=== PATIENT | male | born 1955 | race Caucasian/White ===

== ENCOUNTER 2016-11-16 11:01 | Emergency (ER) | payer OTHER ==
[~2016-11-16] VITALS: Ht 172.7 cm; Wt 114.3 kg
[~2016-11-16 11:01] MED LIST: ACET65TA OR; ALBU17IN2 IN; ALLO300T OR; ALTA10CA OR; ALTA5CAP OR; ASPI81TA3 OR; ATEN50TA2 OR; CARD120T6 OR; COZA100T OR; EPLERENONE PO; Effexor XR OR; FERR325T OR; FOLI1TAB OR; FURO40TA2 OR; GLUC500T3 OR; INDO75CA OR; PLAV75TA2 OR; PRIL20CA OR; PULMICORT INH; TERA2CAP3 OR; TERA5CAP3 OR; VIT D 2000 PO; VITA100T OR; VITA400C OR; VITA500T OR; ZINCLOZ9 PO; [UNRECOGNIZED DRUG - OTHER] TD
[2016-11-16] MEDS ORDERED: REME30TA PO (11:31)
[2016-11-16] MEDS ORDERED: SIRO1TAB3 PO (11:31)
[2016-11-16] MEDS ORDERED: RENV2TAB PO (11:31)
[2016-11-16] MEDS ORDERED: BISO5TAB5 PO (11:31)
[2016-11-16] MEDS ORDERED: JANT5TAB PO (11:31)
[2016-11-16] MEDS ORDERED: FLOM5CAP PO (11:31)
[2016-11-16 13:07] LABS: ADD MORPHOLOGY? YES; BASO % 0.5 % (0.0-1.0); EOS # 0.1 K/mm3 (0.0-0.50); EOS % 1.7 % (0.0-3.0); LARGE UNSTAINED CELL # 0.2 K/mm3 (0.0-0.4); LARGE UNSTAINED CELL % 2.4 % (0.0-4.0); LYMPH # 1.9 K/mm3 (1.5-4.5); LYMPH % 21.3 % (24.0-44.0); MEAN CORPUSCULAR HEMOGLOBIN 22.7 pg (27.0-33.0); MEAN CORPUSCULAR HGB CONC 30.7 g/dl (32.0-36.5); MEAN CORPUSCULAR VOLUME 73.8 fl (80.0-96.0); MONO # 0.6 K/mm3 (0.0-0.8); MONO % 7.4 % (0.0-5.0); NEUTROPHILS # 5.3 K/mm3 (1.8-7.7); NEUTROPHILS % 66.7 % (36.0-66.0); PLATELET COUNT, AUTOMATED 204 k/mm3 (150-450); RED CELL DISTRIBUTION WIDTH 20.1 % (11.5-14.5); WHITE BLOOD COUNT 7.9 K/mm3 (4.0-10.0)
[2016-11-16 13:15] LABS: INR 3.12
[2016-11-16 13:30] LABS: ANISOCYTOSIS 2+; HYPOCHROMASIA 1+; MICROCYTOSIS 2+
[2016-11-16 13:31] LABS: OVALOCYTES 1+
[2016-11-16 13:44] LABS: CALCIUM LEVEL 8.6 MG/DL (8.8-10.2); CREATININE FOR GFR 8.6 MG/DL (0.70-1.30); GLOMERULAR FILTRATION RATE 6.7 (>49)
[2016-11-16 15:17] VITALS: BP 151/82
--- NOTE | 2016-11-16 15:25 | REP ---
RENAL ULTRASOUND: Real-time sonographic evaluation of the kidneys is performed. There is bilateral cortical thinning with atrophy. The right kidney measures 12.1 x 6.2 x 6.4 cm and the left kidney 11.8 x 5.5 x 4.6 cm. Both kidneys are somewhat echogenic suggesting medical renal disease. There is no hydronephrosis. There are multiple bilateral renal cysts. The largest on the right is in the mid aspect 2.6 x 1.8 x 1.6 cm. The largest on the left is in the mid aspect 2.1 x 3.4 x 2.1 cm. Calcified vessels are seen in both kidneys. The urinary bladder is not distended and not evaluated. IMPRESSION: Diffuse cortical atrophy bilaterally with medical renal disease. No hydronephrosis. Multiple bilateral renal cysts. Signed by Yon Morin MD 11/16/2016 05:40 P
== END 2016-11-16 15:43 | disposition home or self-care (01) ==
LOC: M ED 12:31
DX: R31.9 Hematuria, unspecified (principal); E11.9 Type 2 diabetes mellitus without complications; I12.0 Hypertensive chronic kidney disease with stage 5 chronic kidney disease or end stage renal disease; N18.6 End stage renal disease; Z99.2 Dependence on renal dialysis; E78.00 Pure hypercholesterolemia, unspecified; J45.909 Unspecified asthma, uncomplicated; F41.9 Anxiety disorder, unspecified; D56.9 Thalassemia, unspecified; M32.9 Systemic lupus erythematosus, unspecified; Z79.01 Long term (current) use of anticoagulants; Z87.891 Personal history of nicotine dependence; Z79.899 Other long term (current) drug therapy

== ENCOUNTER → 2017-07-09 | Outpatient (CLI) | payer OTHER ==
[~2017-07-09] MED LIST changes: +BISO5TAB5 PO; +FLOM5CAP PO; +ISOVUE-370 76% 100ML VIAL (Q9967) As Ordered ONE; +JANT5TAB PO; +REME30TA PO; +RENV2TAB PO; +SIRO1TAB3 PO
--- NOTE | 2017-07-09 12:07 | REP ---
Clinical: Gross hematuria. End-stage renal disease. Technique: Axial precontrast, conscious enhanced, and delayed images of the abdomen and pelvis using 100 ml Isovue 370 intravenous contrast material with coronal and sagittal re-formations. Comparison: None. Findings: The kidneys are atrophic but demonstrate symmetric parenchymal enhancement. Bilateral renal cysts are identified measuring up to 1.5 cm in the right kidney and 3.5 x 2.0 cm in the left kidney. An 8 mm calcification is identified in the left kidney. There is no evidence for acute perinephric stranding or hydroureteronephrosis. The ureters are unremarkable. The bladder is collapsed. Mild fatty infiltration to the liver is suggested without focal hepatic lesion. Spleen, pancreas, gallbladder, bilateral adrenal glands are normal. The enteric system is without obstruction or acute inflammatory process. Sigmoid diverticula noted without acute diverticulitis. Pelvis demonstrates collapsed bladder and prostate gland measuring 5.3 x 4.7 x 4.0 cm. No pelvic fluid or ascites. No free air. No significant intraperitoneal or retroperitoneal adenopathy. Abdominal aorta without aneurysm. Musculoskeletal structures demonstrate age-related degenerative changes without focal osseous abnormality. Lung bases demonstrate presumed chronic fibro atelectatic changes to the right base along with centrally calcified granuloma in the medial lingula. Impression: 1. Chronic medical renal disease with bilateral cysts and 8 mm nonobstructing left renal calculus. No acute perinephric stranding or hydroureteronephrosis. Bladder is collapsed. 2. Mildly prominent prostate gland. 3. Sigmoid diverticula without acute diverticulitis. 4. Reticulonodular interstitial changes in the deep right lung base likely chronic. However correlation is recommended and complete chest CT may be warranted for further investigation. Signed by Florentino Rubalcava MD 07/09/2017 11:58 A
== END ==
LOC: M RAD 11:17
PROVIDERS: ATTEND Internal Medicine Nephrology
DX: N28.1 Cyst of kidney, acquired (principal); N20.0 Calculus of kidney; K57.30 Diverticulosis of large intestine without perforation or abscess without bleeding; R31.0 Gross hematuria; N18.6 End stage renal disease
CPT/HCPCS: 74178; Q9967

== ENCOUNTER → 2018-01-08 | Outpatient (CLI) | payer MEDICARE | LOC: M RAD 11:55 | DX: R31.9 Hematuria, unspecified (principal); I50.32 Chronic diastolic (congestive) heart failure; N28.1 Cyst of kidney, acquired | CPT/HCPCS: 71046 ==

== ENCOUNTER → 2018-02-03 | Outpatient (CLI) | payer MEDICARE, OTHER | LOC: M SMT 09:50 | DX: Z01.818 Encounter for other preprocedural examination (principal) | CPT/HCPCS: 36415 ==

== ENCOUNTER 2018-03-24 09:46 | Day surgery (SDC) | payer MEDICARE, OTHER ==
[2018-03-24] MEDS: NS 1,000 ML IV (11:02)
[2018-03-24] MEDS ORDERED: PROPOFOL 200 MG/20 ML VIAL As Ordered (12:20)
== END 2018-03-24 13:15 | disposition home or self-care (01) ==
LOC: M OPP 09:46
DX: Z12.11 Encounter for screening for malignant neoplasm of colon (principal); K62.1 Rectal polyp; D12.3 Benign neoplasm of transverse colon; K64.0 First degree hemorrhoids; K57.30 Diverticulosis of large intestine without perforation or abscess without bleeding; I48.91 Unspecified atrial fibrillation; M10.9 Gout, unspecified; K21.9 Gastro-esophageal reflux disease without esophagitis; R12 Heartburn; D64.9 Anemia, unspecified; M19.90 Unspecified osteoarthritis, unspecified site; K59.00 Constipation, unspecified; M32.9 Systemic lupus erythematosus, unspecified; F32.9 Major depressive disorder, single episode, unspecified; F41.9 Anxiety disorder, unspecified; R51 Headache; Z86.73 Personal history of transient ischemic attack (TIA), and cerebral infarction without residual deficits; J45.909 Unspecified asthma, uncomplicated; G47.30 Sleep apnea, unspecified; N18.5 Chronic kidney disease, stage 5; Z99.2 Dependence on renal dialysis; Z86.79 Personal history of other diseases of the circulatory system; Z79.899 Other long term (current) drug therapy; Z80.8 Family history of malignant neoplasm of other organs or systems; Z80.3 Family history of malignant neoplasm of breast
CPT/HCPCS: 45385

== ENCOUNTER → 2018-08-07 | Outpatient (CLI) | payer MEDICARE ==
[~2018-08-07] MED LIST changes: +ARNU1INH IN; +CALC1CAP PO; +FLOM0.4C39 PO; -FLOM5CAP PO; +GLUC1CAP10 PO; +HYDR200T3 PO; -ISOVUE-370 76% 100ML VIAL (Q9967) As Ordered ONE; +POLY33503 PO; +RENATAB5 PO; +VENTAER IN; +VITA500079 PO
[2018-08-07 17:55] LABS: CHOLESTEROL RISK RATIO 3.333 (<5); FREE T4 1.17 NG/DL (0.76-1.46); THYROID STIMULATING HORMONE 0.875 uIU/ML (0.358-3.740)
[2018-08-07 18:05] LABS: HEMOGLOBIN A1c 5.6 %
== END ==
LOC: M SMT 11:40
PROVIDERS: ATTEND Psychiatry & Neurology Neurology
DX: E11.9 Type 2 diabetes mellitus without complications (principal); E07.9 Disorder of thyroid, unspecified; Z86.73 Personal history of transient ischemic attack (TIA), and cerebral infarction without residual deficits

== ENCOUNTER → 2018-08-15 | Outpatient (CLI) | payer OTHER ==
--- NOTE | 2018-08-15 17:41 | REP ---
HISTORY: Renal transplant. COMPARISON: 11/15/2010 which is the only prior. There is no evidence of mediastinal or hilar adenopathy. Calcified carinal lymph nodes are noted, status quo. There are no pleural or pericardial effusions. The aortic root has a maximal AP dimension of 4.3 cm, previously 4 cm. The examinations, however, are technically different. The imaged upper abdomen shows diffuse low density throughout the hepatic parenchyma. The imaged portion of the right kidney is markedly atrophic. The imaged osseous structures are within normal limits for the patient's age. There are spinal degenerative changes. Evaluation of the lung reyna show scattered right lower lobe reticulonodular densities representing a change from the prior exam. There is also evidence of bibasilar cylindrical bronchiectasis. Incidental calcified granulomas seen in the inferior lingula with a few smaller incidental calcified granulomas, all of which are stable from the prior exam. IMPRESSION: 1. Aortic root, possible mild ectasia as described above. Correlate clinically. 2. Reticulonodular densities right lower lobe as described above. Exact etiology uncertain. Consider pulmonary consultation. 3. Chronic lung field changes with bronchiectasis as described above. 4. Other findings as described above. Electronically Signed by Julian Kang DO 08/18/2018 05:28 P
== END ==
LOC: M RAD 14:48
PROVIDERS: ATTEND Internal Medicine Nephrology
DX: Z01.818 Encounter for other preprocedural examination (principal)

== ENCOUNTER → 2018-09-17 | Outpatient (CLI) | payer MEDICARE ==
--- NOTE | 2018-09-17 10:25 | REP ---
CT Head without contrast HISTORY: TIAs COMPARISON: 03/31/2007 There is no intraparenchymal hemorrhage, acute infarct, mass or midline shift. The ventricular system and cortical sulci are dilated consistent with minimal volume loss. There is no extra cerebral collection. There is no fracture. The visualized sinuses are clear. IMPRESSION: Minimal volume loss. Electronically Signed by Juan Brock MD 09/17/2018 10:16 A
--- NOTE | 2018-09-17 12:26 | REP ---
CAROTID ULTRASOUND: Real-time ultrasound evaluation and duplex Doppler interrogation of the extracranial carotid vasculature is performed. There is mild plaquing and narrowing in both carotid bulbs extending into the internal and external carotid arteries. Luminal narrowing is less than 50%. There is no evidence of hemodynamically significant stenosis of either internal carotid artery. Normal flow velocities are seen. The vertebral arteries demonstrate normal direction of flow. RIGHT LEFT Peak systolic velocity ICA 75.6 cm/s 113.3 cm/s End diastolic velocity ICA 20.6 cm/s 24.4 cm/s Peak systolic velocity CCA 90.2 cm/s 118.5 cm/s Peak systolic velocity ECA 97.2 cm/s 71.9 cm/s ICA/CCA ratio 0.84 0.96 IMPRESSION: Bilateral luminal narrowing of the internal carotid arteries less than 50%. No evidence of hemodynamically significant stenosis. A right thyroid nodule measures 1.3 cm in diameter and a left thyroid nodule measures 4 mm in diameter. Recommend formal thyroid ultrasound to further evaluate. Electronically Signed by Yon Morin MD 09/17/2018 12:17 P
== END ==
LOC: M RAD 10:01
PROVIDERS: ATTEND Physician Assistant Medical
DX: G45.8 Other transient cerebral ischemic attacks and related syndromes (principal); R47.01 Aphasia; E04.1 Nontoxic single thyroid nodule

== ENCOUNTER → 2018-09-23 | Outpatient (CLI) | payer MEDICARE ==
--- NOTE | 2018-09-23 16:16 | REP ---
THYROID ULTRASOUND: Real-time sonographic evaluation of the thyroid performed. Both lobes are slightly prominent in size, right lobe measuring 5.1 x 2.4 x 1.8 cm and left lobe 4.8 x 2.2 x 2.0 cm. There is a nodule in the right upper pole measuring 1 cm in diameter. Two smaller nodules are seen in the mid aspect measuring 4 mm and 5 mm in diameter. There are two nodules in the left upper pole both measuring 3 mm in diameter. IMPRESSION: Multiple subcentimeter nodules bilaterally with one nodule measuring up to 1 cm in diameter maximally in the right upper pole. Electronically Signed by Yon Morin MD 09/24/2018 10:36 A
== END ==
LOC: M RAD 14:39
PROVIDERS: ATTEND Physician Assistant Medical
DX: D34 Benign neoplasm of thyroid gland (principal)

== ENCOUNTER → 2018-10-07 | Outpatient (CLI) | payer MEDICARE ==
[2018-10-07 14:57] LABS: FREE T4 1.1 NG/DL (0.76-1.46); THYROID STIMULATING HORMONE 1.43 uIU/ML (0.358-3.740)
== END ==
LOC: M SMT 10:37
PROVIDERS: ATTEND Internal Medicine Endocrinology, Diabetes & Metabolism
DX: E04.2 Nontoxic multinodular goiter (principal)

== ENCOUNTER 2019-01-01 01:06 | Emergency (ER) | payer MEDICARE ==
[~2019-01-01] VITALS: Ht 170.2 cm; Wt 113.6 kg
[2019-01-01 01:15] VITALS: BP 158/74
--- NOTE | 2019-01-01 02:35 | REPVR ---
EXAM: CT Head Without Contrast EXAM DATE/TIME: 01/01/19 (1:16am) CLINICAL HISTORY: 63 year old male. Recent fall. Struck head. Taking blood thinners. TECHNIQUE: Imaging protocol: Axial computed tomography images of the head without contrast. Radiation optimization: All CT scans at this facility use at least one of these dose optimization techniques: automated exposure control; mA and/or kV adjustment per patient size (includes targeted exams where dose is matched to clinical indication); or iterative reconstruction. COMPARISON: CT HEAD of 09/17/18 FINDINGS: Brain: Age-appropriate atrophic changes. No acute hemorrhage. No mass effect. Ventricles: Normal. No ventriculomegaly. Bones/joints: Unremarkable. No acute fracture. Sinuses: Visualized sinuses are unremarkable. No fluid levels. Mastoid air cells: Visualized mastoid air cells are well aerated. No mastoid effusion. Soft tissues: Unremarkable. IMPRESSION: No acute intracranial pathology is appreciated. Atrophic changes are again seen. Electronically signed by: Val Scruggs On 01/01/2019 02:35:12 AM
[2019-01-01] MEDS ORDERED: LIDOCAINE 4% TOPICAL SOLN 50 ML BTL As Ordered ONE ×2 (02:56→05:17)
[2019-01-01] MEDS ORDERED: ADACEL/BOOSTRIX VACCINE (DIPHTH/PERTUSS/ACELL/TETANUS)0.5ML SYR (90715) IM ONE (03:30)
[2019-01-01] MEDS ORDERED: BUPR150T3 PO (03:31)
[2019-01-01] MEDS ORDERED: ASPI81TA33 PO (03:31)
[2019-01-01] MEDS ORDERED: ACETAMINOPHEN TAB 650MG DOSE (2X325MG) PO ONE (04:30)
[2019-01-01] MEDS ORDERED: LIDOCAINE W/EPINEPHRINE 1% 20ML VIAL SC ONE (04:45)
[2019-01-01] MEDS ORDERED: DOXY100C37 PO (06:11)
[2019-01-01] MEDS ORDERED: AUGMENTIN 875 MG TAB PO ONE (06:15)
[2019-01-01] MEDS ORDERED: DOXYCYCLINE HYCLATE 100 MG TAB PO ONE (06:15)
--- NOTE | 2019-01-01 07:56 | REP ---
Clinical: Trauma. Technique: Pete and bilateral lateral views of the nasal bones. Findings: Bilateral nasal bone fracture with minimal angulation. Overlying soft tissue swelling. Impression: Nasal bone fracture. Electronically Signed by Florentino Rubalcava MD 01/01/2019 07:48 A
== END 2019-01-01 06:52 | disposition home or self-care (01) ==
LOC: M ED 01:06
DX: S02.2XXB Fracture of nasal bones, initial encounter for open fracture (principal); W01.10XA Fall on same level from slipping, tripping and stumbling with subsequent striking against unspecified object, initial encounter; Y92.091 Bathroom in other non-institutional residence as the place of occurrence of the external cause; I48.91 Unspecified atrial fibrillation; E11.22 Type 2 diabetes mellitus with diabetic chronic kidney disease; I12.0 Hypertensive chronic kidney disease with stage 5 chronic kidney disease or end stage renal disease; N18.6 End stage renal disease; Z79.899 Other long term (current) drug therapy; Z79.01 Long term (current) use of anticoagulants; Z79.82 Long term (current) use of aspirin; Z99.2 Dependence on renal dialysis

== ENCOUNTER 2019-01-03 12:21 | Inpatient (IN) | payer MEDICARE ==
[~2019-01-03] VITALS: Ht 170.2 cm; Wt 114.6 kg
[~2019-01-03 12:21] MED LIST changes: +ASPI81TA33 PO; +BUPR150T3 PO; +DOXY100C37 PO
[2019-01-03] MEDS ORDERED: NEPH1TAB11 PO (13:02)
[2019-01-03] MEDS ORDERED: MORPHINE 4 MG/ML 1ML VIAL/SYRINGE (J2270) IV ONE ×2 (13:15→23:30)
[2019-01-03] MEDS ORDERED: BACITRACIN OINT 30GM TOP ONE (13:15)
[2019-01-03] MEDS ORDERED: BUPR150T3 PO (13:47)
[2019-01-03] MEDS ORDERED: OMEP20CA3 PO (13:47)
[2019-01-03] MEDS ORDERED: WARF-21 PO (13:47)
[2019-01-03] MEDS ORDERED: PEGPOW PO (13:47)
[2019-01-03] MEDS ORDERED: DOXY100C37 PO (13:47)
[2019-01-03 13:50] LABS: BASO # 0.1 10^3/uL (0.0-0.2); BASO % 0.5 % (0.0-1.0); HEMATOCRIT 32.3 % (42.0-52.0); HEMOGLOBIN 10.4 g/dl (13.5-17.5); LYMPH # 1.2 10^3/uL (1.5-4.5); LYMPH % 12.1 % (24.0-44.0); MEAN CORPUSCULAR HEMOGLOBIN 23.2 pg (27.0-33.0); MEAN CORPUSCULAR HGB CONC 32.2 g/dl (32.0-36.5); MEAN CORPUSCULAR VOLUME 72.1 fl (80.0-96.0); MONO # 1.2 10^3/uL (0.0-0.8); MONO % 11.9 % (0.0-5.0); NEUTROPHILS # 7.6 10^3/uL (1.8-7.7); NEUTROPHILS % 74.9 % (36.0-66.0); PLATELET COUNT, AUTOMATED 220 10^3/uL (150-450); RED BLOOD COUNT 4.48 10^6/uL (4.30-6.10); WHITE BLOOD COUNT 10.2 10^3/uL (4.0-10.0)
--- NOTE | 2019-01-03 13:55 | REP ---
Clinical: Acute chest pain. Technique: AP and lateral. Comparison: 01/08/2018. Findings: Mediastinum and cardiac silhouette are within normal limits and stable. Lung reyna demonstrate chronic stable changes without acute consolidation, effusion, or pneumothorax. Skeletal structures intact. Impression: Chronic stable changes. No acute cardiopulmonary process. Electronically Signed by Florentino Rubalcava MD 01/03/2019 01:47 P
--- NOTE | 2019-01-03 13:57 | REP ---
Clinical: Fall with pain. Technique: AP, lateral, bilateral oblique views of the right knee. Findings: Lateral view demonstrates a [id number] suprapatellar effusion. Advanced tricompartmental osteoarthritic degenerative changes are appreciated including chondrocalcinosis, osteophytosis, periarticular sclerosis, and joint space narrowing. No obvious acute fracture or dislocation identified. Impression: 1. [id number] suprapatellar effusion. 2. Advanced tricompartmental osteoarthritic degenerative changes. 3. No acute fracture or dislocation. Electronically Signed by Florentino Rubalcava MD 01/03/2019 01:49 P
[2019-01-03 14:01] LABS: VENOUS HCO3 23.2 MEQ/L (23.0-27.0); VENOUS PARTIAL PRESSURE CO2 46.3 mmHg (38.0-50.0); VENOUS PARTIAL PRESSURE O2 40.7 mmHg (30.0-50.0); VENOUS PH 7.318 UNITS (7.330-7.430); VENOUS STANDARD HCO3 21.4 MEQ/L; VENOUS TOTAL CO2 24.6 MEQ/L (24.0-28.0)
[2019-01-03 14:06] LABS: INR 4.41; PROTHROMBIN TIME 43.2 SECONDS (12.1-14.4)
[2019-01-03] MEDS ORDERED: ALBUTEROL 90 MCG/ACT 8GM HFA INHALER INH PRN (14:15)
--- NOTE | 2019-01-03 14:39 | HPEPDOC ---
General Date of Admission January 03, 2019 at 13:16 Date of Service: January 03, 2019 Chief Complaint The patient is a 63-year-old male admitted with a reason for visit of Creatinine Elevation,Fluid Overload. Source: Patient Exam Limitations: No limitations Timing/Duration: 4-6 hours Severity: Mild, Moderate Associated Symptoms: Shortness of breath (baseline) History of Present Illness Pt is a 63 yo male with PMH of lupus with antiphospholipid syndrome, thalassemia minor, paroxysmal a. fib s/p ?ablation, and ESRD on hemodialysis who presented to [facility] ER due to mechanical fall this morning at 8 AM and missing dialysis. Pt initially had a fall on Saturday morning and reported he hit his nose and right knee after tripping on his chair, and he came to the ER with dressings applied. He reported that he had abrasions from glabella to nasal bridge at that time, and had a small open wound on right knee which he had been changing the dressings at home. He said his right knee was swollen and that he had been sleeping on the recliner for the past 2 days. This morning when he got up from the recliner, he said he stood up too fast and lost balance then fell with his right knee against the floor. Pt is not sure whether he hit his right elbow but reported some pain in his right elbow and forearm which he reported to be d/t pulling his muscles. He initially said he hit his head this morning but later denied. He denied any visual disturbance, lightheadedness, dizziness, nausea, vomiting, chest pain, palpitation, or vertigo. Reported baseline SOB but denies any other symptoms. At baseline he walks at home without assist without any balance problem. Pt usually has hemodialysis , , and Sat, and he missed dialysis from this Home Medications Scheduled Aspirin (Aspirin EC) 81 Mg Tablet.dr, 81 MG PO DAILY, (Reported) Bupropion Hcl (Bupropion Xl) 150 Mg Tab.er.24h, 150 MG PO DAILY, (Reported) Calcium Acetate (Calcium Acetate) 667 Mg Cap, 667 MG PO TID, (Reported) Cholecalciferol (Vitamin D3) (Vitamin D3) 5,000 Unit Chw, 5,000 UNIT PO DAILY, (Reported) Doxycycline Monohydrate (Doxycycline Monohydrate) 100 Mg Capsule, 100 MG PO BID, (Reported) Fluticasone Furoate (Arnuity Ellipta) 100 Mcg/Act Inh, 100 MCG IN QAM, (Reported) Folic Acid/Vit B Complex and C (Adilia-Monique Tablet) 1 Tab Tab, 1 TAB PO DAILY, (Reported) Gluc Caceres/Chondro Caceres A/Vit C/Mn (Glucosamine-Chondroitin Cap) 1 Cap Cap, 1 CAP PO BID, (Reported) Hydroxychloroquine Sulfate (Hydroxychloroquine Sulfate) 200 Mg Tab, 200 MG PO BID, (Reported) Mirtazapine (Remeron) 30 Mg Tab, 30 MG PO QHS, (Reported) Omeprazole (Omeprazole) 20 Mg Capsule.dr, 20 MG PO DAILY, (Reported) Polyethylene Glycol 3350 (Polyethylene Glycol 3350) 510 Gm Powder, 17 GRAM PO QHS, (Reported) Vit B Comp No.3/Folic/C/Biotin (Nephro-Monique Rx Tablet) 1 Each Tablet, 1 TAB PO DAILY, (Reported) Warfarin Sodium (Jantoven) 5 Mg Tab, 5 MG PO 5XW, (Reported) TAKES SATURDAY,SATURDAY, SATURDAY, SATURDAY, SATURDAY Warfarin Sodium (Warfarin Sodium) 7.5 Mg Tablet, 7.5 MG PO 2XWK, (Reported) Scheduled PRN Albuterol Sulfate (Ventolin Hfa) 108 Mcg/Act Aer, 108 MCG IN Q4-6HP PRN for WHEEZING, (Reported) Allergies Coded Allergies: No Known Allergies (Verified , 03/17/18) Past Medical History Medical History HTN, diagnosed 18 years ago Gout, diagnosed 10 years ago Antiphospholipid syndrome diagnosed 11 years ago Thalassemia minor Hiatal hernia NEERAJ on CPAP Paroxsymal A. fib s/p? ablation. Pt reported 2 surgeries for his A.fib in [place]; denies past [place] Lupus GERD ESRD on hemodialysis asthma Appendicitis Mini strokesX2 Surgical History Appendidectomy Repair of broken left ankle Heart surgeries X2; pt reported it is for his ablation Dialysis fistula Pineal gland cyst removed Kidney biopsy; pt was unsure why Family History Father-brain cancer Mother-pancreatic cancer; Diabetes Siblings. Oldest sister has bladder and breast cancer Social History * Smoker: former Smoker (Quit in 1998) Alcohol: Denies Drugs: denies Pt lives alone by himself; has an ex- that he still in contact with A-FIB/[facility]ADSVASC A-FIB History Current/History of A-Fib/PAF?: Yes Current PO Anticoag Therapy: Yes (Warfarin) Review of Systems Constitutional: Reports: Weakness; Denies: Chills, Fever ENT: Denies: Head Aches Skin: Reports: Lesions (right knee and nasal bridge) Pulmonary: Reports: Dyspnea (baseline), Other Symptoms (denies wheezing); Denies: Cough, Pleuritic Chest Pain Cardiovascular: Denies: Chest Pain, Palpitations, Lt Headedness Gastrointestinal: Denies: Nausea, Vomiting Musculoskeletal: Reports: Arm Pain (right arm and elbow), Leg Pain (right leg) Neurological: Denies: Numbness, Incoordination, Change in speech, Confusion Physical Examination General Exam: Positive: Alert, Cooperative, No Acute Distress, Mild Distress Eye Exam: Positive: EOMI ENT Exam: Positive: Atraumatic, Mucous membr. moist/pink Chest Exam: Positive: Clear to auscultation, Normal air movement; Negative: Rales, Rhonchi, Wheezing Heart Exam: Positive: Rate Normal, Regular Rhythm, Normal S1, Normal S2; Negative: Murmurs Abdomen Exam: Positive: Normal bowel sounds, Soft, Other (no guarding or distention) Extremity Exam: Positive: Normal pulses, Tenderness (right elbow and arm); Negative: Edema, Swelling Skin Exam: Positive: Other skin issue (about 5cm X1.5cm open wound on right knee with blood present; no signs of active bleeding/infection) Neuro Exam: Positive: Normal Speech, Strength at 5/5 X4 ext, Normal Tone, Sensation Intact, Cranial Nerves 3-12 NL Psych Exam: Positive: Mental status NL, Mood NL, Oriented x 3 Vital Signs Vital Signs Date Time Temp Pulse Resp B/P (MAP) Pulse Ox O2 Delivery O2 Flow Rate FiO2 01/03/19 14:16 91 139/67 (91) 100 01/03/19 13:43 18 01/03/19 12:34 96.9 Room Air Laboratory Data Labs 24H Laboratory Tests 2 01/03/19 13:33: Immature Granulocyte % (Auto) 0.6, White Blood Count 10.2H, Red Blood Count 4.48, Hemoglobin 10.4L, Hematocrit 32.3L, Mean Corpuscular Volume 72.1L, Mean Corpuscular Hemoglobin 23.2L, Mean Corpuscular Hemoglobin Concent 32.2, Red Cell Distribution Width 16.6H, Platelet Count 220, Neutrophils (%) (Auto) 74.9H, Lymphocytes (%) (Auto) 12.1L, Monocytes (%) (Auto) 11.9H, Eosinophils (%) (Auto) 0.0, Basophils (%) (Auto) 0.5, Neutrophils # (Auto) 7.6, Lymphocytes # (Auto) 1.2L, Monocytes # (Auto) 1.2H, Eosinophils # (Auto) 0.0, Basophils # (Auto) 0.1, Nucleated Red Blood Cells % (auto) 0.0, Prothrombin Time 43.2H, Prothromb Time International Ratio 4.41, Blood Gas Bicarbonate Standard 21.4, Venous Blood pH 7.318L, Venous Blood Partial Pressure CO2 46.3, Venous Blood Partial Pressure O2 40.7, Venous Blood Total Carbon Dioxide 24.6, Venous Blood HCO3 23.2, Venous Blood Oxygen Saturation 66.0, Venous Blood Base Excess -3.0L CBC/BMP Laboratory Tests 01/03/19 13:33 Red Blood Count 4.48, Mean Corpuscular Volume 72.1 L, Mean Corpuscular Hemoglobin 23.2 L, Mean Corpuscular Hemoglobin Concent 32.2, Red Cell Distribution Width 16.6 H, Neutrophils (%) (Auto) 74.9 H, Lymphocytes (%) (Auto) 12.1 L, Monocytes (%) (Auto) 11.9 H, Eosinophils (%) (Auto) 0.0, Basophils (%) (Auto) 0.5, Neutrophils # (Auto) 7.6, Lymphocytes # (Auto) 1.2 L, Monocytes # (Auto) 1.2 H, Eosinophils # (Auto) 0.0, Basophils # (Auto) 0.1 Problems (1) ESRD on hemodialysis Problem Text: - Dialysis T, TH, S; - pt missed scheduled dialysis from this and today; - Going into urgent dialysis today - CMP pending - Denies any symptoms including lightheadedness/dizziness/palpitation (2) Laceration of nose Status: Acute Problem Text: -From 12/31/18 mechanical fall -dressings in place -pt reported intermittent trace amt of nose bleed still present and he would swallow it; pt reported that he has been having decreased food intake as a result -Swallow eval ordered (3) Fall from standing Status: Acute Problem Text: -Mechanical fall, losing balance while standing up -12/31 also mechanical fall from tripping on chair; injured right knee with prior ER visit and dressing applied -Pt reported open wound from Saturday as well; wound larger from this fall compared to prior -Pt unsure if hitting right elbow/arm but reported right elbow and arm pain; right complete elbow X ray pending -Denies any numbness/tingling/loss of sensation in extremities. +5/5 in all 4 extremities -PT/OT ordered (4) Laceration of knee, right Status: Acute Problem Text: Superficial laceration; wound without obvious sign of infection and active bleeding -dressings applied in ER -Wound care ordered -[id number] suprapatellar effusion -Pt will be at bedrest for now. PT/OT ordered (5) Lupus Problem Text: PMH of unspecified lupus with phospholipid syndrome -ESRD on dialysis; pt denies any other complications from lupus, stated it is t hought that his ESRD may be d/t lupus -on hydroxychloroquine; reported eye exam every 6 months -cont hydroxychloroquine at this time as no obvious signs of infection (6) Asthma Problem Text: Reported baseline SOB. No obvious accessory muscle use. Sat well on RA with normal RR -Cont home med albuterol and fluticasone inhaler -oxy therapy ordered (7) NEERAJ (obstructive sleep apnea) Problem Text: PMH of NEERAJ -Pt may use home CPAP (8) Anti-phospholipid syndrome Problem Text: PMH of antiphospholipid syndrome -current INR 4.41. Hold home Warfarin -Repeat INR level; goal 2-3 -Pt reported PMH of 2Xmini strokes likely TIA (9) Paroxysmal atrial fibrillation Problem Text: HR roughly wnl in low 90s -Reported 2 prior cardiac surgery for his paroxysmal a. fib, likely ablation procedures. No medical records asso. could be found. Obtain outpt records -Hold Warfarin as INR supratherapeutic now 4.41. Goal 2-3 -Pt in sinus rhythm at time of examination; denies CP or palpitation -tele monitor Plan / VTE VTE Prophylaxis Ordered?: Yes (heparin SC) GME ATTESTATION GME ATTESTATION My faculty preceptor for this patient encounter was physically present during the encounter and was fully available. All aspects of the patient interview, examination, medical decision making process, and medical care plan development were reviewed and approved by the faculty preceptor. The faculty preceptor is aware and concurs with the plan as stated in the body of this note and will attest to such by his/her cosignature. ATTENDING NOTE I, Lucien Bravo, have both independently examined this patient as well as reviewed the documentation. I have discussed in detail with the resident the findings and plan of treatment as documented by the resident. I agree with their findings and treatment plan. I will continue to follow the patient and offer further guidance to the patients care as necessary during this hospital stay. JOVI MCDERMOTT DO January 03, 2019 14:39 LUCIEN BRAVO MD January 03, 2019 18:56
[2019-01-03 14:59] LABS: ALBUMIN 3.4 GM/DL (3.2-5.2); BILIRUBIN,DIRECT 0.2 MG/DL (0.0-0.2); BILIRUBIN,TOTAL 0.6 MG/DL (0.2-1.0); CALCIUM LEVEL 9.3 MG/DL (8.8-10.2); CREATININE FOR GFR 16.2 MG/DL (0.70-1.30); GLOMERULAR FILTRATION RATE 3.2 (>49); MB/CK RELATIVE INDEX 0.47 (< OR =4); POTASSIUM SERUM 7.4 MEQ/L (3.5-5.1); THYROID STIMULATING HORMONE 1.12 uIU/ML (0.358-3.740); TOTAL PROTEIN 6.4 GM/DL (6.4-8.2); TROPONIN I 0.03 NG/ML (< 0.10)
--- NOTE | 2019-01-03 19:03 | CR ---
DATE OF CONSULTATION: 01/03/2019 REQUESTING PHYSICIAN: Dr. Morin in the emergency room. CONSULTING PHYSICIAN: Dr. Soto REASON FOR CONSULTATION: Management of end-stage renal disease, missed hemodialysis and hyperkalemia. CHIEF COMPLAINT: The patient presented to the emergency room (ER) room with weakness, falls and inability to go for dialysis. HISTORY OF PRESENT ILLNESS: Mr. Tomás Brower is a 63-year-old male with past medical history of end-stage renal disease on hemodialysis, Saturday, , Saturday, history of thalassemia minor, antiphospholipid syndrome, paroxysmal atrial fibrillation, multiple other comorbidities as mentioned below. He presented to the emergency room two days ago after a fall. He had a fracture of the nasal bridge and he got the dressing done on his nose and right knee as well. The patient went home and reported that he was not feeling good, he was feeling weak and tired. He was unable to walk and he was unable to go for hemodialysis. He was feeling lightheaded and dizzy, so he called the ambulance and he presented to the emergency room. On arrival in the emergency room, initially the labs were drawn which showed a potassium of 7.4. Nephrology service was called for further help in the management of this patient for arrangement of hemodialysis and hyperkalemia management. I saw and evaluated the patient today morning at the bedside. He was afebrile and hemodynamically stable. PAST MEDICAL HISTORY: End-stage renal disease on hemodialysis every Saturday, , Saturday, history of hypertension, chronic gout secondary to chronic kidney disease, antiphospholipid syndrome, thalassemia minor, obstructive sleep apnea, paroxysmal atrial fibrillation, hiatal hernia, systemic lupus erythematosus, gastroesophageal reflux disease, asthma, history of transient ischemic attacks (TIAs) times two. PAST SURGICAL HISTORY: Status post appendectomy, status post repair of the left ankle fracture, status post atrial fibrillation ablation, status post arteriovenous (AV) fistula placement for dialysis, status post pineal gland cyst removal. ALLERGIES: The patient has no known drug allergies. FAMILY HISTORY: No significant family history of end-stage renal disease requiring hemodialysis. SOCIAL HISTORY: The patient denies any smoking, illicit drug abuse or alcohol abuse. He lives alone. REVIEW OF SYSTEMS: CONSTITUTIONAL: The patient reports feeling weak and tired. EYES: He denies any blurry vision, double vision. ENT: Denies any dysphagia, odynophagia. He does report recent nasal fracture after fall. CARDIOVASCULAR: He denies any chest pain or palpitation. RESPIRATORY: He denies any shortness of breath or cough. GASTROINTESTINAL (GI): He denies any nausea, vomiting or diarrhea. MUSCULOSKELETAL: He reports muscle weakness and pain in the right knee after a trauma. CENTRAL NERVOUS SYSTEM (MANAGER BUSINESS): He denies any strokes or seizures. HEMATOLOGIC/ONCOLOGIC: He denies any easy bleeding or bruising. ENDOCRINE: He reports secondary hyperparathyroidism. PSYCHIATRIC: He denies any depression or anxiety. SKIN: He denies any rashes. He does report ulcer on the right knee. PHYSICAL EXAMINATION: GENERAL: The patient is awake, alert, oriented x3, laying in bed. VITAL SIGNS: Temperature is 96.9 degrees Fahrenheit, blood pressure 177/82, pulse is 93, respiratory of 18, saturating 95% on room air. HEAD AND NECK EXAM: Pupils are equally round and reactive to light. The patient has a plaster on the nose. Neck is supple. There is no jugular venous distension (JVD). CARDIOVASCULAR: S1, S2 regular rate. No edema of the bilateral lower extremities. RESPIRATORY: Chest is clear to auscultation bilaterally. Bilateral equal air entry. No rales or rhonchi. ABDOMEN: Soft, obese, positive bowel sounds, nontender. No organomegaly. MUSCULOSKELETAL: The patient has a dressing on the right knee and it is soaked with blood. MANAGER BUSINESS: Power is 5/5 in all extremities. PSYCHIATRIC: Normal mood and affect. AV ACCESS: The patient has a left forearm AV fistula with positive thrill and bruit. LABORATORY REVIEW: Complete blood count (CBC) showed a white blood count (WBC) of 10.2, hemoglobin 10.4, platelets are 220, INR is 4.4. Venous blood gas (VBG) showed a pH of 7.31. Basic metabolic panel (BMP) showed sodium 136, potassium 7.4, chloride 98, bicarbonate 24, BUN 72, creatinine is 16.2, AST 39, ALT 43 ProBNP is 10,378. IMAGING STUDIES: A chest x-ray was done today, which showed no acute cardiopulmonary process and a knee x-ray was done which showed moderate to large patellar effusion. No acute fracture or dislocation. CURRENT INPATIENT MEDICATIONS: The patient's medications include aspirin 81 mg daily, albuterol as needed, Wellbutrin 150 mg by mouth daily, PhosLo one capsule by mouth with meals, Flovent 2 puffs twice a day. He is on heparin subcutaneous twice a day and stopping this because his INR is therapeutic. He is on Plaquenil 200 mg by mouth twice a day, mirtazapine 20 mg at bedtime (q.h.s.), morphine one dose was given, omeprazole 20 mg by mouth daily, MiraLax one packet daily, Nephro-Monique one tablet daily and vitamin D 5000 units by mouth daily. ASSESSMENT: 63-year-old male with end-stage renal disease on hemodialysis, status post recent fall with injury to right knee and nose, admitted at this time with weakness and hyperkalemia. PLAN: 1. End-stage renal disease on hemodialysis. The patient's regular dialysis days are Saturday, , Saturday and today he missed his dialysis. I have arranged the urgent hemodialysis because of the missed dialysis and hyperkalemia. I will try to do 3 hours of dialysis and try to remove at least 2 kilograms of fluid as tolerated by his blood pressure. 2. Hyperkalemia. The patient has a potassium of 7.4. Urgent hemodialysis was arranged. He will be dialyzed with a 1 K bath today. 3. Anemia in end-stage renal disease. Hemoglobin is 10.4 which is optimal. No need of Aranesp administration at this time. 4. Systemic lupus erythematosus. Continue home dose of hydroxychloroquine 5. Antiphospholipid syndrome. Patient takes Coumadin at home. INR is supra-therapeutic, Coumadin has been held. Thank you for involving me in the care of this patient. I shall be happy to follow the patient along with you tomorrow morning. Plan of care was discussed with the ER physician and the decision was made to admit the patient for urgent dialysis.
[2019-01-03 19:30] VITALS: BP 142/72
--- NOTE | 2019-01-03 19:37 | ECGEPIP ---
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
--- NOTE | 2019-01-03 19:54 | REP ---
Clinical: Intracranial hemorrhage. Comparison: 01/01/2019 . Findings: Age-related atrophy and microvascular ischemic changes are appreciated. The ventricles and sulci are symmetric. Morin-white differentiation is maintained. There is no evidence for acute intracranial hemorrhage, mass/mass effect, pathology or infarction. No extra-axial fluid collection. Calvarium is intact. Paranasal sinuses and mastoid air cells are clear. Impression: Age related atrophy and microvascular ischemic changes. No acute intracranial hemorrhage, infarction, or mass/mass effect. Electronically Signed by Florentino Rubalcava MD 01/03/2019 07:45 P
[2019-01-03] MEDS: CALCIUM ACETATE 667 MG GELCAP PO SCH (20:10)
[2019-01-03] MEDS: buPROPion **XL** TABLET 150MG (WELLBUTRIN XL) PO SCH (20:11)
[2019-01-03] MEDS: MIRTAZAPINE 15 MG TAB PO SCH (20:11)
[2019-01-03] MEDS: HYDROXYCHLOROQUINE 200 MG TAB PO SCH (20:11)
[2019-01-03] MEDS: MIRALAX *UNIT DOSE* 17GM PACKET PO SCH (20:12)
[2019-01-03] MEDS: ASPIRIN 81 MG ENTERIC TAB PO SCH (20:12)
[2019-01-03 20:37] LABS: CALCIUM LEVEL 9.2 MG/DL (8.8-10.2); CREATININE FOR GFR 8.77 MG/DL (0.70-1.30); GLOMERULAR FILTRATION RATE 6.5 (>49); POTASSIUM SERUM 5.2 MEQ/L (3.5-5.1)
[2019-01-03] MEDS ORDERED: HEPARIN SOD (PORCINE) 5000 UNITS/ML VIAL SC SCH (21:00)
[2019-01-03] MEDS: ACETAMINOPHEN TAB 650MG DOSE (2X325MG) PO PRN (22:33)
[2019-01-04] VITALS (7 sets, daily range): BP systolic 96–123; BP diastolic 52–61
[2019-01-04] MEDS ORDERED: MORPHINE 4 MG/ML 1ML VIAL/SYRINGE (J2270) IV ONE (03:00)
[2019-01-04 07:11] LABS: HEMATOCRIT 26.2 % (42.0-52.0); MEAN CORPUSCULAR HEMOGLOBIN 22.7 pg (27.0-33.0); MEAN CORPUSCULAR HGB CONC 31.3 g/dl (32.0-36.5); MEAN CORPUSCULAR VOLUME 72.6 fl (80.0-96.0); PLATELET COUNT, AUTOMATED 201 10^3/uL (150-450); RED BLOOD COUNT 3.61 10^6/uL (4.30-6.10); WHITE BLOOD COUNT 8.4 10^3/uL (4.0-10.0)
[2019-01-04 07:27] LABS: INR 2.79
[2019-01-04 07:31] LABS: HEMOGLOBIN 8.2 g/dl (13.5-17.5)
[2019-01-04 07:40] LABS: CALCIUM LEVEL 8.1 MG/DL (8.8-10.2); CREATININE FOR GFR 10.1 MG/DL (0.70-1.30); GLOMERULAR FILTRATION RATE 5.5 (>49); POTASSIUM SERUM 5.3 MEQ/L (3.5-5.1)
[2019-01-04] MEDS: OMEPRAZOLE 20 MG CAP PO SCH (08:06)
[2019-01-04] MEDS: traMADol 50 MG TAB PO PRN ×2 (08:06→20:14)
[2019-01-04] MEDS: buPROPion **XL** TABLET 150MG (WELLBUTRIN XL) PO SCH (08:06)
[2019-01-04] MEDS: ASPIRIN 81 MG ENTERIC TAB PO SCH (08:07)
[2019-01-04] MEDS: HYDROXYCHLOROQUINE 200 MG TAB PO SCH ×2 (08:07→20:13)
[2019-01-04] MEDS: NEPHRO-VIT TAB (NEPHROCAPS) PO SCH (08:07)
[2019-01-04] MEDS: CALCIUM ACETATE 667 MG GELCAP PO SCH ×3 (08:07→17:34)
[2019-01-04] MEDS: FLUTICASONE HFA 110 MCG 12 GM INHALER (FLOVENT) INH SCH (08:36)
[2019-01-04] MEDS ORDERED: NEPHRO-VIT TAB (NEPHROCAPS) PO SCH (09:00)
[2019-01-04] MEDS: VITAMIN D 1,000 INTERNATIONAL UNITS TABLET PO SCH (09:00)
--- NOTE | 2019-01-04 13:32 | IPNPDOC ---
Date Seen The patient was seen on 01/04/19. Progress Note SUBJECTIVE: Patient continues to complain of pain in his right knee and is achy and dull is not improved by the IV morphine or the tramadol which she has tried this morning already. He tells me about his 2 falls denies associated prodromal symptoms, both happened in the middle the night while he was walking in the dark and still have the sleep. He denies any dizziness or loss of consciousness loss of bladder or bowels otherwise patient denies chest pain shortness breath nausea vomiting fevers chills OBJECTIVE PHYSICAL EXAMINATION: VITAL SIGNS: Please see below. GENERAL: Pleasant man sitting up in bed awake alert oriented speaking in complete sentences no acute distress HEENT: Moist mucous membranes no elevation and CVP, his nasal bandages are clean dry and intact CARDIOVASCULAR: S1 S2 regular no additional heart sounds appreciated. RESPIRATORY: Clear to auscultation bilaterally. ABDOMINAL: Bowel sounds present abdomen soft and nontender EXTREMITIES: No clubbing cyanosis or edema, left distal upper extremity fistula is bleeding prior to me entering the room we apply pressure for 10 minutes and obtained hemostasis. He has an David wrapped in gauze over his right knee where he has a superficial abrasion with some dried blood NEUROLOGICAL: Spontaneously moves all 4 extremities cranial 2 through 12 grossly intact no gross focal deficits appreciated PSYCHOLOGICAL: Appropriate LABORATORY DATA, MICROBIOLOGY: Please see below. IMAGING STUDIES: Chest x-ray:Chronic stable changes. No acute cardiopulmonary process. Knee x-ray:1. [id number] suprapatellar effusion. 2. Advanced tricompartmental osteoarthritic degenerative changes. 3. No acute fracture or dislocation. Head CT:Age related atrophy and microvascular ischemic changes. No acute intracranial hemorrhage, infarction, or mass/mass effect. DVT prophylaxis ordered?: Teds and sequentials ASSESSMENT AND PLAN: This is a 63-year-old man with 2 falls in right knee pain. PROBLEMS: 1. Falls: Does not sound to be syncope or near syncope. Appear to be mechanical and related to poor education and environmental awareness. The patient lives alone I suspect is greatly benefit from PT OT which have been ordered. I will try him on gabapentin renally dosed see if that is able to help with his pain also provided with cold compresses and continue with tramadol and morphine when necessary should this fail to control his pain could consider pain management consultation. The fracture of his nasal bridge is stable without any changes there is no active bleeding or drainage. The abrasion of his right knee appears to be well dressed no obvious fractures on x-ray 2. End-stage renal disease on hemodialysis: Given his falls and feeling unwell he did miss dialysis he did have a urgent hemodialysis yesterday nephrology's help is greatly appreciated. He did have some bleeding from his fistulas morning his hemoglobin has dropped does appear to have resolved however I would have low threshold to transfuse him potentially with his next regularly scheduled hemodialysis session nephrology up was once again greatly appreciated. 3. Hypercoagulable state: Documented history of systemic lupus as well as antiphospholipid syndrome Normally on Coumadin his INR supratherapeutic, and is currently on hold to need to monitor and consider resuming within the next 24-48 hours. We'll continue with aspirin. He continue well on Platinol for his systemic lupus 4. Paroxysmal Atrial fibrillation: His anticoagulation is on hold he is still therapeutic he does not appear to be requiring any rate controlling agents at this time 5. Obstructive sleep apnea: Continue with home CPAP use 6. Asthma: He is as baseline respiratory status is continued on Flovent 7. Gastroesophageal reflux disease: 8. Mood disorder: He is continued on mirtazapine and Wellbutrin DISPOSITION: Pending pain control PT OT stabilization of hemoglobin will likely need placement. VS, I&O, 24H, Fishbone Vital Signs/I&O Vital Signs Date Time Temp Pulse Resp B/P (MAP) Pulse Ox O2 Delivery O2 Flow Rate FiO2 01/04/19 12:00 98.0 104 18 107/52 (70) 96 01/03/19 12:34 Room Air I&O- Last 24 Hours up to 6 AM 01/04/19 06:00 Intake Total 1300 ml Output Total 2000 ml Balance -700 ml Laboratory Data 24H LABS Laboratory Tests 2 01/03/19 13:33: Immature Granulocyte % (Auto) 0.6, White Blood Count 10.2H, Red Blood Count 4.48, Hemoglobin 10.4L, Hematocrit 32.3L, Mean Corpuscular Volume 72.1L, Mean Corpuscular Hemoglobin 23.2L, Mean Corpuscular Hemoglobin Concent 32.2, Red Cell Distribution Width 16.6H, Platelet Count 220, Neutrophils (%) (Auto) 74.9H, Lymphocytes (%) (Auto) 12.1L, Monocytes (%) (Auto) 11.9H, Eosinophils (%) (Auto) 0.0, Basophils (%) (Auto) 0.5, Neutrophils # (Auto) 7.6, Lymphocytes # (Auto) 1.2L, Monocytes # (Auto) 1.2H, Eosinophils # (Auto) 0.0, Basophils # (Auto) 0.1, Nucleated Red Blood Cells % (auto) 0.0, Prothrombin Time 43.2H, Prothromb Time International Ratio 4.41, Blood Gas Bicarbonate Standard 21.4, Venous Blood pH 7.318L, Venous Blood Partial Pressure CO2 46.3, Venous Blood Partial Pressure O2 40.7, Venous Blood Total Carbon Dioxide 24.6, Venous Blood HCO3 23.2, Venous Blood Oxygen Saturation 66.0, Venous Blood Base Excess -3.0L, Anion Gap 14, Glomerular Filtration Rate 3.2L, Calcium Level 9.3, Aspartate Amino Transf (AST/SGOT) 39H, Alanine Aminotransferase (ALT/SGPT) 43, Alkaline Phosphatase 90, Total Bilirubin 0.6, Direct Bilirubin 0.2, Total Creatine Kinase 572H, Creatine Kinase MB 3.0, Creatine Kinase MB Relative Index 0.47, Troponin I 0.03, TL-Olp-R-Type Natriuretic Peptide 00560W, Total Protein 6.4, Albumin 3.4, Albumin/Globulin Ratio 1.13, Lipase 119, Thyroid Stimulating Hormone (TSH) 1.120 01/03/19 19:59: Anion Gap 13, Glomerular Filtration Rate 6.5L, Calcium Level 9.2, Blood Urea Nitrogen 33#H, Creatinine 8.77*H, Sodium Level 140, Potassium Level 5.2H, Chloride Level 98, Carbon Dioxide Level 29 01/04/19 06:33: Nucleated Red Blood Cells % (auto) 0.0, Prothrombin Time 30.0H, Prothromb Time International Ratio 2.79, Anion Gap 6L, Glomerular Filtration Rate 5.5L, Calcium Level 8.1L, Blood Urea Nitrogen 40H, Creatinine 10.10*H, Sodium Level 136, Potassium Level 5.3H, Chloride Level 96L, Carbon Dioxide Level 34H CBC/BMP Laboratory Tests 01/03/19 13:33 Red Blood Count 4.48, Mean Corpuscular Volume 72.1 L, Mean Corpuscular Hemoglobin 23.2 L, Mean Corpuscular Hemoglobin Concent 32.2, Red Cell Distribution Width 16.6 H, Neutrophils (%) (Auto) 74.9 H, Lymphocytes (%) (Auto) 12.1 L, Monocytes (%) (Auto) 11.9 H, Eosinophils (%) (Auto) 0.0, Basophils (%) (Auto) 0.5, Neutrophils # (Auto) 7.6, Lymphocytes # (Auto) 1.2 L, Monocytes # (Auto) 1.2 H, Eosinophils # (Auto) 0.0, Basophils # (Auto) 0.1 01/03/19 19:59 Calcium Level 9.2 01/04/19 06:33 Red Blood Count 3.61 L, Mean Corpuscular Volume 72.6 L, Mean Corpuscular He moglobin 22.7 L, Mean Corpuscular Hemoglobin Concent 31.3 L, Red Cell Distribution Width 16.3 H, Calcium Level 8.1 L Microbiology Microbiology 01/03/19 Blood Culture, Received Pending 01/03/19 Blood Culture, Received Pending GIL DURBIN MD January 04, 2019 13:31
[2019-01-04] MEDS: GABAPENTIN 100 MG CAP PO SCH ×2 (14:27→20:13)
--- NOTE | 2019-01-04 14:30 | REP ---
Clinical: Fall with right hip pain. Technique: Two views of the right hip. Findings: Age-related degenerative changes are appreciated including periarticular sclerosis and joint space narrowing with marginal spurring along the acetabulum. No acute fracture or dislocation. Impression: Age-related degenerative changes. No acute fracture or dislocation. Electronically Signed by Florentino Rubalcava MD 01/04/2019 02:22 P
[2019-01-04] MEDS ORDERED: DARBEPOETIN 100 MCG/0.5 ML *DIALYSIS* SYRINGE (J0882) IV SCH (18:45)
[2019-01-04] MEDS ORDERED: IRON SUCROSE 100MG 5ML VIAL (J1756 PER 1MG) IV SCH (18:45)
[2019-01-04] MEDS: MIRTAZAPINE 15 MG TAB PO SCH (20:13)
[2019-01-04] MEDS: MIRALAX *UNIT DOSE* 17GM PACKET PO SCH (20:13)
--- NOTE | 2019-01-05 02:54 | IPN ---
DATE OF SERVICE: 01/04/2019 SUBJECTIVE: The patient was seen and examined at the bedside today morning. He is afebrile, hemodynamically stable. He was emergently dialyzed yesterday for hyperkalemia. His potassium level has improved within the normal range. He tolerated the hemodialysis procedure well. Two liters of fluid was removed. However, the patient still reports the right knee pain and he was unable to walk. He was even unable to do physical therapy with a walker today morning. He is otherwise afebrile and hemodynamically stable. OBJECTIVE: VITAL SIGNS: Temperature is 98 degrees Fahrenheit, blood pressure 107/52, pulse is 104, respiratory rate of 18, saturating 96% on room air. INTAKE AND OUTPUT: Ultrafiltration with hemodialysis was 2 liters yesterday. PHYSICAL EXAMINATION: GENERAL: The patient is awake, alert, oriented x3, laying in bed in no apparent distress. HEAD AND NECK EXAM: Pupils are equally round and reactive to light. The patient has a dressing on the nose. Mucous membranes are moist. Neck is supple. There is no jugular venous distention (JVD). CARDIOVASCULAR: S1, S2, regular rate. No edema of the bilateral lower extremities. RESPIRATORY: Chest is clear to auscultation bilaterally. Bilateral equal air entry. No rales or rhonchi. ABDOMEN: Soft, obese, positive bowel sounds. Nontender. No organomegaly. MUSCULOSKELETAL: The patient has a dressing in the right knee and decreased range of movement of the right leg because of pain. 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 Power is 5/5 in all extremities. LABORATORY REVIEW: Complete blood count (CBC) showed white blood cell (WBC) of 8.4, hemoglobin is 8.2, platelets are 201, INR is 2.7. Basic metabolic panel (BMP) showed sodium 136, potassium 5.3, chloride 96, bicarbonate 34, BUN 40, creatinine is 10.1, glucose 103, calcium is 8.1. MICROBIOLOGY: Blood cultures are negative so far. IMAGING STUDIES: The patient got an x-ray of the right hip done today which showed age-related degenerative changes. No acute fracture or dislocation. CURRENT INPATIENT MEDICATIONS: The patient's medications were all reviewed by me. There is no change in the medications today as compared with yesterday. ASSESSMENT/PLAN: 1. End-stage renal disease on hemodialysis. The patient was dialyzed yesterday according to his Saturday, and Saturday schedule. Next hemodialysis will be done on coming Sunday, January 06, 2019. 2. Hyperkalemia. Potassium level has improved after dialysis with 1K bath. If potassium is above 5.5 he will be given a dose of Veltassa tomorrow morning. 3. Anemia in end-stage renal disease. Hemoglobin is 8.2 which is a significant drop from yesterday. It is likely secondary to bleeding from the nose. I am starting the patient on Venofer and Aranesp injections. If hemoglobin drops to below 8 he will be given a packed red blood cells (PRBC) transfusion. 4. Systemic lupus erythematosus. Continue current dose of hydroxychloroquine. 5. Antiphospholipid syndrome. The patient's INR is therapeutic at 2.7. He can be restarted on Coumadin now. 6. Right knee pain and decreased range of movement. Patient has suprapatellar effusion and abrasion of the right knee. I got the right hip x-ray done which does not show any acute fractures. Continue the physical therapy at this point.
[2019-01-05 04:00] VITALS: BP 119/61
[2019-01-05 05:57] LABS: HEMATOCRIT 22.3 % (42.0-52.0); HEMOGLOBIN 7.2 g/dl (13.5-17.5); MEAN CORPUSCULAR HEMOGLOBIN 23.2 pg (27.0-33.0); MEAN CORPUSCULAR HGB CONC 32.3 g/dl (32.0-36.5); MEAN CORPUSCULAR VOLUME 71.7 fl (80.0-96.0); PLATELET COUNT, AUTOMATED 176 10^3/uL (150-450); RED BLOOD COUNT 3.11 10^6/uL (4.30-6.10); WHITE BLOOD COUNT 7.1 10^3/uL (4.0-10.0)
[2019-01-05 06:08] LABS: INR 1.63; PROTHROMBIN TIME 19.6 SECONDS (12.1-14.4)
[2019-01-05 06:30] LABS: CALCIUM LEVEL 8.6 MG/DL (8.8-10.2); CREATININE FOR GFR 12.5 MG/DL (0.70-1.30); GLOMERULAR FILTRATION RATE 4.3 (>49); POTASSIUM SERUM 5.3 MEQ/L (3.5-5.1)
[2019-01-05] MEDS: FLUTICASONE HFA 110 MCG 12 GM INHALER (FLOVENT) INH SCH (07:50)
[2019-01-05 08:00] VITALS: BP 100/68
[2019-01-05] MEDS: GABAPENTIN 100 MG CAP PO SCH ×2 (08:42→20:35)
[2019-01-05] MEDS: ASPIRIN 81 MG ENTERIC TAB PO SCH (08:42)
[2019-01-05] MEDS: HYDROXYCHLOROQUINE 200 MG TAB PO SCH ×2 (08:43→20:34)
[2019-01-05] MEDS: CALCIUM ACETATE 667 MG GELCAP PO SCH ×3 (08:43→17:58)
[2019-01-05] MEDS: NEPHRO-VIT TAB (NEPHROCAPS) PO SCH (08:43)
[2019-01-05] MEDS: OMEPRAZOLE 20 MG CAP PO SCH (08:43)
[2019-01-05] MEDS: buPROPion **XL** TABLET 150MG (WELLBUTRIN XL) PO SCH (08:43)
[2019-01-05] MEDS: traMADol 50 MG TAB PO PRN ×2 (08:46→20:35)
[2019-01-05] MEDS: VITAMIN D 1,000 INTERNATIONAL UNITS TABLET PO SCH (08:46)
[2019-01-05 12:00] VITALS: BP 109/53
--- NOTE | 2019-01-05 15:52 | IPNPDOC ---
Text Note Date of Service The patient was seen on 01/05/19. NOTE SUBJECTIVE: Mr. Murray is seen on rounds this morning, he is getting his blood drawn for type and screen. He complains of improved pain in the right knee, he has a ice pack on it currently. He denies any light headedness, CP or SOB currently but does continue to feel weak and tired. ROS: 12 point ROS was reviewed and negative except for what is positive in subjective portion of note OBJECTIVE PHYSICAL EXAMINATION: VITAL SIGNS: Please see below. GENERAL: Pleasant 63 y/o obese male appearing his stated age, laying in bed getting his blood drawn for type and screen, in NAD, Awake alert oriented speaking in complete sentences HEENT: Moist mucous membranes no JVD appreciated, EOMI, he has nasal bandages over the bridge of his nose which are clean and intact, right nasal packing of right nostril CARDIOVASCULAR: S1 S2 regular, +2 systolic murmur appreciated, no other heart sounds appreciated RESPIRATORY: Clear to auscultation bilaterally without wheezing or rales/cr ackles ABDOMINAL: nabsx4, obese, no hepatosplenomegaly, no distension, no rebound ridgity or guarding, abdomen is soft and nontender EXTREMITIES: No clubbing cyanosis or edema, right knee is eli and gauze wrapped and has ice packing, clean and dry left distal upper extremity fistula not bleeding currently NEUROLOGICAL: Spontaneously moves all 4 extremities, no focal deficits appreciated PSYCHOLOGICAL: Appropriate affect LABORATORY DATA, MICROBIOLOGY: Please see below. A&P: This is a 63 y/o male with history of at least two mechanical falls and right knee pain from effusion. PROBLEMS: 1. Recurrent likely mechanical falls -The patient again denied any prodromal symptoms before his falls, there was no preceeding SOB, light headedness, room spinning, CP, palpitations, tremors, h/a, change in vision, urine or fecal loss, numbness/paralysis/weakness in any extremity. Does not sound to be syncope or near syncope. Likely mechanical as both times he states he is walking at night in the dark and tripped over something on the floor. His pain in his right knee does appear to be improved today. C/w Tramadol and morphine for now and gabapentin for pain. The abrasion of his right knee appears to be well dressed no obvious fractures on x-ray 2. Fracture of nasal bridge -Right nostril is packed, he has bandage over his nasal bridge protecting his stitches, continue to monitor for now. No obvious drainage or bleeding. 2. ESRD on HD with hyperkalemia -He did miss an HD due to his recurrent falls, nephrology help is greatly appreciated. During this stay he did have some bleeding from his fistula, but this seems to be resolved today, his hg did drop to 7.2 from 8.2 and as such we are giving him 1 unit pRBC today. Monitor K, likely to resolve with HD in AM, was 5.3 today, can consider veltassa through nephrology 3. Hypercoagulable state -He has documented history of SLE as well as antiphospholipid syndrome Normally on Coumadin, his INR was initially supratherapeutic, was therefore on hold, but we have resumed this again for this evening. C/w aspirin, and Platinol for his S LE. -INR 1.63 today 4. Paroxysmal Atrial fibrillation -we are resuming coumidin this evening. His AC was initially on hold for being suprtherpeutic INR. He is not needing any rate controlling agents at this time. 5. Obstructive sleep apnea -He needs to c/w CPAP once nasal fracture heals 6. Asthma -c/w flovent 7. Mood disorder -c/w mirtazapine and Wellbutrin DISPOSITION:He needs to work with PT/OT, we are resuming his coumidin tonight, INR check in AM. VS,Fishbone, I+O VS, Fishbone, I+O Laboratory Tests 01/05/19 05:25 Red Blood Count 3.11 L, Mean Corpuscular Volume 71.7 L, Mean Corpuscular Hemoglobin 23.2 L, Mean Corpuscular Hemoglobin Concent 32.3, Red Cell Distribution Width 16.0 H, Calcium Level 8.6 L Vital Signs Date Time Temp Pulse Resp B/P (MAP) Pulse Ox O2 Delivery O2 Flow Rate FiO2 01/05/19 12:00 100.4 103 19 109/53 (71) 94 01/03/19 12:34 Room Air I&O- Last 24 Hours up to 6 AM 01/05/19 06:00 Intake Total 920 ml Output Total 0 ml Balance 920 ml GME ATTESTATION GME ATTESTATION My faculty preceptor for this patient encounter was physically present during the encounter and was fully available. All aspects of the patient interview, examination, medical decision making process, and medical care plan development were reviewed and approved by the faculty preceptor. The faculty preceptor is aware and concurs with the plan as stated in the body of this note and will attest to such by his/her cosignature. ATTENDING NOTE I saw and evaluated the patient. I agree with the findings and plan of care as documented in the resident's note FARIDA MCLAUGHLIN DO January 05, 2019 15:52 GIL DURBIN MD January 09, 2019 14:56
[2019-01-05 16:00] VITALS: BP 121/57
--- NOTE | 2019-01-05 17:14 | IPN ---
DATE: 01/05/2019 SUBJECTIVE: Patient was seen and examined at the bedside today morning. Patient is afebrile, hemodynamically stable. His labs today show that he has further drop in the hemoglobin. Primary team has already ordered 1 unit of packed red blood cells transfusion. He reports that he was passing blood clots from his throat because of posterior nasal bleed after trauma to his nose. Patient still reports pain in the right knee and inability to walk. OBJECTIVE VITAL SIGNS: Temperature is 99.5 degrees Fahrenheit, blood pressure 100/68, pulse is 105, respiratory of 18, saturating 95% on room air. INTAKE AND OUTPUT: There is no urine output recorded. Weight in the bed scale is 114.6 kg. PHYSICAL EXAMINATION: GENERAL: Patient is awake, alert, oriented times three, sitting up in the bed in no apparent distress. HEAD AND NECK EXAM: Pupils are equally round and reactive to light. Patient has nasal packing on the right side and dressing on the nose. Mucous membranes are moist. He has conjunctival pallor. Neck is supple. There is no jugular venous distention (JVD). CARDIOVASCULAR: S1, S2. Regular rate. No edema of the bilateral lower extremities. RESPIRATORY: Chest is clear to auscultation bilaterally. Bilateral equal air entry. No rales or rhonchi. ABDOMEN: Soft, obese. Positive bowel sounds. Nontender. No organomegaly. MUSCULOSKELETAL: Dressing in the right knee with decreased range of movement of the right knee. Left forearm atrioventricular (AV) fistula with thrill and bruit. CENTRAL NERVOUS SYSTEM (IT PROFESSIONAL): No focal deficit. Power is 5/5 in all extremities. LABORATORY REVIEW: Complete blood count (CBC) showed WBC 7.1, hemoglobin 7.2, platelets of 176. Basic metabolic panel (BMP) showed sodium 134, potassium 5.3, chloride 93, bicarbonate 30, BUN 57, creatinine is 12.5. MICROBIOLOGY: Blood cultures are negative so far. CURRENT INPATIENT MEDICATIONS: Patient's medications were all reviewed by me. There is no change in the medications today as compared with yesterday. ASSESSMENT AND PLAN: 1. End-stage renal disease on hemodialysis. Patient's regular dialysis days are Saturday, , Saturday. He will be dialyzed tomorrow according to his regular schedule. 2. Acute blood loss anemia. Patient's hemoglobin has dropped to 7.2 now. He will be given 1 unit of packed red blood cells (PRBC) transfusion today and, if needed, he will get one more unit of PRBC with hemodialysis tomorrow. I have also started him on Aranesp and intravenous (IV) Venofer with hemodialysis. 3. Hyperkalemia. Patient's potassium of 5.3 which is optimal now. He will be dialyzed with a 2K bath tomorrow. 4. Antiphospholipid syndrome. Patient's anticoagulation was held because of nasal bleeding. INR is 1.6, which is subtherapeutic. He has been restarted on Coumadin 5 mg by mouth daily. 5. Right knee pain and decreased range of movement. Patient is getting pain medications. He has ice pack on the right knee. The rest of the management is as per primary team
[2019-01-05] MEDS: WARFARIN SOD 5 MG TAB PO SCH (17:58)
[2019-01-05 20:00] VITALS: BP 126/60
[2019-01-05] MEDS: MIRTAZAPINE 15 MG TAB PO SCH (20:34)
[2019-01-05] MEDS: MIRALAX *UNIT DOSE* 17GM PACKET PO SCH (20:35)
[2019-01-05 23:59] VITALS: BP 129/61
[2019-01-06 04:00] VITALS: BP 121/58
[2019-01-06 05:51] LABS: HEMATOCRIT 22.5 % (42.0-52.0); HEMOGLOBIN 7.3 g/dl (13.5-17.5); MEAN CORPUSCULAR HEMOGLOBIN 23.2 pg (27.0-33.0); MEAN CORPUSCULAR HGB CONC 32.4 g/dl (32.0-36.5); MEAN CORPUSCULAR VOLUME 71.7 fl (80.0-96.0); PLATELET COUNT, AUTOMATED 193 10^3/uL (150-450); RED BLOOD COUNT 3.14 10^6/uL (4.30-6.10); WHITE BLOOD COUNT 7.2 10^3/uL (4.0-10.0)
[2019-01-06 06:02] LABS: INR 1.32; PROTHROMBIN TIME 16.6 SECONDS (12.1-14.4)
[2019-01-06 06:11] LABS: CREATININE FOR GFR 14.6 MG/DL (0.70-1.30); GLOMERULAR FILTRATION RATE 3.6 (>49); POTASSIUM SERUM 5.7 MEQ/L (3.5-5.1)
[2019-01-06] MEDS: CALCIUM ACETATE 667 MG GELCAP PO SCH ×3 (07:34→18:11)
[2019-01-06] MEDS: FLUTICASONE HFA 110 MCG 12 GM INHALER (FLOVENT) INH SCH (07:46)
[2019-01-06 08:00] VITALS: BP 135/65
[2019-01-06] MEDS: VITAMIN D 1,000 INTERNATIONAL UNITS TABLET PO SCH ×2 (09:00→14:17)
[2019-01-06] MEDS: traMADol 50 MG TAB PO PRN (10:45)
--- NOTE | 2019-01-06 12:14 | IPN ---
DATE OF SERVICE: 01/06/2019 SUBJECTIVE: Patient was seen and examined the bedside today, morning during hemodialysis procedure. He is tolerating the hemodialysis procedure well. Patient had oozing of blood from his forearm arteriovenous (AV) fistula. His hemoglobin is still at 7.3. I have ordered two more units of packed red blood cells (PRBC) transfusion to be given during dialysis today. He still reports pain and decrease range of movement of the right knee. OBJECTIVE: Vital signs: Temperature is 98 degrees Fahrenheit. Blood pressure 135/65. Pulse is 95, respiratory of 20, saturating 96% on room air. Intake and output: There is no urine output recorded. Weight in the bed scale is 115.9 kg. PHYSICAL EXAMINATION: General: Patient is awake, alert, oriented times three, laying in bed, getting hemodialysis done. Head and neck exam: Extraocular muscles intact. Pupils equally round and reactive to light. Patient has a dressing on the nose and right side of the nose is packed. Neck is supple. There is no jugular venous distention (JVD). Cardiovascular: S1, S2, regular rate. No edema of the bilateral lower extremities. Respiratory: Chest is clear to auscultation bilaterally. Bilateral equal air entry. No rales or rhonchi. Abdomen is soft, obese, positive bowel sounds. Nontender. No organomegaly. Musculoskeletal: Patient has a dressing on the right knee and swelling and tenderness of the right knee with decreased range of movement. AV axis left forearm AV fistula is being used for dialysis now. Central nervous system (FLEET OPERATIONS MANAGER): No focal deficit. Power is 5/5 in all extremities. LAB REVIEW: Complete blood count (CBC) showed WBC 7.2, hemoglobin 7.3, platelets are 193. Basic metabolic panel (BMP) showed sodium 130, potassium 5.7, chloride 90, bicarbonate 28, BUN 75, creatinine is 14.6. CURRENT INPATIENT MEDICATIONS: Patient's medications were all reviewed by me. He has been started on Aranesp and Venofer. No other change in the medications today as compared with yesterday. ASSESSMENT AND PLAN: 1. End-stage renal disease on hemodialysis. Patient is being dialyzed today according to his Saturday, , Saturday schedule. Ultrafiltration goal will be at least 2 liters as tolerated by his blood pressure. 2. Acute blood loss anemia. Patient got 1 unit of PRBC transfusion yesterday. However, he had oozing of blood from the forearm fistula. Hemoglobin is still low. He will get two more units of PRBC transfusion during hemodialysis today. 3. Hyperkalemia. He is being dialyzed with 2 K bath. Potassium level improved. 4. Antiphospholipid syndrome. Patient has been restarted on Coumadin. 5. Right knee pain and decreased range of movement. Patient has effusion and tenderness. I have discussed with the primary team for possibly getting him evaluated by orthopedic surgery to see if patient needs any arthrocentesis of drainage from the right knee.
--- NOTE | 2019-01-06 13:03 | IPNPDOC ---
Text Note Date of Service The patient was seen on 01/06/19. NOTE SUBJECTIVE: Mr. Murray is seen on rounds this morning during HD. He unfortunately continues to complain of pain in the right knee, he thinks it may be improved today but not that much. He denies any light headedness, CP or SOB currently but does continue to feel very weak and tired. ROS: 12 point ROS was reviewed and negative except for what is positive in subjective portion of note OBJECTIVE PHYSICAL EXAMINATION: VITAL SIGNS: Please see below. GENERAL: Pleasant 63 y/o obese male appearing his stated age during HD, in NAD, Awake alert oriented speaking in complete sentences HEENT: Moist mucous membranes no JVD appreciated, EOMI, he has nasal bandages over the bridge of his nose which are clean and intact, right nasal packing of right nostril remains in place today CARDIOVASCULAR: S1 S2 regular, +2 systolic murmur appreciated, no other heart sounds appreciated RESPIRATORY: Clear to auscultation bilaterally without wheezing or rales/crackles ABDOMINAL: nabsx4, obese, no hepatosplenomegaly, no distension, no rebound ridgity or guarding, abdomen is soft and nontender EXTREMITIES: No clubbing cyanosis or edema, right knee is again wrapped in eli with some dark blood drainage on the covering, no pus exudation appreciated, left upper arm fistula not bleeding currently NEUROLOGICAL: Spontaneously moves all 4 extremities, no focal deficits appreciated PSYCHOLOGICAL: Appropriate affect LABORATORY DATA, MICROBIOLOGY: Please see below. A&P: This is a 63 y/o male with history of at least two mechanical falls and right knee pain from effusion. PROBLEMS: 1. Recurrent likely mechanical falls -He will likely need rehab after medically cleared. He also needs to continue working with PT/OT. There was no preceeding SOB, light headedness, room spinning, CP, palpitations, tremors, h/a, change in vision, urine or fecal loss, numbness/paralysis/weakness in any extremity before his falls at home. Likely mechanical as both times he states he is walking at night in the dark and tripped over something on the floor. His pain in his right knee unfortunately is not improved again, he states it is still painful to move or bend. C/w Tramadol and morphine for now and gabapentin for pain. The abrasion of his right knee appears to be well dressed no obvious fractures on x-ray, some dried blood on gauze. We have reached out to Ortho and appreciate their help, he was supratherapeutic when he came in, could represent hemearthrosis . 2. Fracture of nasal bridge -Right nostril is packed, he has bandage over his nasal bridge protecting his stitches, continue to monitor for now. No obvious drainage or bleeding. Continue to monitor for now. 2. ESRD on HD with hyperkalemia -In HD now, goal is UF 2 L. He did miss an HD due to his recurrent falls, nephrology help is greatly appreciated. During this stay he did have some bleeding from his fistula, which apparently took place again in HD today, Hg is now 7.3, he is getting 2 units pRBC in dialysis today. Potassium has also improved with dialysis today. Was 5.7 today. 3. Hypercoagulable state -He has documented history of SLE as well as antiphospholipid syndrome Normally on Coumadin, his INR was initially supratherapeutic, was therefore on hold, but this has been resumed INR was still subtherapeutic today at 1.32 expect it to be improved tomorrow. 4. Paroxysmal Atrial fibrillation -C/w Coumadin, INR was 1.32, recheck in AM. His AC was initially on hold for being suprtherpeutic INR. He is not needing any rate controlling agents at this time. 5. Obstructive sleep apnea -He needs to c/w CPAP once nasal fracture heals 6. Asthma -c/w flovent 7. Mood disorder -c/w mirtazapine and Wellbutrin DISPOSITION:He needs to work with PT/OT, would like Ortho to evaluate right knee effusion, c/w coumidin and recheck INR in AM. VS,Fishbone, I+O VS, Fishbone, I+O Laboratory Tests 01/06/19 05:19 Red Blood Count 3.14 L, Mean Corpuscular Volume 71.7 L, Mean Corpuscular Hemoglobin 23.2 L, Mean Corpuscular Hemoglobin Concent 32.4, Red Cell Distribution Width 16.2 H, Calcium Level 8.0 L Vital Signs Date Time Temp Pulse Resp B/P (MAP) Pulse Ox O2 Delivery O2 Flow Rate FiO2 01/06/19 10:45 18 01/06/19 08:00 98.0 95 135/65 (88) 96 01/03/19 12:34 Room Air I&O- Last 24 Hours up to 6 AM 01/06/19 05:59 Intake Total 1027 ml Output Total 0 ml Balance 1027 ml GME ATTESTATION GME ATTESTATION My faculty preceptor for this patient encounter was physically present during the encounter and was fully available. All aspects of the patient interview, examination, medical decision making process, and medical care plan development were reviewed and approved by the faculty preceptor. The faculty preceptor is aware and concurs with the plan as stated in the body of this note and will attest to such by his/her cosignature. ATTENDING NOTE I saw and evaluated the patient. I agree with the findings and plan of care as d ocumented in the resident's note FARIDA MCLAUGHLIN DO January 06, 2019 13:03 GIL DURBIN MD January 09, 2019 15:03
[2019-01-06 13:40] VITALS: BP 137/65
[2019-01-06] MEDS: NEPHRO-VIT TAB (NEPHROCAPS) PO SCH (14:17)
[2019-01-06] MEDS: HYDROXYCHLOROQUINE 200 MG TAB PO SCH ×2 (14:17→20:41)
[2019-01-06] MEDS: ASPIRIN 81 MG ENTERIC TAB PO SCH (14:17)
[2019-01-06] MEDS: OMEPRAZOLE 20 MG CAP PO SCH (14:17)
[2019-01-06] MEDS: buPROPion **XL** TABLET 150MG (WELLBUTRIN XL) PO SCH (14:18)
[2019-01-06] MEDS: GABAPENTIN 100 MG CAP PO SCH ×2 (14:18→20:41)
[2019-01-06 16:00] VITALS: BP 128/60
[2019-01-06] MEDS: WARFARIN SOD 5 MG TAB PO SCH (17:22)
[2019-01-06] MEDS: ACETAMINOPHEN TAB 650MG DOSE (2X325MG) PO PRN (17:22)
[2019-01-06 20:00] VITALS: BP 97/52
[2019-01-06] MEDS: MIRTAZAPINE 15 MG TAB PO SCH (20:41)
[2019-01-06] MEDS: MIRALAX *UNIT DOSE* 17GM PACKET PO SCH (20:41)
[2019-01-06 23:59] VITALS: BP 120/64
[2019-01-07 04:00] VITALS: BP 138/71
[2019-01-07] MEDS: traMADol 50 MG TAB PO PRN ×2 (04:03→17:24)
[2019-01-07 06:08] LABS: HEMOGLOBIN 8.8 g/dl (13.5-17.5); MEAN CORPUSCULAR HGB CONC 32.6 g/dl (32.0-36.5); MEAN CORPUSCULAR VOLUME 73.6 fl (80.0-96.0); PLATELET COUNT, AUTOMATED 237 10^3/uL (150-450); RED BLOOD COUNT 3.67 10^6/uL (4.30-6.10); WHITE BLOOD COUNT 7.1 10^3/uL (4.0-10.0)
[2019-01-07 06:24] LABS: INR 1.32; PROTHROMBIN TIME 16.6 SECONDS (12.1-14.4)
[2019-01-07 06:54] LABS: C REACTIVE PROTEIN QUANTITATIV 27.2 MG/DL (0.00-0.30); CALCIUM LEVEL 8.1 MG/DL (8.8-10.2); CREATININE FOR GFR 8.45 MG/DL (0.70-1.30); GLOMERULAR FILTRATION RATE 6.8 (>49); POTASSIUM SERUM 4.9 MEQ/L (3.5-5.1)
[2019-01-07] MEDS: FLUTICASONE HFA 110 MCG 12 GM INHALER (FLOVENT) INH SCH (07:26)
[2019-01-07] MEDS: NEPHRO-VIT TAB (NEPHROCAPS) PO SCH (07:49)
[2019-01-07] MEDS: OMEPRAZOLE 20 MG CAP PO SCH (07:50)
[2019-01-07] MEDS: buPROPion **XL** TABLET 150MG (WELLBUTRIN XL) PO SCH (07:50)
[2019-01-07] MEDS: VITAMIN D 1,000 INTERNATIONAL UNITS TABLET PO SCH (07:50)
[2019-01-07] MEDS: ASPIRIN 81 MG ENTERIC TAB PO SCH (07:50)
[2019-01-07] MEDS: GABAPENTIN 100 MG CAP PO SCH ×2 (07:50→19:55)
[2019-01-07 07:51] LABS: ERYTHROCYTE SEDIMENTATION RATE 86 mm/hr (0-20)
[2019-01-07] MEDS: HYDROXYCHLOROQUINE 200 MG TAB PO SCH ×2 (07:51→19:55)
[2019-01-07] MEDS: CALCIUM ACETATE 667 MG GELCAP PO SCH ×3 (07:51→17:23)
[2019-01-07 08:00] VITALS: BP 132/65
--- NOTE | 2019-01-07 09:30 | CR ---
DATE OF CONSULTATION: 01/07/2019 CHIEF COMPLAINT: Asked to evaluate right knee discomfort and swelling. HISTORY: The patient is a 63-year-old gentleman with multiple medical comorbidities as reviewed in medical history who several days ago had a fall onto his right knee and has had pain and swelling since then. He was admitted with bleeding from multiple areas and was appreciated have a swollen knee. X-rays had been done of the right hip and the right knee. Right hip with mild arthritic changes. Right knee with moderate to severe arthritic changes tricompartmental. Summary and medical list are reviewed and remediated. REVIEW OF SYSTEMS: Right now he is complaining of knee pain. He is not complaining of shortness of breath, chest pain, abdominal pain, pruritus, or other issues. CLINICAL EXAM: Alert, oriented, cooperative. Mood and affect appropriate. Strength on active extension of the knee is about 2/5. He has difficulty extending against gravity. Passively can extend the knee. When he is trying to extend the knee it is quite painful. It is not hot and red. There is an effusion in the knee however on the right, not on the left. No pain with rotation of the hip. Calves are soft. Small excoriation on the anterior right knee. Otherwise healthy skin. IMPRESSION: Traumatic right knee effusion, osteoarthritis. RECOMMENDATIONS: MRI scan to evaluate the extensor mechanism of the right knee. Discussed the case with Dr. Orozco who is going to facilitate a MRI potentially under sedation. The patient asked if a CT scan would be adequate as he is claustrophobic. In this case, a CT scan would be unlikely to be adequate to evaluate the extensor mechanism effectively. MRI is the study of choice. Will try to arrange for the MRI under sedation. Will try to arrange for knee to be put in the MRI with the patient's head protruding. For further details. please refer to the medical record.
--- NOTE | 2019-01-07 11:13 | IPNPDOC ---
Date Seen The patient was seen on 01/07/19. Progress Note SUBJECTIVE: Mr. Murray is seen on rounds this morning. He states that his right knee is feeling better. He feels a little bit tired today. Denies cp, sob. No other complaints today. ROS: 12 point ROS was reviewed and negative except for what is positive in subjective portion of note OBJECTIVE PHYSICAL EXAMINATION: VITAL SIGNS: Please see below. GENERAL: Pleasant 63 y/o obese male appearing his stated age during HD, in NAD, Awake alert oriented speaking in complete sentences HEENT: Moist mucous membranes no JVD appreciated, EOMI, he has nasal bandages over the bridge of his nose which are clean and intact, right nasal packing of right nostril in tact. CARDIOVASCULAR: S1 S2 regular, +2 systolic murmur appreciated, no other heart sounds appreciated RESPIRATORY: Clear to auscultation bilaterally without wheezing or rales/crackles ABDOMINAL: nabsx4, obese, no hepatosplenomegaly, no distension, no rebound ridgity or guarding, abdomen is soft and nontender EXTREMITIES: No clubbing cyanosis or edema, right knee is again elevated and wrapped with ice. No gross swelling appreciated. NEUROLOGICAL: Spontaneously moves all 4 extremities, no focal deficits appreciated PSYCHOLOGICAL: Appropriate affect LABORATORY DATA, MICROBIOLOGY: Please see below. A&P: This is a 63 y/o male with history of at least two mechanical falls and right knee pain from effusion. PROBLEMS: 1. Recurrent mechanical falls and right knee pain secondary to traumatic effusion -Orthopedic surgeon on board, appreciate his help, would like MRI of right knee, possible ligament tear. He will probably need rehab after this discharge. PT/OT is on hold until MRI can be preformed. Falls are likely due to deconditioning. There have been no complaints of preceding SOB, light headedness, room spinning, CP, palpitations, tremors, h/a, change in vision, urine or fecal loss, numbness/paralysis/weakness in any extremity before his falls at home. Likely mechanical as both times he states he is walking at night in the dark and tripped over something on the floor. C/w Tramadol and morphine for now and gabapentin for pain. The abrasion of his right knee appears to be well dressed no obvious fractures on x-ray, some dried blood on gauze. We may need to give Ativan in order for MRI to be preformed due to claustrophobia. 2. Fracture of nasal bridge -Stable. Right nostril continues to be packed, he has bandage over his nasal bridge protecting his stitches, continue to monitor for now. No obvious drainage or bleeding. Continue to monitor for now. 2. ESRD on HD with hyperkalemia -Dialysis yesterday. Nephrology on board. He did miss an HD due to his recurrent falls, nephrology help is greatly appreciated. During this stay he did have some bleeding from his fistula. Monitoring H/H, received blood transfusion yesterday during HD. 3. Hypercoagulable state -He has documented history of SLE as well as antiphospholipid syndrome Normally on Coumadin, his INR was initially supratherapeutic. INR was 1.32 today. We will recheck in AM, continued Coumadin. 4. Paroxysmal Atrial fibrillation -C/w Coumadin, INR was 1.32, recheck in AM. His AC was initially on hold for being suprtherpeutic INR. He is not needing any rate controlling agents at this time. 5. Obstructive sleep apnea -He needs to c/w CPAP once nasal fracture heals 6. Asthma -c/w flovent 7. Mood disorder -c/w mirtazapine and Wellbutrin DISPOSITION:He needs to work with PT/OT, would like Ortho to evaluate right knee effusion, c/w coumidin and recheck INR in AM. VS, I&O, 24H, Fishbone Vital Signs/I&O Vital Signs Date Time Temp Pulse Resp B/P (MAP) Pulse Ox O2 Delivery O2 Flow Rate FiO2 01/07/19 08:00 100.0 94 20 132/65 (87) 96 01/03/19 12:34 Room Air I&O- Last 24 Hours up to 6 AM 01/07/19 06:00 Intake Total 1170 ml Output Total 2500 ml Balance -1330 ml Laboratory Data 24H LABS Laboratory Tests 2 01/07/19 05:49: Nucleated Red Blood Cells % (auto) 0.0, Erythrocyte Sedimentation Rate 86H, Prothrombin Time 16.6H, Prothromb Time International Ratio 1.32, Anion Gap 8, Glomerular Filtration Rate 6.8L, Blood Urea Nitrogen 39H, Creatinine 8.45*H, Sodium Level 135L, Potassium Level 4.9, Chloride Level 94L, Carbon Dioxide Level 33H, Calcium Level 8.1L, C-Reactive Protein, Quantitative 27.20H CBC/BMP Laboratory Tests 01/07/19 05:49 Red Blood Count 3.67 L, Mean Corpuscular Volume 73.6 L, Mean Corpuscular Hemoglobin 24.0 L, Mean Corpuscular Hemoglobin Concent 32.6, Red Cell Distribution Width 18.4 H, Calcium Level 8.1 L Microbiology Microbiology 01/03/19 Blood Culture - Preliminary, Resulted No Growth after 72 hours. All specime... 01/03/19 Blood Culture - Preliminary, Resulted No Growth after 72 hours. All specime... GME ATTESTATION GME ATTESTATION My faculty preceptor for this patient encounter was physically present during the encounter and was fully available. All aspects of the patient interview, examination, medical decision making process, and medical care plan development were reviewed and approved by the faculty preceptor. The faculty preceptor is aware and concurs with the plan as stated in the body of this note and will attest to such by his/her cosignature. GME ATTESTATION GME ATTESTATION My faculty preceptor for this patient encounter was physically present during the encounter and was fully available. All aspects of the patient interview, examination, medical decision making process, and medical care plan development were reviewed and approved by the faculty preceptor. The faculty preceptor is aware and concurs with the plan as stated in the body of this note and will attest to such by his/her cosignature. ERNESTO CRISOSTOMO OMS-3 January 07, 2019 11:13
--- NOTE | 2019-01-07 11:14 | IPNPDOC ---
Text Note Date of Service The patient was seen on 01/07/19. NOTE SUBJECTIVE: Mr. Murray is seen on rounds this morning. He states that his right knee is feeling better. He feels a little bit tired today. Denies cp, sob. No other complaints today. ROS: 12 point ROS was reviewed and negative except for what is positive in subjective portion of note OBJECTIVE PHYSICAL EXAMINATION: VITAL SIGNS: Please see below. GENERAL: Pleasant 63 y/o obese male appearing his stated age during HD, in NAD, Awake alert oriented speaking in complete sentences HEENT: Moist mucous membranes no JVD appreciated, EOMI, he has nasal bandages over the bridge of his nose which are clean and intact, right nasal packing of right nostril in tact. CARDIOVASCULAR: S1 S2 regular, +2 systolic murmur appreciated, no other heart sounds appreciated RESPIRATORY: Clear to auscultation bilaterally without wheezing or rales/crackles ABDOMINAL: nabsx4, obese, no hepatosplenomegaly, no distension, no rebound ridgity or guarding, abdomen is soft and nontender EXTREMITIES: No clubbing cyanosis or edema, right knee is again elevated and wrapped with ice. No gross swelling appreciated. NEUROLOGICAL: Spontaneously moves all 4 extremities, no focal deficits appreciated PSYCHOLOGICAL: Appropriate affect LABORATORY DATA, MICROBIOLOGY: Please see below. A&P: This is a 63 y/o male with history of at least two mechanical falls and right knee pain from effusion. PROBLEMS: 1. Recurrent mechanical falls and right knee pain secondary to traumatic effusion -Orthopedic surgeon on board, appreciate his help, would like MRI of right knee, possible ligament tear. He will probably need rehab after this discharge. PT/OT is on hold until MRI can be preformed. Falls are likely due to deconditioning. There have been no complaints of preceding SOB, light headedness, room spinning, CP, palpitations, tremors, h/a, change in vision, urine or fecal loss, numbness/paralysis/weakness in any extremity before his falls at home. Likely mechanical as both times he states he is walking at night in the dark and tripped over something on the floor. C/w Tramadol and morphine for now and gabapentin for pain. The abrasion of his right knee appears to be well dressed no obvious fractures on x-ray, some dried blood on gauze. We may need to give Ativan in order for MRI to be preformed due to claustrophobia. 2. Fracture of nasal bridge -Stable. Right nostril continues to be packed, he has bandage over his nasal bridge protecting his stitches, continue to monitor for now. No obvious drainage or bleeding. Continue to monitor for now. 2. ESRD on HD with hyperkalemia -Dialysis yesterday. Nephrology on board. He did miss an HD due to his recurrent falls, nephrology help is greatly appreciated. During this stay he did have some bleeding from his fistula. Monitoring H/H, received blood transfusion yesterday during HD. 3. Hypercoagulable state -He has documented history of SLE as well as antiphospholipid syndrome Normally on Coumadin, his INR was initially supratherapeutic. INR was 1.32 today. We will recheck in AM, continued Coumadin. 4. Paroxysmal Atrial fibrillation -C/w Coumadin, INR was 1.32, recheck in AM. His AC was initially on hold for being suprtherpeutic INR. He is not needing any rate controlling agents at this time. 5. Obstructive sleep apnea -He needs to c/w CPAP once nasal fracture heals 6. Asthma -c/w flovent 7. Mood disorder -c/w mirtazapine and Wellbutrin DISPOSITION:He needs to work with PT/OT, would like Ortho to evaluate right knee effusion, c/w coumidin and recheck INR in AM. VS,Fishbone, I+O VS, Fishbone, I+O Laboratory Tests 01/07/19 05:49 Red Blood Count 3.67 L, Mean Corpuscular Volume 73.6 L, Mean Corpuscular Hemoglobin 24.0 L, Mean Corpuscular Hemoglobin Concent 32.6, Red Cell Distribution Width 18.4 H, Calcium Level 8.1 L Vital Signs Date Time Temp Pulse Resp B/P (MAP) Pulse Ox O2 Delivery O2 Flow Rate FiO2 01/07/19 08:00 100.0 94 20 132/65 (87) 96 01/03/19 12:34 Room Air I&O- Last 24 Hours up to 6 AM 01/07/19 06:00 Intake Total 1170 ml Output Total 2500 ml Balance -1330 ml GME ATTESTATION GME ATTESTATION My faculty preceptor for this patient encounter was physically present during the encounter and was fully available. All aspects of the patient interview, examination, medical decision making process, and medical care plan development were reviewed and approved by the faculty preceptor. The faculty preceptor is aware and concurs with the plan as stated in the body of this note and will attest to such by his/her cosignature. ATTENDING NOTE I saw and evaluated the patient. I agree with the findings and plan of care as documented in the resident's note FARIDA MCLAUGHLIN DO January 07, 2019 11:13 GIL DURBIN MD Jan 10, 2019 12:19
[2019-01-07] MEDS ORDERED: SLF 3 ML SYR IV PRN (11:15)
[2019-01-07 12:00] VITALS: BP 128/76
[2019-01-07] MEDS ORDERED: LORazepam 1 MG TAB PO STA (12:46)
[2019-01-07] MEDS: SLF 3 ML SYR IV SCH ×2 (14:14→19:55)
[2019-01-07] MEDS: WARFARIN SOD 5 MG TAB PO SCH (17:24)
[2019-01-07 18:27] VITALS: BP 138/64
[2019-01-07 18:30] VITALS: BP 83/50
[2019-01-07 19:05] VITALS: BP 137/68
[2019-01-07] MEDS: MIRALAX *UNIT DOSE* 17GM PACKET PO SCH (19:47)
[2019-01-07] MEDS: MIRTAZAPINE 15 MG TAB PO SCH (19:55)
--- NOTE | 2019-01-07 23:01 | IPN ---
DATE: 01/07/2019 SUBJECTIVE The patient was seen and examined at the bedside today morning. He was dialyzed yesterday. He tolerated the hemodialysis procedure well. 2 units of PRBC transfusion was given. 2.5 liters of fluid was removed. He denies any more bleeding. The patient reports that he was seen by orthopedic surgery for right knee pain and MRI was recommended. OBJECTIVE Vital signs: Temperature is 99.9 degrees Fahrenheit. Blood pressure 128/76, pulse is 99, respiratory rate of 20, saturating 94% on room air. Intake and output. Ultrafiltration with hemodialysis was 2.5 liters. Weight in the bed scale is 114.6 kg. PHYSICAL EXAMINATION General: The patient is awake, alert, oriented times three, obese, laying in bed, no apparent distress. Head and neck examination: Extraocular muscles intact. Pupils equally round and reactive to light. The patient still has packing on the right side of the nose. Mucous membranes are moist. Neck is supple. There is no jugular venous distention (JVD). Cardiovascular: S1, S2, regular rate. No edema of the bilateral lower extremities. Respiratory: Chest is clear to auscultation bilaterally. Bilateral equal air entry. No rales or rhonchi. Abdomen: Soft, obese, positive bowel sounds. Nontender. No organomegaly. Musculoskeletal: He has a dressing on the right knee and decreased range of movement of the right leg. AV access: The patient has a left forearm AV fistula with positive thrill and bruit. PHYSICIAN ALLERGIST IMMUNOLOGIST: No focal deficit. Power is 5/5 in all extremities. LAB REVIEW: CBC showed a WBC 7.1, hemoglobin is 8.8, platelets are 237. BMP showed sodium 135, potassium 4.9, chloride 94, bicarb 33, BUN 39, creatinine is 8.4, C-reactive protein is 27.2. IMAGING: An MRI of the knee was done. Official report is pending. CURRENT INPATIENT MEDICATIONS: The patient's medications were all reviewed by me. There is no change in the medications today as compared with yesterday. ASSESSMENT/PLAN 1. End-stage renal disease on hemodialysis. The patient was dialyzed yesterday according to his Saturday, , Saturday schedule. Next hemodialysis session will be tomorrow morning. 2. Acute blood loss anemia. The patient got 2 units of PRBC transfusion yesterday. He is also getting Aranesp and Venofer with dialysis. Transfuse as needed (p.r.n.) for hemoglobin 8 or below. 3 Antiphospholipid syndrome. Continue home dose of Coumadin. 4. Right knee pain and decreased range of movement. The patient was seen by orthopedic surgery. MRI of the knee was advised. Further recommendation will be after the imaging.
[2019-01-08 06:00] VITALS: BP 140/76
[2019-01-08] MEDS: ASPIRIN 81 MG ENTERIC TAB PO SCH (06:00)
[2019-01-08] MEDS: HYDROXYCHLOROQUINE 200 MG TAB PO SCH ×2 (06:00→21:02)
[2019-01-08] MEDS: GABAPENTIN 100 MG CAP PO SCH ×2 (06:00→21:02)
[2019-01-08] MEDS: OMEPRAZOLE 20 MG CAP PO SCH (06:00)
[2019-01-08] MEDS: CALCIUM ACETATE 667 MG GELCAP PO SCH ×3 (06:00→17:24)
[2019-01-08] MEDS: SLF 3 ML SYR IV SCH ×3 (06:00→21:02)
[2019-01-08] MEDS: VITAMIN D 1,000 INTERNATIONAL UNITS TABLET PO SCH (06:01)
[2019-01-08] MEDS: buPROPion **XL** TABLET 150MG (WELLBUTRIN XL) PO SCH (06:04)
[2019-01-08 06:43] LABS: INR 1.33; PROTHROMBIN TIME 16.7 SECONDS (12.1-14.4)
[2019-01-08 07:11] LABS: C REACTIVE PROTEIN QUANTITATIV 23.1 MG/DL (0.00-0.30)
[2019-01-08 07:14] LABS: ERYTHROCYTE SEDIMENTATION RATE 108 mm/hr (0-20)
[2019-01-08 08:10] LABS: HEMATOCRIT 26.5 % (42.0-52.0); HEMOGLOBIN 8.6 g/dl (13.5-17.5); MEAN CORPUSCULAR HEMOGLOBIN 24.6 pg (27.0-33.0); MEAN CORPUSCULAR HGB CONC 32.5 g/dl (32.0-36.5); MEAN CORPUSCULAR VOLUME 75.9 fl (80.0-96.0); PLATELET COUNT, AUTOMATED 239 10^3/uL (150-450); RED BLOOD COUNT 3.49 10^6/uL (4.30-6.10); WHITE BLOOD COUNT 7.8 10^3/uL (4.0-10.0)
[2019-01-08 08:36] LABS: CALCIUM LEVEL 8.2 MG/DL (8.8-10.2); CREATININE FOR GFR 11.1 MG/DL (0.70-1.30); POTASSIUM SERUM 4.8 MEQ/L (3.5-5.1)
[2019-01-08] MEDS: NEPHRO-VIT TAB (NEPHROCAPS) PO SCH (08:47)
[2019-01-08] MEDS: traMADol 50 MG TAB PO PRN ×2 (08:47→21:05)
--- NOTE | 2019-01-08 09:34 | REP ---
MRI RIGHT KNEE: TECHNIQUE: Axial proton density fat saturation, sagittal proton density T2 STIR, water excitation, coronal proton density, proton density fat saturation. There are complex tears of the anterior and posterior horns of the medial meniscus. There is a tear of the posterior horns of the lateral meniscus. Cruciate and collateral ligaments are intact. There is ill-defined edema in the distal quadriceps tendons as well as the visualized distal vastus medialis and vastus lateralis muscles, possible representing musculotendinous strain or partial tear. Medial and lateral patellar retinacula are intact. Severe chondromalacia is seen along the medial femoral condyle and tibial plateau with subchondral marrow edema. There is relatively mild diffuse chondromalacia of the patella as well as the lateral femoral condyle and tibial plateau. Large hematoma is seen in the suprapatellar bursa. Moderate diffuse joint fluid is present. There is moderate diffuse superficial soft tissue edema. IMPRESSION: Complex tears of anterior and posterior horns medial meniscus. There is a tear of the posterior horn of the lateral meniscus. The cruciate and collateral ligaments are intact. Ill-defined edema in the distal quadriceps tendon and visualized distal vastus medialis and lateralis muscles suggest musculotendinous strain or partial tear. Severe chondromalacia in the medial joint compartment with subchondral marrow edema. Large hematoma in the suprapatellar bursa with moderate joint fluid. Electronically Signed by Yon Morin MD 01/08/2019 04:26 P
[2019-01-08] MEDS: FLUTICASONE HFA 110 MCG 12 GM INHALER (FLOVENT) INH SCH (13:01)
[2019-01-08 14:00] VITALS: BP 136/80
--- NOTE | 2019-01-08 16:38 | IPNPDOC ---
Text Note Date of Service The patient was seen on 01/08/19. NOTE SUBJECTIVE: Mr. Murray is seen on bedside rounds.His right knee is still bothe ring him. Other than that he feels well. He denies cp, sob. ROS: 12 point ROS was reviewed and negative except for what is positive in subjective portion of note OBJECTIVE PHYSICAL EXAMINATION: VITAL SIGNS: Please see below. GENERAL: Pleasant 63 y/o obese male appearing his stated age during HD, in NAD, awake alert oriented speaking in complete sentences HEENT: Moist mucous membranes no JVD appreciated, EOMI, nasal bandage over his the bridge of his nose is clean and dry CARDIOVASCULAR: S1 S2 regular, +2 systolic murmur appreciated, no other heart sounds appreciated RESPIRATORY: Clear to auscultation bilaterally without wheezing or rales/crackles ABDOMINAL: nabsx4, obese, no hepatosplenomegaly, no distension, no rebound ridgity or guarding, abdomen is soft and nontender EXTREMITIES: No clubbing cyanosis or edema, right knee is again elevated and wrapped with gauze. No gross swelling appreciated. NEUROLOGICAL: Spontaneously moves all 4 extremities, no focal deficits appreciated PSYCHOLOGICAL: Appropriate affect LABORATORY DATA, MICROBIOLOGY: Please see below. A&P: This is a 63 y/o male with history of at least two mechanical falls and right knee pain from effusion. PROBLEMS: 1. Recurrent mechanical falls and right knee pain secondary to traumatic effusion -Orthopedic surgeon on board, appreciate his help, MRI of right knee did show meniscal, vastus medialis and lateralis muscles suggest musculotendinous strain or partial tear with severe chondromalacia and large suprapatellar bursa hematoma. We have reached out to Ortho for their recommendations on this. Appreciate their help. No PT/OT for now until we can have clear recommendations from Orthopedics. His falls are likely due to deconditioning. There have been no complaints of preceding SOB, light headedness, room spinning, CP, palpitations, tremors, h/a, change in vision, urine or fecal loss, numbness/paralysis/weakness in any extremity before his falls at home. Likely mechanical as both times he states he is walking at night in the dark and tripped over something on the floor. C/w Tramadol and morphine for now and gabapentin for pain. 2. Fracture of nasal bridge -Stable. Right nostril is packed, he has bandage over his nasal bridge protecting his stitches which is clean and dry. 2. ESRD on HD with hyperkalemia -Dialysis today. Nephrology on board. He did miss an HD due to his recurrent falls, nephrology help is greatly appreciated. During this stay he did have some bleeding from his fistula. Monitoring H/H. He has received blood during HD two days ago-2 units, maintain Hg above 8 3. Hypercoagulable state -He has documented history of SLE as well as antiphospholipid syndrome. Normally on Coumadin, his INR was initially supratherapeutic. INR was 1.33 today. We will increase Coumidin to 7.5 mg., goal INR for APS is 2-3. We will recheck in AM. 4. Paroxysmal Atrial fibrillation -C/w Coumadin, INR was 1.33, increased to 7.5 mg, recheck in AM. His AC was initially on hold for being suprtherpeutic INR. He is not needing any rate controlling agents at this time. 5. Obstructive sleep apnea -He needs to c/w CPAP once nasal fracture heals 6. Asthma -c/w flovent 7. Mood disorder -c/w mirtazapine and Wellbutrin DISPOSITION:He needs to work with PT/OT but this is on hold due to his right knee, will discuss results of MRI of right knee with Orthopedics and obtain their further recommendations. VS,Fishbone, I+O VS, Fishbone, I+O Laboratory Tests 01/08/19 05:39 Red Blood Count 3.49 L, Mean Corpuscular Volume 75.9 L, Mean Corpuscular Hemoglobin 24.6 L, Mean Corpuscular Hemoglobin Concent 32.5, Red Cell Distribution Width 19.2 H, Calcium Level 8.2 L Vital Signs Date Time Temp Pulse Resp B/P (MAP) Pulse Ox O2 Delivery O2 Flow Rate FiO2 01/08/19 14:00 97.4 92 18 136/80 (98) 94 01/03/19 12:34 Room Air I&O- Last 24 Hours up to 6 AM 01/08/19 06:00 Intake Total 550 ml Output Total 0 ml Balance 550 ml GME ATTESTATION GME ATTESTATION My faculty preceptor for this patient encounter was physically present during the encounter and was fully available. All aspects of the patient interview, examination, medical decision making process, and medical care plan development were reviewed and approved by the faculty preceptor. The faculty preceptor is aware and concurs with the plan as stated in the body of this note and will attest to such by his/her cosignature. ATTENDING NOTE I saw and evaluated the patient. I agree with the findings and plan of care as documented in the resident's note FARIDA MCLAUGHLIN DO January 08, 2019 16:38 GIL DURBIN MD Jan 10, 2019 12:30
[2019-01-08] MEDS ORDERED: COUM7.5T PO (17:00)
[2019-01-08] MEDS ORDERED: TRAM50TA2 PO (17:00)
[2019-01-08] MEDS ORDERED: WARFARIN SOD 7.5 MG TAB PO SCH (17:00)
[2019-01-08] MEDS ORDERED: GABA-1171 PO (17:00)
--- NOTE | 2019-01-08 17:06 | IPN ---
DATE: 01/08/2019 SUBJECTIVE: Patient was seen and examined at the bedside today morning during hemodialysis. He is tolerating the hemodialysis procedure well. He denies any more epistaxis or bleeding from the fistula site. There is still some drop in the hemoglobin today, which is down to 8.6 today. Patient got the MRI of the knee done. Official report is still pending. He still reports pain in the right knee. OBJECTIVE: VITAL SIGNS: Temperature is 96.8 degrees Fahrenheit, blood pressure 140/76, pulse is 93, respiratory of 18, saturating 92% on room air. INPUT AND OUTPUT: There is no urine output recorded. Weight in the bed scale was 114.68 kg yesterday. PHYSICAL EXAMINATION GENERAL: Patient is awake, alert, oriented times three, laying in bed getting hemodialysis done. HEAD AND NECK EXAM: Patient has a right nasal packing. There is no active bleeding. Mucous membranes are moist. Neck is supple. There is no jugular venous distention (JVD). CARDIOVASCULAR: S1, S2. Regular rate. No edema of the bilateral lower extremities. RESPIRATORY: Chest is clear to auscultation bilaterally. Bilateral equal air entry. No rales or rhonchi. ABDOMEN: Soft, obese, positive bowel sounds. Nontender. MUSCULOSKELETAL: Dressing on the right knee with decreased range of movement. ATRIOVENTRICULAR (AV) AXIS: Left forearm AV fistula is being used for dialysis. CENTRAL NERVOUS SYSTEM (PUBLIC HEALTH SANITARIAN TECHNICIAN): No focal deficit. Power is 5/5 in all extremities. LABORATORY REVIEW: Complete blood count (CBC) showed WBC 7.8, hemoglobin 8.6, platelets of 239. Basic metabolic panel (BMP) showed sodium 135, potassium 4.8, chloride 92, bicarbonate 31, BUN 60, creatinine is 11.1. C-reactive protein is 23.1. IMAGING STUDIES: MRI of the knee was done yesterday and the official report says complex tears of anterior and posterior horns of medial meniscus and there is a tear of the posterior horn on the lateral meniscus. Cruciate and collateral ligaments are intact. There is severe chondromalacia in the medial joint compartment, large hematoma in the suprapatellar bursa with moderate joint fluid. CURRENT INPATIENT MEDICATIONS: Patient's medications were all reviewed by me. She continues to be on Coumadin. There is no other change in the medications today as compared with yesterday. ASSESSMENT AND PLAN: 1. End-stage renal disease on hemodialysis. Patient is being dialyzed according to his regular schedule. I will try to remove at least 2 kg of fluid as tolerated by his blood pressure. 2. Acute blood loss anemia. Patient got two units of packed red blood cells transfusion with previous dialysis. Hemoglobin is acceptable. At this point, he is getting Aranesp and intravenous (IV) Venofer. Continue to monitor for now. 3. Antiphospholipid syndrome. Patient is currently on Coumadin. INR is still subtherapeutic. 4. Right knee pain and hematoma. Patient was seen by orthopedic surgery. There is a suprapatellar hematoma. The rest of the management is as per of orthopedic surgery's recommendations.
--- NOTE | 2019-01-08 17:53 | DS.PDOC ---
Discharge Summary General Date of Admission January 03, 2019 at 13:16 Date of Discharge 01.08.19 Discharge Summary DISCHARGE DIAGNOSIS:Recurrent mechanical falls likely secondary to deconditioning and learning/environmental awareness impairment SECONDARY DIAGNOSIS: 1. Fracture of nasal bridge 2. ESRD on HD with hyperkalemia 3. Hypercoagulable state 4. Paroxysmal Atrial fibrillation 5. Obstructive sleep apnea 6. Asthma 7. Mood disorder PROCEDURES PERFORMED DURING STAY: Hemodialysis CONSULTANTS: Orthopedic, Nephrology HOSPITAL COURSE: During the course of the patients hospital stay he worked with physical therapy for improvement in acute on chronic deconditioning, however he complained of continued pain in right knee, MRI was taken and revealed meniscal tear,vastus medialsis and lateralis muscle strain or partial tear, chondromalacia and suprapatellar bursa hematoma. Orthopedics did see patient and MRI and recommended that he could be discharged to ARU and have T-style scooped hinged right knee brace fit in ARU. He did have his coumidin restarted in the hospital for his antiphospholipid syndrome and paroxysmal a. fib, it was held initially for supratherapeutic INR on presentation. He did sustain fracture of his nasal bridge prior to admission when he fell at home, this was sutured and covered with gauze and bandage and kept clean during his stay. He denied any sob, cp, palpitations, urinary or bowel incontinence prior to his falling episodes at home and always said they happened at night when he was walking down his hallway in the dark and tripped over something in his hallway. DISCHARGE MEDICATIONS: Please see below. ALLERGIES: Please see below. OBJECTIVE PHYSICAL EXAMINATION: VITAL SIGNS: Please see below. GENERAL: Pleasant 63 y/o obese male appearing his stated age, in NAD, awake alert oriented speaking in complete sentences HEENT: Moist mucous membranes no JVD appreciated, EOMI, nasal bandage over his the bridge of his nose is clean and dry, right nostril packed CARDIOVASCULAR: S1 S2 regular, +2 systolic murmur appreciated, no other heart sounds appreciated RESPIRATORY: Clear to auscultation bilaterally without wheezing or rales/crackles ABDOMINAL: nabsx4, obese, no hepatosplenomegaly, no distension, no rebound ridgity or guarding, abdomen is soft and nontender EXTREMITIES: No clubbing cyanosis or edema, right knee is again elevated with bandage and ice. No gross swelling appreciated. NEUROLOGICAL: Spontaneously moves all 4 extremities, no focal deficits appreciated PSYCHOLOGICAL: Appropriate affect LABORATORY DATA, MICROBIOLOGY: Please see below. IMAGING STUDIES: CXR 01.03.19 Impression: Chronic stable changes. No acute cardiopulmonary process. Right knee x ray 01.03.19 Impression: 1. [id number] suprapatellar effusion. 2. Advanced tricompartmental osteoarthritic degenerative changes. 3. No acute fracture or dislocation. Head CT 01.03.19 Impression: Age related atrophy and microvascular ischemic changes. No acute intracranial hemorrhage, infarction, or mass/mass effect. Right hip x ray 01.04.19 Impression: Age-related degenerative changes. No acute fracture or dislocation. Right knee MRI 01.08.19 IMPRESSION: Complex tears of anterior and posterior horns medial meniscus. There is a tear of the posterior horn of the lateral meniscus. The cruciate and collateral ligaments are intact. Ill-defined edema in the distal quadriceps tendon and visualized distal vastus medialis and lateralis muscles suggest musculotendinous strain or partial tear. Severe chondromalacia in the medial joint compartment with subchondral marrow edema. Large hematoma in the suprapatellar bursa with moderate joint fluid. ASSESSMENT AND PLAN: This is a 63 y/o male admitted for recurrent mechanical falls and found to have meniscal tear of right knee. PROBLEMS: DISPOSITION: HE is being discharged to ARU, will be fitted with right knee brace when he is in ARU. DISCHARGE CONDITION: Improved and Stable [PROGNOSIS]:stable favorable FOLLOW UP: follow up with pcp and ortho within 5-7 days of d/c ACTIVITY: As prior to admission DIET: As prior to admission TIME SPENT ON DISCHARGE: 50 minutes Vital Signs/I&Os Vital Signs Date Time Temp Pulse Resp B/P (MAP) Pulse Ox O2 Delivery O2 Flow Rate FiO2 01/08/19 14:00 97.4 92 18 136/80 (98) 94 01/03/19 12:34 Room Air I&O- Last 24 Hours up to 6 AM 01/08/19 06:00 Intake Total 550 ml Output Total 0 ml Balance 550 ml Laboratory Data Labs 24H Laboratory Tests 2 01/08/19 05:39: Nucleated Red Blood Cells % (auto) 0.0, Erythrocyte Sedimentation Rate 108H, Prothrombin Time 16.7H, Prothromb Time International Ratio 1.33, Anion Gap 12, Glomerular Filtration Rate 5.0L, Blood Urea Nitrogen 60#H, Creatinine 11.10*H, Sodium Level 135L, Potassium Level 4.8, Chloride Level 92L, Carbon Dioxide Level 31, Calcium Level 8.2L, C-Reactive Protein, Quantitative 23.10H CBC/BMP Laboratory Tests 01/08/19 05:39 Red Blood Count 3.49 L, Mean Corpuscular Volume 75.9 L, Mean Corpuscular Hemoglobin 24.6 L, Mean Corpuscular Hemoglobin Concent 32.5, Red Cell Distribution Width 19.2 H, Calcium Level 8.2 L Microbiology Microbiology 01/03/19 Blood Culture - Final, Complete NO GROWTH AFTER 5 DAYS 01/03/19 Blood Culture - Final, Complete NO GROWTH AFTER 5 DAYS Discharge Medications Scheduled Aspirin (Aspirin EC) 81 Mg Tablet.dr, 81 MG PO DAILY, (Reported) Bupropion Hcl (Bupropion Xl) 150 Mg Tab.er.24h, 150 MG PO DAILY, (Reported) Calcium Acetate (Calcium Acetate) 667 Mg Cap, 667 MG PO TID, (Reported) Cholecalciferol (Vitamin D3) (Vitamin D3) 5,000 Unit Chw, 5,000 UNIT PO DAILY, (Reported) Fluticasone Furoate (Arnuity Ellipta) 100 Mcg/Act Inh, 100 MCG IN QAM, ( Reported) Fluticasone Furoate (Arnuity Ellipta) 100 Mcg Blst.w.dev, 1 PUFF PO DAILY, (Reported) Folic Acid/Vit B Complex and C (Adilia-Monique Tablet) 1 Tab Tab, 1 TAB PO DAILY, (Reported) Gabapentin (Gabapentin) 100 Mg Capsule, 100 MG PO BID Gluc Caceres/Chondro Caceres A/Vit C/Mn (Glucosamine-Chondroitin Cap) 1 Cap Cap, 1 CAP PO BID, (Reported) Hydroxychloroquine Sulfate (Hydroxychloroquine Sulfate) 200 Mg Tab, 200 MG PO BID, (Reported) Mirtazapine (Remeron) 30 Mg Tab, 30 MG PO QHS, (Reported) Omeprazole (Omeprazole) 20 Mg Capsule.dr, 20 MG PO DAILY, (Reported) Polyethylene Glycol 3350 (Polyethylene Glycol 3350) 510 Gm Powder, 17 GRAM PO QHS, (Reported) Vit B Comp No.3/Folic/C/Biotin (Nephro-Monique Rx Tablet) 1 Each Tablet, 1 TAB PO DAILY, (Reported) Warfarin Sodium (Coumadin) 7.5 Mg Tablet, 7.5 MG PO DAILY@17 Scheduled PRN Albuterol Sulfate (Ventolin Hfa) 108 Mcg/Act Aer, 108 MCG IN Q4-6HP PRN for WHEEZING, (Reported) Tramadol HCl (Tramadol HCl) 50 Mg Tablet, 50 MG PO Q12HP PRN for PAIN Allergies Coded Allergies: No Known Allergies (Verified , 03/17/18) GME ATTESTATION GME ATTESTATION My faculty preceptor for this patient encounter was physically present during the encounter and was fully available. All aspects of the patient interview, examination, medical decision making process, and medical care plan development were reviewed and approved by the faculty preceptor. The faculty preceptor is aware and concurs with the plan as stated in the body of this note and will attest to such by his/her cosignature. ATTENDING NOTE I saw and evaluated the patient. I agree with the findings and plan of care as documented in the resident's note. I spent 45 minutes coordinating this patient's discharge. FARIDA MCLAUGHLIN DO January 08, 2019 17:53 GIL DURBIN MD Jan 10, 2019 12:31
--- NOTE | 2019-01-08 19:41 | IPN ---
DATE: 01/08/2019 Followup on yesterday's visit. We had recommended an MRI of the knee. He did obtain the MRI of the knee. The MRI of the knee was reviewed, including the radiologist report and the MRI of the knee. This showed findings including severe degenerative changes in the right knee, complex tears of the anterior and posterior horns of the medial meniscus, posterior horn tear lateral meniscus, with intact cruciate ligaments. There is ill-defined edema in the quadriceps tendon, which may be consistent with a musculotendinous strain or partial tear, consistent with the patient's discomfort and weakness with attempted knee extension. Our impression is that the patient has a multiple degenerative knee along with a quadriceps strain or partial tear, and my recommendations include articulated brace locked in extension and office followup. I talked with Dr. Orozco. There is no reason the patient can't be moved to the acute rehabilitation unit. Followup with our office should be in the next 7-14 days. Edited: 01/09/2019 130
[2019-01-08] MEDS: MIRALAX *UNIT DOSE* 17GM PACKET PO SCH (21:02)
[2019-01-08] MEDS: MIRTAZAPINE 15 MG TAB PO SCH (21:02)
[2019-01-09] MEDS ORDERED: ARNU1INH PO (09:24)
== END 2019-01-08 21:29 | DRG 91 ==
LOC: EDBD 12:21 → M ED 12:21 → M ED INP 13:16 → M PCU 15:59 → M MSPAV 01-07 18:31
PROVIDERS: ADMIT Internal Medicine; ATTEND Internal Medicine
PROC: 5A1D70Z Performance of Urinary Filtration, Intermittent, Less than 6 Hours Per Day (ICD-10-PCS; principal; 2019-01-03)
PROC: 30233N1 Transfusion of Nonautologous Red Blood Cells into Peripheral Vein, Percutaneous Approach (ICD-10-PCS; 2019-01-05)
DX: R29.6 Repeated falls (principal); N18.6 End stage renal disease; I12.0 Hypertensive chronic kidney disease with stage 5 chronic kidney disease or end stage renal disease; S02.2XXB Fracture of nasal bones, initial encounter for open fracture; D68.61 Antiphospholipid syndrome; D62 Acute posthemorrhagic anemia; R53.1 Weakness; W01.10XA Fall on same level from slipping, tripping and stumbling with subsequent striking against unspecified object, initial encounter; Y92.091 Bathroom in other non-institutional residence as the place of occurrence of the external cause; I48.0 Paroxysmal atrial fibrillation; E11.22 Type 2 diabetes mellitus with diabetic chronic kidney disease; M10.30 Gout due to renal impairment, unspecified site; R04.0 Epistaxis; D56.3 Thalassemia minor; M25.461 Effusion, right knee; S81.011A Laceration without foreign body, right knee, initial encounter; D63.1 Anemia in chronic kidney disease; M94.261 Chondromalacia, right knee; E87.5 Hyperkalemia; S83.271A Complex tear of lateral meniscus, current injury, right knee, initial encounter; F39 Unspecified mood [affective] disorder; K44.9 Diaphragmatic hernia without obstruction or gangrene; G47.33 Obstructive sleep apnea (adult) (pediatric); K21.9 Gastro-esophageal reflux disease without esophagitis; M32.9 Systemic lupus erythematosus, unspecified; J45.909 Unspecified asthma, uncomplicated; Z87.891 Personal history of nicotine dependence; Z99.2 Dependence on renal dialysis; Z86.73 Personal history of transient ischemic attack (TIA), and cerebral infarction without residual deficits; Z90.49 Acquired absence of other specified parts of digestive tract; Z79.82 Long term (current) use of aspirin; Z79.01 Long term (current) use of anticoagulants; Z79.899 Other long term (current) drug therapy

== ENCOUNTER 2019-01-08 17:25 | Inpatient (IN) | payer MEDICARE ==
[~2019-01-08] VITALS: Ht 170.2 cm; Wt 93.5 kg
[~2019-01-08 17:25] MED LIST changes: +COUM7.5T PO; +GABA-1171 PO; +NEPH1TAB11 PO; +OMEP20CA3 PO; +PEGPOW PO; +TRAM50TA2 PO; +WARF-21 PO
[2019-01-08] MEDS ORDERED: ALBUTEROL 90 MCG/ACT 8GM HFA INHALER INH PRN (18:30)
[2019-01-08] MEDS ORDERED: BISACODYL 10 MG SUPP PR PRN (18:30)
[2019-01-08] MEDS ORDERED: MAALOX 30 ML SUSP *UDC PO PRN (18:30)
[2019-01-08] MEDS: FLUTICASONE PROP 0.05% NASAL SPRAY 16 GM (FLONASE) NARES SCH (21:00)
[2019-01-08] MEDS: DOCUSATE SODIUM 100 MG CAP PO SCH (21:00)
[2019-01-08] MEDS: SENNA 8.6 MG TAB (SENOKOT) PO SCH (21:00)
[2019-01-08 21:45] VITALS: BP 119/56
[2019-01-08] MEDS: ACETAMINOPHEN TAB 650MG DOSE (2X325MG) PO PRN (23:12)
[2019-01-09 06:00] VITALS: BP 138/74
[2019-01-09 06:36] LABS: BASO # 0.1 10^3/uL (0.0-0.2); HEMATOCRIT 28.6 % (42.0-52.0); HEMOGLOBIN 9.1 g/dl (13.5-17.5); LYMPH # 1.2 10^3/uL (1.5-4.5); LYMPH % 15.9 % (24.0-44.0); MEAN CORPUSCULAR HEMOGLOBIN 24.7 pg (27.0-33.0); MEAN CORPUSCULAR HGB CONC 31.8 g/dl (32.0-36.5); MEAN CORPUSCULAR VOLUME 77.5 fl (80.0-96.0); MONO # 1.6 10^3/uL (0.0-0.8); MONO % 20.6 % (0.0-5.0); NEUTROPHILS # 4.8 10^3/uL (1.8-7.7); NEUTROPHILS % 61.1 % (36.0-66.0); PLATELET COUNT, AUTOMATED 265 10^3/uL (150-450); RED BLOOD COUNT 3.69 10^6/uL (4.30-6.10); WHITE BLOOD COUNT 7.8 10^3/uL (4.0-10.0)
[2019-01-09 06:48] LABS: INR 1.37; PROTHROMBIN TIME 17.1 SECONDS (12.1-14.4)
[2019-01-09 07:02] LABS: ALBUMIN 2.2 GM/DL (3.2-5.2); BILIRUBIN,TOTAL 0.9 MG/DL (0.2-1.0); CALCIUM LEVEL 8.9 MG/DL (8.8-10.2); CREATININE FOR GFR 7.74 MG/DL (0.70-1.30); GLOMERULAR FILTRATION RATE 7.5 (>49); POTASSIUM SERUM 4.3 MEQ/L (3.5-5.1); TOTAL PROTEIN 6.2 GM/DL (6.4-8.2)
[2019-01-09] MEDS: OMEPRAZOLE 20 MG CAP PO SCH (09:17)
[2019-01-09] MEDS: HYDROXYCHLOROQUINE 200 MG TAB PO SCH ×2 (09:17→21:40)
[2019-01-09] MEDS: FLUTICASONE PROP 0.05% NASAL SPRAY 16 GM (FLONASE) NARES SCH ×2 (09:17→21:00)
[2019-01-09] MEDS: DOCUSATE SODIUM 100 MG CAP PO SCH ×2 (09:17→21:40)
[2019-01-09] MEDS: GABAPENTIN 100 MG CAP PO SCH ×2 (09:17→21:39)
[2019-01-09] MEDS: ASPIRIN 81 MG CHEW TABLET PO SCH (09:17)
[2019-01-09] MEDS: CALCIUM ACETATE 667 MG GELCAP PO SCH ×3 (09:17→17:56)
[2019-01-09] MEDS: buPROPion **XL** TABLET 150MG (WELLBUTRIN XL) PO SCH (09:17)
[2019-01-09] MEDS: VITAMIN D 1,000 INTERNATIONAL UNITS TABLET PO SCH (09:17)
[2019-01-09] MEDS ORDERED: ARNU1INH PO (09:24)
[2019-01-09] MEDS: traMADol 50 MG TAB PO PRN (12:03)
[2019-01-09 14:00] VITALS: BP 116/56
--- NOTE | 2019-01-09 14:31 | HPEPDOC ---
Critical Care Technician Note DATE OF ADMISSION: January 08, 2019 at 21:53 SOURCE OF ADMISSION INFORMATION: [facility] records and patient CHIEF COMPLAINT: right complex meniscal tear in setting of SLE and ESRD on dialysis HISTORY OF PRESENT ILLNESS: 63M pmh ESRD on dialysis, SLE, thalassemia minor, Afib s/p ablation, HTN, gout, Antiphospholipid syndrome on Coumadin, NEERAJ on CPAP, stroke who was having increased falls at home who recently fell onto both his knees and face when trying to get out of the recliner presenting to [facility] ED with right knee pain and difficulty walking. He had missed dialysis which he usually gets Tue/Thurs/Sat and was found to be fluid overloaded, have an elevated creatinine, hyperkalemia, and supratherapeutic INR, and was admitted for urgent dialysis. Right knee Xr showed, [id number] suprapatellar effusionAdvanced tricompartmental osteoarthritic degenerative changes.. No acute fracture or dislocation. And CTH showed, Age related atrophy and microvascular ischemic changes. No acute intracranial hemorrhage, infarction, or mass/mass effect. He was evaluated by orthopedic who recommended MRI which showed, Complex tears of anterior and posterior horns medial meniscus. There is a tear of the posterior horn of the lateral meniscus. The cruciate and collateral ligaments are intact. Ill- defined edema in the distal quadriceps tendon and visualized distal vastus medialis and lateralis muscles suggest musculotendinous strain or partial tear. Severe chondromalacia in the medial joint compartment with subchondral marrow edema. Large hematoma in the suprapatellar bursa with moderate joint fluid. He was placed in a knee-extension brace and made WBAT. He did not develop fevers or chills, or clinical signs suspicious for septic joint. His Coumadin was held and his hyperkalemia treated and he was evaluated by therapy, found to have sig nificant gait and ADL impairments well below his prior level of function, and deemed medically appropriate for discharge to ARU on 01/09/19. REVIEW OF SYSTEMS: The following is a completed review of systems and has been reviewed. Review of systems otherwise unremarkable. PAIN: Patient self reports right knee and medial left knee pain EYES: Negative for recent vision changes EARS, NOSE, & THROAT: denies dysphagia, rhinorrhea, throat pain CARDIOVASCULAR: denies chest pain or palpitations PULMONARY: Negative. Denies shortness of breath GASTROINTESTINAL: no diarrhea or constipation GENITOURINARY: Negative for dysuria MUSCULOSKELETAL: right meniscal tears NEUROLOGICAL: peripheral neuropathy HEMATOLOGICAL: +chronic anemia SKIN: facial laceration PSYCHIATRIC: Unremarkable All other review of systems found to be negative. PAST MEDICAL HISTORY: as per HPI PAST SURGICAL HISTORY: Appendectomy, left ankle surgery, pineal cyst removal ALLERGIES: Please see below. MEDICATIONS: Please see below. FAMILY HISTORY: mother pancreatic cancer & diabetes, sister with bladder and breast cancer, father brain cancer SOCIAL HISTORY: Lives alone, quit smoking 1998, no ETOH or illicit drugs DIET: renal with 1800cc fluid restriction PHYSICAL EXAMINATION: VITAL SIGNS: Please see below. GENERAL: Pleasant and cooperative. No acute distress. HEENT: PERRL. Extraocular movements intact. Clear conjunctiva CARDIOVASCULAR: Regular rate and rhythm. No murmurs, rubs, or gallops LUNGS: Clear to auscultation bilaterally. No wheezes. No rhonchi ABDOMEN: Soft, nontender, nondistended. Positive bowel sounds. Normal active bowel sounds NEUROLOGICAL: Alert and oriented times three. Cranial nerves II through XII grossly intact. Sensation grossly intact in all 4 limbs EXTREMITIES: 5\5 strength bilateral upper extremities. 5\5 strength right hip flexion, ankle DF and EHL (limited due to pain and bracing) 5/5 strength in left lower extremity. +TTP medial joint line of left leg, no varus/valgus instability +suprapatellar effusion on right knee with medial joint line tenderness, mild warmth (-) Liz's bilat SKIN: anterior right knee laceration, nasal bridge laceration IMAGING: Imaging documentation personally reviewed by record FUNCTIONAL STATUS: Premorbid: Independent with all activities of daily life as well as mobility walking household distances On Admission: Total assist for transfers, bed mobility, dressing. GOALS: Mod-I for ambulation household distances, Mod-I for functional transfers, toileting, bathing, dressing, possible home eval, medical optimizatiob, assess for DMEs. ASSESSMENT:63-year-old M with past medical history of ESRD and SLE with multiple falls who presents status post acute right complex meniscal tear. PLAN: 1. Rehab: PT, OT, assess for DMEs 2. Ortho: s/p right complex meniscal tear, with suspiscion for quadriceps partial thickness tear with hematoma- c/u WBAT with brace, ortho consulted 3. Neuro: pmh multiple strokes, c/u ASA, unlcear why not on statin 4. cardio: pmh HTN, AFib s/p ablation with antiphospholipid syndrome- c/u WArfarin- medicine consulted to manage 5. Resp: pmh NEERAJ - c/u CPAP at night 6. Renal: ESRD Sat//Sat- renal consulted 7. Rheum: pmh SLE with joint inflammation of left>right knee, c/u Plaquenil 8. : fu admission UA and Ucx and monitor PVrs 9. Pain: Tylenol, gabapentin, and tramadol- Ice 10. Psych: Remeron for depression and insomnia, Wellbutryn for depression 11. Skin: facial lacerations- daily dressing change 12. Dispo: TBD POST ADMISSION PHYSICIAN EVALUATION: Medical and functional status: Description of medical status, medical assessment: As above. Rehabilitation diagnosis and current and prior cold morbid medical conditions as above. Risk of complications and plans to mitigate them as above. Description of functional status current status is as above. Prior status as above. Status compared to preadmission: There are no clinically significant differences between the patient's current status and the information described on the preadmission screening document. Treatment plan anticipated: Treatment plan is as described above. Required disciplines including physical therapy, occupational therapy, others as noted above. Intensity of services: 3 hours a day, 6 days a week. Special considerations: There are no specific special or safety considerations that would likely preclude immediate implementation of an intensive rehabilitation program or subsequently influence the plan of care. ATTESTATION: Considering all the information above, it is my best judgment that this patient requires intensive rehabilitation therapy as described above and an inpatient hospital environment due to the complexity of nursing, medical, and rehabilitation needs required by the patient. Furthermore, this patient can reasonably be expected to participate in an benefit from an inpatient rehabilitation stay with an interdisciplinary team approach to the delivery of rehabilitation care under the direction and supervision of rehabilitation physician PROGNOSIS: Excellent. ESTIMATED LENGTH OF STAY:12-14 days. PROJECTED DISCHARGE DESTINATION: Home with family support and any durable medical equipment required to increase functional safety and mobility TIME SPENT COUNSELING AND COORDINATING INITIAL CARE: Greater than 70 minutes. Vital Signs Vital Sign - Last 24 Hours 01/08/19 01/09/19 01/09/19 01/09/19 21:45 00:49 06:00 12:03 Temp 99.7 97.8 Pulse 100 89 Resp 18 18 18 B/P (MAP) 119/56 (77) 138/74 (95) Pulse Ox 95 94 95 01/09/19 12:35 Resp 18 Laboratory Data CBC/BMP Laboratory Tests 01/09/19 06:12 Red Blood Count 3.69 L, Mean Corpuscular Volume 77.5 L, Mean Corpuscular Hemoglobin 24.7 L, Mean Corpuscular Hemoglobin Concent 31.8 L, Red Cell Distribution Width 19.6 H, Neutrophils (%) (Auto) 61.1, Lymphocytes (%) (Auto) 15.9 L, Monocytes (%) (Auto) 20.6 H, Eosinophils (%) (Auto) 0.0, Basophils (%) (Auto) 1.0, Neutrophils # (Auto) 4.8, Lymphocytes # (Auto) 1.2 L, Monocytes # (Auto) 1.6 H, Eosinophils # (Auto) 0.0, Basophils # (Auto) 0.1, Calcium Level 8.9, Aspartate Amino Transf (AST/SGOT) 72 H, Alanine Aminotransferase (ALT/SGPT) 89 H, Alkaline Phosphatase 216 H, Total Bilirubin 0.9, Total Protein 6.2 L, Albumin 2.2 L Labs 24H Laboratory Tests 2 01/09/19 06:12: Immature Granulocyte % (Auto) 1.4, White Blood Count 7.8, Red Blood Count 3.69L, Hemoglobin 9.1L, Hematocrit 28.6L, Mean Corpuscular Volume 77.5L, Mean Corpuscular Hemoglobin 24.7L, Mean Corpuscular Hemoglobin Concent 31.8L, Red Cell Distribution Width 19.6H, Platelet Count 265, Neutrophils (%) (Auto) 61.1, Lymphocytes (%) (Auto) 15.9L, Monocytes (%) (Auto) 20.6H, Eosinophils (%) (Auto) 0.0, Basophils (%) (Auto) 1.0, Neutrophils # (Auto) 4.8, Lymphocytes # (Auto) 1.2L, Monocytes # (Auto) 1.6H, Eosinophils # (Auto) 0.0, Basophils # (Auto) 0.1, Nucleated Red Blood Cells % (auto) 0.4H, Prothrombin Time 17.1H, Prothromb Time International Ratio 1.37, Anion Gap 9, Glomerular Filtration Rate 7.5L, Blood Urea Nitrogen 38H, Creatinine 7.74H, Sodium Level 136, Potassium Level 4.3, Chloride Level 97L, Carbon Dioxide Level 30, Calcium Level 8.9, Aspartate Amino Transf (AST/SGOT) 72H, Alanine Aminotransferase (ALT/SGPT) 89H, Alkaline Phosphatase 216H, Total Bilirubin 0.9, Total Protein 6.2L, Albumin 2.2L, Albumin/Globulin Ratio 0.55L Home Medications Scheduled Aspirin (Aspirin EC) 81 Mg Tablet.dr, 81 MG PO DAILY, (Reported) Bupropion Hcl (Bupropion Xl) 150 Mg Tab.er.24h, 150 MG PO DAILY, (Reported) Calcium Acetate (Calcium Acetate) 667 Mg Cap, 667 MG PO TID, (Reported) Cholecalciferol (Vitamin D3) (Vitamin D3) 5,000 Unit Chw, 5,000 UNIT PO DAILY, (Reported) Fluticasone Furoate (Arnuity Ellipta) 100 Mcg/Act Inh, 100 MCG IN QAM, (Reported) Fluticasone Furoate (Arnuity Ellipta) 100 Mcg Blst.w.dev, 1 PUFF PO DAILY, (Reported) Folic Acid/Vit B Complex and C (Adilia-Monique Tablet) 1 Tab Tab, 1 TAB PO DAILY, (Reported) Gabapentin (Gabapentin) 100 Mg Capsule, 100 MG PO BID Gluc Caceres/Chondro Caceres A/Vit C/Mn (Glucosamine-Chondroitin Cap) 1 Cap Cap, 1 CAP PO BID, (Reported) Hydroxychloroquine Sulfate (Hydroxychloroquine Sulfate) 200 Mg Tab, 200 MG PO BID, (Reported) Mirtazapine (Remeron) 30 Mg Tab, 30 MG PO QHS, (Reported) Omeprazole (Omeprazole) 20 Mg Capsule.dr, 20 MG PO DAILY, (Reported) Polyethylene Glycol 3350 (Polyethylene Glycol 3350) 510 Gm Powder, 17 GRAM PO QHS, (Reported) Vit B Comp No.3/Folic/C/Biotin (Nephro-Monique Rx Tablet) 1 Each Tablet, 1 TAB PO DAILY, (Reported) Warfarin Sodium (Coumadin) 7.5 Mg Tablet, 7.5 MG PO DAILY@17 Scheduled PRN Albuterol Sulfate (Ventolin Hfa) 108 Mcg/Act Aer, 108 MCG IN Q4-6HP PRN for WHEEZING, (Reported) Tramadol HCl (Tramadol HCl) 50 Mg Tablet, 50 MG PO Q12HP PRN for PAIN Allergies Coded Allergies: No Known Allergies (Verified , 03/17/18) A-FIB/CHADSVASC A-FIB History Current/History of A-Fib/PAF?: Yes Current PO Anticoag Therapy: Yes ARLEY DONOHUE MD January 09, 2019 14:31
[2019-01-09] MEDS ORDERED: DARBEPOETIN 100 MCG/0.5 ML *DIALYSIS* SYRINGE (J0882) IV SCH (19:00)
[2019-01-09] MEDS ORDERED: WARFARIN SOD 7.5 MG TAB PO ONE (19:00)
[2019-01-09] MEDS ORDERED: IRON SUCROSE 100MG 5ML VIAL (J1756 PER 1MG) IV SCH (19:00)
[2019-01-09 20:00] VITALS: BP 138/67
--- NOTE | 2019-01-09 20:09 | IPN ---
DATE: 01/09/2019 SUBJECTIVE The patient was seen and examined at the bedside today morning. He is afebrile, hemodynamically stable. He denies any active bleeding. His hemoglobin has improved to 9.1 today. He still has right-sided nasal packing. The patient got the right knee brace placed and he is at rehab now to get the strength in the right lower extremity. OBJECTIVE Vital signs: Temperature is 97.8 degrees Fahrenheit. Blood pressure 138/74. Pulses 89, respiratory rate of 18, saturating 95% on room air. Intake and output: There is no urine output recorded. Weight in the bed scale was 114.6. PHYSICAL EXAMINATION General: The patient is awake, alert, oriented times three, laying in bed in no apparent distress. Head and neck examination: The patient has right-sided nasal packing. Mucous membranes are moist. Neck is supple. There is no JVD. Cardiovascular: S1, S2, regular rate. No edema of the bilateral lower extremities. Respiratory: Chest is clear to auscultation bilaterally. Bilateral equal air entry. No rales or rhonchi. Abdomen: Soft, obese, positive bowel sounds. Nontender. No organomegaly. Musculoskeletal: The patient has dressing on the right knee and he has a brace on the right knee with decreased range of movement, otherwise no clubbing or cyanosis. PANTOGRAPH I ENGRAVER: No focal deficit. Power is 05/05 in bilateral upper extremities. LAB REVIEW: CBC showed WBC of 7.8, hemoglobin 9.1, platelets of 265. BMP showed sodium 136, potassium 4.3, chloride 97, bicarb is 30, BUN 38, creatinine 7.7, albumin 2.2. CURRENT INPATIENT MEDICATIONS The patient's medications were all reviewed by me. Some of his medications have dropped after he was transferred to rehab. I am going to restart those medications. ASSESSMENT/PLAN 1. End-stage renal disease on hemodialysis. The patient's regular dialysis days are Saturday, , Saturday. He was dialyzed yesterday. Next hemodialysis session will be tomorrow as per is regular schedule. 2. Acute blood loss anemia and anemia of end-stage renal disease. The patient got PRBC transfusion during this hospitalization, hemoglobin has improved to 9.1. I am going to restart his dose of Aranesp and IV Venofer. 3. Antiphospholipid syndrome. The patient is on Coumadin. Dose will be adjusted according to INR. 4. Right knee hematoma. The patient was seen by orthopedic surgery. He is in the rehabilitation right now. He has a brace on the right knee.
[2019-01-09] MEDS: SENNA 8.6 MG TAB (SENOKOT) PO SCH (21:39)
[2019-01-09] MEDS: MIRTAZAPINE 15 MG TAB PO SCH (21:40)
[2019-01-10 06:00] VITALS: BP 132/67
[2019-01-10] MEDS: FLUTICASONE PROP 0.05% NASAL SPRAY 16 GM (FLONASE) NARES SCH (09:00)
[2019-01-10] MEDS: VITAMIN D 1,000 INTERNATIONAL UNITS TABLET PO SCH (10:12)
[2019-01-10] MEDS: OMEPRAZOLE 20 MG CAP PO SCH (10:12)
[2019-01-10] MEDS: ASPIRIN 81 MG CHEW TABLET PO SCH (10:12)
[2019-01-10] MEDS: DOCUSATE SODIUM 100 MG CAP PO SCH ×2 (10:12→20:47)
[2019-01-10] MEDS: GABAPENTIN 100 MG CAP PO SCH ×2 (10:12→20:47)
[2019-01-10] MEDS: CALCIUM ACETATE 667 MG GELCAP PO SCH ×3 (10:12→18:15)
[2019-01-10] MEDS: HYDROXYCHLOROQUINE 200 MG TAB PO SCH ×2 (10:13→20:47)
[2019-01-10] MEDS: buPROPion **XL** TABLET 150MG (WELLBUTRIN XL) PO SCH (10:13)
--- NOTE | 2019-01-10 13:46 | IPNPDOC ---
Subjective Date Seen The patient was seen on 01/10/19. Subjective Chief Complaint/HPI Patient is a 63 year old male, PMH sig for ESRD-on HD TTS, SLE, thalassemia minor, Afib s/p ablation, HTN, gout, Antiphospholipid syndrome on Coumadin, NEERAJ on CPAP, CVA sustained a fall multiple times at home with trauma to his nose and right knee. X-ray showed nasal fracture and right knee showed [id number] suprapatellar effusionAdvanced tricompartmental osteoarthritic degenerative changes. After stabilization he was discharged to inpatient rehab unit for mobilization, to return him to his functional baseline Events since last encounter Today he denies chills, fever, chest pain, SOB. He would like his nasl trumpet placed 10 days ago removed. Objective Physical Examination General Exam: Positive: Alert, Cooperative, No Acute Distress Eye Exam: Positive: PERRLA, Conjunctiva & lids normal ENT Exam: Negative: Atraumatic, Nares Patent (right nare trumpet) Neck Exam: Positive: Supple Chest Exam: Positive: Clear to auscultation, Normal air movement; Negative: Rales, Rhonchi Heart Exam: Positive: Rate Normal, Regular Rhythm Abdomen Exam: Positive: Normal bowel sounds, Soft; Negative: Tenderness Extremity Exam: Positive: Edema, Swelling (right knee brace) Neuro Exam: Positive: Normal Speech Psych Exam: Positive: Mental status NL Assessment /Plan Assessment Right Knee Contusion -currently braced -continued management in ARU Nasal Fracture -with right nasal trumpet -patient states trumpet was placed in ED, reason unclear at this time -call has been placed to ENT (Efren RUIZ)and discussed -they will follow up to determine next couse of management ESRD -nephrology on board, following, managing -HD TTS NEERAJ -CPAP ordered for QHS use although has nasal fracture at this time. -O2 ordered ordered for night time to keep >90% Paroxysmal Atrial Fibrillation -currently in sinus rhythm -restart on coumadin with INR monitoring SLE/Anti phospholipid syndrome -continue plaquenil -coumadin for anticoagulation DVT prophylaxis -coumadin Plan/VTE VTE Prophylaxis Ordered?: Yes VS, I&O, 24H, Fishbone Vital Signs/I&O Vital Signs Date Time Temp Pulse Resp B/P (MAP) Pulse Ox O2 Delivery O2 Flow Rate FiO2 01/10/19 06:00 97.1 87 18 132/67 (88) 98 2.5 I&O- Last 24 Hours up to 6 AM 01/10/19 06:00 Intake Total 1320 ml Output Total 400 ml Balance 920 ml [facility]ET[facility] Jan 10, 2019 13:46
[2019-01-10 14:15] LABS: INR 1.74; PROTHROMBIN TIME 20.6 SECONDS (12.1-14.4)
[2019-01-10] MEDS ORDERED: WARFARIN SOD 7.5 MG TAB PO SCH (17:00)
[2019-01-10 17:50] VITALS: BP 108/59
[2019-01-10 20:00] VITALS: BP 122/67
[2019-01-10] MEDS: SENNA 8.6 MG TAB (SENOKOT) PO SCH (20:47)
[2019-01-10] MEDS: CEPHALEXIN 500 MG CAP PO SCH (20:47)
[2019-01-10] MEDS: MIRTAZAPINE 15 MG TAB PO SCH (20:48)
[2019-01-11 05:58] VITALS: BP 128/62
[2019-01-11 06:44] LABS: INR 1.63; PROTHROMBIN TIME 19.6 SECONDS (12.1-14.4)
[2019-01-11] MEDS: VITAMIN D 1,000 INTERNATIONAL UNITS TABLET PO SCH (09:08)
[2019-01-11] MEDS: CEPHALEXIN 500 MG CAP PO SCH ×2 (09:08→20:16)
[2019-01-11] MEDS: ASPIRIN 81 MG CHEW TABLET PO SCH (09:08)
[2019-01-11] MEDS: HYDROXYCHLOROQUINE 200 MG TAB PO SCH ×2 (09:08→20:16)
[2019-01-11] MEDS: OMEPRAZOLE 20 MG CAP PO SCH (09:08)
[2019-01-11] MEDS: GABAPENTIN 100 MG CAP PO SCH ×2 (09:08→20:16)
[2019-01-11] MEDS: buPROPion **XL** TABLET 150MG (WELLBUTRIN XL) PO SCH (09:08)
[2019-01-11] MEDS: DOCUSATE SODIUM 100 MG CAP PO SCH ×2 (09:08→20:16)
[2019-01-11] MEDS: CALCIUM ACETATE 667 MG GELCAP PO SCH ×3 (09:08→17:33)
[2019-01-11] MEDS: ENOXAPARIN 100MG/1ML SYRINGE (J1650) SC SCH (09:09)
--- NOTE | 2019-01-11 10:03 | IPNPDOC ---
Subjective Date Seen The patient was seen on 01/11/19. Subjective Chief Complaint/HPI Patient is a 63 year old male, PMH sig for ESRD-on HD TTS, SLE, thalassemia minor, Afib s/p ablation, HTN, gout, Antiphospholipid syndrome on Coumadin, NEERAJ on CPAP, CVA sustained a fall multiple times at home with trauma to his nose and right knee. X-ray showed nasal fracture and right knee showed [id number] supra patellar effusionAdvanced tricompartmental osteoarthritic degenerative changes. After stabilization he was discharged to inpatient rehab unit for mobilization, to return him to his functional baseline Events since last encounter Patient has no complaints this morning. Denies bleeding, increased pain Objective Physical Examination General Exam: Positive: Alert, Cooperative, No Acute Distress Eye Exam: Positive: PERRLA, Conjunctiva & lids normal ENT Exam: Negative: Atraumatic (nasal sutures), Nares Patent (right nare trumpet) Neck Exam: Positive: Supple Chest Exam: Positive: Clear to auscultation, Normal air movement; Negative: Rales, Rhonchi Heart Exam: Positive: Rate Normal, Regular Rhythm Abdomen Exam: Positive: Normal bowel sounds, Soft; Negative: Tenderness Extremity Exam: Positive: Edema, Swelling (right knee brace) Neuro Exam: Positive: Normal Speech Psych Exam: Positive: Mental status NL, Mood NL, Oriented x 3; Negative: Anxiety Assessment /Plan Assessment Right Knee Contusion -currently braced -continued rehabilitation and management in ARU Nasal Fracture -with right nasal trumpet, status post laceration repair -Evaluated by ENT with plans to remove trumpet Saturday or Saturday -ENT recommended holding Coumadin till procedure completed. -Continue patient on Lovenox daily for anticoagulation. -Pharmacy dosing -Keflex prophylaxis recommended by ENT ESRD -nephrology on board, following, managing -HD TTS NEERAJ -CPAP ordered for QHS use although has nasal fracture at this time. -O2 ordered ordered for night time to keep >90% Paroxysmal Atrial Fibrillation -currently in sinus rhythm -restart Coumadin after nasal procedure completed -continue INR monitoring with reinitiation of Coumadin SLE/Anti phospholipid syndrome -continue plaquenil -coumadin for anticoagulation when procedure completed DVT prophylaxis -fully anticoagulated on lovenox Plan/VTE VTE Prophylaxis Ordered?: Yes VS, I&O, 24H, Fishbone Vital Signs/I&O Vital Signs Date Time Temp Pulse Resp B/P (MAP) Pulse Ox O2 Delivery O2 Flow Rate FiO2 01/11/19 05:58 97.1 85 18 128/62 (84) 100 01/10/19 06:00 2.5 I&O- Last 24 Hours up to 6 AM 01/11/19 06:00 Intake Total 580 ml Output Total 2850 ml Balance -2270 ml Laboratory Data 24H LABS Laboratory Tests 2 01/10/19 13:26: Prothrombin Time 20.6H, Prothromb Time International Ratio 1.74 01/11/19 06:11: Prothrombin Time 19.6H, Prothromb Time International Ratio 1.63 [facility] Jan 11, 2019 10:03
[2019-01-11] MEDS: ARNUITY ELLIPTA (PATIENT'S OWN MED) INH SCH (10:52)
--- NOTE | 2019-01-11 11:38 | CR ---
DATE OF CONSULTATION: 01/10/2019 REQUESTING PHYSICIAN AND SERVICE: The Rehabilitation Department. REASON FOR CONSULTATION: Potentially patient with previous nasal packing, previous epistaxis secondary to fall with sutures placed on the nasal dorsum, with hematoma, end-stage renal disease and further evaluation as to the best course with regards to his nasal issues. HISTORY OF PRESENT ILLNESS: This pleasant but unfortunate 63-year-old gentleman has a past medical history of lupus with antiphospholipid syndrome, thalassemia minor, paroxysmal atrial fibrillation (a fib), question status post ablation, end-stage renal disease - on hemodialysis, usually on Tuesdays, , and Saturdays who presented initially to [facility] emergency room on 01/01/2019 after a fall. Apparently he had a laceration over the nasal dorsum. The patient reports that they put something in his nose; he is not certain if they took it out or not; it was mainly on the right side of the nasal cavity, sutured up the laceration. He was supposed to follow up with our Ear, Nose and Throat (ENT) service and our office called to make an appointment, but he was readmitted on 01/03/2019 for another falling episode, as the patient apparently had missed two dialysis sessions and was deemed to be fluid overloaded. He had previously been on Coumadin, had an elevated INR, and he also developed effusion/possible hematoma around his right knee. The patient was admitted to the medical service on 01/03/2019 when he fell again. He got up from his recliner, apparently stood up too fast, felt lightheaded and fell on his knee and elbow, apparently had hit his head also but denied any disturbance, lightheadedness or dizziness, no vomiting, no palpitations or vertigo at that time. Has baseline shortness of breath. He was found to have a laceration on his nose, treated with bacitracin ointment in the emergency room (ER) and then doxycycline, which he states he stopped taking. He had a laceration on right knee, also lupus and asthma, antiphospholipid syndrome and obstructive sleep apnea. Past medical history is well documented and please see admitting note and also rehab admitting note for further details. REVIEW OF SYSTEMS: Have been further documented in the previous notes and will not be reiterated here. EXAMINATION: Patient, when I arrived to see him, was receiving dialysis, had no active bleeding in the nasal cavity. Had a 2 x 2 taped over the nasal cavity without any signs of recent bleeding. He also had a Band-Aid over the dorsum of the nasal cavity. There was no significant ecchymosis around his eyes at this time. There was no otoscope available in the dialysis center; ears could not be examined. Oral cavity showed no discrete obvious lesions and no posterior oropharynx bleeding. The nose revealed approximately a 2-1/2 cm vertical laceration, closed with simple sutures, no signs of infection at this time, showing some evidence of healing. Anterior right nasal septum showed some mild blood clot and no obvious packing was clearly identified. Although the patient reports there was some packing put up in his nose, uncertain if it was initially done with Gelfoam or with cotton with epinephrine locally to stop the bleeding and removed. The patient does not remember anything being removed in the emergency room when it happened on the . There is a little bit of blood in the left nasal cavity as well but no active bleeding. Neck is otherwise supple. The patient has been restarted on Coumadin and his INR today has increased from yesterday from 1.37 to 1.74, is likely to continue to rise. IMPRESSION: Patient sustained nasal dorsal trauma on 01/01/2019, apparently had sutures performed on the nasal dorsum. Initially I was told he had a nasal trumpet in, but there is no nasal trumpet present in the nasal cavity. The patient did report some packing; however, I cannot see nasal packing. I see a little bit of dried blood in the nasal cavity but no active bleeding at this point in time. The patient also had been transferred and admitted to the rehab service with right complex meniscal tear with suspicion for quadriceps partial thickness tear with hematoma, in a brace. Neuro with a history of multiple strokes. Cardiac with history of atrial fibrillation (a fib) and ablation. Respiratory: Past medical history of obstructive sleep apnea - on continuous positive airway pressure (CPAP). Also, with end-stage renal disease - on Saturday, , Saturday renal dialysis. He also has a history of depression and is on medications for that as well. PLAN: At this point in time, because not really clear what the patient has in his nasal cavity, if he has any packing at all, or if it is just blood clot, I have discussed the case. Would recommend that he be taken off the Coumadin, placed on heparin, something that is relatively easy to reverse if needed to, and have the patient come to our clinic either Saturday or Saturday for further evaluation where we could consider if there is any packing that needs to be removed, to remove it and/or to potentially also remove the sutures at this point. The patient is amenable to this as well as the staff and the nursing staff were all in agreement. Will see if we can coordinate this for Saturday or Saturday of this coming week where the patient would be transported via wheelchair. Would also recommend consider Keflex at renal dosing if necessary and also continue with the bacitracin ointment to the dorsum of the nose with daily dressing changes. Will try and see what we can do about Saturday or Saturday visit for the patient in our clinic. Thank you again for involving me in the care of this patient. LINDSAY
[2019-01-11 14:00] VITALS: BP_SYST 104; BP_SYST 184; BP_DIAS 55; BP_DIAS 84
--- NOTE | 2019-01-11 19:27 | IPN ---
DATE: 01/10/2019 SUBJECTIVE: The patient was seen and examined at the bedside today morning. He is afebrile, hemodynamically stable. He still has right nasal packing and he is waiting for it to be removed. He is getting daily physical therapy. He has a brace in the right knee. He reports that his movement and strength is improving on the right leg. Today the patient is due for his regular hemodialysis. OBJECTIVE: Vital signs: Temperature is 97.1 degrees Fahrenheit, fundi blood pressure 132/67, pulse is 87, respiratory rate of 18, saturating 98% on 2.5 liters nasal cannula. Intake and output: Urine output recorded is 200 mL. Weight in the bed scale is not available. PHYSICAL EXAMINATION: General: The patient is awake, alert, oriented times three, laying in bed, in no apparent distress. Head and neck exam: The patient has packing in the right side of the nose. Mucous membranes are moist. Neck is supple. There is no JVD. Cardiovascular: S1, S2, regular rate. No edema of the bilateral lower extremities. Respiratory: Chest is clear to auscultation bilaterally. Bilateral equal air entry. No rales or rhonchi. Abdomen: Soft, obese, positive bowel sounds. Nontender. No organomegaly. Musculoskeletal: Dressing on the right knee and a brace on the right knee up to the right ankle. RABBIT FANCIER: No focal deficit. Power is 5/5 in bilateral upper extremities. LABORATORY REVIEW: CBC done yesterday showed a hemoglobin of 9.1. BMP was done yesterday which showed a potassium of 4.3. CURRENT INPATIENT MEDICATIONS: The patient's medications were all reviewed by me. He is currently on Lovenox 100 mg subcutaneous daily. He has been started on Coumadin 7.5 mg by mouth daily. INR level is improving. ASSESSMENT/PLAN: 1. End-stage renal disease on hemodialysis. The patient will be dialyzed today according to his regular schedule. Ultrafiltration goal will be about 2.5 liters as tolerated by his blood pressure. 2. Anemia secondary to acute blood loss and end-stage renal disease. His hemoglobin is 9.1 which is improving. Continue current dose of Aranesp 200 mcg. He is also getting IV Venofer with hemodialysis. 3. Antiphospholipid syndrome. The patient is currently on Lovenox and Coumadin. INR is improving. 4. Right-sided nasal packing. The patient needs to be seen by ENT for removal of the right-sided nasal packing because it is more than 1 week old.
[2019-01-11 20:00] VITALS: BP 122/61
[2019-01-11] MEDS: SENNA 8.6 MG TAB (SENOKOT) PO SCH (20:16)
[2019-01-11] MEDS: MIRTAZAPINE 15 MG TAB PO SCH (20:16)
[2019-01-12] MEDS: ACETAMINOPHEN TAB 650MG DOSE (2X325MG) PO PRN ×2 (04:42→20:39)
[2019-01-12 06:00] VITALS: BP 122/96
[2019-01-12 07:17] LABS: INR 1.4; PROTHROMBIN TIME 17.4 SECONDS (12.1-14.4)
[2019-01-12 07:30] LABS: CALCIUM LEVEL 8.3 MG/DL (8.8-10.2); CREATININE FOR GFR 8.96 MG/DL (0.70-1.30); GLOMERULAR FILTRATION RATE 6.4 (>49); POTASSIUM SERUM 4.2 MEQ/L (3.5-5.1)
[2019-01-12] MEDS ORDERED: [UNRECOGNIZED DRUG - REMARK] XX SCH (09:00)
[2019-01-12] MEDS: ENOXAPARIN 100MG/1ML SYRINGE (J1650) SC SCH ×2 (09:00→12:22)
[2019-01-12] MEDS: CEPHALEXIN 500 MG CAP PO SCH ×2 (09:10→20:34)
[2019-01-12] MEDS: VITAMIN D 1,000 INTERNATIONAL UNITS TABLET PO SCH (09:10)
[2019-01-12] MEDS: GABAPENTIN 100 MG CAP PO SCH ×2 (09:10→20:34)
[2019-01-12] MEDS: buPROPion **XL** TABLET 150MG (WELLBUTRIN XL) PO SCH (09:10)
[2019-01-12] MEDS: DOCUSATE SODIUM 100 MG CAP PO SCH ×3 (09:10→20:59)
[2019-01-12] MEDS: ASPIRIN 81 MG CHEW TABLET PO SCH (09:10)
[2019-01-12] MEDS: CALCIUM ACETATE 667 MG GELCAP PO SCH ×3 (09:10→18:23)
[2019-01-12] MEDS: HYDROXYCHLOROQUINE 200 MG TAB PO SCH ×2 (09:10→20:34)
[2019-01-12] MEDS: OMEPRAZOLE 20 MG CAP PO SCH (09:10)
[2019-01-12] MEDS: ARNUITY ELLIPTA (PATIENT'S OWN MED) INH SCH (09:11)
--- NOTE | 2019-01-12 10:04 | IPNPDOC ---
Subjective Date Seen The patient was seen on 01/12/19. Subjective Chief Complaint/HPI Patient is a 63 year old male, PMH sig for ESRD-on HD TTS, SLE, thalassemia minor, Afib s/p ablation, HTN, gout, Antiphospholipid syndrome on Coumadin, NEERAJ on CPAP, CVA sustained a fall multiple times at home with trauma to his nose and right knee. X-ray showed nasal fracture and right knee showed [id number] suprapatellar effusionAdvanced tricompartmental osteoarthritic degenerative changes. After stabilization he was discharged to inpatient rehab unit for mobilization, to return him to his functional baseline Events since last encounter Seen in rehab, no complaints at this time. denies chest pain, denies SOB Objective Physical Examination General Exam: Positive: Alert, Cooperative, No Acute Distress Eye Exam: Positive: PERRLA, Conjunctiva & lids normal, EOMI ENT Exam: Negative: Atraumatic (nasal sutures), Nares Patent (right nare trumpet) Neck Exam: Positive: Supple Chest Exam: Positive: Clear to auscultation, Normal air movement; Negative: Rales, Rhonchi Heart Exam: Positive: Rate Normal, Irregular Rhythm Abdomen Exam: Positive: Normal bowel sounds, Soft; Negative: Tenderness Extremity Exam: Positive: Edema (to right lower extremity with knee brace in place), Swelling (right knee brace) Skin Exam: Positive: Nl turgor and temperature, Other skin issue (nasal sutures) Neuro Exam: Positive: Normal Speech Psych Exam: Positive: Mental status NL, Mood NL, Oriented x 3; Negative: Anxiety Assessment /Plan Assessment Right Knee Contusion -currently braced -continued rehabilitation and management in ARU Nasal Fracture -for reassessment by ENT today for trumpet removal -continued on Keflex per ENT recommendations -restart coumadin after procedure if cleared by ENT ESRD -Creatinine markedly elevated today, >8 -HD days are TTS -Nephrology aware, follow recommendations for management -patient has no signs, symptoms of uremia NEERAJ -CPAP ordered for QHS use although has nasal fracture at this time. -O2 ordered ordered for night time to keep >90% Paroxysmal Atrial Fibrillation -currently in sinus rhythm -restart Coumadin after nasal procedure completed -continue INR monitoring with reinitiating Coumadin SLE/Anti phospholipid syndrome -continue plaquenil -coumadin for anticoagulation when procedure completed DVT prophylaxis -fully anticoagulated on lovenox Plan/VTE VTE Prophylaxis Ordered?: Yes VS, I&O, 24H, Fishbone Vital Signs/I&O Vital Signs Date Time Temp Pulse Resp B/P (MAP) Pulse Ox O2 Delivery O2 Flow Rate FiO2 01/12/19 06:00 97.0 86 18 122/96 (105) 98 01/10/19 06:00 2.5 I&O- Last 24 Hours up to 6 AM 01/12/19 06:00 Intake Total 1080 ml Balance 1080 ml Laboratory Data 24H LABS Laboratory Tests 2 01/12/19 06:31: Prothrombin Time 17.4H, Prothromb Time International Ratio 1.40, Anion Gap 13, Glomerular Filtration Rate 6.4L, Blood Urea Nitrogen 64H, Creatinine 8.96*H, Sodium Level 139, Potassium Level 4.2, Chloride Level 99, Carbon Dioxide Level 27, Calcium Level 8.3L CBC/BMP Laboratory Tests 01/12/19 06:31 Calcium Level 8.3 L XAVIER BASSETT Jan 12, 2019 10:03
[2019-01-12 14:00] VITALS: BP 143/77
[2019-01-12 20:04] VITALS: BP 140/66
[2019-01-12] MEDS: SENNA 8.6 MG TAB (SENOKOT) PO SCH ×2 (20:34→20:58)
[2019-01-12] MEDS: MIRTAZAPINE 15 MG TAB PO SCH (20:34)
[2019-01-13] MEDS: traMADol 50 MG TAB PO PRN ×2 (01:02→07:42)
[2019-01-13 05:53] VITALS: BP 135/70
[2019-01-13] MEDS: ACETAMINOPHEN TAB 650MG DOSE (2X325MG) PO PRN ×3 (06:00→23:00)
[2019-01-13 06:06] LABS: HEMATOCRIT 25.1 % (42.0-52.0); HEMOGLOBIN 8.1 g/dl (13.5-17.5); MEAN CORPUSCULAR HEMOGLOBIN 24.1 pg (27.0-33.0); MEAN CORPUSCULAR HGB CONC 32.3 g/dl (32.0-36.5); MEAN CORPUSCULAR VOLUME 74.7 fl (80.0-96.0); PLATELET COUNT, AUTOMATED 347 10^3/uL (150-450); RED BLOOD COUNT 3.36 10^6/uL (4.30-6.10); WHITE BLOOD COUNT 6.7 10^3/uL (4.0-10.0)
[2019-01-13 06:18] LABS: INR 1.22; PROTHROMBIN TIME 15.5 SECONDS (12.1-14.4)
[2019-01-13 06:52] LABS: ALBUMIN 2.1 GM/DL (3.2-5.2); BILIRUBIN,TOTAL 0.8 MG/DL (0.2-1.0); CALCIUM LEVEL 8.4 MG/DL (8.8-10.2); CREATININE FOR GFR 11.2 MG/DL (0.70-1.30); GLOMERULAR FILTRATION RATE 4.9 (>49); MAGNESIUM LEVEL 2.6 MG/DL (1.8-2.4); POTASSIUM SERUM 4.3 MEQ/L (3.5-5.1); TOTAL PROTEIN 6.3 GM/DL (6.4-8.2)
[2019-01-13] MEDS: buPROPion **XL** TABLET 150MG (WELLBUTRIN XL) PO SCH (07:42)
[2019-01-13] MEDS: VITAMIN D 1,000 INTERNATIONAL UNITS TABLET PO SCH (07:42)
[2019-01-13] MEDS: HYDROXYCHLOROQUINE 200 MG TAB PO SCH ×2 (07:43→20:18)
[2019-01-13] MEDS: OMEPRAZOLE 20 MG CAP PO SCH (07:43)
[2019-01-13] MEDS: GABAPENTIN 100 MG CAP PO SCH (07:43)
[2019-01-13] MEDS: ASPIRIN 81 MG CHEW TABLET PO SCH (07:43)
[2019-01-13] MEDS: DOCUSATE SODIUM 100 MG CAP PO SCH ×3 (07:43→20:18)
[2019-01-13] MEDS: CALCIUM ACETATE 667 MG GELCAP PO SCH ×3 (07:43→16:59)
[2019-01-13] MEDS: ENOXAPARIN 100MG/1ML SYRINGE (J1650) SC SCH (07:43)
[2019-01-13] MEDS: ARNUITY ELLIPTA (PATIENT'S OWN MED) INH SCH (07:44)
[2019-01-13] MEDS: CEPHALEXIN 500 MG CAP PO SCH ×2 (07:44→20:18)
[2019-01-13] MEDS ORDERED: LIDOCAINE 1% SDV 5 ML VIAL SQ ONE (11:15)
--- NOTE | 2019-01-13 17:46 | IPNPDOC ---
Subjective Date Seen The patient was seen on 01/13/19. Subjective Chief Complaint/HPI 63-year-old male, past medical history significant for end-stage renal disease on hemodialysis Tuesdays, and Saturdays, admitted status post fall with fracture of his nose and right knee contusion. Events since last encounter Patient had removal of nasal trumpet by ENT yesterday. He also had sutures removed from his nose. Today, denies chills, fever, chest pain, bleeding, shortness of breath. Complains of bilateral lower extremity swelling Objective Physical Examination General Exam: Positive: Alert, Cooperative, No Acute Distress Eye Exam: Positive: PERRLA, Conjunctiva & lids normal, EOMI ENT Exam: Negative: Atraumatic (nasal sutures), Nares Patent (right nare trumpet) Neck Exam: Positive: Supple Chest Exam: Positive: Clear to auscultation, Normal air movement; Negative: Rales, Rhonchi Heart Exam: Positive: Rate Normal, Regular Rhythm Abdomen Exam: Positive: Normal bowel sounds, Soft; Negative: Tenderness Extremity Exam: Positive: Edema (to right lower extremity with knee brace in place), Swelling (right knee brace) Skin Exam: Positive: Nl turgor and temperature, Other skin issue (nasal sutures) Neuro Exam: Positive: Normal Speech Psych Exam: Positive: Mental status NL, Mood NL, Oriented x 3; Negative: Anxiety Assessment /Plan Assessment Right Knee Contusion -continued rehabilitation management in ARU Nasal Fracture -Nasal trumpet removed by ENT yesterday without issues -Continue Keflex complete 7 days of therapy ESRD -Hemodialysis Saturday, , Saturday -Treatment managed by nephrology team -Creatinine elevation could be due to Lovenox NEERAJ -CPAP ordered for QHS use although has nasal fracture at this time. -O2 ordered ordered for night time to keep >90% Paroxysmal Atrial Fibrillation -currently in sinus rhythm -He can be restarted on Coumadin tomorrow if no active bleeding issues per ENT SLE/Anti phospholipid syndrome -continue plaquenil -coumadin for anticoagulation when stable to restart DVT prophylaxis -fully anticoagulated on lovenox Plan/VTE VTE Prophylaxis Ordered?: Yes VS, I&O, 24H, Fishbone Vital Signs/I&O Vital Signs Date Time Temp Pulse Resp B/P (MAP) Pulse Ox O2 Delivery O2 Flow Rate FiO2 01/13/19 08:15 18 01/13/19 05:53 98.6 79 135/70 (91) 97 01/10/19 06:00 2.5 I&O- Last 24 Hours up to 6 AM 01/13/19 06:00 Intake Total 1200 ml Balance 1200 ml Laboratory Data 24H LABS Laboratory Tests 2 01/13/19 05:41: Nucleated Red Blood Cells % (auto) 0.0, Prothrombin Time 15.5H, Prothromb Time International Ratio 1.22, Anion Gap 14, Glomerular Filtration Rate 4.9L, Blood Urea Nitrogen 85H, Creatinine 11.20*H, Sodium Level 136, Potassium Level 4.3, Chloride Level 97L, Carbon Dioxide Level 25, Calcium Level 8.4L, Aspartate Amino Transf (AST/SGOT) 62H, Alanine Aminotransferase (ALT/SGPT) 74, Alkaline Phosphatase 213H, Total Bilirubin 0.8, Total Protein 6.3L, Albumin 2.1L, Magnesium Level 2.6H, Albumin/Globulin Ratio 0.50L CBC/BMP Laboratory Tests 01/13/19 05:41 Red Blood Count 3.36 L, Mean Corpuscular Volume 74.7 L, Mean Corpuscular Hemoglobin 24.1 L, Mean Corpuscular Hemoglobin Concent 32.3, Red Cell Distribution Width 19.9 H, Calcium Level 8.4 L, Aspartate Amino Transf (AST/SGOT) 62 H, Alanine Aminotransferase (ALT/SGPT) 74, Alkaline Phosphatase 213 H, Total Bilirubin 0.8, Total Protein 6.3 L, Albumin 2.1 L XAVIER BASSETT [employer]DEL [employer] APPRENTICE Jan 13, 2019 17:46
--- NOTE | 2019-01-13 17:47 | IPNPDOC ---
PM&R Progress Note DATE OF SERVICE: Jan 13, 2019 [employer] Progress Note Subjective: Patient reporting he is feeling better now that the nasal packing has been removed and that his left groin and buttock have been aching. REVIEW OF SYSTEMS: The following is a completed review of systems and has been reviewed. Review of systems otherwise unremarkable. PAIN: Patient self reports right knee and medial left knee pain EYES: Negative for recent vision changes EARS, NOSE, & THROAT: denies dysphagia, rhinorrhea, throat pain CARDIOVASCULAR: denies chest pain or palpitations PULMONARY: Negative. Denies shortness of breath GASTROINTESTINAL: no diarrhea or constipation GENITOURINARY: Negative for dysuria MUSCULOSKELETAL: right meniscal tears NEUROLOGICAL: peripheral neuropathy HEMATOLOGICAL: +chronic anemia SKIN: facial laceration PSYCHIATRIC: Unremarkable All other review of systems found to be negative. PHYSICAL EXAMINATION: VITAL SIGNS: Please see below. GENERAL: Pleasant and cooperative. No acute distress. HEENT: PERRL. Extraocular movements intact. Clear conjunctiva CARDIOVASCULAR: Regular rate and rhythm. No murmurs, rubs, or gallops LUNGS: Clear to auscultation bilaterally. No wheezes. No rhonchi ABDOMEN: Soft, nontender, nondistended. Positive bowel sounds. Normal active bowel sounds NEUROLOGICAL: Alert and oriented times three. Cranial nerves II through XII grossly intact. Sensation grossly intact in all 4 limbs EXTREMITIES: 5\5 strength bilateral upper extremities. 5\5 strength right hip flexion, ankle DF and EHL (limited due to pain and bracing) 5/5 strength in left lower extremity. +TTP medial joint line of left leg, no varus/valgus instability +suprapatellar effusion on right knee with medial joint line tenderness, no warmth + log roll and stinchfield test for left hip (-) Liz's bilat SKIN: anterior right knee laceration, nasal bridge laceration ASSESSMENT:63-year-old M with past medical history of ESRD and SLE with multiple falls who presents status post acute right complex meniscal tear. PLAN: 1. Rehab: PT, OT, assess for DMEs- ambulating with RW 2. Ortho: s/p right complex meniscal tear, with suspicion for quadriceps partial thickness tear with hematoma- c/u WBAT with brace, ortho consulted 3. Neuro: pmh multiple strokes, c/u ASA, unlcear why not on statin 4. cardio: pmh HTN, AFib s/p ablation with antiphospholipid syndrome- Warfarin on hold until nasal packing removed, c/u Lovenox full dose for now- medicine recs appreciated 5. Resp: pmh NEERAJ - c/u CPAP at night 6. Renal: ESRD Sat//Sat- renal consulted recs aprpeciated 7. Rheum: pmh SLE with joint inflammation of left>right knee, c/u Plaquenil -patient reproting left groin pain worse with internal rotation- will trial li doderm patch to groin for suspected hip arthritis 8. : admission UA and Ucx negative 9. Pain: Tylenol, gabapentin, and tramadol- Ice 10. Psych: Remeron for depression and insomnia, Wellbutryn for depression 11. Skin: facial lacerations- daily dressing change 12. Dispo: TBD Allergies Coded Allergies: No Known Allergies (Verified , 03/17/18) Vital Signs Vital Signs Date Time Temp Pulse Resp B/P (MAP) Pulse Ox O2 Delivery O2 Flow Rate FiO2 01/13/19 08:15 18 01/13/19 05:53 98.6 79 135/70 (91) 97 01/10/19 06:00 2.5 Laboratory Data CBC/BMP Laboratory Tests 01/13/19 05:41 Red Blood Count 3.36 L, Mean Corpuscular Volume 74.7 L, Mean Corpuscular Hemoglobin 24.1 L, Mean Corpuscular Hemoglobin Concent 32.3, Red Cell Distribution Width 19.9 H, Calcium Level 8.4 L, Aspartate Amino Transf (AST/SGOT) 62 H, Alanine Aminotransferase (ALT/SGPT) 74, Alkaline Phosphatase 213 H, Total Bilirubin 0.8, Total Protein 6.3 L, Albumin 2.1 L Labs 24H Laboratory Tests 2 01/13/19 05:41: Nucleated Red Blood Cells % (auto) 0.0, Prothrombin Time 15.5H, Prothromb Time International Ratio 1.22, Anion Gap 14, Glomerular Filtration Rate 4.9L, Blood Urea Nitrogen 85H, Creatinine 11.20*H, Sodium Level 136, Potassium Level 4.3, Chloride Level 97L, Carbon Dioxide Level 25, Calcium Level 8.4L, Aspartate Amino Transf (AST/SGOT) 62H, Alanine Aminotransferase (ALT/SGPT) 74, Alkaline Phosphatase 213H, Total Bilirubin 0.8, Total Protein 6.3L, Albumin 2.1L, Magnesium Level 2.6H, Albumin/Globulin Ratio 0.50L Current Medications Current Medications Current Medications Acetaminophen (Tylenol Tab) 650 mg Q4HP PRN PO MILD PAIN (PS 1-4) Last administered on 01/13/19 16:59; Start 01/08/19 at 18:30 Al Hydrox/Mg Hydrox/Simethicone (Mylanta) 30 ml Q4HP PRN PO DYSPEPSIA; Start 01/08/19 at 18:30 Albuterol Sulfate (Proventil, Ventolin Hfa) 2 puff Q4HP PRN INH SHORTNESS OF BREATH Last administered on 01/11/19 07:18; Start 01/08/19 at 18:30 Aspirin (Aspirin Chewable) 81 mg DAILY PO Last administered on 01/13/19 07:43; Start 01/09/19 at 09:00 Bisacodyl (Dulcolax Suppository) 10 mg DAILYPRN PRN NE CONSTIPATION; Start 01/08/19 at 18:30 Bupropion HCl (Wellbutrin Xl) 150 mg DAILY PO Last administered on 01/13/19 07:42; Start 01/09/19 at 09:00 Calcium Acetate (Phoslo) 667 mg WM PO Last administered on 01/13/19 16:59; Start 01/09/19 at 08:00 Cephalexin Monohydrate (Keflex) 500 mg BID PO Last administered on 01/13/19 07:44; Start 01/10/19 at 21:00 Darbepoetin Wu (Aranesp (Dialysis Use)) 200 mcg HD IV ; Start 01/09/19 at 19:00 Docusate Sodium (Colace) 100 mg BID PO Last administered on 01/12/19 09:10; Start 01/08/19 at 21:00 Enoxaparin Sodium (Lovenox) 100 mg Q24H SC Last administered on 01/13/19 07:43; Start 01/11/19 at 09:00 Fluticasone Propionate (Flonase 0.05% Nasal [place]) 1 spray BID NARES Last administered on 01/10/19 09:00; Start 01/08/19 at 21:00; Stop 01/10/19 at 15:01; Status DC Gabapentin (Neurontin) 100 mg BID PO Last administered on 01/13/19 07:43; Start 01/09/19 at 09:00 Hydroxychloroquine Sulfate (Plaquenil) 200 mg BID PO Last administered on 01/13/19 07:43; Start 01/09/19 at 09:00 Iron (Venofer) 100 mg HD IV ; Start 01/09/19 at 19:00; Stop 01/16/19 at 19:01 Mirtazapine (Remeron) 30 mg QHS PO Last administered on 01/12/19at 20:34; Start 01/09/19 at 21:00 Non-Formulary Medication ( See Comment Field Below ) DAILY XX ; Start 01/12/19 at 09:00; Stop 01/14/19 at 08:59 Omeprazole (PriLOSEC) 20 mg DAILY PO Last administered on 01/13/19 07:43; Sta rt 01/09/19 at 09:00 Patient Own Medication (Patient'S Own Med) Arnuity ellipta 100mcg ... QAM INH L ast administered on 01/13/19 07:44; Start 01/11/19 at 09:00 Senna (Senokot) 1 tab QHS PO Last administered on 01/11/19 20:16; Start 01/08/19 at 21:00 Tramadol HCl (Ultram) 50 mg Q6HP PRN PO MODERATE PAIN (PS 5-7) Last administered on 01/13/19 07:42; Start 01/08/19 at 18:30 Vitamin D (Vitamin D) 2,000 units DAILY PO Last administered on 01/13/19 07:42; Start 01/09/19 at 09:00 Warfarin Sodium (Coumadin) 7.5 mg DAILY@17 PO ; Start 01/10/19 at 17:00; Stop 01/10/19 at 17:00; Status DC ARLEY DONOHUE MD Jan 13, 2019 17:47
[2019-01-13 20:00] VITALS: BP 132/60
[2019-01-13] MEDS: LIDOCAINE 5% (LIDODERM) PATCH TD SCH (20:17)
[2019-01-13] MEDS: SENNA 8.6 MG TAB (SENOKOT) PO SCH (20:18)
[2019-01-13] MEDS: MIRTAZAPINE 15 MG TAB PO SCH (20:19)
--- NOTE | 2019-01-13 22:15 | IPN ---
DATE: 01/13/2019 SUBJECTIVE: Tomás is seen and examined this morning. Had dialysis treatment today with 2.7 liters of fluid removed. He complains of some puffiness of the ankles, otherwise denies any complaints. Vital signs: Temperature 97.5, pulse 96, respiratory rate 18, blood pressure 132/60, saturating 96% on room air. Intake yesterday was 1200. Dialysis today removed 2700. Weight in the bed scale today is not recorded. General: The patient is seen lying in bed awake, alert, oriented, comfortable, no acute distress. Extraocular muscles are intact. Tongue is moist. Neck is supple. Jugular veins are not elevated. Cardiac: S1, S2. Trace ankle edema bilaterally. Respiratory: Lungs are clear to auscultation. No crackle, rale or wheeze. Abdomen is soft and nontender and obese. There are bowel sounds. Extremities: Show a brace on the right lower extremity up to the knee and the left ankle has some trace edema. Neurologic: No focal deficits. Oriented times three. LABORATORY DATA White count 6.7, hemoglobin 8.1, platelets 347. Sodium 136, potassium 4.3, magnesium 2.6. INPATIENT MEDICATIONS: Reviewed by myself. He continues on Lovenox. His Coumadin remains on hold. His gabapentin dose was decreased to 100 mg by mouth daily and his tramadol was discontinued. PROBLEMS: 1. End-stage renal disease on hemodialysis on Tuesdays, , Saturday schedule. He was dialyzed today according to his schedule. 2.7 liters of fluid were removed which he tolerated without issue. His electrolytes and volume status are acceptable. Next treatment will be on . 2. Anemia secondary to acute blood loss and also to end-stage renal disease. Hemoglobin was down to 8.1 today, but I feel that there is also an element of hemodilution. He had 2.7 liters of fluid removed with dialysis today and we will repeat a CBC tomorrow. He continues on Aranesp and iron with hemodialysis. 3. Intact phospholipid syndrome. His Coumadin is presently on hold and he is being anticoagulated with once daily Lovenox. I see that there is a plan to restart Coumadin tomorrow.
[2019-01-14 06:00] VITALS: BP 131/62
[2019-01-14 06:57] LABS: HEMATOCRIT 26.2 % (42.0-52.0); HEMOGLOBIN 8.3 g/dl (13.5-17.5); MEAN CORPUSCULAR HEMOGLOBIN 24.3 pg (27.0-33.0); MEAN CORPUSCULAR HGB CONC 31.7 g/dl (32.0-36.5); MEAN CORPUSCULAR VOLUME 76.8 fl (80.0-96.0); PLATELET COUNT, AUTOMATED 333 10^3/uL (150-450); RED BLOOD COUNT 3.41 10^6/uL (4.30-6.10); WHITE BLOOD COUNT 5.7 10^3/uL (4.0-10.0)
[2019-01-14 07:05] LABS: INR 1.13; PROTHROMBIN TIME 14.7 SECONDS (12.1-14.4)
[2019-01-14] MEDS: GABAPENTIN 100 MG CAP PO SCH (08:59)
[2019-01-14] MEDS: buPROPion **XL** TABLET 150MG (WELLBUTRIN XL) PO SCH (08:59)
[2019-01-14] MEDS: CALCIUM ACETATE 667 MG GELCAP PO SCH ×3 (08:59→17:19)
[2019-01-14] MEDS: ENOXAPARIN 100MG/1ML SYRINGE (J1650) SC SCH (08:59)
[2019-01-14] MEDS: HYDROXYCHLOROQUINE 200 MG TAB PO SCH ×2 (08:59→20:37)
[2019-01-14] MEDS: VITAMIN D 1,000 INTERNATIONAL UNITS TABLET PO SCH (08:59)
[2019-01-14] MEDS: ASPIRIN 81 MG CHEW TABLET PO SCH (08:59)
[2019-01-14] MEDS: DOCUSATE SODIUM 100 MG CAP PO SCH ×2 (09:00→20:38)
[2019-01-14] MEDS: ARNUITY ELLIPTA (PATIENT'S OWN MED) INH SCH (09:00)
[2019-01-14] MEDS: CEPHALEXIN 500 MG CAP PO SCH ×2 (09:00→20:37)
[2019-01-14] MEDS: OMEPRAZOLE 20 MG CAP PO SCH (09:00)
[2019-01-14] MEDS: ACETAMINOPHEN TAB 650MG DOSE (2X325MG) PO PRN ×2 (09:02→20:43)
[2019-01-14] MEDS: **NOTE PATIENT COMMENT** MISC XX SCH (09:02)
[2019-01-14 14:00] VITALS: BP 129/68
[2019-01-14] MEDS ORDERED: WARFARIN SOD 5 MG TAB PO ONE (18:00)
[2019-01-14 20:00] VITALS: BP 139/73
[2019-01-14] MEDS: LIDOCAINE 5% (LIDODERM) PATCH TD SCH (20:37)
[2019-01-14] MEDS: SENNA 8.6 MG TAB (SENOKOT) PO SCH (20:37)
[2019-01-14] MEDS: MIRTAZAPINE 15 MG TAB PO SCH (20:38)
--- NOTE | 2019-01-14 23:09 | IPNPDOC ---
Subjective Date Seen The patient was seen on 01/14/19. Subjective Chief Complaint/HPI The patient does not have complaints. His pain has improved. His PO intake has improved. No constipation. No other complaints. General: Denies: ROS Unobtainable, Chills, Night Sweats, Fatigue, Malaise, Normal Appetite, Other Symptoms Constitutional: Denies: Chills, Fever, Malaise, Night Sweats, Weakness, Fatigue, Weight Loss, Lethargy, Other Eyes: Denies: Pain, Vision change, Conjunctivae inflammation, Eyelid inflammation, Redness, Other ENT: Denies: Head Aches, Ear Pain, Dysphagia, Sinus Congestion, Post Nasal Drip, Sore Throat, Epistaxis, Other Symptoms Skin: Denies: Rash, Lesions, Jaundice, Bruising, Itching, Dry, Breakdown, Nail Changes, Other Pulmonary: Denies: Dyspnea, Cough, Pleuritic Chest Pain, Other Symptoms Cardiovascular: Denies: Chest Pain, Palpitations, Orthopnea, Paroxysmal Noc. Dyspnea, Edema, Lt Headedness, Other Symptoms Gastrointestinal: Denies: Nausea, Vomiting, Abdominal Pain, Diarrhea, Constipation, Melena, Hematochezia, Other Symptoms Genitourinary: Denies: Dysuria, Frequency, Incontinence, Hematuria, Retention, Other Symptoms Hematologic: Denies: Bruising, Bleeding Excessively, Petecchia, Purpura, Enlarged Lymph Nodes, Other Hematologic Endocrine: Denies: Polydipsia, Polyphagia, Polyuria, Heat Intolerance, Cold Intolerance, Other Endocrine Sx Musculoskeletal: Denies: Neck Pain, Back Pain, Shoulder Pain, Arm Pain, Hand Pain, Leg Pain, Foot Pain, Joint Pain, Muscle Pain, Spasms, Other Symptoms Neurological: Denies: Weakness, Numbness, Incoordination, Change in speech, Confusion, Seizures, Other Symptoms Objective Physical Examination General Exam: Positive: Alert, Cooperative, No Acute Distress Eye Exam: Positive: PERRLA, Conjunctiva & lids normal, EOMI ENT Exam: Negative: Atraumatic (nasal sutures), Nares Patent (right nare trumpet) Neck Exam: Positive: Supple Chest Exam: Positive: Clear to auscultation, Normal air movement; Negative: Rales, Rhonchi Heart Exam: Positive: Rate Normal, Regular Rhythm Abdomen Exam: Positive: Normal bowel sounds, Soft; Negative: Tenderness Extremity Exam: Positive: Edema (to right lower extremity with knee brace in place), Swelling (right knee brace) Skin Exam: Positive: Nl turgor and temperature, Other skin issue (nasal sutures) Neuro Exam: Positive: Normal Speech Psych Exam: Positive: Mental status NL, Mood NL, Oriented x 3; Negative: Anxiety Assessment /Plan Problems (1) Fall from standing Status: Acute Problem Text: # Right Knee Contusion - continued rehab # Nasal Fracture - Nasal trumpet removed by ENT. Continue keflex complete 7 days of therapy # ESRD -Hemodialysis Saturday, , Saturday # NEERAJ - Continue to have CPAP # Paroxysmal Atrial Fibrillation - Currently in sinus rhythm. - The patient received 5 mg of coumadin. Will check PT/INR daily. The patient was taking coumadin 7.5 mg daily at home per med rec, will continue 7.5 mg from tomorrow. # SLE/Anti phospholipid syndrome - Continue plaquenil DVT prophylaxis -fully anticoagulated on lovenox Plan/VTE VTE Prophylaxis Ordered?: Yes VS, I&O, 24H, Fishbone Vital Signs/I&O Vital Signs Date Time Temp Pulse Resp B/P (MAP) Pulse Ox O2 Delivery O2 Flow Rate FiO2 01/14/19 20:00 97.2 83 20 139/73 (95) 96 01/10/19 06:00 2.5 I&O- Last 24 Hours up to 6 AM 01/14/19 06:00 Intake Total 550 ml Output Total 2700 ml Balance -2150 ml Laboratory Data 24H LABS Laboratory Tests 2 01/14/19 06:35: Nucleated Red Blood Cells % (auto) 0.0, Prothrombin Time 14.7H, Prothromb Time International Ratio 1.13 CBC/BMP Laboratory Tests 01/14/19 06:35 Red Blood Count 3.41 L, Mean Corpuscular Volume 76.8 L, Mean Corpuscular Hemoglobin 24.3 L, Mean Corpuscular Hemoglobin Concent 31.7 L, Red Cell Distribution Width 19.7 H SOFY PAUL MD Jan 14, 2019 23:09
[2019-01-15 05:30] VITALS: BP 115/60
[2019-01-15 06:33] LABS: INR 1.13; PROTHROMBIN TIME 14.7 SECONDS (12.1-14.4)
[2019-01-15] MEDS: buPROPion **XL** TABLET 150MG (WELLBUTRIN XL) PO SCH (09:43)
[2019-01-15] MEDS: CEPHALEXIN 500 MG CAP PO SCH ×2 (09:43→21:24)
[2019-01-15] MEDS: VITAMIN D 1,000 INTERNATIONAL UNITS TABLET PO SCH (09:43)
[2019-01-15] MEDS: CALCIUM ACETATE 667 MG GELCAP PO SCH ×3 (09:44→17:27)
[2019-01-15] MEDS: ASPIRIN 81 MG CHEW TABLET PO SCH (09:44)
[2019-01-15] MEDS: OMEPRAZOLE 20 MG CAP PO SCH (09:44)
[2019-01-15] MEDS: GABAPENTIN 100 MG CAP PO SCH (09:44)
[2019-01-15] MEDS: DOCUSATE SODIUM 100 MG CAP PO SCH ×2 (09:44→21:24)
[2019-01-15] MEDS: HYDROXYCHLOROQUINE 200 MG TAB PO SCH ×2 (09:44→21:24)
[2019-01-15] MEDS: ENOXAPARIN 100MG/1ML SYRINGE (J1650) SC SCH (09:45)
[2019-01-15] MEDS: ARNUITY ELLIPTA (PATIENT'S OWN MED) INH SCH (09:45)
[2019-01-15] MEDS: **NOTE PATIENT COMMENT** MISC XX SCH (09:49)
[2019-01-15] MEDS ORDERED: LIDOCAINE 1% SDV 5 ML VIAL SQ ONE (11:45)
[2019-01-15 14:17] LABS: BASO % 0.6 % (0.0-1.0); HEMATOCRIT 25.4 % (42.0-52.0); HEMOGLOBIN 8.2 g/dl (13.5-17.5); LYMPH % 15.8 % (24.0-44.0); MEAN CORPUSCULAR HEMOGLOBIN 23.7 pg (27.0-33.0); MEAN CORPUSCULAR HGB CONC 32.3 g/dl (32.0-36.5); MEAN CORPUSCULAR VOLUME 73.4 fl (80.0-96.0); MONO # 1.1 10^3/uL (0.0-0.8); MONO % 16.9 % (0.0-5.0); NEUTROPHILS # 4.1 10^3/uL (1.8-7.7); NEUTROPHILS % 64.1 % (36.0-66.0); PLATELET COUNT, AUTOMATED 350 10^3/uL (150-450); RED BLOOD COUNT 3.46 10^6/uL (4.30-6.10); WHITE BLOOD COUNT 6.5 10^3/uL (4.0-10.0)
[2019-01-15 14:34] LABS: ALBUMIN 2.6 GM/DL (3.2-5.2); CALCIUM LEVEL 8.5 MG/DL (8.8-10.2); CREATININE FOR GFR 9.52 MG/DL (0.70-1.30); GLOMERULAR FILTRATION RATE 5.9 (>49); PHOSPHORUS LEVEL 5.7 MG/DL (2.5-4.9); POTASSIUM SERUM 4.3 MEQ/L (3.5-5.1)
--- NOTE | 2019-01-15 16:13 | IPNPDOC ---
PM&R Progress Note DATE OF SERVICE: Jan 14, 2019 Line Installer Progress Note Subjective: Patient reporting his left groin pain is slightly better, but would like to try a muscle rub for his left buttock. REVIEW OF SYSTEMS: The following is a completed review of systems and has been reviewed. Review of systems otherwise unremarkable. PAIN: Patient self reports right knee and medial left knee pain EYES: Negative for recent vision changes EARS, NOSE, & THROAT: denies dysphagia, rhinorrhea, throat pain CARDIOVASCULAR: denies chest pain or palpitations PULMONARY: Negative. Denies shortness of breath GASTROINTESTINAL: no diarrhea or constipation GENITOURINARY: Negative for dysuria MUSCULOSKELETAL: right meniscal tears NEUROLOGICAL: peripheral neuropathy HEMATOLOGICAL: +chronic anemia SKIN: facial laceration PSYCHIATRIC: Unremarkable All other review of systems found to be negative. PHYSICAL EXAMINATION: VITAL SIGNS: Please see below. GENERAL: Pleasant and cooperative. No acute distress. HEENT: PERRL. Extraocular movements intact. Clear conjunctiva CARDIOVASCULAR: Regular rate and rhythm. No murmurs, rubs, or gallops LUNGS: Clear to auscultation bilaterally. No wheezes. No rhonchi ABDOMEN: Soft, nontender, nondistended. Positive bowel sounds. Normal active bowel sounds NEUROLOGICAL: Alert and oriented times three. Cranial nerves II through XII grossly intact. Sensation grossly intact in all 4 limbs EXTREMITIES: 5\5 strength bilateral upper extremities. 5\5 strength right hip flexion, ankle DF and EHL (limited due to pain and bracing) 5/5 strength in left lower extremity. +TTP medial joint line of left leg, no varus/valgus instability +suprapatellar effusion on right knee with medial joint line tenderness, no warmth + log roll and stinchfield test for left hip (-) Liz's bilat SKIN: anterior right knee laceration, nasal bridge laceration (healing) ASSESSMENT:63-year-old M with past medical history of ESRD and SLE with multiple falls who presents status post acute right complex meniscal tear. PLAN: 1. Rehab: PT, OT, assess for DMEs- ambulating further with RW 2. Ortho: s/p right complex meniscal tear, with suspicion for quadriceps partial thickness tear with hematoma- c/u WBAT with brace, ortho consulted 3. Neuro: pmh multiple strokes, c/u ASA, unclear why not on statin 4. cardio: pmh HTN, AFib s/p ablation with antiphospholipid syndrome- Warfarin on hold until nasal packing removed, c/u Lovenox full dose for now- medicine recs appreciated 5. Resp: pmh NEERAJ - c/u CPAP at night 6. Renal: ESRD Sat//Sat- renal consulted recs aprpeciated 7. Rheum: pmh SLE with joint inflammation of left>right knee, c/u Plaquenil -patient reporting left groin pain worse with internal rotation- c/u lidoderm patch to groin for suspected hip arthritis and icy-hot to left buttock, patient educated on doing gluteal strengthening exercises 8. : admission UA and Ucx negative 9. Pain: Tylenol, gabapentin, and tramadol- Ice 10. Psych: Remeron for depression and insomnia, Wellbutryn for depression 11. Skin: facial lacerations- packing removed 12. Dispo: 01/23/19 to home- home eval set up for 01/20/19 Allergies Coded Allergies: No Known Allergies (Verified , 03/17/18) Vital Signs Vital Signs Date Time Temp Pulse Resp B/P (MAP) Pulse Ox O2 Delivery O2 Flow Rate FiO2 01/15/19 05:30 96.4 78 18 115/60 (78) 99 01/10/19 06:00 2.5 Laboratory Data CBC/BMP Laboratory Tests 01/15/19 12:55 Anion Gap 12 01/15/19 13:36 Red Blood Count 3.46 L, Mean Corpuscular Volume 73.4 L, Mean Corpuscular Hemoglobin 23.7 L, Mean Corpuscular Hemoglobin Concent 32.3, Red Cell Dis tribution Width 19.7 H, Neutrophils (%) (Auto) 64.1, Lymphocytes (%) (Auto) 15.8 L, Monocytes (%) (Auto) 16.9 H, Eosinophils (%) (Auto) 0.0, Basophils (%) (Auto) 0.6, Neutrophils # (Auto) 4.1, Lymphocytes # (Auto) 1.0 L, Monocytes # (Auto) 1.1 H, Eosinophils # (Auto) 0.0, Basophils # (Auto) 0.0 Labs 24H Laboratory Tests 2 01/15/19 06:07: Prothrombin Time 14.7H, Prothromb Time International Ratio 1.13 01/15/19 12:55: Blood Urea Nitrogen 61H, Creatinine 9.52*H, Sodium Level 131L, Potassium Level 4.3, Chloride Level 94L, Carbon Dioxide Level 25, Anion Gap 12, Glomerular Filtration Rate 5.9L, Calcium Level 8.5L, Phosphorus Level 5.7H, Albumin 2.6#L 01/15/19 13:36: Immature Granulocyte % (Auto) 2.6, White Blood Count 6.5, Red Blood Count 3.46L, Hemoglobin 8.2L, Hematocrit 25.4L, Mean Corpuscular Volume 73.4L, Mean Corpuscular Hemoglobin 23.7L, Mean Corpuscular Hemoglobin Concent 32.3, Red Cell Distribution Width 19.7H, Platelet Count 350, Neutrophils (%) (Auto) 64.1, Lymphocytes (%) (Auto) 15.8L, Monocytes (%) (Auto) 16.9H, Eosinophils (%) (Auto) 0.0, Basophils (%) (Auto) 0.6, Neutrophils # (Auto) 4.1, Lymphocytes # (Auto) 1.0L, Monocytes # (Auto) 1.1H, Eosinophils # (Auto) 0.0, Basophils # (Auto) 0.0, Nucleated Red Blood Cells % (auto) 0.0 Current Medications Current Medications Current Medications Acetaminophen (Tylenol Tab) 650 mg Q4HP PRN PO MILD PAIN (PS 1-4) Last administered on 01/14/19at 20:43; Start 01/08/19 at 18:30 Al Hydrox/Mg Hydrox/Simethicone (Mylanta) 30 ml Q4HP PRN PO DYSPEPSIA; Start 01/08/19 at 18:30 Albuterol Sulfate (Proventil, Ventolin Hfa) 2 puff Q4HP PRN INH SHORTNESS OF BREATH Last administered on 01/11/19 07:18; Start 01/08/19 at 18:30 Aspirin (Aspirin Chewable) 81 mg DAILY PO Last administered on 01/15/19at 09:44; Start 01/09/19 at 09:00 Bisacodyl (Dulcolax Suppository) 10 mg DAILYPRN PRN [place] CONSTIPATION; Start 01/08/19 at 18:30 Bupropion HCl (Wellbutrin Xl) 150 mg DAILY PO Last administered on 01/15/19 09: 43; Start 01/09/19 at 09:00 Calcium Acetate (Phoslo) 667 mg WM PO Last administered on 01/15/19 09:44; Start 01/09/19 at 08:00 Cephalexin Monohydrate (Keflex) 500 mg BID PO Last administered on 01/15/19 09:43; Start 01/10/19 at 21:00 Darbepoetin Wu (Aranesp (Dialysis Use)) 200 mcg HD IV ; Start 01/09/19 at 19:00 Docusate Sodium (Colace) 100 mg BID PO Last administered on 01/15/19 09:44; Start 01/08/19 at 21:00 Enoxaparin Sodium (Lovenox) 100 mg Q24H SC Last administered on 01/15/19 09:45; Start 01/11/19 at 09:00 Fluticasone Propionate (Flonase 0.05% Nasal [place]) 1 spray BID NARES Last adm inistered on 01/10/19 09:00; Start 01/08/19 at 21:00; Stop 01/10/19 at 15:01; Status DC Gabapentin (Neurontin) 100 mg BID PO Last administered on 01/13/19 07:43; Start 01/09/19 at 09:00; Stop 01/13/19 at 18:51; Status DC Gabapentin (Neurontin) 100 mg DAILY PO Last administered on 01/15/19 09:44; Start 01/14/19 at 09:00 Hydroxychloroquine Sulfate (Plaquenil) 200 mg BID PO Last administered on 01/15 09:44; Start 01/09/19 at 09:00 Iron (Venofer) 100 mg HD IV ; Start 01/09/19 at 19:00; Stop 01/16/19 at 19:01 Lidocaine (Lidoderm Patch) 1 patch QHS TD Last administered on 01/14/19 20:37; Start 01/13/19 at 21:00 Menthol/Methyl Salicylate (Bengay Cream) left lateral hip ... TID TOP ; Start 01/15/19 at 16:00 Mirtazapine (Remeron) 30 mg QHS PO Last administered on 01/14/19 20:38; Start 01/09/19 at 21:00 Non-Formulary Medication ( See Comment Field Below ) DAILY XX ; Start 01/12/19 at 09:00; Stop 01/14/19 at 08:59; Status DC Non-Formulary Medication ( See Comment Field Below ) REMOVE LIDODERM PATCH DAILY@0900 XX Last administered on 01/15/19 09:49; Start 01/14/19 at 09:00 Omeprazole (PriLOSEC) 20 mg DAILY PO Last administered on 01/15/19 09:44; Start 01/09/19 at 09:00 Patient Own Medication (Patient'S Own Med) Arnuity ellipta 100mcg ... QAM INH Last administered on 01/15/19 09:45; Start 01/11/19 at 09:00 Senna (Senokot) 1 tab QHS PO Last administered on 01/14/19 20:37; Start 01/08/19 at 21:00 Tramadol HCl (Ultram) 50 mg Q6HP PRN PO MODERATE PAIN (PS 5-7) Last administered on 01/13/19 07:42; Start 01/08/19 at 18:30; Stop 01/13/19 at 18:51; Status DC Vitamin D (Vitamin D) 2,000 units DAILY PO Last administered on 01/15/19 09:43; Start 01/09/19 at 09:00 Warfarin Sodium (Coumadin) 7.5 mg DAILY@17 PO ; Start 01/10/19 at 17:00; Stop 01/10/19 at 17:00; Status DC Warfarin Sodium (Coumadin) 7.5 mg DAILY@17 PO ; Start 01/15/19 at 17:00 ARLEY DONOHUE MD Jan 15, 2019 16:13
--- NOTE | 2019-01-15 16:13 | IPNPDOC ---
PM&R Progress Note DATE OF SERVICE: Jan 15, 2019 Health Coordinator Progress Note Subjective: Patient reporting his left groin pain is better and that hsi right knee also feels less swollen. REVIEW OF SYSTEMS: The following is a completed review of systems and has been reviewed. Review of systems otherwise unremarkable. PAIN: Patient self reports right knee and medial left knee pain EYES: Negative for recent vision changes EARS, NOSE, & THROAT: denies dysphagia, rhinorrhea, throat pain CARDIOVASCULAR: denies chest pain or palpitations PULMONARY: Negative. Denies shortness of breath GASTROINTESTINAL: no diarrhea or constipation GENITOURINARY: Negative for dysuria MUSCULOSKELETAL: right meniscal tears NEUROLOGICAL: peripheral neuropathy HEMATOLOGICAL: +chronic anemia SKIN: facial laceration PSYCHIATRIC: Unremarkable All other review of systems found to be negative. PHYSICAL EXAMINATION: VITAL SIGNS: Please see below. GENERAL: Pleasant and cooperative. No acute distress. HEENT: PERRL. Extraocular movements intact. Clear conjunctiva CARDIOVASCULAR: Regular rate and rhythm. No murmurs, rubs, or gallops LUNGS: Clear to auscultation bilaterally. No wheezes. No rhonchi ABDOMEN: Soft, nontender, nondistended. Positive bowel sounds. Normal active bowel sounds NEUROLOGICAL: Alert and oriented times three. Cranial nerves II through XII grossly intact. Sensation grossly intact in all 4 limbs EXTREMITIES: 5\5 strength bilateral upper extremities. 5\5 strength right hip flexion, ankle DF and EHL (limited due to pain and bracing) 5/5 strength in left lower extremity. +TTP medial joint line of left leg, no varus/valgus instability +suprapatellar effusion on right knee with medial joint line tenderness, no warmth + log roll and stinchfield test for left hip (-) Liz's bilat SKIN: anterior right knee laceration, nasal bridge laceration (healing) ASSESSMENT:63-year-old M with past medical history of ESRD and SLE with multiple falls who presents status post acute right complex meniscal tear. PLAN: 1. Rehab: PT, OT, assess for DMEs- ambulating further with RW, approching Mod I in both disciplines 2. Ortho: s/p right complex meniscal tear, with suspicion for quadriceps partial thickness tear with hematoma- c/u WBAT with brace, ortho consulted 3. Neuro: pmh multiple strokes, c/u ASA, unclear why not on statin 4. cardio: pmh HTN, AFib s/p ablation with antiphospholipid syndrome- Warfarin restarted, c/u Lovenox full dose for now until INR therapeutic- medicine recs appreciated 5. Resp: pmh NEERAJ - c/u CPAP at night 6. Renal: ESRD Sat//Sat- renal consulted recs appreciated, c.u IV Venofer and Aranesp 7. Rheum: pmh SLE with joint inflammation of left>right knee, c/u Plaquenil -patient reporting left groin pain worse with internal rotation- c/u lidoderm patch to groin for suspected hip arthritis and icy-hot to left buttock, patient educated on doing gluteal strengthening exercises 8. : admission UA and Ucx negative 9. Pain: Tylenol, gabapentin, and tramadol- Ice 10. Psych: Remeron for depression and insomnia, Wellbutryn for depression 11. Skin: facial lacerations- packing removed 12. Dispo: 01/23/19 to home- home eval set up for 01/20/19 Allergies Coded Allergies: No Known Allergies (Verified , 03/17/18) Vital Signs Vital Signs Date Time Temp Pulse Resp B/P (MAP) Pulse Ox O2 Delivery O2 Flow Rate FiO2 01/15/19 05:30 96.4 78 18 115/60 (78) 99 01/10/19 06:00 2.5 Laboratory Data CBC/BMP Laboratory Tests 01/15/19 12:55 Anion Gap 12 01/15/19 13:36 Red Blood Count 3.46 L, Mean Corpuscular Volume 73.4 L, Mean Corpuscular Hemoglobin 23.7 L, Mean Corpuscular Hemoglobin Concent 32.3, Red Cell Distribution Width 19.7 H, Neutrophils (%) (Auto) 64.1, Lymphocytes (%) (Auto) 15.8 L, Monocytes (%) (Auto) 16.9 H, Eosinophils (%) (Auto) 0.0, Basophils (%) (Auto) 0.6, Neutrophils # (Auto) 4.1, Lymphocytes # (Auto) 1.0 L, Monocytes # (Auto) 1.1 H, Eosinophils # (Auto) 0.0, Basophils # (Auto) 0.0 Labs 24H Laboratory Tests 2 01/15/19 06:07: Prothrombin Time 14.7H, Prothromb Time International Ratio 1.13 6/6/19 12:55: Blood Urea Nitrogen 61H, Creatinine 9.52*H, Sodium Level 131L, Potassium Level 4.3, Chloride Level 94L, Carbon Dioxide Level 25, Anion Gap 12, Glomerular Filtration Rate 5.9L, Calcium Level 8.5L, Phosphorus Level 5.7H, Albumin 2.6#L 01/15/19 13:36: Immature Granulocyte % (Auto) 2.6, White Blood Count 6.5, Red Blood Count 3.46L, Hemoglobin 8.2L, Hematocrit 25.4L, Mean Corpuscular Volume 73.4L, Mean Corpuscular Hemoglobin 23.7L, Mean Corpuscular Hemoglobin Concent 32.3, Red Cell Distribution Width 19.7H, Platelet Count 350, Neutrophils (%) (Auto) 64.1, Lymphocytes (%) (Auto) 15.8L, Monocytes (%) (Auto) 16.9H, Eosinophils (%) (Auto) 0.0, Basophils (%) (Auto) 0.6, Neutrophils # (Auto) 4.1, Lymphocytes # (Auto) 1.0L, Monocytes # (Auto) 1.1H, Eosinophils # (Auto) 0.0, Basophils # (Auto) 0.0, Nucleated Red Blood Cells % (auto) 0.0 Current Medications Current Medications Current Medications Acetaminophen (Tylenol Tab) 650 mg Q4HP PRN PO MILD PAIN (PS 1-4) Last administered on 01/14/19at 20:43; Start 01/08/19 at 18:30 Al Hydrox/Mg Hydrox/Simethicone (Mylanta) 30 ml Q4HP PRN PO DYSPEPSIA; Start 01/08/19 at 18:30 Albuterol Sulfate (Proventil, Ventolin Hfa) 2 puff Q4HP PRN INH SHORTNESS OF BREATH Last administered on 01/11/19at 07:18; Start 01/08/19 at 18:30 Aspirin (Aspirin Chewable) 81 mg DAILY PO Last administered on 01/15/19at 09:44; Start 01/09/19 at 09:00 Bisacodyl (Dulcolax Suppository) 10 mg DAILYPRN PRN ME CONSTIPATION; Start 01/08/19 at 18:30 Bupropion HCl (Wellbutrin Xl) 150 mg DAILY PO Last administered on 01/15/19 09:43; Start 01/09/19 at 09:00 Calcium Acetate (Phoslo) 667 mg WM PO Last administered on 01/15/19 09:44; Start 01/09/19 at 08:00 Cephalexin Monohydrate (Keflex) 500 mg BID PO Last administered on 01/15/19 09:43; Start 01/10/19 at 21:00 Darbepoetin Wu (Aranesp (Dialysis Use)) 200 mcg HD IV ; Start 01/09/19 at 19:00 Docusate Sodium (Colace) 100 mg BID PO Last administered on 01/15/19 09:44; Start 01/08/19 at 21:00 Enoxaparin Sodium (Lovenox) 100 mg Q24H SC Last administered on 01/15/19 09:45; Start 01/11/19 at 09:00 Fluticasone Propionate (Flonase 0.05% Nasal [place]) 1 spray BID NARES Last administered on 01/10/19 09:00; Start 01/08/19 at 21:00; Stop 01/10/19 at 15:01; Status DC Gabapentin (Neurontin) 100 mg BID PO Last administered on 01/13/19 07:43; Start 01/09/19 at 09:00; Stop 01/13/19 at 18:51; Status DC Gabapentin (Neurontin) 100 mg DAILY PO Last administered on 01/15/19 09:44; Start 01/14/19 at 09:00 Hydroxychloroquine Sulfate (Plaquenil) 200 mg BID PO Last administered on 01/15/19 09:44; Start 01/09/19 at 09:00 Iron (Venofer) 100 mg HD IV ; Start 01/09/19 at 19:00; Stop 01/16/19 at 19:01 Lidocaine (Lidoderm Patch) 1 patch QHS TD Last administered on 01/14/19 20:37; Start 01/13/19 at 21:00 Menthol/Methyl Salicylate (Bengay Cream) left lateral hip ... TID TOP ; Start 01/15/19 at 16:00 Mirtazapine (Remeron) 30 mg QHS PO Last administered on 01/14/19 20:38; Start 01/09/19 at 21:00 Non-Formulary Medication ( See Comment Field Below ) DAILY XX ; Start 01/12/19 at 09:00; Stop 01/14/19 at 08:59; Status DC Non-Formulary Medication ( See Comment Field Below ) REMOVE LIDODERM PATCH DAILY@0900 XX Last administered on 01/15/19 09:49; Start 01/14/19 at 09:00 Omeprazole (PriLOSEC) 20 mg DAILY PO Last administered on 01/15/19 09:44; Start 01/09/19 at 09:00 Patient Own Medication (Patient'S Own Med) Arnuity ellipta 100mcg ... QAM INH Last administered on 01/15/19 09:45; Start 01/11/19 at 09:00 Senna (Senokot) 1 tab QHS PO Last administered on 01/14/19 20:37; Start 01/08/19 at 21:00 Tramadol HCl (Ultram) 50 mg Q6HP PRN PO MODERATE PAIN (PS 5-7) Last administered on 01/13/19 07:42; Start 01/08/19 at 18:30; Stop 01/13/19 at 18:51; Status DC Vitamin D (Vitamin D) 2,000 units DAILY PO Last administered on 01/15/19 09:43; Start 01/09/19 at 09:00 Warfarin Sodium (Coumadin) 7.5 mg DAILY@17 PO ; Start 01/10/19 at 17:00; Stop 01/10/19 at 17:00; Status DC Warfarin Sodium (Coumadin) 7.5 mg DAILY@17 PO ; Start 01/15/19 at 17:00 ARLEY DONOHUE MD Jan 15, 2019 16:13
[2019-01-15] MEDS: ANALGESIC BALM CRM 120 GM TOP SCH ×2 (16:29→21:00)
[2019-01-15 17:20] VITALS: BP 119/59
[2019-01-15] MEDS: WARFARIN SOD 7.5 MG TAB PO SCH (17:27)
--- NOTE | 2019-01-15 18:58 | IPNPDOC ---
Subjective Date Seen The patient was seen on 01/15/19. Subjective Chief Complaint/HPI The patient was seen while he was receiving hemodialysis. He has no complaints. He was happy about spending time outside the hospital building for a while today. No complaints. General: Denies: ROS Unobtainable, Chills, Night Sweats, Fatigue, Malaise, Normal Appetite, Other Symptoms Constitutional: Denies: Chills, Fever, Malaise, Night Sweats, Weakness, Fatigue, Weight Loss, Lethargy, Other Eyes: Denies: Pain, Vision change, Conjunctivae inflammation, Eyelid inflammation, Redness, Other ENT: Denies: Head Aches, Ear Pain, Dysphagia, Sinus Congestion, Post Nasal Drip, Sore Throat, Epistaxis, Other Symptoms Skin: Denies: Rash, Lesions, Jaundice, Bruising, Itching, Dry, Breakdown, Nail Changes, Other Pulmonary: Denies: Dyspnea, Cough, Pleuritic Chest Pain, Other Symptoms Cardiovascular: Denies: Chest Pain, Palpitations, Orthopnea, Paroxysmal Noc. Dyspnea, Edema, Lt Headedness, Other Symptoms Gastrointestinal: Denies: Nausea, Vomiting, Abdominal Pain, Diarrhea, Constipation, Melena, Hematochezia, Other Symptoms Genitourinary: Denies: Dysuria, Frequency, Incontinence, Hematuria, Retention, Other Symptoms Hematologic: Denies: Bruising, Bleeding Excessively, Petecchia, Purpura, Enlarged Lymph Nodes, Other Hematologic Endocrine: Denies: Polydipsia, Polyphagia, Polyuria, Heat Intolerance, Cold Intolerance, Other Endocrine Sx Musculoskeletal: Denies: Neck Pain, Back Pain, Shoulder Pain, Arm Pain, Hand Pain, Leg Pain, Foot Pain, Joint Pain, Muscle Pain, Spasms, Other Symptoms Neurological: Denies: Weakness, Numbness, Incoordination, Change in speech, Confusion, Seizures, Other Symptoms Psych: Denies: Mood Normal, Anxiety, Depression, Memory Issues, Thoughts of Self Harm, Anger, Thoughts of Harming Other, Other Psych Objective Physical Examination General Exam: Positive: Alert, Cooperative, No Acute Distress Eye Exam: Positive: PERRLA, Conjunctiva & lids normal, EOMI ENT Exam: Negative: Atraumatic (nasal sutures), Nares Patent (right nare trumpet) Neck Exam: Positive: Supple Chest Exam: Positive: Clear to auscultation, Normal air movement; Negative: Rales, Rhonchi Heart Exam: Positive: Rate Normal, Regular Rhythm Abdomen Exam: Positive: Normal bowel sounds, Soft; Negative: Tenderness Extremity Exam: Positive: Edema (to right lower extremity with knee brace in place), Swelling (right knee brace) Skin Exam: Positive: Nl turgor and temperature, Other skin issue (nasal sutures) Neuro Exam: Positive: Normal Speech Psych Exam: Positive: Mental status NL, Mood NL, Oriented x 3; Negative: Anxiety Assessment /Plan Problems (1) Fall from standing Status: Acute Problem Text: # Right Knee Contusion - continued rehab # Nasal Fracture - Nasal trumpet removed by ENT. Continue keflex complete 7 days of therapy # ESRD -Hemodialysis Saturday, , Saturday # NEERAJ - Continue to have CPAP # Paroxysmal Atrial Fibrillation - Currently in sinus rhythm. - The patient received 5 mg of coumadin. Will check PT/INR daily. The patient was taking coumadin 7.5 mg daily at home per med rec, will continue 7.5 mg from tomorrow. # SLE/Anti phospholipid syndrome - Continue plaquenil DVT prophylaxis -fully anticoagulated on lovenox Plan/VTE VTE Prophylaxis Ordered?: Yes VS, I&O, 24H, Fishbone Vital Signs/I&O Vital Signs Date Time Temp Pulse Resp B/P (MAP) Pulse Ox O2 Delivery O2 Flow Rate FiO2 01/15/19 17:20 98.2 90 18 119/59 (79) 95 01/10/19 06:00 2.5 I&O- Last 24 Hours up to 6 AM 01/15/19 06:00 Intake Total 1080 ml Balance 1080 ml Laboratory Data 24H LABS Laboratory Tests 2 01/15/19 06:07: Prothrombin Time 14.7H, Prothromb Time International Ratio 1.13 01/15/19 12:55: Blood Urea Nitrogen 61H, Creatinine 9.52*H, Sodium Level 131L, Potassium Level 4.3, Chloride Level 94L, Carbon Dioxide Level 25, Anion Gap 12, Glomerular Filtration Rate 5.9L, Calcium Level 8.5L, Phosphorus Level 5.7H, Albumin 2.6#L 01/15/19 13:36: Immature Granulocyte % (Auto) 2.6, White Blood Count 6.5, Red Blood Count 3.46L, Hemoglobin 8.2L, Hematocrit 25.4L, Mean Corpuscular Volume 73.4L, Mean Corpuscular Hemoglobin 23.7L, Mean Corpuscular Hemoglobin Concent 32.3, Red Cell Distribution Width 19.7H, Platelet Count 350, Neutrophils (%) (Auto) 64.1, Lymphocytes (%) (Auto) 15.8L, Monocytes (%) (Auto) 16.9H, Eosinophils (%) (Auto) 0.0, Basophils (%) (Auto) 0.6, Neutrophils # (Auto) 4.1, Lymphocytes # (Auto) 1.0L, Monocytes # (Auto) 1.1H, Eosinophils # (Auto) 0.0, Basophils # (Auto) 0.0, Nucleated Red Blood Cells % (auto) 0.0 CBC/BMP Laboratory Tests 01/15/19 12:55 Anion Gap 12 01/15/19 13:36 Red Blood Count 3.46 L, Mean Corpuscular Volume 73.4 L, Mean Corpuscular Hemoglobin 23.7 L, Mean Corpuscular Hemoglobin Concent 32.3, Red Cell Distribution Width 19.7 H, Neutrophils (%) (Auto) 64.1, Lymphocytes (%) (Auto) 15.8 L, Monocytes (%) (Auto) 16.9 H, Eosinophils (%) (Auto) 0.0, Basophils (%) (Auto) 0.6, Neutrophils # (Auto) 4.1, Lymphocytes # (Auto) 1.0 L, Monocytes # (Auto) 1.1 H, Eosinophils # (Auto) 0.0, Basophils # (Auto) 0.0 SOFY PAUL MD Jan 15, 2019 18:58
[2019-01-15 20:00] VITALS: BP 117/57
[2019-01-15] MEDS: LIDOCAINE 5% (LIDODERM) PATCH TD SCH (21:24)
[2019-01-15] MEDS: SENNA 8.6 MG TAB (SENOKOT) PO SCH (21:24)
[2019-01-15] MEDS: MIRTAZAPINE 15 MG TAB PO SCH (21:24)
[2019-01-15] MEDS: ACETAMINOPHEN TAB 650MG DOSE (2X325MG) PO PRN (21:25)
[2019-01-16 05:15] VITALS: BP 128/67
[2019-01-16 07:12] LABS: INR 1.08; PROTHROMBIN TIME 14.1 SECONDS (12.1-14.4)
--- NOTE | 2019-01-16 07:23 | IPN ---
DATE OF SERVICE: 01/15/2019 SUBJECTIVE: The patient is seen and examined this morning on the hemodialysis unit receiving his maintenance treatment. He reports rehab is going well. He has no new complaints. He spent some time outdoors today and also prepared lunch for himself today in the rehab unit. Vital Signs: Temperature 98.2, pulse 90, respiratory rate 18, blood pressure 119/59, saturating 95% on room air. Intake yesterday was 1080, dialysis today removed 2.7 liters, weight in the bed scale today is not recorded. General: The patient is seen receiving his hemodialysis treatment, awake, alert, oriented, good spirits, smiling, in no acute distress. Extraocular muscles are intact. Tongue is moist. Neck is supple. Jugular veins are not elevated. Cardiac: S1 and S2, regular rate and rhythm. Lungs are clear to auscultation bilaterally. No crackle, rale or wheeze. Abdomen is soft, obese and nontender. There are bowel sounds. Extremities show right lower extremity with a brace and the left lower extremity has no significant edema. Skin: Normal turgor and temperature. There is a dressing on his nose. Neurologic: Awake, alert, oriented times three. Psychiatric: Appropriate mood and effect. Dialysis access fistula is presently in use. LABORATORY DATA: White count 6.5, hemoglobin 8.2, platelets 358, sodium 131, potassium 4.3, INR 1.1. INPATIENT MEDICATIONS: Reviewed by myself. Noted he was started on low-dose gabapentin 100 mg by mouth daily. Also noted that his Coumadin was resumed. Remainder medications are unchanged from prior. PROBLEMS: 1. End-stage renal disease on hemodialysis on a Saturday, , Saturday schedule. He was dialyzed today according to his schedule and 2.7 liters of fluid are removed. He continues on oral fluid restriction. His volume status is acceptable. There is mild hyponatremia which will improve with dialysis and fluid removal. His remainder of electrolytes are all acceptable. No change is being made to his current dialysis prescription. 2. Anemia secondary to acute blood loss and also secondary to end-stage renal disease. Hemoglobin is stable, but low at 8.2. He continues on Aranesp 200 mcg with dialysis and Venofer as well. I would transfuse for hemoglobin less than 8. 3. Antiphospholipid syndrome. His Coumadin was resumed per the primary team. His INR is subtherapeutic. He continues on once daily Lovenox.
[2019-01-16 07:47] LABS: CALCIUM LEVEL 8.5 MG/DL (8.8-10.2); CREATININE FOR GFR 6.02 MG/DL (0.70-1.30); GLOMERULAR FILTRATION RATE 10.1 (>49); POTASSIUM SERUM 3.8 MEQ/L (3.5-5.1)
[2019-01-16] MEDS: ENOXAPARIN 100MG/1ML SYRINGE (J1650) SC SCH (07:54)
[2019-01-16] MEDS: buPROPion **XL** TABLET 150MG (WELLBUTRIN XL) PO SCH (07:55)
[2019-01-16] MEDS: VITAMIN D 1,000 INTERNATIONAL UNITS TABLET PO SCH (07:55)
[2019-01-16] MEDS: GABAPENTIN 100 MG CAP PO SCH (07:55)
[2019-01-16] MEDS: OMEPRAZOLE 20 MG CAP PO SCH (07:56)
[2019-01-16] MEDS: CEPHALEXIN 500 MG CAP PO SCH ×2 (07:56→20:14)
[2019-01-16] MEDS: HYDROXYCHLOROQUINE 200 MG TAB PO SCH ×2 (07:57→20:14)
[2019-01-16] MEDS: ASPIRIN 81 MG CHEW TABLET PO SCH (07:57)
[2019-01-16] MEDS: DOCUSATE SODIUM 100 MG CAP PO SCH ×2 (07:57→20:14)
[2019-01-16] MEDS: CALCIUM ACETATE 667 MG GELCAP PO SCH ×3 (07:57→18:04)
[2019-01-16] MEDS: ANALGESIC BALM CRM 120 GM TOP SCH ×3 (07:58→21:00)
[2019-01-16] MEDS: **NOTE PATIENT COMMENT** MISC XX SCH (07:58)
[2019-01-16] MEDS: ARNUITY ELLIPTA (PATIENT'S OWN MED) INH SCH (07:58)
--- NOTE | 2019-01-16 08:58 | IPNPDOC ---
PM&R Progress Note DATE OF SERVICE: Jan 16, 2019 Commercial Technician Progress Note Subjective: Patient seen walking in therapy stating he feels well today, but had some chest pressure last night which he did not reprot to anyone. He reports this has dunn ppened before and that Albuterol helps or sometimes it's gas and is relieved with burping and flatulence. He would like to have his albuterol bedside so he can use on his own. He is currently not having chest pressure. REVIEW OF SYSTEMS: The following is a completed review of systems and has been reviewed. Review of systems otherwise unremarkable. PAIN: Patient self reports right knee and medial left knee pain EYES: Negative for recent vision changes EARS, NOSE, & THROAT: denies dysphagia, rhinorrhea, throat pain CARDIOVASCULAR: denies chest pain or palpitations PULMONARY: Negative. Denies shortness of breath GASTROINTESTINAL: no diarrhea or constipation GENITOURINARY: Negative for dysuria MUSCULOSKELETAL: right meniscal tears NEUROLOGICAL: peripheral neuropathy HEMATOLOGICAL: +chronic anemia SKIN: facial laceration PSYCHIATRIC: Unremarkable All other review of systems found to be negative. PHYSICAL EXAMINATION: VITAL SIGNS: Please see below. GENERAL: Pleasant and cooperative. No acute distress. HEENT: PERRL. Extraocular movements intact. Clear conjunctiva CARDIOVASCULAR: Regular rate and rhythm. No murmurs, rubs, or gallops LUNGS: Clear to auscultation bilaterally. No wheezes. No rhonchi ABDOMEN: Soft, nontender, nondistended. Positive bowel sounds. Normal active bowel sounds NEUROLOGICAL: Alert and oriented times three. Cranial nerves II through XII grossly intact. Sensation grossly intact in all 4 limbs EXTREMITIES: 5\5 strength bilateral upper extremities. 5\5 strength right hip flexion, ankle DF and EHL (limited due to pain and bracing) 5/5 strength in left lower extremity. +TTP medial joint line of left leg, no varus/valgus instability +suprapatellar effusion on right knee with medial joint line tenderness, no warmth + log roll and stinchfield test for left hip (-) Liz's bilat SKIN: anterior right knee laceration, nasal bridge laceration (healing) ASSESSMENT:63-year-old M with past medical history of ESRD and SLE with multiple falls who presents status post acute right complex meniscal tear. PLAN: 1. Rehab: PT, OT, assess for DMEs- ambulating further with RW, room privileges 2. Ortho: s/p right complex meniscal tear, with suspicion for quadriceps partial thickness tear with hematoma- c/u WBAT with brace, ortho consulted 3. Neuro: pmh multiple strokes, c/u ASA, unclear why not on statin 4. cardio: pmh HTN, AFib s/p ablation with antiphospholipid syndrome- c/u Lovenox full dose for now while waiting for therapeutic INR while on Warfarin- medicine recs appreciated - chest pressure began last night and resolved today- will order EKG and cardiac enzymes 5. Resp: pmh NEERAJ - c/u CPAP at night, asthma, Proventil ordered to be bedside for patient to use 6. Renal: ESRD TUe//Sat- renal consulted recs appreciated, c.u IV Venofer and Aranesp 7. Rheum: pmh SLE with joint inflammation of left>right knee, c/u Plaquenil -patient reporting left groin pain worse with internal rotation- c/u lidoderm patch to groin for suspected hip arthritis and icy-hot to left buttock, patient educated on doing gluteal strengthening exercises 8. : admission UA and Ucx negative 9. Pain: Tylenol, gabapentin, and tramadol- Ice 10. Psych: Remeron for depression and insomnia, Wellbutryn for depression 11. Skin: facial lacerations- packing removed 12. Dispo: 01/23/19 to home- home eval set up for 01/20/19 Allergies Coded Allergies: No Known Allergies (Verified , 03/17/18) Vital Signs Vital Signs Date Time Temp Pulse Resp B/P (MAP) Pulse Ox O2 Delivery O2 Flow Rate FiO2 01/16/19 05:15 96.9 59 18 128/67 (87) 99 01/10/19 06:00 2.5 Laboratory Data CBC/BMP Laboratory Tests 01/15/19 12:55 Anion Gap 12 01/15/19 13:36 Red Blood Count 3.46 L, Mean Corpuscular Volume 73.4 L, Mean Corpuscular Hemoglobin 23.7 L, Mean Corpuscular Hemoglobin Concent 32.3, Red Cell Distribution Width 19.7 H, Neutrophils (%) (Auto) 64.1, Lymphocytes (%) (Auto) 15.8 L, Monocytes (%) (Auto) 16.9 H, Eosinophils (%) (Auto) 0.0, Basophils (%) (Auto) 0.6, Neutrophils # (Auto) 4.1, Lymphocytes # (Auto) 1.0 L, Monocytes # (Auto) 1.1 H, Eosinophils # (Auto) 0.0, Basophils # (Auto) 0.0 01/16/19 06:27 Calcium Level 8.5 L Labs 24H Laboratory Tests 2 01/15/19 12:55: Blood Urea Nitrogen 61H, Creatinine 9.52*H, Sodium Level 131L, Potassium Level 4.3, Chloride Level 94L, Carbon Dioxide Level 25, Anion Gap 12, Glomerular Filtration Rate 5.9L, Calcium Level 8.5L, Phosphorus Level 5.7H, Albumin 2.6#L 01/15/19 13:36: Immature Granulocyte % (Auto) 2.6, White Blood Count 6.5, Red Blood Count 3.46L, Hemoglobin 8.2L, Hematocrit 25.4L, Mean Corpuscular Volume 73.4L, Mean Corpuscular Hemoglobin 23.7L, Mean Corpuscular Hemoglobin Concent 32.3, Red Cell Distribution Width 19.7H, Platelet Count 350, Neutrophils (%) (Auto) 64.1, Lymphocytes (%) (Auto) 15.8L, Monocytes (%) (Auto) 16.9H, Eosinophils (%) (Auto) 0.0, Basophils (%) (Auto) 0.6, Neutrophils # (Auto) 4.1, Lymphocytes # (Auto) 1.0L, Monocytes # (Auto) 1.1H, Eosinophils # (Auto) 0.0, Basophils # (Auto) 0.0, Nucleated Red Blood Cells % (auto) 0.0 01/16/19 06:27: Blood Urea Nitrogen 28#H, Creatinine 6.02H, Sodium Level 136, Potassium Level 3.8, Chloride Level 97L, Carbon Dioxide Level 29, Anion Gap 10, Glomerular Filtration Rate 10.1L, Calcium Level 8.5L, Prothrombin Time 14.1, Prothromb Time International Ratio 1.08 Current Medications Current Medications Current Medications Acetaminophen (Tylenol Tab) 650 mg Q4HP PRN PO MILD PAIN (PS 1-4) Last administered on 01/15/19at 21:25; Start 01/08/19 at 18:30 Al Hydrox/Mg Hydrox/Simethicone (Mylanta) 30 ml Q4HP PRN PO DYSPEPSIA; Start 01/08/19 at 18:30 Albuterol Sulfate (Proventil, Ventolin Hfa) 2 puff Q4HP PRN INH SHORTNESS OF BREATH Last administered on 01/11/19 07:18; Start 01/08/19 at 18:30 Aspirin (Aspirin Chewable) 81 mg DAILY PO Last administered on 01/16/19 07:57; Start 01/09/19 at 09:00 Bisacodyl (Dulcolax Suppository) 10 mg DAILYPRN PRN NM CONSTIPATION; Start 01/08/19 at 18:30 Bupropion HCl (Wellbutrin Xl) 150 mg DAILY PO Last administered on 01/16/19 07:55; Start 01/09/19 at 09:00 Calcium Acetate (Phoslo) 667 mg WM PO Last administered on 01/16/19 07:57; Start 01/09/19 at 08:00 Cephalexin Monohydrate (Keflex) 500 mg BID PO Last administered on 01/16/19 07:56; Start 01/10/19 at 21:00 Darbepoetin Wu (Aranesp (Dialysis Use)) 200 mcg HD IV ; Start 01/09/19 at 19:00 Docusate Sodium (Colace) 100 mg BID PO Last administered on 01/16/19 07:57; Start 01/08/19 at 21:00 Enoxaparin Sodium (Lovenox) 100 mg Q24H SC Last administered on 01/16/19 07:54; Start 01/11/19 at 09:00 Fluticasone Propionate (Flonase 0.05% Nasal [place]) 1 spray BID NARES Last administered on 01/10/19 09:00; Start 01/08/19 at 21:00; Stop 01/10/19 at 15:01; Status DC Gabapentin (Neurontin) 100 mg BID PO Last administered on 01/13/19 07:43; Start 01/09/19 at 09:00; Stop 01/13/19 at 18:51; Status DC Gabapentin (Neurontin) 100 mg DAILY PO Last administered on 01/16/19 07:55; Start 01/14/19 at 09:00 Hydroxychloroquine Sulfate (Plaquenil) 200 mg BID PO Last administered on 01/16/19 07:57; Start 01/09/19 at 09:00 Iron (Venofer) 100 mg HD IV ; Start 01/09/19 at 19:00; Stop 01/16/19 at 19:01 Lidocaine (Lidoderm Patch) 1 patch QHS TD Last administered on 01/15/19 21:24; Start 01/13/19 at 21:00 Menthol/Methyl Salicylate (Bengay Cream) left lateral hip ... TID TOP Last administered on 01/16/19 07:58; Start 01/15/19 at 16:00 Mirtazapine (Remeron) 30 mg QHS PO Last administered on 01/15/19 21:24; Start 01/09/19 at 21:00 Non-Formulary Medication ( See Comment Field Below ) DAILY XX ; Start 01/12/19 at 09:00; Stop 01/14/19 at 08:59; Status DC Non-Formulary Medication ( See Comment Field Below ) REMOVE LIDODERM PATCH DAILY@0900 XX Last administered on 01/16/19 07:58; Start 01/14/19 at 09:00 Omeprazole (PriLOSEC) 20 mg DAILY PO Last administered on 01/16/19 07:56; Start 01/09/19 at 09:00 Patient Own Medication (Patient'S Own Med) Arnuity ellipta 100mcg ... QAM INH Last administered on 01/16/19 07:58; Start 01/11/19 at 09:00 Senna (Senokot) 1 tab QHS PO Last administered on 01/15/19 21:24; Start 01/08/19 at 21:00 Tramadol HCl (Ultram) 50 mg Q6HP PRN PO MODERATE PAIN (PS 5-7) Last administered on 01/13/19 07:42; Start 01/08/19 at 18:30; Stop 01/13/19 at 18:51; Status DC Vitamin D (Vitamin D) 2,000 units DAILY PO Last administered on 01/16/19 07:55; Start 01/09/19 at 09:00 Warfarin Sodium (Coumadin) 7.5 mg DAILY@17 PO ; Start 01/10/19 at 17:00; Stop 01/10/19 at 17:00; Status DC Warfarin Sodium (Coumadin) 7.5 mg DAILY@17 PO Last administered on 01/15/19at 17:27; Start 01/15/19 at 17:00 ARLEY DONOHUE MD Jan 16, 2019 08:58
[2019-01-16] MEDS ORDERED: MAALOX 30 ML SUSP *UDC PO PRN (10:45)
[2019-01-16 11:40] LABS: CK-MB VALUE MASS 1.9 NG/ML (<3.6); TROPONIN I 0.08 NG/ML (< 0.10)
[2019-01-16 14:00] VITALS: BP 116/55
[2019-01-16] MEDS: WARFARIN SOD 7.5 MG TAB PO SCH (16:38)
[2019-01-16 20:00] VITALS: BP 130/64
[2019-01-16] MEDS: LIDOCAINE 5% (LIDODERM) PATCH TD SCH (20:14)
[2019-01-16] MEDS: MIRTAZAPINE 15 MG TAB PO SCH (20:14)
[2019-01-16] MEDS: SENNA 8.6 MG TAB (SENOKOT) PO SCH (20:14)
[2019-01-16] MEDS: ACETAMINOPHEN TAB 650MG DOSE (2X325MG) PO PRN (20:15)
--- NOTE | 2019-01-16 20:22 | ECGEPIP ---
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 Electronically Signed on 01-16-2019 20:22:06 EDT by Jacob Olivas
--- NOTE | 2019-01-16 21:47 | IPNPDOC ---
Subjective Date Seen The patient was seen on 01/16/19. Subjective Chief Complaint/HPI The patient has no complaints. His physical strength has improved daily. He could not walk by himself when he was first admitted, but currently, he can ambulate with the walker. General: Denies: ROS Unobtainable, Chills, Night Sweats, Fatigue, Malaise, Normal Appetite, Other Symptoms Constitutional: Denies: Chills, Fever, Malaise, Night Sweats, Weakness, Fatigue, Weight Loss, Lethargy, Other Eyes: Denies: Pain, Vision change, Conjunctivae inflammation, Eyelid inflammation, Redness, Other ENT: Denies: Head Aches, Ear Pain, Dysphagia, Sinus Congestion, Post Nasal Drip, Sore Throat, Epistaxis, Other Symptoms Skin: Denies: Rash, Lesions, Jaundice, Bruising, Itching, Dry, Breakdown, Nail Changes, Other Pulmonary: Denies: Dyspnea, Cough, Pleuritic Chest Pain, Other Symptoms Cardiovascular: Denies: Chest Pain, Palpitations, Orthopnea, Paroxysmal Noc. Dyspnea, Edema, Lt Headedness, Other Symptoms Gastrointestinal: Denies: Nausea, Vomiting, Abdominal Pain, Diarrhea, Constipation, Melena, Hematochezia, Other Symptoms Genitourinary: Denies: Dysuria, Frequency, Incontinence, Hematuria, Retention, Other Symptoms Hematologic: Denies: Bruising, Bleeding Excessively, Petecchia, Purpura, Enlarged Lymph Nodes, Other Hematologic Endocrine: Denies: Polydipsia, Polyphagia, Polyuria, Heat Intolerance, Cold Intolerance, Other Endocrine Sx Musculoskeletal: Reports: Leg Pain Neurological: Denies: Weakness, Numbness, Incoordination, Change in speech, Confusion, Seizures, Other Symptoms Psych: Denies: Mood Normal, Anxiety, Depression, Memory Issues, Thoughts of Self Harm, Anger, Thoughts of Harming Other, Other Psych Objective Physical Examination General Exam: Positive: Alert, Cooperative, No Acute Distress Eye Exam: Positive: PERRLA, Conjunctiva & lids normal, EOMI ENT Exam: Negative: Atraumatic (nasal sutures), Nares Patent (right nare trum pet) Neck Exam: Positive: Supple Chest Exam: Positive: Clear to auscultation, Normal air movement; Negative: Rales, Rhonchi Heart Exam: Positive: Rate Normal, Regular Rhythm Abdomen Exam: Positive: Normal bowel sounds, Soft; Negative: Tenderness Extremity Exam: Positive: Edema (to right lower extremity with knee brace in place), Swelling (right knee brace) Skin Exam: Positive: Nl turgor and temperature, Other skin issue (nasal sutures) Neuro Exam: Positive: Normal Speech Psych Exam: Positive: Mental status NL, Mood NL, Oriented x 3; Negative: Anxiety Assessment /Plan Problems (1) Fall from standing Status: Acute Problem Text: # Right Knee Contusion - continued rehab # Nasal Fracture - Nasal trumpet removed by ENT. Continue keflex complete 7 days of therapy # ESRD -Hemodialysis Saturday, , Saturday # NEERAJ - Continue to have CPAP # Paroxysmal Atrial Fibrillation - Currently in sinus rhythm. - The patient received 5 mg of coumadin. Will check PT/INR daily. The patient was taking coumadin 7.5 mg daily at home per med rec. Continue coumadin. # SLE/Anti phospholipid syndrome - Continue plaquenil DVT prophylaxis -fully anticoagulated on lovenox Plan/VTE VTE Prophylaxis Ordered?: Yes VS, I&O, 24H, [facility] Vital Signs/I&O Vital Signs Date Time Temp Pulse Resp B/P (MAP) Pulse Ox O2 Delivery O2 Flow Rate FiO2 01/16/19 20:00 97.7 90 18 130/64 (86) 99 01/10/19 06:00 2.5 I&O- Last 24 Hours up to 6 AM 01/16/19 06:00 Intake Total 830 ml Output Total 2700 ml Balance -1870 ml Laboratory Data 24H LABS Laboratory Tests 2 01/16/19 06:27: Prothrombin Time 14.1, Prothromb Time International Ratio 1.08, Anion Gap 10, Glomerular Filtration Rate 10.1L, Blood Urea Nitrogen 28#H, Creatinine 6.02H, Sodium Level 136, Potassium Level 3.8, Chloride Level 97L, Carbon Dioxide Level 29, Calcium Level 8.5L 01/16/19 10:53: Creatine Kinase MB 1.9, Troponin I 0.08 CBC/BMP Laboratory Tests 01/16/19 06:27 Calcium Level 8.5 L SOFY PAUL MD Jan 16, 2019 21:47
[2019-01-17 06:00] VITALS: BP 131/67
[2019-01-17] MEDS: CALCIUM ACETATE 667 MG GELCAP PO SCH ×3 (07:47→17:50)
[2019-01-17 08:15] LABS: MEAN CORPUSCULAR HEMOGLOBIN 24.1 pg (27.0-33.0); MEAN CORPUSCULAR VOLUME 77.7 fl (80.0-96.0); PLATELET COUNT, AUTOMATED 355 10^3/uL (150-450); RED BLOOD COUNT 3.73 10^6/uL (4.30-6.10); WHITE BLOOD COUNT 4.9 10^3/uL (4.0-10.0)
[2019-01-17 08:25] LABS: INR 1.29; PROTHROMBIN TIME 16.3 SECONDS (12.1-14.4)
[2019-01-17] MEDS: DOCUSATE SODIUM 100 MG CAP PO SCH ×2 (08:27→22:37)
[2019-01-17] MEDS: GABAPENTIN 100 MG CAP PO SCH (08:27)
[2019-01-17] MEDS: CEPHALEXIN 500 MG CAP PO SCH (08:27)
[2019-01-17] MEDS: VITAMIN D 1,000 INTERNATIONAL UNITS TABLET PO SCH (08:27)
[2019-01-17] MEDS: HYDROXYCHLOROQUINE 200 MG TAB PO SCH ×2 (08:28→22:37)
[2019-01-17] MEDS: buPROPion **XL** TABLET 150MG (WELLBUTRIN XL) PO SCH (08:28)
[2019-01-17] MEDS: ASPIRIN 81 MG CHEW TABLET PO SCH (08:28)
[2019-01-17] MEDS: ENOXAPARIN 100MG/1ML SYRINGE (J1650) SC SCH (08:28)
[2019-01-17] MEDS: OMEPRAZOLE 20 MG CAP PO SCH (08:28)
[2019-01-17] MEDS: ARNUITY ELLIPTA (PATIENT'S OWN MED) INH SCH (08:29)
[2019-01-17] MEDS: ANALGESIC BALM CRM 120 GM TOP SCH ×3 (08:29→21:00)
[2019-01-17 08:30] VITALS: BP 143/66
[2019-01-17] MEDS: **NOTE PATIENT COMMENT** MISC XX SCH (08:30)
[2019-01-17 08:35] LABS: CALCIUM LEVEL 8.8 MG/DL (8.8-10.2); CREATININE FOR GFR 8.23 MG/DL (0.70-1.30); POTASSIUM SERUM 3.9 MEQ/L (3.5-5.1)
[2019-01-17] MEDS ORDERED: LIDOCAINE 1% SDV 5 ML VIAL SQ ONE (10:00)
--- NOTE | 2019-01-17 13:07 | IPNPDOC ---
Subjective Date Seen The patient was seen on 01/17/19. Subjective Chief Complaint/HPI The patient was seen while he was having hemodialysis. The patient does not have complaints today. He still has knee discomfort, but it has improved daily. No fevers, chills. No other symptoms. General: Denies: ROS Unobtainable, Chills, Night Sweats, Fatigue, Malaise, Normal Appetite, Other Symptoms Constitutional: Denies: Chills, Fever, Malaise, Night Sweats, Weakness, Fatigue, Weight Loss, Lethargy, Other Eyes: Denies: Pain, Vision change, Conjunctivae inflammation, Eyelid inflammation, Redness, Other ENT: Denies: Head Aches, Ear Pain, Dysphagia, Sinus Congestion, Post Nasal Drip, Sore Throat, Epistaxis, Other Symptoms Skin: Denies: Rash, Lesions, Jaundice, Bruising, Itching, Dry, Breakdown, Nail Changes, Other Pulmonary: Denies: Dyspnea, Cough, Pleuritic Chest Pain, Other Symptoms Cardiovascular: Denies: Chest Pain, Palpitations, Orthopnea, Paroxysmal Noc. Dyspnea, Edema, Lt Headedness, Other Symptoms Gastrointestinal: Denies: Nausea, Vomiting, Abdominal Pain, Diarrhea, Constipation, Melena, Hematochezia, Other Symptoms Genitourinary: Denies: Dysuria, Frequency, Incontinence, Hematuria, Retention, Other Symptoms Hematologic: Denies: Bruising, Bleeding Excessively, Petecchia, Purpura, Enlarged Lymph Nodes, Other Hematologic Endocrine: Denies: Polydipsia, Polyphagia, Polyuria, Heat Intolerance, Cold Intolerance, Other Endocrine Sx Musculoskeletal: Reports: Other Symptoms (knee pain) Neurological: Denies: Weakness, Numbness, Incoordination, Change in speech, Confusion, Seizures, Other Symptoms Psych: Denies: Mood Normal, Anxiety, Depression, Memory Issues, Thoughts of Self Harm, Anger, Thoughts of Harming Other, Other Psych Objective Physical Examination General Exam: Positive: Alert, Cooperative, No Acute Distress Eye Exam: Positive: PERRLA, Conjunctiva & lids normal, EOMI ENT Exam: Negative: Atraumatic (nasal sutures), Nares Patent (right nare trumpet) Neck Exam: Positive: Supple Chest Exam: Positive: Clear to auscultation, Normal air movement; Negative: Rales, Rhonchi Heart Exam: Positive: Rate Normal, Regular Rhythm Abdomen Exam: Positive: Normal bowel sounds, Soft; Negative: Tenderness Extremity Exam: Positive: Edema (to right lower extremity with knee brace in place), Swelling (right knee brace) Skin Exam: Positive: Nl turgor and temperature, Other skin issue (nasal sutures) Neuro Exam: Positive: Normal Speech Psych Exam: Positive: Mental status NL, Mood NL, Oriented x 3; Negative: Anxiety Assessment /Plan Problems (1) Fall from standing Status: Acute Problem Text: # Right Knee Contusion - continued rehab # Nasal Fracture - Nasal trumpet removed by ENT. Continue keflex complete 7 days of therapy # ESRD -Hemodialysis Saturday, , Saturday # NEERAJ - Continue to have CPAP # Paroxysmal Atrial Fibrillation - Today INR 1.23. The patient was taking coumadin 7.5 mg daily at home per med rec. Continue coumadin. # SLE/Anti phospholipid syndrome - Continue plaquenil DVT prophylaxis - Fully anticoagulated on lovenox Plan/VTE VTE Prophylaxis Ordered?: Yes VS, I&O, 24H, Fishbone Vital Signs/I&O Vital Signs Date Time Temp Pulse Resp B/P (MAP) Pulse Ox O2 Delivery O2 Flow Rate FiO2 01/17/19 08:30 97.3 82 18 143/66 (91) 99 I&O- Last 24 Hours up to 6 AM 01/17/19 06:00 Intake Total 1740 ml Balance 1740 ml Laboratory Data 24H LABS Laboratory Tests 2 01/17/19 07:42: Nucleated Red Blood Cells % (auto) 0.4H, Prothrombin Time 16.3H, Prothromb Time International Ratio 1.29, Anion Gap 12, Glomerular Filtration Rate 7.0L, Blood Urea Nitrogen 40H, Creatinine 8.23*H, Sodium Level 134L, Potassium Level 3.9, Chloride Level 96L, Carbon Dioxide Level 26, Calcium Level 8.8 CBC/BMP Laboratory Tests 01/17/19 07:42 Red Blood Count 3.73 L, Mean Corpuscular Volume 77.7 L, Mean Corpuscular Hemoglobin 24.1 L, Mean Corpuscular Hemoglobin Concent 31.0 L, Red Cell Distribution Width 20.2 H, Calcium Level 8.8 SOFY PAUL MD Jan 17, 2019 13:07
[2019-01-17 14:00] VITALS: BP 132/68
[2019-01-17] MEDS: WARFARIN SOD 7.5 MG TAB PO SCH (16:23)
--- NOTE | 2019-01-17 17:08 | IPN ---
DATE: 01/17/2019 Mr. Brower is seen this morning during hemodialysis. He was admitted with right knee hematoma following a fall. He is currently in acute rehabilitation as he was unable to move his knee. He is feeling much better now and denies any dyspnea, chest pain, nausea or vomiting. PHYSICAL EXAMINATION: Temperature 97.3 degrees Fahrenheit, heart rate 82 per minute and respiratory rate 18 per minute. Blood pressure 143/66 mmHg and oxygen saturation 99% on room air. His head is atraumatic. Neck is supple and without jugular venous distention (JVD) or thyroid enlargement. Heart sounds are regular. Lungs are clear to auscultation. Abdomen is soft and nontender and bowel sounds are normal. Extremities have no cyanosis or clubbing. His right knee effusion and hematoma is better and not very tense. He does have some ecchymosis on his right thigh on the medial side which he feels is related to the brace. Neurologically, he is awake, alert and at his baseline mentation. LABORATORY DATA: Today's laboratories show WBC count 4.9, hemoglobin 9.0 and hematocrit 29.0. INR was 1.29 yesterday. Sodium today 134, potassium 3.9, CO2 26, BUN 40 and creatinine 8.23. Calcium level is 8.8. PROBLEMS: 1. End-stage renal disease. The patient has been on maintenance hemodialysis and is being dialyzed this morning. He is tolerating dialysis treatment well. 2. History of congestive heart failure. His volume status is slightly decompensated. He feels a little bit bloated. His oxygen saturation is in the high 90s on room air. We will try to remove about three liters of fluid with dialysis today and see how he tolerates. 3. Acute blood loss anemia. He did have a hematoma on his right knee due to fall and drop in his hematocrit. Today, he seems to have improved. We will continue to watch without any further transfusions. 4. Hypertension. Blood pressure is very well-controlled and no changes are being made today.
[2019-01-17 20:00] VITALS: BP 111/71
[2019-01-17] MEDS: LIDOCAINE 5% (LIDODERM) PATCH TD SCH (21:00)
[2019-01-17] MEDS: MIRTAZAPINE 15 MG TAB PO SCH (22:37)
[2019-01-17] MEDS: SENNA 8.6 MG TAB (SENOKOT) PO SCH (22:37)
[2019-01-18 06:00] VITALS: BP 125/59
[2019-01-18 07:32] LABS: INR 1.37; PROTHROMBIN TIME 17.1 SECONDS (12.1-14.4)
[2019-01-18] MEDS: buPROPion **XL** TABLET 150MG (WELLBUTRIN XL) PO SCH (08:13)
[2019-01-18] MEDS: ASPIRIN 81 MG CHEW TABLET PO SCH (08:13)
[2019-01-18] MEDS: CALCIUM ACETATE 667 MG GELCAP PO SCH ×3 (08:13→17:03)
[2019-01-18] MEDS: ENOXAPARIN 100MG/1ML SYRINGE (J1650) SC SCH (08:13)
[2019-01-18] MEDS: HYDROXYCHLOROQUINE 200 MG TAB PO SCH ×2 (08:13→19:43)
[2019-01-18] MEDS: GABAPENTIN 100 MG CAP PO SCH (08:13)
[2019-01-18] MEDS: DOCUSATE SODIUM 100 MG CAP PO SCH ×2 (08:13→19:43)
[2019-01-18] MEDS: OMEPRAZOLE 20 MG CAP PO SCH (08:13)
[2019-01-18] MEDS: **NOTE PATIENT COMMENT** MISC XX SCH (08:13)
[2019-01-18] MEDS: VITAMIN D 1,000 INTERNATIONAL UNITS TABLET PO SCH (08:13)
[2019-01-18] MEDS: ARNUITY ELLIPTA (PATIENT'S OWN MED) INH SCH (08:14)
[2019-01-18] MEDS: ANALGESIC BALM CRM 120 GM TOP SCH ×4 (08:25→19:44)
--- NOTE | 2019-01-18 10:03 | IPNPDOC ---
Subjective Date Seen The patient was seen on 01/18/19. Subjective Chief Complaint/HPI fall, knee contusion Events since last encounter Denies c/o today. Anticipates DC home in 1-2 days. Pulmonary: Denies: Dyspnea, Cough Cardiovascular: Denies: Chest Pain, Palpitations, Orthopnea, Paroxysmal Noc. Dyspnea, Lt Headedness Gastrointestinal: Denies: Nausea, Vomiting, Abdominal Pain, Diarrhea, Constipation Genitourinary: Denies: Dysuria, Frequency, Incontinence, Hematuria, Retention, Other Symptoms Objective Physical Examination General Exam: Positive: Alert, Cooperative, No Acute Distress Eye Exam: Positive: PERRLA, Conjunctiva & lids normal, EOMI ENT Exam: Positive: Nares Patent; Negative: Atraumatic Neck Exam: Positive: Supple Chest Exam: Positive: Clear to auscultation, Normal air movement; Negative: Rales, Rhonchi Heart Exam: Positive: Rate Normal, Regular Rhythm Abdomen Exam: Positive: Normal bowel sounds, Soft; Negative: Tenderness Extremity Exam: Positive: Edema (to right lower extremity with knee brace in place), Swelling (right knee brace) Skin Exam: Positive: Nl turgor and temperature; Negative: Other skin issue Neuro Exam: Positive: Normal Speech Psych Exam: Positive: Mental status NL, Mood NL, Oriented x 3; Negative: Anxiety Assessment /Plan Problems (1) Fall from standing Status: Acute Problem Text: Continue with PT/rehab (2) Open fracture nose Status: Acute Problem Specific Plan: Consult Specialist Problem Text: # Nasal Fracture - Nasal trumpet removed by ENT. Continue keflex complete 7 days of therapy (3) Anti-phospholipid syndrome Status: Chronic Problem Text: Continue Warfarin (4) NEERAJ (obstructive sleep apnea) Status: Chronic Problem Text: continue CPAP (5) ESRD on hemodialysis Status: Chronic Problem Specific Plan: Consult Specialist Problem Text: Nephrology following and managing. On Venofer and Aranesp IV (6) Paroxysmal atrial fibrillation Status: Chronic Response to Treatment: Stable Problem Text: rate controlled. On warfarin/Lovenox. INR 1.32 today. continue current dosing until INR is therapeutic. (7) Asthma Status: Chronic Response to Treatment: Stable (8) Lupus Response to Treatment: Stable Problem Text: Continue Plaquenil (9) Acute meniscal injury of knee Status: Acute Problem Text: Was evaluated by ortho. needs f/u 7-14 days post dc from rehab. Continue brace. Plan/VTE VTE Prophylaxis Ordered?: Yes VS, I&O, 24H, Fishbone Vital Signs/I&O Vital Signs Date Time Temp Pulse Resp B/P (MAP) Pulse Ox O2 Delivery O2 Flow Rate FiO2 01/18/19 06:00 98.0 89 18 125/59 (81) 97 I&O- Last 24 Hours up to 6 AM 01/18/19 06:00 Intake Total 900 ml Output Total 2500 ml Balance -1600 ml Laboratory Data 24H LABS Laboratory Tests 2 01/18/19 06:30: Prothrombin Time 17.1H, Prothromb Time International Ratio 1.37 Adriana Estevez [employer] Jan 18, 2019 10:03
[2019-01-18 14:00] VITALS: BP 128/70
[2019-01-18] MEDS: WARFARIN SOD 7.5 MG TAB PO SCH (16:33)
[2019-01-18] MEDS: SENNA 8.6 MG TAB (SENOKOT) PO SCH (19:42)
[2019-01-18] MEDS: MIRTAZAPINE 15 MG TAB PO SCH (19:42)
[2019-01-18] MEDS: LIDOCAINE 5% (LIDODERM) PATCH TD SCH (19:44)
[2019-01-18 20:00] VITALS: BP 129/69
[2019-01-19 04:45] VITALS: BP 132/68
[2019-01-19 06:35] LABS: INR 1.36
[2019-01-19] MEDS: **NOTE PATIENT COMMENT** MISC XX SCH (09:00)
[2019-01-19] MEDS: ANALGESIC BALM CRM 120 GM TOP SCH ×3 (09:00→20:19)
[2019-01-19] MEDS: GABAPENTIN 100 MG CAP PO SCH (10:22)
[2019-01-19] MEDS: ENOXAPARIN 100MG/1ML SYRINGE (J1650) SC SCH (10:23)
[2019-01-19] MEDS: DOCUSATE SODIUM 100 MG CAP PO SCH ×2 (10:23→20:18)
[2019-01-19] MEDS: VITAMIN D 1,000 INTERNATIONAL UNITS TABLET PO SCH (10:23)
[2019-01-19] MEDS: CALCIUM ACETATE 667 MG GELCAP PO SCH ×3 (10:23→16:57)
[2019-01-19] MEDS: ASPIRIN 81 MG CHEW TABLET PO SCH (10:23)
[2019-01-19] MEDS: OMEPRAZOLE 20 MG CAP PO SCH (10:23)
[2019-01-19] MEDS: HYDROXYCHLOROQUINE 200 MG TAB PO SCH ×2 (10:23→20:18)
[2019-01-19] MEDS: buPROPion **XL** TABLET 150MG (WELLBUTRIN XL) PO SCH (10:24)
[2019-01-19] MEDS: ARNUITY ELLIPTA (PATIENT'S OWN MED) INH SCH (10:24)
--- NOTE | 2019-01-19 12:01 | IPN ---
DATE: 01/19/2019 Mr. Brower is seen this morning on his bedside. He is ambulating with the help of a cane. He is sitting in the hallway on the chair at this time. He denies any dyspnea, chest pain, nausea or vomiting. He was dialyzed on Saturday and next dialysis is due tomorrow. PHYSICAL EXAMINATION: Temperature 98.0 degrees Fahrenheit, heart rate 78 per minute and respiratory rate 20 per minute. Blood pressure 132/68 mmHg and oxygen saturation 96% on room air. His head is atraumatic. Neck is supple and without jugular venous distention (JVD) or thyroid enlargement. Heart sounds are irregular in rhythm. Lungs sound clear to auscultation. Abdomen is soft and nontender. Bowel sounds are normal. Extremities have no cyanosis. His right knee effusion has improved. He has a bandage on his right knee without any signs of infection or active bleeding. The patient did not have any new labs done for the last couple of days. PROBLEMS: 1. End-stage renal disease. The patient is regularly dialyzed on Saturday, and Saturday schedule. He is scheduled for next dialysis today. 2. Anemia. His anemia was stable as of last CBC on January 17. CBC will be checked again tomorrow morning. He does not have any active bleeding. He did have a hematoma in his right knee due to fall. 3. Hypertension. Blood pressure is well-controlled and no changes in medications are being made today. 4. Difficulty with ambulation. The patient is undergoing rehabilitation and improving. He is likely to be discharged this week. 5. History of antiphospholipid syndrome. The patient remains on Coumadin and INR has been low. Today's INR is only 1.36.
--- NOTE | 2019-01-19 12:23 | IPNPDOC ---
Subjective Date Seen The patient was seen on 01/19/19. Subjective Chief Complaint/HPI The patient was seen while he was actively participating in physical therapy. The patient does not have any complaints. He is physically very active. No other complaints. General: Denies: ROS Unobtainable, Chills, Night Sweats, Fatigue, Malaise, Normal Appetite, Other Symptoms Constitutional: Denies: Chills, Fever, Malaise, Night Sweats, Weakness, Fatigue, Weight Loss, Lethargy, Other Eyes: Denies: Pain, Vision change, Conjunctivae inflammation, Eyelid inflammation, Redness, Other ENT: Denies: Head Aches, Ear Pain, Dysphagia, Sinus Congestion, Post Nasal Drip, Sore Throat, Epistaxis, Other Symptoms Skin: Denies: Rash, Lesions, Jaundice, Bruising, Itching, Dry, Breakdown, Nail Changes, Other Pulmonary: Denies: Dyspnea, Cough, Pleuritic Chest Pain, Other Symptoms Cardiovascular: Denies: Chest Pain, Palpitations, Orthopnea, Paroxysmal Noc. Dyspnea, Edema, Lt Headedness, Other Symptoms Gastrointestinal: Denies: Nausea, Vomiting, Abdominal Pain, Diarrhea, Constipation, Melena, Hematochezia, Other Symptoms Genitourinary: Denies: Dysuria, Frequency, Incontinence, Hematuria, Retention, Other Symptoms Hematologic: Denies: Bruising, Bleeding Excessively, Petecchia, Purpura, Enlarged Lymph Nodes, Other Hematologic Endocrine: Denies: Polydipsia, Polyphagia, Polyuria, Heat Intolerance, Cold Intolerance, Other Endocrine Sx Musculoskeletal: Denies: Neck Pain, Back Pain, Shoulder Pain, Arm Pain, Hand Pain, Leg Pain, Foot Pain, Joint Pain, Muscle Pain, Spasms, Other Symptoms Neurological: Denies: Weakness, Numbness, Incoordination, Change in speech, Confusion, Seizures, Other Symptoms Psych: Denies: Mood Normal, Anxiety, Depression, Memory Issues, Thoughts of Self Harm, Anger, Thoughts of Harming Other, Other Psych Objective Physical Examination General Exam: Positive: Alert, Cooperative, No Acute Distress Eye Exam: Positive: PERRLA, Conjunctiva & lids normal, EOMI ENT Exam: Positive: Nares Patent; Negative: Atraumatic Neck Exam: Positive: Supple Chest Exam: Positive: Clear to auscultation, Normal air movement; Negative: Rales, Rhonchi Heart Exam: Positive: Rate Normal, Regular Rhythm Abdomen Exam: Positive: Normal bowel sounds, Soft; Negative: Tenderness Extremity Exam: Positive: Edema (to right lower extremity with knee brace in place), Swelling (right knee brace) Skin Exam: Positive: Nl turgor and temperature; Negative: Other skin issue Neuro Exam: Positive: Normal Speech Psych Exam: Positive: Mental status NL, Mood NL, Oriented x 3; Negative: Anxiety Assessment /Plan Problems (1) Fall from standing Status: Acute Problem Text: Continue with PT/rehab (2) Open fracture nose Status: Acute Problem Specific Plan: Consult Specialist Problem Text: # Nasal Fracture - Nasal trumpet removed by ENT. Continue keflex complete 7 days of therapy (3) Anti-phospholipid syndrome Status: Chronic Problem Text: Continue Warfarin. INR is slowly going high. (4) NEERAJ (obstructive sleep apnea) Status: Chronic Problem Text: continue CPAP (5) ESRD on hemodialysis Status: Chronic Problem Specific Plan: Consult Specialist Problem Text: Nephrology following and managing. On Venofer and Aranesp IV (6) Paroxysmal atrial fibrillation Status: Chronic Response to Treatment: Stable Problem Text: rate controlled. On warfarin/Lovenox. Continue current dosing until INR is therapeutic. (7) Asthma Status: Chronic Response to Treatment: Stable (8) Lupus Response to Treatment: Stable Problem Text: Continue Plaquenil (9) Acute meniscal injury of knee Status: Acute Problem Text: Was evaluated by ortho. needs f/u 7-14 days post dc from rehab. Continue brace. Plan/VTE VTE Prophylaxis Ordered?: Yes VS, I&O, 24H, Fishbone Vital Signs/I&O Vital Signs Date Time Temp Pulse Resp B/P (MAP) Pulse Ox O2 Delivery O2 Flow Rate FiO2 01/19/19 04:45 98.0 78 20 132/68 (89) 96 I&O- Last 24 Hours up to 6 AM 01/19/19 06:00 Intake Total 1050 ml Output Total 0 ml Balance 1050 ml Laboratory Data 24H LABS Laboratory Tests 2 01/19/19 05:56: Prothrombin Time 17.0H, Prothromb Time International Ratio 1.36 SOFY PAUL MD Jan 19, 2019 12:23
[2019-01-19 14:00] VITALS: BP 120/56
--- NOTE | 2019-01-19 16:30 | IPNPDOC ---
PM&R Progress Note DATE OF SERVICE: Jan 19, 2019 [employer] Progress Note Subjective: Patient reports eh took Maalox over the weekend when he had similar chest pressure and his pain was relieved. He states the velcro on his brace is coming undone. REVIEW OF SYSTEMS: The following is a completed review of systems and has been reviewed. Review of systems otherwise unremarkable. PAIN: Patient self reports right knee and medial left knee pain EYES: Negative for recent vision changes EARS, NOSE, & THROAT: denies dysphagia, rhinorrhea, throat pain CARDIOVASCULAR: denies chest pain or palpitations PULMONARY: Negative. Denies shortness of breath GASTROINTESTINAL: no diarrhea or constipation GENITOURINARY: Negative for dysuria MUSCULOSKELETAL: right meniscal tears NEUROLOGICAL: peripheral neuropathy HEMATOLOGICAL: +chronic anemia SKIN: facial laceration PSYCHIATRIC: Unremarkable All other review of systems found to be negative. PHYSICAL EXAMINATION: VITAL SIGNS: Please see below. GENERAL: Pleasant and cooperative. No acute distress. HEENT: PERRL. Extraocular movements intact. Clear conjunctiva CARDIOVASCULAR: Regular rate and rhythm. No murmurs, rubs, or gallops LUNGS: Clear to auscultation bilaterally. No wheezes. No rhonchi ABDOMEN: Soft, nontender, nondistended. Positive bowel sounds. Normal active bowel sounds NEUROLOGICAL: Alert and oriented times three. Cranial nerves II through XII grossly intact. Sensation grossly intact in all 4 limbs EXTREMITIES: 5\5 strength bilateral upper extremities. 5\5 strength right hip flexion, ankle DF and EHL (limited due to pain and bracing) 5/5 strength in left lower extremity. +TTP medial joint line of left leg, no varus/valgus instability +suprapatellar effusion on right knee with medial joint line tenderness, no warmth + log roll and stinchfield test for left hip (-) Liz's bilat SKIN: anterior right knee laceration, nasal bridge laceration (healing) ASSESSMENT:63-year-old M with past medical history of ESRD and SLE with multiple falls who presents status post acute right complex meniscal tear. PLAN: 1. Rehab: PT, OT, assess for DMEs- ambulating further with RW, room privileges with cane 2. Ortho: s/p right complex meniscal tear, with suspicion for quadriceps partial thickness tear with hematoma- c/u WBAT with brace, ortho consulted 3. Neuro: pmh multiple strokes, c/u ASA, unclear why not on statin 4. cardio: pmh HTN, AFib s/p ablation with antiphospholipid syndrome- c/u Lovenox full dose for now while waiting for therapeutic INR while on Warfarin- medicine managing, however not trending up on 7.5 daily will switch to 10mg and monitor - chest pressure began last night and resolved today- cardiac enzymes negative- 5. Resp: pmh NEERAJ - c/u CPAP at night, asthma, Proventil ordered to be bedside for patient to use 6. Renal: ESRD TUe//Sat- renal consulted recs appreciated, c.u IV Venofer a nd Aranesp 7. Rheum: pmh SLE with joint inflammation of left>right knee, c/u Plaquenil -patient reporting left groin pain worse with internal rotation- c/u lidoderm patch to groin for suspected hip arthritis and icy-hot to left buttock, patient educated on doing gluteal strengthening exercises 8. : admission UA and Ucx negative 9. Pain: Tylenol, gabapentin, and tramadol- Ice 10. Psych: Remeron for depression and insomnia, Wellbutryn for depression 11. Skin: facial lacerations- packing removed 12. Dispo: 01/23/19 to home- home eval set up for 01/20/19 Allergies Coded Allergies: No Known Allergies (Verified , 03/17/18) Vital Signs Vital Signs Date Time Temp Pulse Resp B/P (MAP) Pulse Ox O2 Delivery O2 Flow Rate FiO2 01/19/19 14:00 97.1 89 18 120/56 (77) 97 Laboratory Data Labs 24H Laboratory Tests 2 01/19/19 05:56: Prothrombin Time 17.0H, Prothromb Time International Ratio 1.36 Current Medications Current Medications Current Medications Acetaminophen (Tylenol Tab) 650 mg Q4HP PRN PO MILD PAIN (PS 1-4) Last administered on 01/16/19at 20:15; Start 01/08/19 at 18:30 Al Hydrox/Mg Hydrox/Simethicone (Mylanta) 30 ml Q4HP PRN PO DYSPEPSIA; Start 01/08/19 at 18:30; Stop 01/16/19 at 10:41; Status DC Al Hydrox/Mg Hydrox/Simethicone (Mylanta) 30 ml Q6HP PRN PO HEARTBURN Last administered on 01/17/19 14:33; Start 01/16/19 at 10:45 Albuterol Sulfate (Proventil, Ventolin Hfa) 2 puff Q4HP PRN INH SHORTNESS OF BREATH Last administered on 01/11/19 07:18; Start 01/08/19 at 18:30 Aspirin (Aspirin Chewable) 81 mg DAILY PO Last administered on 01/19/19 10:23; Start 01/09/19 at 09:00 Bisacodyl (Dulcolax Suppository) 10 mg DAILYPRN PRN AL CONSTIPATION; Start 01/08/19 at 18:30 Bupropion HCl (Wellbutrin Xl) 150 mg DAILY PO Last administered on 01/19/19 10:24; Start 01/09/19 at 09:00 Calcium Acetate (Phoslo) 667 mg WM PO Last administered on 01/19/19 13:50; Start 01/09/19 at 08:00 Cephalexin Monohydrate (Keflex) 500 mg BID PO Last administered on 01/17/19 08: 27; Start 01/10/19 at 21:00; Stop 01/17/19 at 20:23; Status DC Darbepoetin Wu (Aranesp (Dialysis Use)) 200 mcg HD IV ; Start 01/09/19 at 19:00 Docusate Sodium (Colace) 100 mg BID PO Last administered on 01/19/19 10:23; Start 01/08/19 at 21:00 Enoxaparin Sodium (Lovenox) 100 mg Q24H SC Last administered on 01/19/19 10:23; Start 01/11/19 at 09:00 Fluticasone Propionate (Flonase 0.05% Nasal [place]) 1 spray BID NARES Last administered on 01/10/19 09:00; Start 01/08/19 at 21:00; Stop 01/10/19 at 15:01; Status DC Gabapentin (Neurontin) 100 mg BID PO Last administered on 01/13/19 07:43; Start 01/09/19 at 09:00; Stop 01/13/19 at 18:51; Status DC Gabapentin (Neurontin) 100 mg DAILY PO Last administered on 01/19/19 10:22; Start 01/14/19 at 09:00 Hydroxychloroquine Sulfate (Plaquenil) 200 mg BID PO Last administered on 01/19/19 10:23; Start 01/09/19 at 09:00 Iron (Venofer) 100 mg HD IV ; Start 01/09/19 at 19:00 Lidocaine (Lidoderm Patch) 1 patch QHS TD Last administered on 01/16/19 20:14; Start 01/13/19 at 21:00 Menthol/Methyl Salicylate (Bengay Cream) left lateral hip ... TID TOP Last administered on 01/18/19 08:25; Start 01/15/19 at 16:00 Mirtazapine (Remeron) 30 mg QHS PO Last administered on 01/18/19 19:42; Start 01/09/19 at 21:00 Miscellaneous (Unresolved Clarification Entry) SEE LABEL COMMENTS DAILY XX Last administered on 01/17/19 09:00; Start 01/17/19 at 09:00; Stop 01/18/19 at 11:12; Status DC Non-Formulary Medication ( See Comment Field Below ) DAILY XX ; Start 01/12/19 at 09:00; Stop 01/14/19 at 08:59; Status DC Non-Formulary Medication ( See Comment Field Below ) REMOVE LIDODERM PATCH DAILY@0900 XX Last administered on 01/18/19 08:13; Start 01/14/19 at 09:00 Omeprazole (PriLOSEC) 20 mg DAILY PO Last administered on 01/19/19 10:23; Start 01/09/19 at 09:00 Patient Own Medication (Patient'S Own Med) Arnuity ellipta 100mcg ... QAM INH Last administered on 01/19/19 10:24; Start 01/11/19 at 09:00 Senna (Senokot) 1 tab QHS PO Last administered on 01/18/19 19:42; Start 01/08/19 at 21:00 Tramadol HCl (Ultram) 50 mg Q6HP PRN PO MODERATE PAIN (PS 5-7) Last administered on 01/13/19 07:42; Start 01/08/19 at 18:30; Stop 01/13/19 at 18:51; Status DC Vitamin D (Vitamin D) 2,000 units DAILY PO Last administered on 01/19/19at 10:23; Start 01/09/19 at 09:00 Warfarin Sodium (Coumadin) 7.5 mg DAILY@17 PO ; Start 01/10/19 at 17:00; Stop 01/10/19 at 17:00; Status DC Warfarin Sodium (Coumadin) 7.5 mg DAILY@17 PO Last administered on 01/18/19at 16:33; Start 01/15/19 at 17:00; Stop 01/19/19 at 16:21; Status DC Warfarin Sodium (Coumadin) 10 mg DAILY@17 PO ; Start 01/19/19 at 17:00 ARLEY DONOHUE MD Jan 19, 2019 16:30
[2019-01-19] MEDS: WARFARIN SOD 5 MG TAB PO SCH (16:58)
[2019-01-19 20:00] VITALS: BP 134/66
[2019-01-19] MEDS: MIRTAZAPINE 15 MG TAB PO SCH (20:18)
[2019-01-19] MEDS: SENNA 8.6 MG TAB (SENOKOT) PO SCH (20:18)
[2019-01-19] MEDS: LIDOCAINE 5% (LIDODERM) PATCH TD SCH (20:19)
[2019-01-20 06:00] VITALS: BP 135/75
[2019-01-20 06:33] LABS: HEMATOCRIT 27.2 % (42.0-52.0); HEMOGLOBIN 8.4 g/dl (13.5-17.5); MEAN CORPUSCULAR HEMOGLOBIN 24.1 pg (27.0-33.0); MEAN CORPUSCULAR HGB CONC 30.9 g/dl (32.0-36.5); MEAN CORPUSCULAR VOLUME 78.2 fl (80.0-96.0); PLATELET COUNT, AUTOMATED 346 10^3/uL (150-450); RED BLOOD COUNT 3.48 10^6/uL (4.30-6.10); WHITE BLOOD COUNT 4.9 10^3/uL (4.0-10.0)
[2019-01-20 06:54] LABS: INR 1.72; PROTHROMBIN TIME 20.5 SECONDS (12.1-14.4)
[2019-01-20 07:08] LABS: ALBUMIN 2.5 GM/DL (3.2-5.2); CREATININE FOR GFR 9.97 MG/DL (0.70-1.30); GLOMERULAR FILTRATION RATE 5.6 (>49); PHOSPHORUS LEVEL 4.3 MG/DL (2.5-4.9); POTASSIUM SERUM 4.6 MEQ/L (3.5-5.1)
[2019-01-20] MEDS: ANALGESIC BALM CRM 120 GM TOP SCH ×3 (09:00→22:23)
[2019-01-20] MEDS: **NOTE PATIENT COMMENT** MISC XX SCH (09:00)
[2019-01-20] MEDS: ASPIRIN 81 MG CHEW TABLET PO SCH (09:02)
[2019-01-20] MEDS: VITAMIN D 1,000 INTERNATIONAL UNITS TABLET PO SCH (09:02)
[2019-01-20] MEDS: ENOXAPARIN 100MG/1ML SYRINGE (J1650) SC SCH (09:02)
[2019-01-20] MEDS: OMEPRAZOLE 20 MG CAP PO SCH (09:02)
[2019-01-20] MEDS: DOCUSATE SODIUM 100 MG CAP PO SCH ×2 (09:02→22:22)
[2019-01-20] MEDS: CALCIUM ACETATE 667 MG GELCAP PO SCH ×3 (09:03→17:23)
[2019-01-20] MEDS: GABAPENTIN 100 MG CAP PO SCH (09:03)
[2019-01-20] MEDS: HYDROXYCHLOROQUINE 200 MG TAB PO SCH ×2 (09:03→22:23)
[2019-01-20] MEDS: buPROPion **XL** TABLET 150MG (WELLBUTRIN XL) PO SCH (09:03)
[2019-01-20] MEDS: ARNUITY ELLIPTA (PATIENT'S OWN MED) INH SCH (09:04)
[2019-01-20] MEDS ORDERED: HEPARIN 1,000 UNITS/ML 10ML VIAL (FOR RADIOLOGY& DIALYSIS ONLY) IV ONE (10:30)
[2019-01-20] MEDS ORDERED: LIDOCAINE 1% SDV 5 ML VIAL SQ ONE (10:30)
[2019-01-20 14:00] VITALS: BP 120/69
[2019-01-20] MEDS: WARFARIN SOD 5 MG TAB PO SCH (17:23)
--- NOTE | 2019-01-20 18:16 | IPNPDOC ---
PM&R Progress Note DATE OF SERVICE: Jan 20, 2019 Clinical Rehabilitation Aide Progress Note Subjective: Patient reports his home eval was ok, he is concerned because his house is messy, but is willing to take sponge baths until he has grab bars installed in his shower. REVIEW OF SYSTEMS: The following is a completed review of systems and has been reviewed. Review of systems otherwise unremarkable. PAIN: Patient self reports right knee and medial left knee pain EYES: Negative for recent vision changes EARS, NOSE, & THROAT: denies dysphagia, rhinorrhea, throat pain CARDIOVASCULAR: denies chest pain or palpitations PULMONARY: Negative. Denies shortness of breath GASTROINTESTINAL: no diarrhea or constipation GENITOURINARY: Negative for dysuria MUSCULOSKELETAL: right meniscal tears NEUROLOGICAL: peripheral neuropathy HEMATOLOGICAL: +chronic anemia SKIN: facial laceration PSYCHIATRIC: Unremarkable All other review of systems found to be negative. PHYSICAL EXAMINATION: VITAL SIGNS: Please see below. GENERAL: Pleasant and cooperative. No acute distress. HEENT: PERRL. Extraocular movements intact. Clear conjunctiva CARDIOVASCULAR: Regular rate and rhythm. No murmurs, rubs, or gallops LUNGS: Clear to auscultation bilaterally. No wheezes. No rhonchi ABDOMEN: Soft, nontender, nondistended. Positive bowel sounds. Normal active bowel sounds NEUROLOGICAL: Alert and oriented times three. Cranial nerves II through XII grossly intact. Sensation grossly intact in all 4 limbs EXTREMITIES: 5\5 strength bilateral upper extremities. 5\5 strength right hip flexion, ankle DF and EHL (limited due to pain and bracing) 5/5 strength in left lower extremity. +TTP medial joint line of left leg, no varus/valgus instability +suprapatellar effusion on right knee with medial joint line tenderness, no warmth + log roll and stinchfield test for left hip (-) Liz's bilat SKIN: anterior right knee laceration, nasal bridge laceration (healing) ASSESSMENT:63-year-old M with past medical history of ESRD and SLE with multiple falls who presents status post acute right complex meniscal tear. PLAN: 1. Rehab: PT, OT, assess for DMEs- ambulating further with RW, room privileges with cane 2. Ortho: s/p right complex meniscal tear, with suspicion for quadriceps partial thickness tear with hematoma- c/u WBAT with brace, ortho consulted 3. Neuro: pmh multiple strokes, c/u ASA, unclear why not on statin 4. cardio: pmh HTN, AFib s/p ablation with antiphospholipid syndrome- c/u Lovenox full dose for now while waiting for therapeutic INR while on Warfarin- medicine managing, starting to trend up on 10mg c/u and monitor - chest pressure began last night and resolved today- cardiac enzymes negative- 5. Resp: pmh NEERAJ - c/u CPAP at night, asthma, Proventil ordered to be bedside for patient to use 6. Renal: ESRD Sat//Sat- renal consulted recs appreciated, c.u IV Venofer and Aranesp 7. Rheum: pmh SLE with joint inflammation of left>right knee, c/u Plaquenil -patient reporting left groin pain worse with internal rotation- c/u lidoderm patch to groin for suspected hip arthritis and icy-hot to left buttock, patient educated on doing gluteal strengthening exercises 8. : admission UA and Ucx negative 9. Pain: Tylenol, gabapentin, and tramadol- Ice 10. Psych: Remeron for depression and insomnia, Wellbutryn for depression 11. Skin: facial lacerations- packing removed 12. Dispo: 01/23/19 to home- home eval set up for 01/20/19, d/c to home tomorrow Allergies Coded Allergies: No Known Allergies (Verified , 03/17/18) Vital Signs Vital Signs Date Time Temp Pulse Resp B/P (MAP) Pulse Ox O2 Delivery O2 Flow Rate FiO2 01/20/19 06:00 96.4 77 18 135/75 (95) 100 Laboratory Data CBC/BMP Laboratory Tests 01/20/19 05:45 Red Blood Count 3.48 L, Mean Corpuscular Volume 78.2 L, Mean Corpuscular Hemoglobin 24.1 L, Mean Corpuscular Hemoglobin Concent 30.9 L, Red Cell Distribution Width 20.9 H, Anion Gap 11 Labs 24H Laboratory Tests 2 01/20/19 05:45: Nucleated Red Blood Cells % (auto) 0.4H, Prothrombin Time 20.5H, Prothromb Time International Ratio 1.72, Blood Urea Nitrogen 42H, Creatinine 9.97*H, Sodium Level 135L, Potassium Level 4.6, Chloride Level 99, Carbon Dioxide Level 25, Anion Gap 11, Glomerular Filtration Rate 5.6L, Calcium Level 9.0, Phosphorus Level 4.3, Albumin 2.5L Current Medications Current Medications Current Medications Acetaminophen (Tylenol Tab) 650 mg Q4HP PRN PO MILD PAIN (PS 1-4) Last administered on 01/16/19 20:15; Start 01/08/19 at 18:30 Al Hydrox/Mg Hydrox/Simethicone (Mylanta) 30 ml Q4HP PRN PO DYSPEPSIA; Start 01/08/19 at 18:30; Stop 01/16/19 at 10:41; Status DC Al Hydrox/Mg Hydrox/Simethicone (Mylanta) 30 ml Q6HP PRN PO HEARTBURN Last administered on 01/17/19 14:33; Start 01/16/19 at 10:45 Albuterol Sulfate (Proventil, Ventolin Hfa) 2 puff Q4HP PRN INH SHORTNESS OF BREATH Last administered on 01/11/19 07:18; Start 01/08/19 at 18:30 Aspirin (Aspirin Chewable) 81 mg DAILY PO Last administered on 01/20/19 09:02; Start 01/09/19 at 09:00 Bisacodyl (Dulcolax Suppository) 10 mg DAILYPRN PRN OK CONSTIPATION; Start 01/08/19 at 18:30 Bupropion HCl (Wellbutrin Xl) 150 mg DAILY PO Last administered on 01/20/19 09:03; Start 01/09/19 at 09:00 Calcium Acetate (Phoslo) 667 mg WM PO Last administered on 01/20/19 17:23; Start 01/09/19 at 08:00 Cephalexin Monohydrate (Keflex) 500 mg BID PO Last administered on 01/17/19 08:27; Start 01/10/19 at 21:00; Stop 01/17/19 at 20:23; Status DC Darbepoetin Wu (Aranesp (Dialysis Use)) 200 mcg HD IV ; Start 01/09/19 at 19:00 Docusate Sodium (Colace) 100 mg BID PO Last administered on 01/20/19 09:02; Start 01/08/19 at 21:00 Enoxaparin Sodium (Lovenox) 100 mg Q24H SC Last administered on 01/20/19 09:02; Start 01/11/19 at 09:00 Fluticasone Propionate (Flonase 0.05% Nasal [place]) 1 spray BID NARES Last administered on 01/10/19 09:00; Start 01/08/19 at 21:00; Stop 01/10/19 at 15:01; Status DC Gabapentin (Neurontin) 100 mg BID PO Last administered on 01/13/19 07:43; Start 01/09/19 at 09:00; Stop 01/13/19 at 18:51; Status DC Gabapentin (Neurontin) 100 mg DAILY PO Last administered on 01/20/19 09:03; Start 01/14/19 at 09:00 Hydroxychloroquine Sulfate (Plaquenil) 200 mg BID PO Last administered on 01/20/19 09:03; Start 01/09/19 at 09:00 Iron (Venofer) 100 mg HD IV ; Start 01/09/19 at 19:00 Lidocaine (Lidoderm Patch) 1 patch QHS TD Last administered on 01/16/19 20:14; Start 01/13/19 at 21:00 Menthol/Methyl Salicylate (Bengay Cream) left lateral hip ... TID TOP Last administered on 01/18/19 08:25; Start 01/15/19 at 16:00 Mirtazapine (Remeron) 30 mg QHS PO Last administered on 01/19/19 20:18; Start 01/09/19 at 21:00 Miscellaneous (Unresolved Clarification Entry) SEE LABEL COMMENTS DAILY XX Last administered on 01/17/19 09:00; Start 01/17/19 at 09:00; Stop 01/18/19 at 11:12; Status DC Non-Formulary Medication ( See Comment Field Below ) DAILY XX ; Start 01/12/19 at 09:00; Stop 01/14/19 at 08:59; Status DC Non-Formulary Medication ( See Comment Field Below ) REMOVE LIDODERM PATCH DAILY@0900 XX Last administered on 01/18/19 08:13; Start 01/14/19 at 09:00 Omeprazole (PriLOSEC) 20 mg DAILY PO Last administered on 01/20/19 09:02; Start 01/09/19 at 09:00 Patient Own Medication (Patient'S Own Med) Arnuity ellipta 100mcg ... QAM INH Last administered on 01/20/19 09:04; Start 01/11/19 at 09:00 Senna (Senokot) 1 tab QHS PO Last administered on 01/19/19 20:18; Start 01/08/19 at 21:00 Tramadol HCl (Ultram) 50 mg Q6HP PRN PO MODERATE PAIN (PS 5-7) Last administered on 01/13/19 07:42; Start 01/08/19 at 18:30; Stop 01/13/19 at 18:51; Status DC Vitamin D (Vitamin D) 2,000 units DAILY PO Last administered on 01/20/19 09:02; Start 01/09/19 at 09:00 Warfarin Sodium (Coumadin) 7.5 mg DAILY@17 PO ; Start 01/10/19 at 17:00; Stop 01/10/19 at 17:00; Status DC Warfarin Sodium (Coumadin) 7.5 mg DAILY@17 PO Last administered on 01/18/19 16:33; Start 01/15/19 at 17:00; Stop 01/19/19 at 16:21; Status DC Warfarin Sodium (Coumadin) 10 mg DAILY@17 PO Last administered on 01/20/19 17:23; Start 01/19/19 at 17:00 ARLEY DONOHUE MD Jan 20, 2019 18:16
[2019-01-20 20:00] VITALS: BP 111/53
--- NOTE | 2019-01-20 20:24 | IPN ---
DATE: 01/20/2019 Mr. Brower is getting dialysis this afternoon. He is likely to go home tomorrow. He went for a home safety visit today. He has been feeling well and denies any dyspnea, chest pain, nausea or vomiting. PHYSICAL EXAMINATION: Temperature 96.8 degrees Fahrenheit, heart rate 86 per minute and respiratory rate 18 per minute. Blood pressure 120/69 mmHg and oxygen saturation 100% on room air. Head is atraumatic. Neck is supple and without jugular venous distention (JVD) or thyroid enlargement. Heart sounds regular and lungs clear to auscultation. Abdomen: Soft and nontender. Bowel sounds are normal. Extremities: Without any cyanosis or clubbing. Today's labs show sodium 135, potassium 4.6, CO2 of 25, BUN 42 and creatinine 9.97. Calcium 9.0 and phosphorus 4.3. WBC count is 4.9, hemoglobin 8.4 and hematocrit 27.2. Platelets 346. PROBLEMS: 1. End-stage renal disease. The patient is being dialyzed this afternoon and next regular dialysis will be on . He is likely to go home tomorrow and get his next dialysis as an outpatient. 2. Anemia. Anemia is essentially unchanged. He does have mild fluctuations. We will continue with Aranesp once a week while he is here and then once he goes to outpatient dialysis clinic, he will get Mircera. 3. Hypertension. Blood pressure is very well controlled and no changes are being made today.
[2019-01-20] MEDS: SENNA 8.6 MG TAB (SENOKOT) PO SCH (22:22)
[2019-01-20] MEDS: MIRTAZAPINE 15 MG TAB PO SCH (22:23)
[2019-01-20] MEDS: LIDOCAINE 5% (LIDODERM) PATCH TD SCH (22:23)
[2019-01-21 05:53] LABS: INR 1.85; PROTHROMBIN TIME 21.7 SECONDS (12.1-14.4)
[2019-01-21 06:00] VITALS: BP 128/59
[2019-01-21] MEDS: VITAMIN D 1,000 INTERNATIONAL UNITS TABLET PO SCH (09:13)
[2019-01-21] MEDS: CALCIUM ACETATE 667 MG GELCAP PO SCH ×2 (09:13→12:38)
[2019-01-21] MEDS: DOCUSATE SODIUM 100 MG CAP PO SCH (09:13)
[2019-01-21] MEDS: ENOXAPARIN 100MG/1ML SYRINGE (J1650) SC SCH (09:14)
[2019-01-21] MEDS: ARNUITY ELLIPTA (PATIENT'S OWN MED) INH SCH (09:14)
[2019-01-21] MEDS: buPROPion **XL** TABLET 150MG (WELLBUTRIN XL) PO SCH (09:14)
[2019-01-21] MEDS: HYDROXYCHLOROQUINE 200 MG TAB PO SCH (09:14)
[2019-01-21] MEDS: OMEPRAZOLE 20 MG CAP PO SCH (09:14)
[2019-01-21] MEDS: ASPIRIN 81 MG CHEW TABLET PO SCH (09:14)
[2019-01-21] MEDS: GABAPENTIN 100 MG CAP PO SCH (09:14)
[2019-01-21] MEDS: ANALGESIC BALM CRM 120 GM TOP SCH (09:15)
[2019-01-21] MEDS: **NOTE PATIENT COMMENT** MISC XX SCH (09:15)
[2019-01-21] MEDS ORDERED: HYDR200T3 PO ×2 (09:50→11:30)
[2019-01-21] MEDS ORDERED: GABA-1171 PO ×2 (09:50→11:30)
[2019-01-21] MEDS ORDERED: CALC1CAP PO ×2 (09:50→11:30)
[2019-01-21] MEDS ORDERED: COUM1TAB17 PO ×2 (09:50→11:30)
[2019-01-21] MEDS ORDERED: BUPR150T3 PO ×2 (09:50→11:30)
[2019-01-21] MEDS ORDERED: REME15TA PO ×2 (09:50→11:30)
[2019-01-21] MEDS ORDERED: VENTAER INH ×2 (09:50→11:30)
[2019-01-21] MEDS ORDERED: OMEP-218 PO ×2 (09:50→11:30)
[2019-01-21] MEDS ORDERED: ASPI81CH8 PO ×2 (09:50→11:30)
--- NOTE | 2019-01-21 10:49 | IPNPDOC ---
Date Seen The patient was seen on 01/21/19. Progress Note SUBJECTIVE: Patient is a 63-year-old male with mechanical fall. Patient is evaluated in PM&R this morning. He is laying in the recumbent posi tion in hospital bed. He offers up no current complaints. He states that he is being discharged today. OBJECTIVE PHYSICAL EXAMINATION: VITAL SIGNS: Please see below. GENERAL: Well nourished, well developed male, alert and conversant, answers questions appropriately, no acute distress. HEENT: Atraumatic, normocephalic, PERRL, EOMI, oral mucosa appears pink and moist, nasal septum appears midline, nares are patent. CARDIOVASCULAR: Regular rate and rhythm, normal S1 and S2, grade II/ systolic murmur appreciated most prominently over the 2nd intercostal space on the right, no rub or click. RESPIRATORY: Clear to auscultation bilaterally, adequate inspiratory and expiratory airway excursion, symmetric airway entry, no focal consolidations, no wheeze, rhonchi, crackles. ABDOMINAL: Round, soft, non-tender, non-distended, bowel sounds diminished throughout. EXTREMITIES: Skin is dry, trace peripheral edema, no clubbing or cyanosis, skin is somewhat tanned/alex in color. NEUROLOGICAL: CN II-XII grossly intact. PSYCHOLOGICAL: Mood and affect appropriate. LABORATORY DATA, IMAGING STUDIES, MICROBIOLOGY: Please see below. DVT prophylaxis ordered?: Lovenox 100mg SQ Q24H, Warfarin 10mg PO daily. ASSESSMENT AND PLAN: This is a 63-year-old male with mechanical fall. PROBLEMS: 1. Mechanical fall with trauma to nasal dorsum Evaluated by ENT Currently admitted to PM&R; being discharged today PT, OT, ambulate with RW, room privileges with cane 2. ESRD on HD Nephrology consulted C/W Patsy Villanueva HD on 01/20/2019 with 2.5L removed C/W HD on TThSa 3. SLE and APLS C/W Plaquenil Increased VTE risk Bridging Warfarin with Lovenox Lovenox teaching ordered INR 1.85; will need INR check a day or two prior to PCP follow-up 4. Paroxysmal atrial fibrillation C/W bridging therapy with Warfarin and Lovenox Lovenox teaching ordered Increased VTE risk given A-Fib and SLE/APLS INR 1.85; recheck INR a day or two prior to PCP follow-up 5. Hx of TIAs C/W Aspirin Not on a statin; would consider addition of statin therapy 6. Complex tear, medial meniscus, right knee Evaluated by orthopedics; recommended brace support 7. Thalassemia minor 8. GERD C/W Omeprazole, Mylanta 9. Mood disorder C/W Mirtazapine 10. NEERAJ C/W home CPAP DISPOSITION: Planned discharged today from PM&R. VS, I&O, 24H, Fishbone Vital Signs/I&O Vital Signs Date Time Temp Pulse Resp B/P (MAP) Pulse Ox O2 Delivery O2 Flow Rate FiO2 01/21/19 06:00 98.4 86 19 128/59 (82) 95 I&O- Last 24 Hours up to 6 AM 01/21/19 06:00 Intake Total 960 ml Output Total 2500 ml Balance -1540 ml Laboratory Data 24H LABS Laboratory Tests 2 01/21/19 05:28: Prothrombin Time 21.7H, Prothromb Time International Ratio 1.85 FREDRICK ROBERTS DO Jan 21, 2019 10:49
--- NOTE | 2019-01-21 12:37 | IPN ---
DATE OF VISIT: 01/21/2019 Mr. Brower is seen this morning on his bedside. He was dialyzed yesterday afternoon, which he tolerated well. He went for a home safety evaluation yesterday and is likely going to be discharged to home today. He is feeling well and denies any dyspnea, chest pain, nausea, or vomiting. His vital signs are stable with temperature 98.4 degrees Fahrenheit, heart rate 86 per minute, and respiratory rate 18 per minute. Blood pressure 128/59 mmHg and oxygen saturation 95%. His head is atraumatic. Neck is supple and without jugular venous distention (JVD) or thyroid enlargement. Heart sounds are regular and lungs clear to auscultation. Abdomen: Soft and nontender, and bowel sounds are normal. Extremities: Without any cyanosis or clubbing. Neurologically, he is at his baseline mentation. Today's laboratories show a PT of 21.7 and INR 1.85. PROBLEMS: 1. End-stage renal disease. The patient was dialyzed yesterday, and his regular dialysis will be scheduled for tomorrow as an outpatient. 2. Anticoagulation. His international normalized ratio (INR) is gradually improving, and he will continue with current dose of Coumadin. This will be monitored as an outpatient, and dose will be adjusted. 3. Hypertension. Blood pressure is very well controlled, and no changes are being made today. 4. Anemia. The patient has been on Aranesp 200 mcg once a week with stable anemia. This will also be monitored and managed with his outpatient dialysis. DISPOSITION: The patient is going to be discharged today, and he will followup in the outpatient dialysis clinic.
[2019-01-21] MEDS ORDERED: LOVE0.8I SC (14:37)
== END 2019-01-21 14:45 | disposition home health service (06) | DRG 949 ==
LOC: M PM&R 21:53 → UNDODISIN 23:16
PROVIDERS: ADMIT Physical Medicine & Rehabilitation; ATTEND Physical Medicine & Rehabilitation
PROC: 5A1D70Z Performance of Urinary Filtration, Intermittent, Less than 6 Hours Per Day (ICD-10-PCS; principal; 2019-01-11)
DX: S83.231D Complex tear of medial meniscus, current injury, right knee, subsequent encounter (principal); N18.6 End stage renal disease; D68.61 Antiphospholipid syndrome; D62 Acute posthemorrhagic anemia; I12.0 Hypertensive chronic kidney disease with stage 5 chronic kidney disease or end stage renal disease; M32.19 Other organ or system involvement in systemic lupus erythematosus; D56.3 Thalassemia minor; J45.909 Unspecified asthma, uncomplicated; I48.0 Paroxysmal atrial fibrillation; M10.9 Gout, unspecified; F39 Unspecified mood [affective] disorder; S01.81XD Laceration without foreign body of other part of head, subsequent encounter; S02.2XXD Fracture of nasal bones, subsequent encounter for fracture with routine healing; M25.461 Effusion, right knee; R07.89 Other chest pain; R29.6 Repeated falls; R26.9 Unspecified abnormalities of gait and mobility; D63.1 Anemia in chronic kidney disease; G47.33 Obstructive sleep apnea (adult) (pediatric); Z79.01 Long term (current) use of anticoagulants; Z99.2 Dependence on renal dialysis; Z86.73 Personal history of transient ischemic attack (TIA), and cerebral infarction without residual deficits; Z79.82 Long term (current) use of aspirin; Z79.899 Other long term (current) drug therapy; Z87.891 Personal history of nicotine dependence

== ENCOUNTER → 2019-01-23 | Outpatient (REF) | payer MEDICARE ==
[~2019-01-23] MED LIST changes: +ARNU1INH PO; +ASPI81CH8 PO; +COUM1TAB17 PO; +LOVE0.8I SC; +OMEP-218 PO; +REME15TA PO; +VENTAER INH
== END ==
LOC: M SHH 10:31
PROVIDERS: ATTEND Physical Medicine & Rehabilitation
DX: Z79.899 Other long term (current) drug therapy (principal); Z53.9 Procedure and treatment not carried out, unspecified reason

== ENCOUNTER → 2019-01-25 | Outpatient (REF) | payer MEDICARE ==
[2019-01-25 12:26] LABS: INR 2.89; PROTHROMBIN TIME 30.9 SECONDS (12.1-14.4)
== END ==
LOC: M LAB REF 12:06
PROVIDERS: ATTEND Physical Medicine & Rehabilitation
DX: N18.9 Chronic kidney disease, unspecified (principal); Z79.899 Other long term (current) drug therapy

== ENCOUNTER → 2019-01-26 | Outpatient (REF) | payer MEDICARE ==
[2019-01-26 16:36] LABS: INR 3.58; PROTHROMBIN TIME 36.6 SECONDS (12.1-14.4)
== END ==
LOC: M SHH 15:22
PROVIDERS: ATTEND Physical Medicine & Rehabilitation
DX: N18.9 Chronic kidney disease, unspecified (principal); Z79.899 Other long term (current) drug therapy

== ENCOUNTER → 2019-01-28 | Outpatient (REF) | payer MEDICARE ==
[2019-01-28 14:35] LABS: INR 2.68; PROTHROMBIN TIME 28.4 SECONDS (11.8-14.0)
== END ==
LOC: M SHH 13:08
PROVIDERS: ATTEND Physical Medicine & Rehabilitation
DX: Z79.899 Other long term (current) drug therapy (principal); Z79.01 Long term (current) use of anticoagulants

== ENCOUNTER → 2019-01-30 | Outpatient (REF) | payer MEDICARE ==
[2019-01-30 14:16] LABS: INR 2.47; PROTHROMBIN TIME 26.6 SECONDS (11.8-14.0)
== END ==
LOC: M SHH 13:21
PROVIDERS: ATTEND Physical Medicine & Rehabilitation
DX: Z79.01 Long term (current) use of anticoagulants (principal)

== ENCOUNTER → 2019-02-02 | Outpatient (REF) | payer MEDICARE ==
[2019-02-02 11:20] LABS: INR 3.44; PROTHROMBIN TIME 34.6 SECONDS (11.8-14.0)
== END ==
LOC: M SHH 10:45 → M LAB REF 10:45
PROVIDERS: ATTEND Physical Medicine & Rehabilitation
DX: R79.1 Abnormal coagulation profile (principal)

== ENCOUNTER → 2019-02-03 | Outpatient (CLI) | payer MEDICARE ==
[2019-02-03 18:12] LABS: CHOLESTEROL RISK RATIO 2.907 (<5)
== END ==
LOC: M WUC 11:37
PROVIDERS: ATTEND Family Medicine
DX: I67.9 Cerebrovascular disease, unspecified (principal); Z79.899 Other long term (current) drug therapy

== ENCOUNTER → 2019-06-22 | Outpatient (CLI) | payer MEDICARE ==
[~2019-06-22] MED LIST changes: -BISO5TAB5 PO; +BISO5TAB9 PO; -OMEP20CA3 PO; +OMEP20CA4 PO
--- NOTE | 2019-06-22 14:18 | REP ---
CT brain: 06/22/2019. Indication: TIA. Stroke. Comparison: 01/03/2019. Technique: Unenhanced axial CT images of the brain were obtained from skull base to vertex. Findings: There is no acute intracranial hemorrhage, acute cortical infarction, mass effect or hydrocephalous. Chronic inferior right cerebellar lacunar infarction is present. Volume loss is present. Patchy areas of cerebral hemisphere white matter hypoattenuation are present most consistent with chronic small vessel disease. Impression: No acute intracranial process. Volume loss and chronic ischemic changes. Electronically Signed by Vikram Perez DO 06/22/2019 02:10 P
== END ==
LOC: M RAD 13:49
PROVIDERS: ATTEND Physician Assistant Medical
DX: R47.89 Other speech disturbances (principal)

== ENCOUNTER 2020-03-17 06:25 | Emergency (ER) | payer MEDICARE ==
[~2020-03-17 06:25] MED LIST changes: +BISO5TAB14 PO; -BISO5TAB9 PO; -COUM7.5T PO; +COUM7.5T6 PO; +OMEP1CAP73 PO; -OMEP20CA4 PO
[2020-05-01 05:20] LABS: INR 3.19; PARTIAL THROMBOPLASTIN TIME 86.4 SECONDS (24.2-38.5); PROTHROMBIN TIME 33.4 SECONDS (12.5-14.3)
== END 2020-03-17 09:10 | disposition home or self-care (01) ==
LOC: M ED 06:25
DX: R04.0 Epistaxis (principal); R79.89 Other specified abnormal findings of blood chemistry; I48.91 Unspecified atrial fibrillation; J45.909 Unspecified asthma, uncomplicated; N18.6 End stage renal disease; Z99.2 Dependence on renal dialysis; D56.9 Thalassemia, unspecified; M32.9 Systemic lupus erythematosus, unspecified; Z86.73 Personal history of transient ischemic attack (TIA), and cerebral infarction without residual deficits; Z79.899 Other long term (current) drug therapy; Z79.01 Long term (current) use of anticoagulants; Z79.82 Long term (current) use of aspirin; Z79.51 Long term (current) use of inhaled steroids

== ENCOUNTER → 2020-06-12 | Outpatient (CLI) | payer MEDICARE, OTHER ==
[2020-06-12 17:36] LABS: BASO # 0.1 10^3/uL (0.0-0.2); BASO % 1.3 % (0.0-1.0); HEMATOCRIT 38.1 % (42.0-52.0); HEMOGLOBIN 11.1 g/dl (13.5-17.5); LYMPH # 1.8 10^3/uL (1.5-5.0); LYMPH % 29.9 % (24.0-44.0); MEAN CORPUSCULAR HEMOGLOBIN 20.7 pg (27.0-33.0); MEAN CORPUSCULAR HGB CONC 29.1 g/dl (32.0-36.5); MEAN CORPUSCULAR VOLUME 71.1 fl (80.0-96.0); MONO # 0.8 10^3/uL (0.0-0.8); MONO % 13.9 % (0.0-5.0); NEUTROPHILS # 3.2 10^3/uL (1.5-8.5); NEUTROPHILS % 54.4 % (36.0-66.0); PLATELET COUNT, AUTOMATED 197 10^3/uL (150-450); RED BLOOD COUNT 5.36 10^6/uL (4.30-6.10)
[2020-06-12 17:48] LABS: C REACTIVE PROTEIN QUANTITATIV 1.29 MG/DL (0.00-0.30); COMPLEMENT C3 95 MG/DL (90-180); COMPLEMENT C4 29 MG/DL (10-40); IMMUNOGLOBULIN G 849 MG/DL (681-1648); IMMUNOGLOBULIN M 60.8 MG/DL (40-230); TOTAL PROTEIN 6.7 GM/DL (6.4-8.2)
[2020-06-12 17:57] LABS: ERYTHROCYTE SEDIMENTATION RATE 9 mm/hr (0-20)
[2020-06-14 14:13] LABS: ALBUMIN 4.09 GM/DL (3.29-5.55); ALPHA-1-GLOBULIN % 4.9 % (2.9-4.9); ALPHA-1-GLOBULINS 0.33 GM/DL (0.17-0.41); ALPHA-2-GLOBULINS 0.74 GM/DL (0.42-0.99); ALPHA-2-GLOBULINS % 11.1 % (7.1-11.8); BETA-1-GLOBULINS 0.34 GM/DL (0.28-0.60); BETA-1-GLOBULINS % 5.1 % (4.7-7.2); BETA-2-GLOBULINS % 5.3 % (3.2-6.5); GAMMA GLOBULIN % 12.6 % (11.1-18.8)
[2020-06-14 14:14] LABS: BETA-2-GLOBULINS 0.36 GM/DL (0.19-0.55); GAMMA GLOBULINS 0.84 GM/DL (0.65-1.58)
[2020-06-15 13:41] LABS: ANA (HEP2) Negative (.); ANTI DS-DNA AB Negative (Negative); ANTI-HISTONE ANTIBODIES 0.3 Units (0.0-0.9); COMPLEMENT TOTAL (CH50) > 60 U/mL (>41); RNP ANTIBODY < 0.2 AI (0.0-0.9); SMITHS ANTIBODY < 0.2 AI (0.0-0.9); SSA SJOGRENS A <0.2 AI (0.0-0.9); SSB SJOGRENS B <0.2 AI (0.0-0.9)
== END ==
LOC: M WUC 13:33
PROVIDERS: ATTEND Internal Medicine
DX: M32.9 Systemic lupus erythematosus, unspecified (principal)

== ENCOUNTER → 2020-06-16 | Outpatient (CLI) | payer MEDICARE ==
--- NOTE | 2020-06-16 13:12 | DEXA ---
INDICATION: M89.9 DISORDER OF BONE. COMPARISON: None. TECHNIQUE: Bone density was measured using dual-energy x-ray absorptiometry (DEXA). FINDINGS: AP SPINE L1-L4 BMD 1.878 g/cm2 Young Adult T-Score 5.5 Age Matched Z-Score 5.7. LT FEMUR, TOTAL BMD 0.909 g/cm2 Young Adult T-Score -0.8 Age Matched Z-Score -0.7. LT NECK BMD 0.969 g/cm2 Young Adult T-Score -0.5 Age Matched Z-Score 5.4. RT FEMUR, TOTAL BMD -9.28 g/cm2 Young Adult T-Score -0.6 Age Matched Z-Score -0.6. RT NECK BMD 0.950 g/cm2 Young Adult T-Score -0.6 Age Matched Z-Score 0.2. IMPRESSION: There is normal bone density of the spine. There is normal bone density of the left hip. There is normal bone density of the right hip. FOLLOW-UP: Recommendation for the next bone density exam: 2 years. <Electronically signed by Yon Morin > 06/16/20 [id number]
== END ==
LOC: M WHC 11:17
PROVIDERS: ATTEND Internal Medicine
DX: M89.9 Disorder of bone, unspecified (principal)

== ENCOUNTER → 2020-08-22 | Outpatient (CLI) | payer MEDICARE ==
[~2020-08-22] MED LIST changes: -BUPR150T3 PO; +BUPR150T4 PO; +MIRT-60 PO; +MIRT-62 PO; -REME15TA PO; -REME30TA PO
--- NOTE | 2020-08-22 08:50 | REP ---
INDICATION: LEFT HIP OSTEOARTHRITIS COMPARISON: 01/03/2019 TECHNIQUE: PA and lateral. FINDINGS: The mediastinum and cardiac silhouette are normal. The lung reyna are clear and without acute consolidation, effusion, or pneumothorax. The skeletal structures are intact and normal. IMPRESSION: No acute cardiopulmonary process. <Electronically signed by Florentino Rubalcava > 08/22/20 [id number]
[2020-08-22 09:22] LABS: HEMATOCRIT 37.4 % (42.0-52.0); HEMOGLOBIN 11.3 g/dl (13.5-17.5); MEAN CORPUSCULAR HEMOGLOBIN 21.4 pg (27.0-33.0); MEAN CORPUSCULAR HGB CONC 30.2 g/dl (32.0-36.5); MEAN CORPUSCULAR VOLUME 70.8 fl (80.0-96.0); PLATELET COUNT, AUTOMATED 296 10^3/uL (150-450); RED BLOOD COUNT 5.28 10^6/uL (4.30-6.10); WHITE BLOOD COUNT 7.4 10^3/uL (4.0-10.0)
[2020-08-22 09:40] LABS: INR 2.22; PROTHROMBIN TIME 25.1 SECONDS (12.5-14.3)
[2020-08-22 10:02] LABS: ERYTHROCYTE SEDIMENTATION RATE 21 mm/hr (0-20)
[2020-08-22 10:04] LABS: ALBUMIN 3.8 GM/DL (3.2-5.2); BILIRUBIN,TOTAL 0.4 MG/DL (0.2-1.0); CALCIUM LEVEL 9.6 MG/DL (8.8-10.2); CREATININE FOR GFR 9.56 MG/DL (0.70-1.30); GLOMERULAR FILTRATION RATE 5.9 (>49); POTASSIUM SERUM 4.6 MEQ/L (3.5-5.1); TOTAL PROTEIN 6.9 GM/DL (6.4-8.2)
--- NOTE | 2020-08-22 18:44 | ECGEPIP ---
[facility] Test Date: 2020-08-22 Pat Name: MARIA M AHMADI Department: Room: - Gender: Male Blogs Manager: : [id number] Requested By: Maria M Muller @ [facility] Order Number: [id number] Reading MD: Mavis Yung Measurements Intervals [place] Rate: 100 P: 238 SC: 282 QRS: -64 QRSD: 154 T: 70 QT: 390 QTc: 503 Interpretive Statements SINUS TACHYCARDIA WITH FIRST DEGREE AV BLOCK RIGHT BUNDLE BRANCH BLOCK LEFT ANTERIOR FASCICULAR BLOCK COMPARED TO 01/16/19 HR IS FASTER Electronically Signed on 08-22-2020 18:44:08 EST by Mavis Yung
== END ==
LOC: M LAB 07:50
PROVIDERS: ATTEND Orthopaedic Surgery
DX: M16.12 Unilateral primary osteoarthritis, left hip (principal)

== ENCOUNTER → 2020-08-31 | Outpatient (CLI) | payer MEDICARE ==
[~2020-08-31] MED LIST changes: +CLON0.5T17 PO; +D3 +TAB PO; +PERC5TAB12 PO; +WARF-23 PO; +WARF4TAB51 PO; +WARF4TAB52 PO
== END ==
LOC: M LABSMTC 09:58
PROVIDERS: ATTEND Anesthesiology
DX: Z01.812 Encounter for preprocedural laboratory examination (principal); Z20.828 Contact with and (suspected) exposure to other viral communicable diseases

== ENCOUNTER 2020-09-05 06:03 | Inpatient (IN) | payer MEDICARE ==
--- NOTE | 2020-09-01 16:12 | HPE ---
HISTORY AND PHYSICAL DATE OF ANTICIPATED ADMISSION: 09/05/2020 CHIEF COMPLAINT: Left hip pain. HISTORY OF PRESENT ILLNESS: Mr. Brower is a pleasant 64-year-old male with progressively worsening left hip pain and stiffness. He has failed to improve with conservative treatment. He has elected for surgery for his continued symptoms. He has pain with weightbearing activities and his activities of daily living. X-rays of his hip are notable for advanced osteoarthritis of the left hip joint. He is consented for a left total hip arthroplasty by Dr. Tomás Muller. Medical optimization was performed by Dr. Atkinson and Dr. Olivas's office. ALLERGIES: No known drug allergies. CURRENT MEDICATIONS: - Arnuity 100 mcg one puff in the morning - omeprazole 40 mg in the morning - hydroxychloroquine 200 mg in the morning and night - Adilia-Monique vitamin once a day - aspirin 81 mg once in the morning - glucosamine chondroitin twice a day - warfarin 3 to 6 mg once a day in the evening - Clonax as needed - vitamin D3 at 50,000 units once a month - Ventolin HFA two puffs as needed - calcium acetate 667 mg two to three tablets with a meal in the morning and evening - MiraLAX one capful at night - clonazepam 0.5 mg one in the evening and one in the morning - Lidocaine 5% patch - Procrit 2000 units infused at dialysis PAST MEDICAL HISTORY: 1. Heart disease. 2. Lung problems. 3. Kidney failure. 4. Anxiety and depression. 5. Stroke. 6. Lupus. 7. AFib. 8. On dialysis. PAST SURGICAL HISTORY: 1. Left ankle. 2. Appendectomy. 3. Pilonidal cyst excision. SOCIAL HISTORY: This gentleman is retired. No longer smokes. Does not drink alcohol. FAMILY HISTORY: Non-contributory. REVIEW OF SYSTEMS: This patient denies chest pain, heart palpitations, cough, wheezing, difficulty breathing, and shortness of breath. He denies abdominal pain, nausea, vomiting, diarrhea, or constipation. He denies recent upper respiratory infection or urinary tract infection symptoms. He does complain of persistent left hip pain. PHYSICAL EXAMINATION: GENERAL: He is a well-nourished, well-developed, in no acute distress, alert male. He ambulates with a moderate limp favoring the left lower extremity and he is using a single leg cane. VITAL SIGNS: He is 67.25 inches tall, weighs 225 pounds. Temperature 96.9, blood pressure 90/72, pulse 86, respirations 12. NECK: Supple without adenopathy or jugular venous distention. LUNGS: Clear to auscultation. HEART: Regular rate and rhythm. ABDOMEN: Bowel sounds were present. EXTREMITIES: Examination of the hip revealed intact skin. He had decreased range of motion due to pain and stiffness. The limb is neurovascularly intact. DIAGNOSTIC STUDIES: EKG showed normal sinus rhythm at 89 beats per minute. Chest x-ray showed no acute cardiopulmonary disease processes. LABORATORY DATA: CBC showed hemoglobin of 11.6, hemoglobin of 39, MCV of 72, MCH of 21.4, MCHC of 29.7, RDW of 17.7. Sed rate was 27. ProTime 26.8, INR 2.51. BUN 45, creatinine 9.59, sodium 137, potassium 4.7. IMPRESSION: Symptomatic osteoarthritis of the left hip joint. PLAN: Consented for a left total hip arthroplasty by Dr. Tomás Muller.
[2020-09-05] VITALS (7 sets, daily range): BP systolic 107–116; BP diastolic 61–66
[~2020-09-05] VITALS: Ht 170.2 cm; Wt 102.5 kg
[~2020-09-05 06:03] MED LIST changes: +LIDOCAINE 1% MDV 20ML VIAL SQ PRN; -PERC5TAB12 PO; -WARF4TAB51 PO; -WARF4TAB52 PO
[2020-09-05 06:45] LABS: INR 1.02; PROTHROMBIN TIME 13.6 SECONDS (12.5-14.3)
[2020-09-05 06:46] LABS: PARTIAL THROMBOPLASTIN TIME 31.3 SECONDS (24.2-38.5)
[2020-09-05] MEDS ORDERED: ceFAZolin 1GM VIAL (J0690 PER 500MG) As Ordered ONE ×2 (07:14→07:44)
[2020-09-05] MEDS ORDERED: BUPIVACAINE HCL 0.25% 10ML VIAL As Ordered ONE (07:14)
[2020-09-05] MEDS ORDERED: TRANEXAMIC ACID 100 MG/ML 10ML VIAL As Ordered ONE (07:14)
[2020-09-05] MEDS ORDERED: EPINEPHrine INJ 1 MG/ML 1ML AMP As Ordered ONE (07:15)
[2020-09-05] MEDS ORDERED: BUPIVACAINE LIPOSOME/PF 1.3% 20ML VIAL (13.3MG/ML)(EXPAREL)(C9290 PER1MG) As Ordered ONE (07:15)
[2020-09-05] MEDS ORDERED: propofoL 200 MG/20 ML VIAL As Ordered ONE ×3 (07:18→09:03)
[2020-09-05] MEDS ORDERED: fentaNYL 100 MCG/2 ML INJECTION (J3010) As Ordered ONE (07:18)
[2020-09-05] MEDS ORDERED: MIDAZOLAM INJ 2MG/2ML VIAL (J2250 PER 1MG) As Ordered ONE (07:18)
[2020-09-05] MEDS ORDERED: ONDANSETRON 4MG/2ML VIAL As Ordered ONE (07:19)
[2020-09-05] MEDS ORDERED: LIDOCAINE 2% 100MG/5ML SDV (FOR ANES.) As Ordered ONE (07:19)
[2020-09-05] MEDS ORDERED: NS 1,000 ML IV ONE (07:30)
[2020-09-05] MEDS ORDERED: ceFAZolin SOD 2 GM in IV 1 EA IV ONE (07:30)
--- NOTE | 2020-09-05 07:40 | IPN ---
PROGRESS NOTE DATE: 09/05/2020 Patient seen and examined. He wished to go ahead with a left total hip arthroplasty. He understands the nature of this; the risks of bleeding, infection, damage to nerves and vessels, persistent pain, wear, loosening, dislocation, leg length inequality, blood clots, medical problems, and among others.
[2020-09-05] MEDS ORDERED: ACETAMINOPHEN 1000MG 100ML IV BTL (OFIRMEV) (J0131 PER 10MG) As Ordered ONE (08:27)
[2020-09-05] MEDS ORDERED: PHENYLephrine 500MCG 5ML (100MCG/ML) SYRINGE As Ordered ONE ×3 (08:37→21:45)
--- NOTE | 2020-09-05 10:00 | REP ---
INDICATION: POST OP IN PACU COMPARISON: None. TECHNIQUE: AP and cross-table lateral views of the left hip FINDINGS: Prior left hip replacement. No acute fracture or dislocation. No subcutaneous emphysema or foreign body. IMPRESSION: Status post left hip replacement. <Electronically signed by Florentino Rubalcava > 09/05/20 [id number]
[2020-09-05] MEDS ORDERED: fentaNYL 100 MCG/2 ML INJECTION (J3010) IV PRN (10:15)
[2020-09-05] MEDS ORDERED: oxyCODONE 5MG TAB PO PRN (10:15)
[2020-09-05] MEDS ORDERED: LR 1,000 ML IV SCH (10:15)
[2020-09-05] MEDS ORDERED: PHENYLephrine 500MCG 5ML (100MCG/ML) SYRINGE IV PRN (10:15)
[2020-09-05] MEDS ORDERED: ONDANSETRON 4MG/2ML VIAL IV PRN ×2 (10:15→12:30)
[2020-09-05] MEDS ORDERED: ALBUTEROL SULFATE 2.5 MG/0.5 ML INH NEB SOLN INH PRN (10:30)
[2020-09-05] MEDS ORDERED: ACETAMINOPHEN TAB 650MG DOSE (2X325MG) PO PRN (12:30)
[2020-09-05] MEDS ORDERED: PERCOCET 5MG/325MG TAB PO PRN (12:30)
[2020-09-05] MEDS ORDERED: MORPHINE 4 MG/ML 1ML VIAL/SYRINGE (J2270) IV PRN (12:30)
[2020-09-05] MEDS ORDERED: MORPHINE 2 MG/ML 1ML VIAL (J2270) IV PRN (12:30)
--- NOTE | 2020-09-05 12:37 | CR ---
CONSULTATION DATE: 09/05/2020 This is a hospitalist consultation on Mr. Brower who is status post total hip arthroplasty today. He is seen in the recovery room. He just had some pressors for pressure support. Blood pressures are in the 90s. He is asymptomatic. PAST MEDICAL HISTORY: He has a history of: 1. Supraventricular tachycardia status post radio frequently ablation. 2. End-stage renal disease for which he is on maintenance dialysis. 3. Asthma, followed by [facility]. 4. Renovascular hypertension, for which he is no longer on an antihypertensive. 5. Lupus with lupus nephritis. 6. Antiphospholipid syndrome, for which he is on anticoagulant therapy, warfarin. 7. Obstructive sleep apnea (NEERAJ), on continuous positive airway pressure (CPAP). 8. Gout. 9. Type 2 diabetes. 10. Mild aortic stenosis. 11. History of transient ischemic attacks (TIAs). 12. Anemia from chronic renal disease. Echocardiogram December 2019 showed mild aortic valve stenosis, right heart enlargement, left atrial enlargement, normal ejection fraction. Nuclear stress test October 2018 was within normal limits. HOME MEDICATIONS: - Arnuity Ellipta one puff a day - MiraLax as needed - vitamin D 5000 units monthly - aspirin 81 mg daily - Nephro-Moniuqe daily - warfarin 2 mg tablets based upon INR monitoring - albuterol inhaler as needed - Plaquenil 200 mg twice a day - omeprazole 40 mg daily - clonazepam 0.5 mg twice a day ALLERGIES: VENLAFAXINE causes central nervous system side effects. SURGICAL HISTORY: 1. Appendectomy. 2. Dialysis fistula. 3. Pilonidal cyst incision. 4. Left ankle surgery. 5. AV essie ablation. 6. Colonoscopy 2018. SOCIAL HISTORY: Nonsmoker, quit 1999. No significant alcohol use. REVIEW OF SYSTEMS: Denies any current chest pain, shortness of breath, dizziness, lightheadedness or weakness. PHYSICAL EXAMINATION: VITAL SIGNS: Per flow sheet. In recovery room in no distress. HEENT: Unremarkable. LUNGS: Clear. HEART: Regular rhythm. 1/6 systolic ejection murmur. ABDOMEN: Soft, nontender. No masses. No peripheral edema. IMPRESSION: 1. End-stage renal disease on maintenance dialysis. Nephrology should be consulted and maintain dialysis. 2. Antiphospholipid antibody syndrome. Restart warfarin when acceptable by surgery. Routine post-joint replacement DVT prophylaxis per orthopedics. 3. Type 2 diabetes. He is on no medications for this. Recommend fingerstick blood sugars twice daily and then if he becomes hyperglycemic, he could be put on sliding scale. 4. Lupus. Restart Plaquenil 200 mg twice a day. 5. History of depression/anxiety. Restart clonazepam 0.5 mg twice a day to avoid withdrawal syndrome. 6. History of paroxysmal supraventricular tachycardia (PSVT) status post ablation times two, 2010 and 2012. He is currently in sinus rhythm with no arrhythmias in the recovery room. 7. Gastroesophageal reflux disease (GERD). Restart antacid therapy, substituting Protonix for the omeprazole he uses at home.
[2020-09-05] MEDS: ceFAZolin SOD 2 GM in IV 1 EA IV SCH (15:31)
[2020-09-05] MEDS ORDERED: WARFARIN SOD 5MG TAB PO SCH (19:00)
[2020-09-05] MEDS: MIRALAX *UNIT DOSE* 17GM PACKET PO SCH (20:24)
[2020-09-05] MEDS: clonazePAM 0.5 MG TAB PO SCH (20:25)
[2020-09-05] MEDS: HYDROXYCHLOROQUINE 200 MG TAB PO SCH (20:25)
[2020-09-05] MEDS: PERCOCET 5MG/325MG TAB PO PRN (21:23)
[2020-09-06] MEDS: ceFAZolin SOD 2 GM in IV 1 EA IV SCH (00:17)
[2020-09-06] MEDS: clonazePAM 0.5 MG TAB PO SCH ×2 (05:38→20:35)
[2020-09-06] MEDS: HYDROXYCHLOROQUINE 200 MG TAB PO SCH ×2 (05:38→20:35)
[2020-09-06] MEDS: PERCOCET 5MG/325MG TAB PO PRN ×3 (05:39→17:02)
[2020-09-06] MEDS ORDERED: PERC5TAB12 PO (06:20)
[2020-09-06 06:39] LABS: HEMATOCRIT 30.5 % (42.0-52.0); HEMOGLOBIN 9.4 g/dl (13.5-17.5); MEAN CORPUSCULAR HEMOGLOBIN 21.8 pg (27.0-33.0); MEAN CORPUSCULAR HGB CONC 30.8 g/dl (32.0-36.5); MEAN CORPUSCULAR VOLUME 70.6 fl (80.0-96.0); PLATELET COUNT, AUTOMATED 199 10^3/uL (150-450); RED BLOOD COUNT 4.32 10^6/uL (4.30-6.10); WHITE BLOOD COUNT 10.4 10^3/uL (4.0-10.0)
[2020-09-06 06:55] LABS: INR 1.1; PROTHROMBIN TIME 14.4 SECONDS (12.5-14.3)
[2020-09-06 07:01] LABS: CALCIUM LEVEL 8.9 MG/DL (8.8-10.2); POTASSIUM SERUM 5.1 MEQ/L (3.5-5.1)
[2020-09-06 07:03] LABS: CREATININE FOR GFR 11.2 MG/DL (0.70-1.30); GLOMERULAR FILTRATION RATE 4.9 (>49)
[2020-09-06] MEDS: PANTOPRAZOLE 40MG TAB (PROTONIX) PO SCH (08:14)
[2020-09-06] MEDS: MOM 30ML SUSPENSION UDC PO SCH (08:14)
[2020-09-06 14:00] VITALS: BP 109/84
[2020-09-06 15:00] VITALS: BP 101/69
[2020-09-06] MEDS ORDERED: WARFARIN SOD 7.5MG TAB PO ONE (17:00)
--- NOTE | 2020-09-06 17:19 | CR ---
NEPHROLOGY CONSULTATION DATE: 09/06/2020 REASON FOR CONSULTATION: Assist in the management of endstage renal disease. HISTORY OF PRESENT ILLNESS: Mr. Brower is admitted for elective left hip surgery. He already had his surgery yesterday and he was admitted postoperatively. The patient is on maintenance hemodialysis three times a week and is due for dialysis today. A Nephrology consultation was requested last evening and the patient is seen this morning. Patient is feeling much better, however still has pain in the hip. He denies any dyspnea or chest pain. PAST MEDICAL AND SURGICAL HISTORY: Significant for: 1. Endstage renal disease requiring maintenance hemodialysis. 2. History of asthma. 3. History of renovascular hypertension. 4. History of lupus. 5. History of supraventricular tachycardia. 6. History of antiphospholipid syndrome requiring chronic anticoagulation. 7. History of obstructive sleep apnea on CPAP. 8. History of gout. 9. Type 2 diabetes. 10.Mild aortic stenosis. 11.History of TIA. 12.History of anemia of chronic kidney disease. 13.History of secondary hyperparathyroidism. MEDICATIONS: His home medications include: Vitamin D 50,000 units once a month, aspirin 81 mg daily, Nephro-Monique one tablet daily, coumadin 5 mg daily according to his PT and INR, Plaquenil 200 mg twice a day, Albuterol inhaler, Miralax as needed for constipation, Arnuity Ellipta one puff daily, omeprazole 40 mg daily and Clonazepam 0.5 mg as needed for anxiety. ALLERGIES: Patient has an allergy to Venlafaxine. PAST SURGICAL HISTORY: Significant for appendectomy, AV fistula for dialysis, left ankle surgery, AV essie ablation, colonoscopy and pilonidal cyst excision. PERSONAL AND SOCIAL HISTORY: The patient lives by himself. He is and denies any alcohol or drug use. He quit smoking in 1999. FAMILY HISTORY: Noncontributory. There is no family history for endstage renal disease. REVIEW OF SYSTEMS: The patient denies any fever or chills. He complains of pain in the left hip surgical site. Ears, nose and throat are unremarkable. Cardiovascular system is significant for history of supraventricular tachycardia. He had ablation and has been on chronic anticoagulation. Respiratory system is significant for obstructive sleep apnea and asthma. GI systems is negative for vomiting or diarrhea. system: Negative for dysuria or hematuria. Endocrine system is significant for Type 2 diabetes and no thyroid problems. Hematological system: Significant for chronic anticoagulation for antiphospholipid syndrome. Neurological syndrome: Significant for prior TIA. He denies any dizziness at present. Skin is negative for rash or ulcers. Musculoskeletal system: As per history of present illness. Patient had his left hemiarthroplasty of hip done yesterday. PHYSICAL EXAMINATION: VITAL SIGNS: His temperature is 98.3 degrees Fahrenheit, heart rate is 90 per minute and respiratory rate is 18 per minute. Blood pressure is 110/80 mmHg and oxygen saturation 94% on room air. HEAD: Atraumatic. NECK: Supple without JVD or thyroid enlargement. HEART: Heart sounds are irregular in rhythm. LUNGS: Lungs sound clear to auscultation. ABDOMEN: Obese, soft and nontender and bowel sounds are normal. EXTREMITIES: Without any cyanosis or clubbing. AV fistula in the right arm is patent. NEUROLOGIC: Neurologically, he is awake and at his baseline mentation without focal deficit. LABORATORY DATA: Labs done today showed WBC count of 10.4, hemoglobin 9.4, and hematocrit 30.5, platelets 199,000. Sodium 139, potassium 5.1, CO2 26, BUN 38, and creatinine 11.2. Glucose 122 and calcium 8.9. INR is 1.1 today. PROBLEMS: 1. Endstage renal disease. Patient is regularly dialyzed on Saturday, and Saturday schedule. He is due for dialysis today and we have already arranged for his dialysis this morning. 2. Congestive heart failure. His volume status seems well-compensated. We are removing about 2 liters of fluid as tolerated. 3. Anemia. His anemia is stable following his hip surgery. This will be managed with long-term dialysis. At present, no intervention is needed. 4. Anticoagulation, coumadin has been on hold which can be resumed as per Ortho. We did use a small dose of Heparin for dialysis today. 5. Other issues as per medical service and orthopedics. Thank you for involving me in the care of Mr. Brower. I will follow him along with you.
--- NOTE | 2020-09-06 20:25 | IPNPDOC ---
Date Seen The patient was seen on 09/06/20. Progress Note SUBJECTIVE: POD 1 total left hip arthroplasty. No acute complaints overnight. INR still subtherapeutic, starting on heparin gtt, incr dose of coumadin tonight. OBJECTIVE: PHYSICAL EXAMINATION: VITAL SIGNS: Please see below HEENT: Unremarkable. LUNGS: Clear. HEART: Regular rhythm. 1/6 systolic ejection murmur. ABDOMEN: Soft, nontender. No masses. No peripheral edema. EXT: Left hip incisions appear clean, nonsuppurative, no erythema, pain on palpation ROM not tested NEURO: No focal deficits LABORATORY: Please see below A/P: Antiphospholipid antibody syndrome -INR subtherapeutic still, no s/s of bleeding since surgery. High risk for clot formation -Giving 7.5 mg coumadin tonight, starting on heparin gtt to bridge to goal INR -Q6hr labs, daily INR -Goal INR 2-3 Left hip arthritis POD 1 total left hip arthroplasty -Pain control, PT/OT, AC as above -Ortho primary End-stage renal disease on maintenance dialysis. -HD today -Nephro consulted Type 2 diabetes -One episode of low BS this evening -Not on coverage -Monitor closely SLE -C/w Plaquenil 200 mg twice a day. History of depression/anxiety -C/w clonazepam 0.5 mg twice a day History of paroxysmal supraventricular tachycardia (PSVT) -Status post ablation times two, 2010 and 2012 -NSR Gastroesophageal reflux disease (GERD) -PPI DVT px -heparin gtt, coumadin VS, I&O, 24H, Fishbone Vital Signs/I&O Vital Signs Date Time Temp Pulse Resp B/P (MAP) Pulse Ox O2 Delivery O2 Flow Rate FiO2 09/06/20 17:32 17 09/06/20 15:00 98.2 91 101/69 (80) 98 Room Air 09/05/20 11:05 2 I&O- Last 24 Hours up to 6 AM0 09/06/20 06:00 Intake Total 3060 ml Output Total 200 ml Balance 2860 ml Laboratory Data 24H LABS Laboratory Tests 2 09/06/20 06:25: Nucleated Red Blood Cells % (auto) 0.0, Prothrombin Time 14.4H, Prothromb Time International Ratio 1.10, Anion Gap 11, Glomerular Filtration Rate 4.9L, Calcium Level 8.9 09/06/20 17:18: Bedside Glucose (Misc Panel) 67L CBC/BMP Laboratory Tests 09/06/20 06:25 Samantha Chin MD Sep 06, 2020 20:24
[2020-09-06] MEDS ORDERED: HEPARIN SOD (PORCINE) 5000UNITS/ML 1ML VIAL/SYRINGE IV PRN (20:30)
[2020-09-06] MEDS: MIRALAX *UNIT DOSE* 17GM PACKET PO SCH (20:35)
[2020-09-06 22:00] VITALS: BP 124/71
[2020-09-06] MEDS: HEPARIN DRIP 25,000 UNITS in IV 1 EA IV SCH (22:07)
[2020-09-07 02:00] VITALS: BP 117/68
[2020-09-07 04:01] LABS: HEMATOCRIT 30.6 % (42.0-52.0); HEMOGLOBIN 9.2 g/dl (13.5-17.5); MEAN CORPUSCULAR HEMOGLOBIN 21.3 pg (27.0-33.0); MEAN CORPUSCULAR HGB CONC 30.1 g/dl (32.0-36.5); MEAN CORPUSCULAR VOLUME 70.8 fl (80.0-96.0); PLATELET COUNT, AUTOMATED 175 10^3/uL (150-450); RED BLOOD COUNT 4.32 10^6/uL (4.30-6.10); WHITE BLOOD COUNT 9.3 10^3/uL (4.0-10.0)
[2020-09-07] MEDS: PERCOCET 5MG/325MG TAB PO PRN ×4 (04:01→19:58)
[2020-09-07 04:26] LABS: CALCIUM LEVEL 8.8 MG/DL (8.8-10.2); CREATININE FOR GFR 7.31 MG/DL (0.70-1.30); POTASSIUM SERUM 4.9 MEQ/L (3.5-5.1)
[2020-09-07 06:00] VITALS: BP 102/68
[2020-09-07 07:05] LABS: INR 1.27; PROTHROMBIN TIME 16.2 SECONDS (12.5-14.3)
[2020-09-07] MEDS: PANTOPRAZOLE 40MG TAB (PROTONIX) PO SCH (08:25)
[2020-09-07] MEDS: MOM 30ML SUSPENSION UDC PO SCH (08:25)
[2020-09-07] MEDS: clonazePAM 0.5 MG TAB PO SCH ×2 (08:25→19:55)
[2020-09-07] MEDS: HYDROXYCHLOROQUINE 200 MG TAB PO SCH ×2 (08:25→19:55)
[2020-09-07 08:34] LABS: PARTIAL THROMBOPLASTIN TIME 125.7 SECONDS (24.2-38.5)
[2020-09-07] MEDS ORDERED: DARBEPOETIN 100 MCG/0.5 ML *DIALYSIS* SYRINGE (J0882) IV SCH (12:30)
--- NOTE | 2020-09-07 12:38 | IPN ---
PROGRESS NOTE DATE: 09/07/2020 SUBJECTIVE: Mr. Brower is seen this morning on his bedside. He underwent hemodialysis yesterday which he tolerated well. After dialysis, his blood pressure was somewhat low, however it has now improved. Patient feels very weak and has difficulty getting up. He lives alone and will be unable to take care of himself at home. In addition, he also drives himself to dialysis and will be almost impossible for him to come to dialysis in this condition. He denies any dyspnea, chest pain, nausea or vomiting. PHYSICAL EXAMINATION: VITAL SIGNS: Temperature is 97.9 degrees Fahrenheit, heart rate is 90 per minute and respiratory rate is 18 per minute. Blood pressure is 102/68 mmHg and oxygen saturation 100%. HEAD: Atraumatic. NECK: Supple, without JVD or thyroid enlargement. HEART: Heart sounds are irregular rhythm in rhythm. LUNGS: Clear to auscultation. ABDOMEN: Soft, obese and nontender. Bowel sounds are normal. EXTREMITIES: Without any cyanosis or clubbing. Left hip surgical incision site is clean. NEUROLOGIC: He is awake, alert and oriented x3. LABORATORY DATA: Today's labs showed a WBC count of 9.3, hemoglobin 9.2 and hematocrit 30.6. Platelets are 175,000. INR is 1.25 and PTT is 125.7 while he is on a Heparin drip. Sodium is 135, potassium 4.9, CO2 29, BUN 23 and creatinine 7.3. Glucose is 101. Calcium is 8.8. PROBLEMS: 1. Endstage renal disease, patient was dialyzed yesterday and we will plan to dialyze him again tomorrow. His volume status is well-compensated and electrolytes are normal. There is no emergent need for dialysis today. 2. Anemia. His anemia is mild and stable and does not need any urgent intervention. We will give him one dose of Aranesp 100 mcg with dialysis tomorrow. 3. Status post left hip surgery. Patient feels weak and will need rehab prior to discharge. 4. Anticoagulation. Patient is currently on IV Heparin drip and coumadin has also been resumed. This will be managed by Hospitalist service.
--- NOTE | 2020-09-07 15:28 | IPNPDOC ---
Date Seen The patient was seen on 09/07/20. Progress Note SUBJECTIVE: POD 2 total left hip arthroplasty. No acute complaints overnight. INR still subtherapeutic, on coumadin and heparin gtt. Pain controlled but admits to feeling unsteady on his feet. OBJECTIVE: PHYSICAL EXAMINATION: VITAL SIGNS: Please see below HEENT: Unremarkable. LUNGS: Clear. HEART: Regular rhythm. 1/6 systolic ejection murmur. ABDOMEN: Soft, nontender. No masses. No peripheral edema. EXT: Left hip incisions appear clean, nonsuppurative, no erythema, pain on pal pation ROM not tested NEURO: No focal deficits LABORATORY: Please see below A/P: Antiphospholipid antibody syndrome -INR subtherapeutic still at 1.27, no s/s of bleeding since surgery. High risk for clot formation -Giving another 7.5 mg coumadin tonight, c/w heparin gtt to bridge to goal INR -Q6hr labs, daily INR -Goal INR 2-3 Left hip arthritis POD 2 total left hip arthroplasty -Pain control, AC as above -PT: Patient demonstrates progress, but slow progress toward a safe D/C is antic ipated and patient is a very good rehab candidate at this time prior to returning home. -Ortho primary End-stage renal disease on maintenance dialysis. -HD today -Nephro following Type 2 diabetes -Not on coverage -Monitor closely SLE -C/w Plaquenil 200 mg twice a day. History of depression/anxiety -C/w clonazepam 0.5 mg twice a day History of paroxysmal supraventricular tachycardia (PSVT) -Status post ablation times two, 2010 and 2012 -NSR Gastroesophageal reflux disease (GERD) -PPI DVT px -heparin gtt, coumadin VS, I&O, 24H, Fishbone Vital Signs/I&O Vital Signs Date Time Temp Pulse Resp B/P (MAP) Pulse Ox O2 Delivery O2 Flow Rate FiO2 09/07/20 15:22 17 09/07/20 06:00 97.9 90 102/68 (79) 100 NIPPV (BIPAP/CPAP) 09/05/20 11:05 2 I&O- Last 24 Hours up to 6 AM 09/07/20 06:00 Intake Total 1080 ml Output Total 2000 ml Balance -920 ml Laboratory Data 24H LABS Laboratory Tests 2 09/06/20 17:18: Bedside Glucose (Misc Panel) 67L 09/06/20 20:52: Activated Partial Thromboplast Time 51.3H 09/07/20 03:54: Nucleated Red Blood Cells % (auto) 0.0, Anion Gap 6L, Glomerular Filtration Rate 8.0L, Calcium Level 8.8 09/07/20 06:34: Activated Partial Thromboplast Time 125.7*H, Prothrombin Time 16.2H, Prothromb Time International Ratio 1.27 09/07/20 15:01: CBC/BMP Laboratory Tests 09/07/20 03:54 Current Medications Current Medications Medications (Trade) Dose Ordered Sig/Fletcher Route PRN Reason Start Time Stop Time Status Last Admin Dose Admin Acetaminophen (Tylenol Tab) 650 mg Q4HP PRN PO PAIN LEVEL 1-4 09/05/20 12:30 Albuterol Sulfate (Proventil Neb) 2.5 mg Q2HP PRN INH SOB/WHEEZING 09/05/20 10:30 Cefazolin Sodium/ Dextrose 2 gm/IV Miscellaneous Supplies 50 ml @ 75 mls/hr Q8H IV 09/05/20 16:00 09/06/20 00:39 DC 09/06/20 00:17 Clonazepam (KlonoPIN) 0.5 mg BID PO 09/05/20 21:00 09/07/20 08:25 Darbepoetin Wu (Aranesp (Dialysis Use)) 100 mcg HD IV 09/07/20 12:30 Fentanyl Citrate (Sublimaze) 25 mcg Q5MP PRN IV PAIN LEVEL 5-10 09/05/20 10:15 09/05/20 11:15 DC Heparin Sodium (Porcine) (Heparin) BOLUS PER NOMOGRAM ASDIRECTED PRN IV SEE LABEL COMMENTS 09/06/20 20:30 Heparin Sodium (Porcine) 57415 units/IV Miscellaneous Supplies 250 ml @ 0 mls/hr Q0M IV 09/06/20 20:13 09/06/20 22:07 Hydroxychloroquine Sulfate (Plaquenil) 200 mg BID PO 09/05/20 21:00 09/07/20 08:25 Lactated Ringer's 1,000 ml @ 80 mls/hr [id number] IV 09/05/20 10:15 09/05/20 11:15 DC Lidocaine HCl (LIDOCAINE 1% MDV 20ml) 0.1 ml ONCE PRN SQ DISCOMFORT BEFORE IV START 09/05/20 06:00 09/05/20 10:06 DC Magnesium Hydroxide (Milk Of Magnesia) 30 ml DAILY PO 09/06/20 09:00 09/07/20 08:25 Morphine Sulfate (Morphine Sulfate Inj) 2 mg Q2H PRN IV PAIN 5-7 09/05/20 12:30 09/06/20 06:07 DC 09/05/20 15:32 Morphine Sulfate (Morphine Sulfate Inj) 3 mg Q2H PRN IV PAIN LEVEL 8-10 09/05/20 12:30 09/06/20 06:07 DC Non-Formulary Medication (Heparin Iv Rate Change Documentation ml/ Hr) ASDIRECTED XX 09/06/20 20:15 09/11/20 20:14 09/07/20 09:39 Ondansetron HCl (ZOFRAN INJection) 4 mg Q4HP PRN IV NAUSEA OR VOMITING 09/05/20 10:15 09/05/20 11:15 DC 09/05/20 10:50 Ondansetron HCl (ZOFRAN INJection) 4 mg Q6H PRN IV NAUSEA 09/05/20 12:30 09/05/20 12:34 Oxycodone HCl (Roxicodone, Oxyir) 5 mg ASDIRECTED PRN PO PAIN LEVEL 1-4 09/05/20 10:15 09/05/20 11:15 DC Oxycodone/ Acetaminophen (Percocet 5mg/ 325mg Tablet) 2 tab Q4H PRN PO PAIN LEVEL 8-10 09/05/20 19:30 09/07/20 15:22 Oxycodone/ Acetaminophen (Percocet 5mg/ 325mg Tablet) 2 tab Q6H PRN PO PAIN LEVEL 8-10 09/05/20 12:30 09/05/20 19:19 DC 09/05/20 12:34 Pantoprazole Sodium (Protonix) 40 mg DAILY PO 09/06/20 09:00 09/07/20 08:25 Phenylephrine HCl (Phenylephrine Syringe (100mcg/ ml)) 100 mcg Q3MP PRN IV TO KEEP SBP>100 09/05/20 10:15 09/05/20 11:15 DC 09/05/20 09:43 Polyethylene Glycol (Miralax) 1 pkt QHS PO 09/05/20 21:00 09/06/20 20:35 Warfarin Sodium (Coumadin) 5 mg DAILY@17 PO 09/05/20 19:00 09/06/20 09:12 DC 09/05/20 19:29 Warfarin Sodium (Coumadin) 5 mg DAILY@17 PO 09/07/20 17:00 09/07/20 08:31 DC Warfarin Sodium (Coumadin) 5 mg DAILY@17 PO 09/08/20 17:00 Allergies Coded Allergies: No Known Allergies (Verified , 08/29/20) Samantha Chin MD Sep 07, 2020 15:28
[2020-09-07] MEDS: HEPARIN DRIP 25,000 UNITS in IV 1 EA IV SCH (16:58)
[2020-09-07] MEDS ORDERED: WARFARIN SOD 5MG TAB PO SCH (17:00)
[2020-09-07] MEDS ORDERED: WARFARIN SOD 7.5MG TAB PO ONE (17:00)
[2020-09-07] MEDS: MIRALAX *UNIT DOSE* 17GM PACKET PO SCH (20:49)
[2020-09-07 22:00] VITALS: BP 103/68
[2020-09-08 06:00] VITALS: BP 106/67
[2020-09-08] MEDS: HYDROXYCHLOROQUINE 200 MG TAB PO SCH ×2 (06:19→21:38)
[2020-09-08] MEDS: PANTOPRAZOLE 40MG TAB (PROTONIX) PO SCH (06:19)
[2020-09-08] MEDS: clonazePAM 0.5 MG TAB PO SCH ×2 (06:19→21:38)
[2020-09-08] MEDS: MOM 30ML SUSPENSION UDC PO SCH (06:19)
[2020-09-08] MEDS: PERCOCET 5MG/325MG TAB PO PRN ×3 (06:22→18:11)
[2020-09-08 10:23] LABS: INR 1.68; PROTHROMBIN TIME 20.2 SECONDS (12.5-14.3)
[2020-09-08 10:50] LABS: HEMATOCRIT 27.5 % (42.0-52.0); HEMOGLOBIN 8.5 g/dl (13.5-17.5); MEAN CORPUSCULAR HEMOGLOBIN 21.3 pg (27.0-33.0); MEAN CORPUSCULAR HGB CONC 30.9 g/dl (32.0-36.5); MEAN CORPUSCULAR VOLUME 68.9 fl (80.0-96.0); PLATELET COUNT, AUTOMATED 167 10^3/uL (150-450); RED BLOOD COUNT 3.99 10^6/uL (4.30-6.10); WHITE BLOOD COUNT 5.8 10^3/uL (4.0-10.0)
[2020-09-08 11:28] LABS: CALCIUM LEVEL 8.8 MG/DL (8.8-10.2); CREATININE FOR GFR 9.77 MG/DL (0.70-1.30); GLOMERULAR FILTRATION RATE 5.7 (>49); POTASSIUM SERUM 4.8 MEQ/L (3.5-5.1)
--- NOTE | 2020-09-08 12:04 | IPN ---
PROGRESS NOTE DATE: 09/08/2020 SUBJECTIVE: Mr. Brower is seen this morning on his bedside during dialysis. He is still feeling weak and continues to have pain in his left hip surgical site. He has been discharged from the surgical floor and is now going to rehab today. The patient does not feel that he can function at home and particularly he will have great difficulty coming to dialysis as an outpatient. PHYSICAL EXAMINATION: VITAL SIGNS: Temperature 98 degrees Fahrenheit, heart rate is 88 per minute and respiratory rate is 18 per minute. Blood pressure is 106/67 mmHg and oxygen saturation is 97% on room air. HEAD AND NECK: Head is atraumatic. Neck is supple and without JVD or thyroid enlargement. HEART: Heart sounds are regular. LUNGS: Clear to auscultation. ABDOMEN: Soft and nontender. Bowel sounds are normal. EXTREMITIES: Without any cyanosis or clubbing. NEUROLOGIC: He is at his baseline mentation without any focal deficit. LABORATORY DATA: Today's labs showed WBC count of 5.8, hemoglobin of 8.5 and hematocrit 27.5. Platelets are 167,000. Sodium 131, potassium 4.8, CO2 24, BUN 43 and creatinine 9.77. PROBLEMS: 1. Endstage renal disease. Patient is being dialyzed today and he is tolerating his dialysis treatment very well. Electrolytes are all stable. 2. Anemia. His anemia did get worse following surgery and we will give him Aranesp 100 mcg during dialysis today. 3. Rehab. Patient is going to need acute rehab following his hip surgery. He will be transferred to the acute rehab floor today. 4. Hyponatremia. This is related to endstage renal disease and likely to improve with dialysis. No other intervention will be needed. 5. Anticoagulation. Patient has been on chronic coumadin for antiphospholipid syndrome. He was on a Heparin drip and coumadin has also been resumed.
[2020-09-08 14:00] VITALS: BP 100/56
[2020-09-08] MEDS ORDERED: WARFARIN SOD 5MG TAB PO SCH (17:00)
[2020-09-08 20:55] VITALS: BP 107/57
[2020-09-08] MEDS: MIRALAX *UNIT DOSE* 17GM PACKET PO SCH (21:00)
[2020-09-08] MEDS: HEPARIN DRIP 25,000 UNITS in IV 1 EA IV SCH (21:37)
[2020-09-09 06:01] VITALS: BP 121/65
[2020-09-09 06:56] LABS: HEMATOCRIT 29.5 % (42.0-52.0); HEMOGLOBIN 8.8 g/dl (13.5-17.5); MEAN CORPUSCULAR HEMOGLOBIN 20.8 pg (27.0-33.0); MEAN CORPUSCULAR HGB CONC 29.8 g/dl (32.0-36.5); MEAN CORPUSCULAR VOLUME 69.6 fl (80.0-96.0); PLATELET COUNT, AUTOMATED 228 10^3/uL (150-450); RED BLOOD COUNT 4.24 10^6/uL (4.30-6.10); WHITE BLOOD COUNT 6.7 10^3/uL (4.0-10.0)
[2020-09-09 07:08] LABS: INR 1.71; PROTHROMBIN TIME 20.4 SECONDS (12.5-14.3)
[2020-09-09] MEDS: clonazePAM 0.5 MG TAB PO SCH (07:28)
[2020-09-09] MEDS: PERCOCET 5MG/325MG TAB PO PRN ×2 (07:29→12:55)
[2020-09-09] MEDS: HYDROXYCHLOROQUINE 200 MG TAB PO SCH (07:29)
[2020-09-09] MEDS: MOM 30ML SUSPENSION UDC PO SCH (07:30)
[2020-09-09] MEDS: PANTOPRAZOLE 40MG TAB (PROTONIX) PO SCH (07:30)
[2020-09-09 07:46] LABS: CREATININE FOR GFR 6.62 MG/DL (0.70-1.30); POTASSIUM SERUM 4.3 MEQ/L (3.5-5.1)
--- NOTE | 2020-09-09 11:40 | RO ---
OPERATIVE NOTE DATE OF OPERATION: 09/05/2020 PREOPERATIVE DIAGNOSIS: Left hip osteoarthritis. POSTOPERATIVE DIAGNOSIS: Left hip osteoarthritis. PROCEDURE: Left total hip arthroplasty, Sarpy size 7 high offset with 58 cup, size 40 ball, +8.5 neck. SURGEON: Tomás Muller MD DOCUMENT SPECIALIST: Lonnie Ndiaye PA-C ANESTHESIA: Spinal. EBL: 200. COMPLICATIONS: None. DESCRIPTION OF PROCEDURE: The patient was taken to the operating room and placed in right lateral decubitus position on the [place] positioner. Left hip was prepped and draped in usual sterile fashion. Time out was performed and longitudinal incision was made over the lateral aspect of the hip. Sharp dissection was carried down through the subcutaneous tissue and fascia was encountered. This was incised longitudinally and then exposed the abductor. I then divided approximately the anterior 40% of the abductor off the anterior aspect of the femur exposing the femoral neck and femur. There were significant osteophytes present around the proximal femur and severe arthritis of the femoral head. We were able to dislocate it without much difficulty. I then used the canal-initiating reamer and the canal-finding reamer and the lateralizing reamer. I then sequentially reamed up to size 7 reamer which had good fit and fill. The neck cut was then made about of a fingerbreadth up from the lesser trochanter and removed the ball. We then prepared the acetabulum, removed soft tissue from around the acetabulum and then sequentially reamed. I was able to medialize this, sequentially reamed up to 57 which had good concentric reaming and good bleedcing bone. I filled a couple of small cysts with some of the bone graft. We had irrigated copiously. I then impacted in a 58 acetabular component which had an excellent solid fit and was well seated. The apex hole eliminator was placed, I then placed a size 58 x 40 liner, impacted this in place, made sure it was well seated. We then directed our attention back to the femur and sequentially broached up to size 7 which had excellent fit and fill. No fracture noted. I then trialed off of this with various different neck lengths and decided to go with high offset with size +8.5 neck. This had excellent stability in flexion/extension and minimal shuck in full extension, I was able to externally rotate in full extension with no instability and flexion internal rotation was also very stable. There was no impingement. I then removed the trial components, irrigated, placed the size 7 high offset Sarpy stem, impacted this down after copious irrigation and then placed the size 40+8.5 head, impacted this in place and then reduced the hip with the membership assistant's help. Again put the hip through range of motion, I was very pleased with the stability and soft tissue tension and position. Copious irrigation was performed. TXA was placed deep in the wound. I repaired the minimus with #1 Vicryl suture, the abductor with #1 Vicryl suture with some stitches being placed through bone. Excellent repair was noted. I then irrigated, repaired the fascia with #1 Vicryl suture and running Stratafix. I then injected some Exparel in the deep tissues per routine, irrigated. I closed the subcu with 2-0 Vicryl and the skin with christie. A sterile dressing was applied. He was taken to the recovery room in stable condition. There were no known complications. The plan will be routine postop. The membership assistant was instrumental in holding retractors and assisting in reducing and dislocating the hip and assisting in wound closure.
--- NOTE | 2020-09-09 16:26 | IPN ---
PROGRESS NOTE DATE: 09/09/2020 Mr. Brower was seen this morning on his bedside. He was dialyzed yesterday and tolerated it well. He reports no problems after dialysis and blood pressure remains stable. He has no dyspnea or chest pain at present. He reports that left hip pain is improving and he is able to move slightly better; however, she still needs rehabilitation and is going to be transferred to rehabilitation floor today. PHYSICAL EXAMINATION: Temperature 98.6 degrees Fahrenheit, heart rate 90 per minute, respiratory rate 18 per minute, blood pressure 121/65 mmHg, oxygen saturation 98% on room air. HEAD: Atraumatic. NECK: Supple and without jugular venous distention (JVD) not or thyroid enlargement. HEART SOUNDS: Regular. LUNGS: Clear to auscultation. ABDOMEN: Soft and nontender. Bowel sounds are normal. EXTREMITIES: Without any cyanosis or clubbing. NEUROLOGIC: He is awake, alert and oriented times three. LABORATORY DATA: Today's laboratories show a WBC 6.7, hemoglobin 8.8. hematocrit 29.5, platelets 228. Sodium 135, potassium 4.3, BUN 39, creatinine 6.62. PROBLEMS: 1. End-stage renal disease. Patient was dialyzed yesterday and he is doing well with stable volume status and electrolytes. There is no need for dialysis today. His regular dialysis will be scheduled for tomorrow. 2. Anemia. His anemia is slightly worse, related to his hip surgery and blood loss. We have already started Aranesp 100 mcg once a week and we will continue with the same. 3. Anticoagulation. Patient is still on heparin drip and his Coumadin is being adjusted. All other issues are being addressed by orthopedics and hospitalist service.
[2020-09-09] MEDS ORDERED: WARFARIN SOD 5MG TAB PO ONE (17:00)
[2020-09-10] MEDS ORDERED: WARFARIN SOD 5MG TAB PO SCH (17:00)
--- NOTE | 2020-09-12 16:01 | DSES ---
DISCHARGE SUMMARY DATE OF ADMISSION: 09/05/2020 DATE OF DISCHARGE: 09/09/2020 ATTENDING PHYSICIAN: Dr. Tomás Muller. ADMITTING DIAGNOSIS: Left hip osteoarthritis. OTHER DIAGNOSES: 1. Antiphospholipid syndrome. 2. History of paroxysmal supraventricular tachycardia (PSVT). 3. History of stroke. 4. Lupus. 5. Gastroesophageal reflux disease. 6. End-stage kidney disease on dialysis. 7. Anxiety/depression. DISCHARGE DIAGNOSIS: Left hip osteoarthitis status post left total hip arthroplasty. HISTORY: Patient is a 64-year-old male who has progressively worsening left hip pain and stiffness. He failed to improve with conservative measures. He continued to have symptoms with weightbearing activities and activities of daily living. He consented for an elective total hip arthroplasty with Dr. Muller for his continued symptoms. OPERATION PERFORMED: Left total hip arthroplasty. The patient underwent a left total hip arthroplasty under spinal anesthesia, which was uneventful. He was up with physical therapy per their protocol, weightbearing as tolerated on the left lower extremity. Her did develop elevated blood pressure and required the need for dialysis during his hospital stay, but was stable upon discharge. He was discharged on oral pain medications and will resume his preoperative medications and diet. He will use his thromboembolic deterrent stockings and take his anticoagulant as directed to prevent deep venous thrombosis. Patient will follow up in our office in 12-14 days for wound check and staple removal. He is encouraged to contact our office sooner if there is any increase in pain, redness, drainage, numbness or tingling in the extremity, fever greater than 101 degrees or any other concerns. Please see medical records for additional details. LINDSAY
== END 2020-09-09 13:05 | DRG 469 ==
LOC: M OR 06:03 → M MS5PR 11:30
PROVIDERS: ADMIT Orthopaedic Surgery; ATTEND Orthopaedic Surgery
PROC: 0SRB02Z Replacement of Left Hip Joint with Metal on Polyethylene Synthetic Substitute, Open Approach (ICD-10-PCS; principal; 2020-09-05 07:30)
PROC: 5A1D70Z Performance of Urinary Filtration, Intermittent, Less than 6 Hours Per Day (ICD-10-PCS; 2020-09-06)
DX: M16.12 Unilateral primary osteoarthritis, left hip (principal); N18.6 End stage renal disease; I12.0 Hypertensive chronic kidney disease with stage 5 chronic kidney disease or end stage renal disease; D68.61 Antiphospholipid syndrome; N25.81 Secondary hyperparathyroidism of renal origin; E87.1 Hypo-osmolality and hyponatremia; F41.9 Anxiety disorder, unspecified; F32.9 Major depressive disorder, single episode, unspecified; I48.91 Unspecified atrial fibrillation; Z99.2 Dependence on renal dialysis; J45.909 Unspecified asthma, uncomplicated; M32.14 Glomerular disease in systemic lupus erythematosus; G47.33 Obstructive sleep apnea (adult) (pediatric); M10.9 Gout, unspecified; K21.9 Gastro-esophageal reflux disease without esophagitis; E11.22 Type 2 diabetes mellitus with diabetic chronic kidney disease; D63.1 Anemia in chronic kidney disease; I35.0 Nonrheumatic aortic (valve) stenosis; Z79.82 Long term (current) use of aspirin; Z79.01 Long term (current) use of anticoagulants; Z86.73 Personal history of transient ischemic attack (TIA), and cerebral infarction without residual deficits; Z79.899 Other long term (current) drug therapy; Z88.8 Allergy status to other drugs, medicaments and biological substances; Z90.49 Acquired absence of other specified parts of digestive tract; Z87.891 Personal history of nicotine dependence

== ENCOUNTER 2020-09-08 08:52 | Inpatient (IN) | payer MEDICARE ==
[~2020-09-08] VITALS: Ht 170.2 cm; Wt 101.0 kg
[~2020-09-08 08:52] MED LIST changes: -LIDOCAINE 1% MDV 20ML VIAL SQ PRN; +PERC5TAB12 PO
[2020-09-09] MEDS ORDERED: ONDANSETRON 4 MG TAB PO PRN (12:30)
[2020-09-09 13:10] VITALS: BP 139/76
[2020-09-09] MEDS: IPRATROPIUM 0.5MG/ALBUTEROL 2.5MG INH SOL UD 3ML (DUONEB) NEB SCH ×2 (14:00→21:39)
--- OUTSIDE RECORDS SUMMARY | 2020-09-09 14:05 | CCD | Continuity of Care Document ---
Author Author Tomás MALIK PA-C Organization Unknown Address [address] [place] [id number] Phone [phone] Care Team Providers Care Cnc Lathe Machinist Name Role Phone Jaiden Atkinson MD [facility] [phone] Problems Description No Information Available Social History Type Date Description Comments Sex Unknown ETOH Use Denies alcohol use Tobacco Use Start: Unknown End: Unknown Patient is a former smoker Smoking Status Reviewed: 04/25/20 Patient is a former smoker Allergies, Adverse Reactions, Alerts Description No Known Drug Allergies Medications Active Medications SIG Qnty Indications Ordering Provide r Date Hibiclens 4% Liquid use in shower once daily for 5 days before surgery 1units Tomás Muller MD 08/08/2020 Mupirocin 2% Ointment pea - sized amount on q-tip and place around the inside of both nostrils 3x a day for 5 days before surgery 22gm Tomás Muller MD 08/08/2020 Arnuity Ellipta 100mcg/Act Aerosol 1 inhalation once daily Unknown Aspirin [address] Unknown Glucosamine Chondroitin Complex Plus MSM & Vitamin D3 MSM/D- 3 Tablets Unknown Vitamin D-3 5000Unit Tablets take 1 tab by mouth daily with dinner Unknown 00 Calcium Acetate (Phos Binder) 667mg Tablets Unknown Ventolin HFA 108(90Base) mcg/Act A erosol Unknown Omeprazole 40mg Capsules DR Unknown Hydroxychloroquine 20MG 1By Mouth Daily Unknown Belen Monique Unknown Warfarin Sodium 3mg Tablets Unknown Klonex prn Unknown Miralax 17gm Packet 1 capful in 8 oz once daily Unknown Immunizations Description No Information Available Vital Signs Date Vital Result Comment 09/01/2020 11:17am BP Systolic 90 mmHg BP Diastolic 72 mmHg Heart Rate 86 /min Body Temperature 96.9 F Height 67.25 inches 5'7.25" Weight 225.00 lb BMI (Body Mass Index) 35.0 kg/m2 06/09/2020 2:55pm Body Temperature 97.1 F Results Test Acquired Date Facility Test Result H/L Range Note Prothrombin Time/Inr 08/22/2020 [facility] entr [address] [place] [address] (315)- - Prothrombin Time 25.1 seconds High 12.5-14.3 Inr 2.22 Normal 1 Order 06/10/2020 [facility] nter Surgery <pending> 1 THERAPUTIC HUMAN INR VALUES INDICATIONS NORMAL RANGES PROPHYLAXIS/TREATMENT OF: VENOUS THROMBOSIS 2.0-3.0 PULMONARY EMBOLISM 2.0-3.0 PREVENTION OF SYSTEMIC EMBOLISM FROM: TISSUE HEART VALVES 2.0-3.0 ACUTE MYOCARDIAL INFARCTION 2.0-3.0 VALVULAR HEART DISEASE 2.0-3.0 ATRIAL FIBRILLATION 2.0-3.0 MECHANICAL VALVES(HIGH RISK) 2.5-3.5 RECURRENT MYOCARDIAL INFARCTION 2.5-3.5 Procedures Date Code Description Status 06/06/2020 10432 X-Ray Hip Unilateral With Pelvis 2-3 Views Completed Medical Devices Description No Information Available Encounters Type Date Location Provider Dx Diagnosis Office Visit 06/06/2020 8:30a [facility] PA-C M16.12 Unilateral primary osteoarthritis, left hip Office Visit 04/25/2020 10:45a [facility] Tomás Muller MD M16.12 Unilateral primary osteoarthritis, left hip Assessments Date Code Description Provider 09/01/2020 Z01.818 Encounter for other preprocedura l jose j Malik PA-C 09/01/2020 M16.12 Unilateral primary osteoarthriti s, left hip Vineet Malik PA-C 06/09/2020 M16.12 Unilateral primary osteoarthriti s, left hip Tomás Muller MD 06/06/2020 M16.12 Unilateral primary osteoarthriti s, left hip Angelika Muller PA-C 04/25/2020 M16.12 Unilateral primary osteoarthriti s, left hip Tomás Muller MD Plan of Treatment Future Appointment(s):* 09/21/2020 11:30 am - Tomás Muller MD at [facility] Functional Status Description No Information Available Mental Status Description No Information Available Referrals Refer to Dr Reason for Referral Status Appt Date Efrain Quach MD SURGERY NO AUTH REQUIRED FOR LEFT TOTAL HIP([id number]) TO SURGERY NT Created [address] [facility], [address] [place] [address] [phone]
--- OUTSIDE RECORDS SUMMARY | 2020-09-09 14:05 | CCD | Continuity of Care Document ---
Author Author Tomás MALIK PA-C Organization Unknown Address [address] [place] [address] Phone [phone] Care Team Providers Care Box Office Manager Name Role Phone Jaiden Atkinson MD [facility] [phone] Problems Description No Information Available Social History [...] Result H/L Range Note Prothrombin Time/Inr 08/22/2020 [facility] entr [address] [place] [address] (315)- - Prothrombin Time 25.1 seconds High 12.5-14.3 Inr 2.22 Normal 1 Order 06/10/2020 [facility] nter Surgery <pending> 1 THERAPUTIC HUMAN INR VALUES INDICATIONS NORMAL RANGES PROPHYLAXIS/TREATMENT OF: VENOUS THROMBOSIS 2.0-3.0 PULMONARY EMBOLISM 2.0-3.0 PREVENTION OF SYSTEMIC EMBOLISM FROM: TISSUE HEART VALVES 2.0-3.0 ACUTE MYOCARDIAL INFARCTION 2.0-3.0 VALVULAR HEART DISEASE 2.0-3.0 ATRIAL FIBRILLATION 2.0-3.0 MECHANICAL VALVES(HIGH RISK) 2.5-3.5 RECURRENT MYOCARDIAL INFARCTION 2.5-3.5 Procedures Date Code Description Status 06/06/2020 72188 X-Ray Hip Unilateral With Pelvis 2-3 Views Completed Medical Devices Description No Information Available Encounters Type Date Location Provider Dx Diagnosis Office Visit 06/06/2020 8:30a [place] PA-C M16.12 Unilateral primary osteoarthritis, left hip Office Visit 04/25/2020 10:45a [place] Tomás Muller MD M16.12 Unilateral primary osteoarthritis, left hip Assessments Date Code Description Provider 09/01/2020 M16.12 Unilateral primary osteoarthriti s, left hip Vineet Malik PA-C 06/09/2020 M16.12 Unilateral primary osteoarthriti s, left hip Tomás Muller MD 06/06/2020 M16.12 Unilateral primary osteoarthriti s, left hip Angelika Muller PA-C 04/25/2020 M16.12 Unilateral primary osteoarthriti s, left hip Tomás Muller MD Plan of Treatment Future Appointment(s):* 09/05/2020 7:30 am - Richelle Cummings at Surgery [facility] Inpatient * 09/05/2020 7:30 am - Tomás Muller MD at Surgery [facility] Inpatient Functional Status Description No Information Available Mental Status Description No Information Available Referrals Refer to Dr Reason for Referral Status Appt Date Efrain Quach MD SURGERY NO AUTH REQUIRED FOR LEFT TOTAL HIP([id number]) TO SURGERY NT Created [facility], [address] [place] [address] [phone]
--- OUTSIDE RECORDS SUMMARY | 2020-09-09 14:06 | CCD ---
Continuity of Care Document (CCD) Created on: 06/21/2020 Tomás Borwer External Reference #: [id number] : 1955 Sex: Male Author Author Tomás KEITH MD Organization Unknown Address [address] [place] [address], [address] [address] Phone [phone] Care Team Providers Care Hydro Plant Technician Name Role Phone Jaiden Atkinson MD [facility] [phone] Problems Description No Information Available Social History Type Date Description Comments Sex Unknown ETOH Use Denies alcohol use Tobacco Use Start: Unknown End: Unknown Patient is a former smoker Smoking Status Reviewed: 04/25/20 Patient is a former smoker Allergies, Adverse Reactions, Alerts Description No Known Drug Allergies Medications Active Medications SIG Qnty Indications Ordering Provide r Date Arnuity Ellipta 100mcg/Act Aerosol 1 inhalation once [...] Available Vital Signs Date Vital Result Comment 06/09/2020 2:55pm Body Temperature 97.1 F 04/25/2020 11:58am Body Temperature 97.0 F Height 66.5 inches 5'6.50" Weight 233.00 lb BMI (Body Mass Index) 37.0 kg/m2 Results Test Acquired Date Facility Test Result H/L Range Note Order 06/10/2020 [facility] nter Surgery <pending> Procedures Date Code Description Status 06/06/2020 58715 X-Ray Hip Unilateral With Pelvis 2-3 Views Completed Medical Devices Description No Information Available Encounters Type Date Location Provider Dx Diagnosis Office Visit 06/06/2020 8:30a [place] PA-C M16.12 Unilateral primary osteoarthritis, left hip Office Visit 04/25/2020 10:45a [place] Keith MD M16.12 Unilateral primary osteoarthritis, left hip Assessments Date Code Description Provider 06/09/2020 M16.12 Unilateral primary osteoarthriti s, left hip Tomás Keith MD 06/06/2020 M16.12 Unilateral primary osteoarthriti s, left hip Angelika Keith PA-C 04/25/2020 M16.12 Unilateral primary osteoarthriti s, left hip Tomás Keith MD Plan of Treatment 06/09/2020 - Tomás Keith MD* M16.12 Unilateral primary osteoarthritis, left hip* Follow up:* post op Functional Status Description No Information Available Mental Status Description No Information Available Referrals Refer to Dr Reason for Referral Status Appt Date Efrain Quach MD SURGERY NO AUTH REQUIRED FOR LEFT TOTAL HIP([id number]) TO SURGERY NT Created [facility], [address] [place] [address] [phone]
--- OUTSIDE RECORDS SUMMARY | 2020-09-09 14:06 | CCD | Continuity of Care Document ---
Author Organization Unknown Address Unknown Phone Unavailable Care Team Providers Care Internal Communications Writer Name Role Phone Jaiden Atkinson MD [facility] [phone] Isreal Gage MD [facility] [phone] Stefan Benitez MD [facility] [phone] Javon Qureshi MD [facility] [phone] Florentino Ramirez MD [facility] [phone] Romulo Qureshi MD [facility] [phone] Rayo Freed MD [facility] [phone] Kaycee Ny MD [facility] [phone] Jaycee Garsia CLOSING MANAGER-C [facility] [phone] Problems Active Problems Provider Date Paroxysmal supraventricular tachycardia Avel Pozo MD Onset: 03/25/2012 Right bundle branch block AND left anterior fascicular block Avel Pozo MD Onset: 03/25/2012 Benign essential hypertension Avel Pozo MD Onset: Benign hypertensive heart disease with congestive card iac failure Avel Pozo MD Onset: 03/25/2012 First degree atrioventricular block Avel Pozo MD Ons et: 03/25/2012 Precordial pain Avel Pozo MD Onset: 06/19/2012 Chronic diastolic heart failure Avel Pozo MD Onset: 09/24/2012 Aortic valve disorder Avel Pozo MD Onset: 09/24/2012 Edema Avel Pozo MD Onset: 09/24/2012 Benign secondary renovascular hypertension Avel Pozo MD Onset: 12/01/2012 Preoperative cardiovascular examination Avel Pozo MD Onset: 03/22/2015 Drug-induced hypotension Avel Pozo MD Onset: 017 Obesity Avel Pozo MD Onset: 11/20/2017 Dietary management surveillance Avel Pozo MD Onset: 11/20/2017 Electrocardiogram abnormal Avel Pozo MD Onset: 10/21 Chest pain Avel Pozo MD Onset: 10/21/2018 Palpitations Avel Pozo MD Onset: 10/21/2018 Social History Type Date Description Comments Sex Unknown Tobacco Use Start: Unknown End: Unknown Former Cigarette Smo ker 1 08/13 ppd x's 27 years stopped in 1999 ETOH Use Does not consume alcohol Tobacco Use Start: Unknown End: Unknown Patient is a former smoker 1-2ppd for 25 yrs., quit 1999 Smoking Status Reviewed: 12/23/19 Patient is a former smoker 1- 2ppd for 25 yrs., quit 1999 Exercise Type/Frequency Does yardwork sporadical ly Exercise Type/Frequency Does housework sporadica lly Exercise Limitations Shortness Of Breath Exercise Limitations Joint Pain knees Allergies, Adverse Reactions, Alerts Description No Known Drug Allergies Medications Active Medications SIG Qnty Indications Ordering Provide r Date Jantoven 1mg Tablets as directed by nephrology Javon Qureshi MD 10/26/[address] 1 by mouth once daily Unknown 10/20/2018 Nephro-Monique 0.8mg Tablets 1 by mouth once daily Unknown 10/20/2018 Vitamin D-3 5000Unit Tablets 1 by mouth once a month Unknown 10/20/2018 Calcium Acetate 667mg Capsules 3 by mouth three times daily Romulo Qureshi MD 11/19/2017 Lidocaine 5% Cream apply as directed on left arm on dialysis site prior to dialysis appt Romulo Qureshi MD 11/19/2017 Sodium Polystyrene Sulfonate 15GM/60ML Suspension 30 milliliters by mouth Only if missed dialysis appt Romulo Qureshi MD 11/19/2017 Procrit 2000Unit/ML Solution infused at dialysis twice monthly or as directed Nils Qureshi MD 11/19/2017 Kionex 15GM/60ML Suspension 4 oz by mouth as directed Unknown 08/18/2017 Polyethylene Glycol 3350 3350NF Pa cket 17 g in 120 milliliters water or juice every day as needed Unknown 10/09/2016 Arnuity Ellipta 200mcg/Act Aerosol 1 puff daily Unknown 03/14/2016 Jantoven 5mg Tablets as direc jonny Unknown 03/14/2016 Mirtazapine 30mg Tablets 1 by mouth at bedtime Unknown 09/13/2015 Ventolin HFA 108(90Base) mcg/Act A erosol 2 puffs as needed Unknown 03/09/2014 Hydroxychloroquine Sulfate 200mg T ablets 1 po bid Stefan Benitez MD 11/30/2012 Glucosamine Chondroitin 1500 Complex Max imum Strength 1500Com Capsules 1 po qd Jaiden Ndiaye MD 04/06/[address] 1 po qd 30caps Jaiden Atkinson MD 04/06/2011 Immunizations Description No Information Available Vital Signs Date Vital Result Comment 12/23/2019 11:26am Weight 237.00 lb Height 68 inches 5'8" BMI (Body Mass Index) 36.0 kg/m2 Heart Rate 106 /min BP Systolic Sitting 73 mmHg Omron large adult cu ff, Ra BP Diastolic Sitting 32 mmHg Omron large adult c uff, Ra 10/27/2018 10:20am Weight 243.00 lb Height 68 inches 5'8" BMI (Body Mass Index) 36.9 kg/m2 Results Test Acquired Date Facility Test Result H/L Range Note CBC without Differential 08/18/2020 [facility] (315)- - White Blood Count 7.05 4.70-10.80 Red Blood Count 5.41 4.70-6.10 Platelets -- Low 130-400 Hemoglobin 11.6 Low 14.0-18.0 Hematocrit 39.0 Low 42.0-52.0 BMP 08/18/2020 [facility] (315)- - Calcium Ser/Plasma Mass/Vol 9.3 Sodium 137 Carbon Dioxide Ser/Plasm 21 Chloride Serum/Plasma 96 Potassium 4.7 Glucose -- Low 70-100 Blood Urea Nitrogen 45 High 6-19 Creatinine 9.59 High 0.60-1.30 G F R -- Tibc/Iron/% Saturation 08/18/2020 [facility] (315)- - Iron 117 45-160 Tibc 261 Tibc % Saturation 45 Lipid Profile/Cardiac Risk Pro 08/18/2020 [facility] (315)- - Triglycerides 149 Cholesterol 144 0-199 HDL 47 40-60 LDL Cholesterol 67 Chol/HDL Ratio 3.1 Laboratory test finding 08/18/2020 [facility] (315)- - Magnesium Level 2.1 Hemoglobin A1c 08/18/2020 [facility] (315)- - Hemoglobin A1c 10.5 CBC without Differential 07/27/2020 [facility] (315)- - White Blood Count 7.83 4.80-10.80 Red Blood Count 5.65 4.70-6.10 Platelets -- Low 130-400 Hemoglobin 12.2 Low 14.0-18.0 Hematocrit 37.9 Low 42.0-52.0 BMP 07/27/2020 [facility] (315)- - Calcium Ser/Plasma Mass/Vol 9.6 Sodium 139 Carbon Dioxide Ser/Plasm 21 Chloride Serum/Plasma 99 Potassium 4.6 Glucose -- Low 70-100 Blood Urea Nitrogen 43 High 6-19 Creatinine 10.94 High 0.60-1.30 G F R -- Tibc/Iron/% Saturation 07/27/2020 [facility] (315)- - Iron 82 45-160 Tibc 244 Tibc % Saturation 34 Procedures Description No Information Available Medical Devices Description No Information Available Encounters Description No Information Available Assessments Description No Information Available Plan of Treatment 12/23/2019 - Avel Pozo MD* R00.2 Palpitations * I47.1 Supraventricular tachycardia * I35.0 Nonrheumatic aortic (valve) stenosis* Recommendations:* Further evaluation with an echocardiogram-Doppler. * I44.0 Atrioventricular block, first degree * I45.2 Bifascicular block * R94.31 Abnormal electrocardiogram [ECG] [EKG] * I15.0 Renovascular hypertension * I11.0 Hypertensive heart disease with heart failure * All * Follow up:* Follow-up in [address] Pozo. Functional Status Functional Condition Comment Date Status Independent with all ADL's Activ e Mental Status Description No Information Available Referrals Description No Information Available
--- OUTSIDE RECORDS SUMMARY | 2020-09-09 14:06 | CCD ---
Continuity of Care Document (CCD) Created on: 08/22/2020 Tomás Brower External Reference #: [id number] : 1955 Sex: Male Author Author Tomás KEITH MD Organization Unknown Address [address] [place] [address], [address] [address] Phone [phone] Care Team Providers Care School Photographer Name Role Phone Jaiden Atkinson MD [facility] [phone] Problems Description No Information Available Social History [...] for 5 days before surgery 1units Tomás Keith MD 08/08/2020 Mupirocin 2% Ointment pea - sized amount on q-tip and place around the inside of both nostrils 3x a day for 5 days before surgery 22gm Tomás Keith MD 08/08/2020 Arnuity Ellipta 100mcg/Act Aerosol 1 [...] Result H/L Range Note Prothrombin Time/Inr 08/22/2020 [facility] entr [address] [place] [address] (315)- - Prothrombin Time 25.1 seconds High 12.5-14.3 Inr 2.22 Normal 1 Order 06/10/2020 [facility] nter Surgery <pending> 1 THERAPUTIC HUMAN INR VALUES INDICATIONS NORMAL RANGES PROPHYLAXIS/TREATMENT OF: VENOUS THROMBOSIS 2.0-3.0 PULMONARY EMBOLISM 2.0-3.0 PREVENTION OF SYSTEMIC EMBOLISM FROM: TISSUE HEART VALVES 2.0-3.0 ACUTE MYOCARDIAL INFARCTION 2.0-3.0 VALVULAR HEART DISEASE 2.0-3.0 ATRIAL FIBRILLATION 2.0-3.0 MECHANICAL VALVES(HIGH RISK) 2.5-3.5 RECURRENT MYOCARDIAL INFARCTION 2.5-3.5 Procedures Date Code Description Status 06/06/2020 56907 X-Ray Hip Unilateral With Pelvis 2-3 Views Completed Medical Devices Description No Information Available Encounters Type Date Location Provider Dx Diagnosis Office Visit 06/06/2020 8:30a [place] Angelika Keith PA-C M16.12 Unilateral primary osteoarthritis, left hip Office Visit 04/25/2020 10:45a [place] Tomás Keith MD M16.12 Unilateral primary osteoarthritis, left hip Assessments Date Code Description Provider 06/09/2020 M16.12 Unilateral primary osteoarthriti s, left hip Tomás Keith MD 06/06/2020 M16.12 Unilateral primary osteoarthriti s, left hip Angelika Keith PA-C 04/25/2020 M16.12 Unilateral primary osteoarthriti s, left hip Tomás Keith MD Plan of Treatment Future Appointment(s):* 09/01/2020 11:00 am - Vineet Malik PA-C at [facility] * 09/05/2020 7:30 am - Richelle Cummings at Surgery [facility] Inpatient * 09/05/2020 7:30 am - Tomás Keith MD at Surgery [facility] Inpatient 06/09/2020 - Tomás Keith MD* M16.12 Unilateral primary osteoarthritis, left hip* Follow up:* post op Functional Status Description No Information Available Mental Status Description No Information Available Referrals Refer to Reason for Referral Status Appt Date Efrain Quach MD SURGERY NO AUTH REQUIRED FOR LEFT TOTAL HIP([id number]) TO SURGERY NT Created [address] [facility], [address] [place] [address] [phone]
--- OUTSIDE RECORDS SUMMARY | 2020-09-09 14:06 | CCD | Continuity of Care Document ---
Author Author Tomás MEAD P.A.-C. Organization Unknown Address [address] [place] [address] Phone [phone] Care Team Providers Care Rn Occupational Name Role Phone Nikita Soto M.D. [facility] [phone] Jaiden Atkinson M.D. [facility] [phone] Problems Active Problems Provider Date H/O: ALISTAIR Ny M.D. Onset: 08/01/2018 Social History Type Date Description Comments Sex Unknown Tobacco Use Start: Unknown End: Unknown Patient is a former smoker Allergies, Adverse Reactions, Alerts Active Allergies Reaction Severity Comments Date Trazodone lethargy 04/04/2020 Paxil fatigue 04/04/2020 Inactive Allergies NKDA 08/01/2018 Medications Active Medications SIG Qnty Indications Ordering Provide r Date Adult Aspirin Regimen 81mg Tablets DR Take 1 tab PO daily. 90tabs Kaycee Ny M.D. 08/01/2018 Immunizations Description No Information Available Vital Signs Date Vital Result Comment 04/01/2020 6:43am BP Systolic 118 mmHg BP Diastolic 70 mmHg Heart Rate 76 /min Respiratory Rate 16 /min 09/18/2019 2:32pm BP Systolic 110 mmHg BP Diastolic 60 mmHg Heart Rate 64 /min Respiratory Rate 16 /min Results Description No Information Available Procedures Description No Information Available Medical Devices Description No Information Available Encounters Type Date Location Provider Dx Diagnosis Office Visit 07/04/2020 1:45p Main [place] - [place] Johanne bright PSathishAObed R47.89 Other speech disturbances G45.9 Transient cerebral ischemic attack, unspecified G25.0 Essential tremor M54.5 Low back pain G60.9 Hereditary and idiopathic ne uropathy, unspecified F41.1 Generalized anxiety disorder Office Visit 04/01/2020 8:45a Main office - [place] Johanne bright, P.A.-C. G45.9 Transient cerebral ischemic attack, unsp ecified R47.89 Other speech disturbances G60.9 Hereditary and idiopathic ne uropathy, unspecified G25.0 Essential tremor M54.5 Low back pain F41.1 Generalized anxiety disorder Assessments Date Code Description Provider 07/04/2020 R47.89 Other speech disturbances Johanne Mead, P.A.-C. 07/04/2020 G45.9 Transient cerebral ischemic nicholas ck, unspecified Johanne Mead, P.A.-C. 07/04/2020 G25.0 Essential tremor Johanne Mead , P.A.-C. 07/04/2020 M54.5 Low back pain Johanne Maed, P.A.-C. 07/04/2020 G60.9 Hereditary and idiopathic neurop athy, unspecified Johanne Mead, P.A.-C. 07/04/2020 F41.1 Generalized anxiety disorder Ileana Mead, P.A.-C. 04/01/2020 G45.9 Transient cerebral ischemic nicholas ck, unspecified Johanne Mead, P.A.-C. 04/01/2020 R47.89 Other speech disturbances Johanne Mead P.A.-C. 04/01/2020 G60.9 Hereditary and idiopathic neurop athy, unspecified Johanne Mead, P.A.-C. 04/01/2020 G25.0 Essential tremor Johanne Mead , P.A.-C. 04/01/2020 M54.5 Low back pain Johanne Mead, P.A.-C. 04/01/2020 F41.1 Generalized anxiety disorder Ileana Mead, P.A.-C. Plan of Treatment 07/04/2020 - Johanne Mead, P.A.-C.* R47.89 Other speech disturbances* Comments:* Not recurrent. * G45.9 Transient cerebral ischemic attack, unspecified* Comments:* He continues Coumadin and aspirin. * G25.0 Essential tremor* Comments:* Reassess at next appt. * M54.5 Low back pain* Comments:* Follow up with orthopedics. * G60.9 Hereditary and idiopathic neuropathy, unspecified* Comments:* He declines medication for neuropathy. * F41.1 Generalized anxiety disorder* Comments:* Follow up with PCP. * Follow up:* 4 months Functional Status Description No Information Available Mental Status Description No Information Available Referrals Description No Information Available
--- OUTSIDE RECORDS SUMMARY | 2020-09-09 14:06 | CCD | Continuity of Care Document ---
Author Author Tomás MARIEE DPM Organization Unknown Address [address] [place] [address], [facility] [address] [place] [address] Phone [phone] Care Team Providers Care Group Worker Name Role Phone Jaiden Atkinson M.D.M [phone] Problems Active Problems Provider Date Onychomycosis Garret Mariee DPM Onset: 06/11/2016 Ingrowing nail Garret Mariee DPM Onset: 06/11/2016 Pain in limb Garret Mariee DPM Onset: 03/13/2020 Social History Type Date Description Comments Sex Unknown ETOH Use Denies alcohol use Tobacco Use Start: Unknown End: Unknown Patient is a former smoker Tobacco Use Start: Unknown Smoked for 26 years quit 1998 Allergies, Adverse Reactions, Alerts Description No Known Drug Allergies Medications Active Medications SIG Qnty Indications Ordering Provide r Date Ammonium Lactate 12% Cream apply to feet daily 280units Garret Mariee DPM 08/13/2018 Prednisone 5mg Tablets Unknown Mirtazapine 15mg Tablets Unknown Procrit 86312Cxho/ML Solution Unknown Calcitriol 0.25mcg Capsules Unknown Potassium Chloride Anaid ER 20Meq Tablets ER Unknown Furosemide 80mg Tablets Unknown Hydroxychloroquine Sulfate 200mg T ablets Unknown Ferrous Sulfate 325(65Fe) mg Tablets Unknown Mycophenolate Sodium 360mg Tablets DR Unknown Sirolimus 1mg Tablets Unknown Lidocaine-Prilocaine 2.5-2.5% Cream Unknown Tamsulosin HCL 0.4mg Capsules Unknown Omeprazole 20mg Capsules DR Unknown Mirtazapine 30mg Tablets Dispers Unknown Folic Acid 1mg Tablets Unknown Bisoprolol Fumarate 5mg Tablets Unknown Amiloride HCL 5mg Tablets Unknown Nifedipine ER Osmotic Release 60mg Tablets ER 24HR Unknown Arnuity Ellipta 200mcg/Act Aerosol Unknown Jantoven 5mg Tablets Unknown Immunizations Description No Information Available Vital Signs Date Vital Result Comment 06/05/2016 2:17pm Height 68 inches 5'8" Weight 244.00 lb BP Systolic 125 mmHg BP Diastolic 64 mmHg Heart Rate 76 /min BMI (Body Mass Index) 37.1 kg/m2 Results Description No Information Available Procedures Date Code Description Status 06/24/2020 67052 Debridement 6-10 Nails Electric Completed 03/04/2020 67803 Debridement 6-10 Nails Electric Completed Medical Devices Description No Information Available Encounters Description No Information Available Assessments Date Code Description Provider 06/24/2020 B35.1 Tinea unguium Garret Mareie, EMILYM 06/24/2020 L60.0 Ingrowing nail Garret Mariee, JOSELIN 06/24/2020 M79.676 Pain in unspecified toe(s) Frank Mariee DPM 03/04/2020 B35.1 Tinea unguium Garret Mariee, JOSELIN 03/04/2020 L60.0 Ingrowing nail Garret Mariee, JOSELIN 03/04/2020 M79.676 Pain in unspecified toe(s) Frank Mariee DPM Plan of Treatment Future Appointment(s):* 09/02/2020 8:45 am - [facility]ret [facility] Functional Status Description No Information Available Mental Status Description No Information Available Referrals Description No Information Available
--- OUTSIDE RECORDS SUMMARY | 2020-09-09 14:06 | CCD | Continuity of Care Document ---
Author Author Tomás DRISCOLL [place] Organization Unknown Address [address] [place] [address], [place] [address] Phone [phone] Care Team Providers Care Supervisor Roller [employer] Name Role Phone Jaiden Atkinson MD AUTM [phone] Isreal Gage MD AUTM [phone] Javon Qureshi MD AUTM [phone] Florentino Ramirez MD AUTM [phone] Romulo Qureshi MD AUTM [phone] Rayo Freed MD AUTM [phone] Kaycee Ny MD AUTM [phone] Jaycee Garsia STRUCTURAL STEEL WORKER APPRENTICE-C AUTM [phone] Charo Rodrigues MD AUTM [phone] Problems Active Problems Provider Date Paroxysmal supraventricular [...] 23 yrs., quit 1999 Smoking Status Reviewed: 08/29/20 Patient is a former smoker 1- 2ppd for 25 yrs., quit 1999 Exercise Type/Frequency Does yardwork sporadical ly and snow plow or snow shoveling as needed Exercise Type/Frequency Does housework sporadica lly Exercise Limitations Shortness Of Breath Exercise Limitations Joint Pain knees Allergies, Adverse Reactions, Alerts Description No Known Drug Allergies Medications Active Medications SIG Qnty Indications Ordering Provide r Date Omeprazole 40mg Capsules DR 1 by mouth every day Romulo Qureshi MD 08/28/2020 Clonazepam 0.5mg Tablets 1 by mouth twice a day Romulo Qureshi MD 08/28/2020 Jantoven 1mg Tablets as directed by nephrology Javon uQreshi MD 10/26/[address] 1 by mouth once daily Unknown 10/20/2018 Nephro-Monique 0.8mg Tablets 1 by mouth once daily Unknown 10/20/2018 Vitamin D-3 5000Unit Tablets 1 by mouth once a month Unknown 10/20/2018 Procrit 2000Unit/ML Solution infused at dialysis twice monthly or as directed Nils Qureshi MD 11/19/2017 Sodium Polystyrene Sulfonate 15GM/60ML Suspension 30 milliliters by mouth Only if missed dialysis appt Romulo Qureshi MD 11/19/2017 Lidocaine 5% Cream apply as directed on left arm on dialysis site prior to dialysis appt Romulo Qureshi MD 11/19/2017 Calcium Acetate 667mg Capsules 3 by mouth three times daily Romulo Qureshi MD 11/19/2017 Kionex 15GM/60ML Suspension 4 oz by mouth as directed Unknown 08/18/2017 Polyethylene Glycol 3350 3350NF Pa cket 17 g in 120 milliliters water or juice every day as needed Unknown 10/09/2016 Arnuity Ellipta 200mcg/Act Aerosol 1 puff daily Unknown 03/14/2016 Jantoven 5mg Tablets as direc jonny Unknown 03/14/2016 Ventolin HFA 108(90Base) mcg/Act A erosol 2 puffs as needed Unknown 03/09/2014 Hydroxychloroquine Sulfate 200mg T ablets 1 po bid Stefan Bneitez MD 11/30/2012 Glucosamine Chondroitin 1500 Complex Max imum Strength 1500Com Capsules 1 po qd Jaiden Ndiaye MD 04/06/2011 Warfarin Sodium 5mg Tablets as directed by Dr. Qureshi Unknown Immunizations Description No Information Available Vital Signs Date Vital Result Comment 08/29/2020 1:53pm Weight 228.00 lb Height 68 inches 5'8" BMI (Body Mass Index) 34.7 kg/m2 Heart Rate 89 /min BP Systolic Sitting 118 mmHg large cuff, Ra BP Diastolic Sitting 76 mmHg large cuff, Ra 12/23/2019 11:26am Weight 237.00 lb Height 68 inches 5'8" BMI (Body Mass Index) 36.0 kg/m2 Heart Rate 106 /min BP Systolic Sitting 73 mmHg Omron large adult cu ff, Ra BP Diastolic Sitting 32 mmHg Omron large adult c uff, Ra Results Test Acquired Date Facility Test Result [...] Tibc 244 Tibc % Saturation 34 Procedures Date Code Description Status 08/29/2020 58467 ECG 12-Lead Completed Medical Devices Description No Information Available Encounters Type Date Location Provider Dx Diagnosis Office Visit 08/29/2020 2:00p Main Office KETTY Liao Z01 .810 Encounter for preprocedural cardiovascular examination I11.0 Hypertensive heart disease w ith heart failure R00.2 Palpitations I47.1 Supraventricular tachycardia I44.0 Atrioventricular block, firs t degree R94.31 Abnormal electrocardiogram [ ECG] [EKG] I35.0 Nonrheumatic aortic (valve) stenosis I15.0 Renovascular hypertension Z71.3 Dietary counseling and surve illance Assessments Date Code Description Provider 08/29/2020 Z01.810 Encounter for preprocedural card iovascular examination KETTY Liao 08/29/2020 I11.0 Hypertensive heart disease with heart failure KETTY Liao 08/29/2020 R00.2 Palpitations KETTY Lopez Cha, se 08/29/2020 I47.1 Supraventricular tachycardia KETTY Fischer 08/29/2020 I44.0 Atrioventricular block, first de gree KETTY Liao 08/29/2020 R94.31 Abnormal electrocardiogram [ECG] [EKG] KETTY Liao 08/29/2020 I35.0 Nonrheumatic aortic (valve) sten niravis KETTY Liao 08/29/2020 I15.0 Renovascular hypertension KETTY Higuera 08/29/2020 Z71.3 Dietary counseling and surveilla KETTY Ocampo Plan of Treatment Future Appointment(s):* 02/27/2021 10:15 am - KETTY Liao at Main Office 08/29/2020 - KETTY Liao* Z01.810 Encounter for preprocedural cardiovascular examination* Recommendations:* Patient is cleared from a cardiac standpoint to undergo left hip arthroplasty with Dr. Tomás Muller Please contact the office with any questions or concerns * I11.0 Hypertensive heart disease with heart failure* Recommendations:* Advised patient to please monitor blood pressure at home and to alert our office with blood pressure >140/>90 or <110/<60 * R00.2 Palpitations * I47.1 Supraventricular tachycardia* Recommendations:* No further evaluation is needed at this time * I44.0 Atrioventricular block, first degree* Recommendations:* No further evaluation is needed at this time * R94.31 Abnormal electrocardiogram [ECG] [EKG]* Recommendations:* No further evaluation is needed at this time. * I35.0 Nonrheumatic aortic (valve) stenosis* Recommendations:* Plan for repeat echocardiogram 2021 * I15.0 Renovascular hypertension* Recommendations:* Continue management per Dr. Qureshi * Z71.3 Dietary counseling and surveillance* Recommendations:* Recommended for patient to follow a more whole food diet. Advised patient to avoid overly processed foods and packaged foods. Advised patient to avoid sodas, juices and other liquid calories. Recommended at least 30 minutes of exercise 3 days a week. * All * Follow up:* Follow up in 6 months Functional Status Functional Condition Comment Date Status Independent with all ADL's Activ e Mental Status Description No Information Available Referrals Description No Information Available
--- OUTSIDE RECORDS SUMMARY | 2020-09-09 14:06 | CCD | Continuity of Care Document ---
Author Author Tomás MEAD P.A.-C. Organization Unknown Address [address] [place] [address] Phone [phone] Care Team Providers Care Dealmaker Name Role Phone Nikita Soto M.D. AUTM [phone] Jaiden Atkinson M.D. AUTM [phone] Problems Active Problems Provider Date H/O: ALISTAIR [...] Date Location Provider Dx Diagnosis Office Visit 04/01/2020 8:45a Main office - [place] Johanne bright PSathishASathish-Carlos G45.9 Transient cerebral ischemic attack, unsp ecified [...] P.A.-C. 07/04/2020 M54.5 Low back pain Johanne Mead, P.A.-C. 07/04/2020 G60.9 Hereditary and idiopathic neurop athy, unspecified Johanne Mead, P.A.-C. 07/04/2020 F41.1 Generalized anxiety disorder Ileana Mead P.A.-C. 04/01/2020 G45.9 Transient cerebral ischemic nicholas ck, unspecified Johanne Mead, P.A.-C. 04/01/2020 R47.89 Other speech disturbances Johanne Mead, P.A.-C. 04/01/2020 G60.9 Hereditary and idiopathic neurop athy, unspecified Johanne Mead, P.A.-C. 04/01/2020 G25.0 Essential tremor Johanne Mead , P.A.-C. 04/01/2020 M54.5 Low back pain Johanne Mead, P.A.-C. 04/01/2020 F41.1 Generalized anxiety disorder Ileana Mead P.A.-C. Plan of Treatment No Information Available Functional Status Description No Information Available Mental Status Description No Information Available Referrals Description No Information Available
--- OUTSIDE RECORDS SUMMARY | 2020-09-09 14:06 | CCD | Continuity of Care Document ---
Author Organization Unknown Address Unknown Phone Unavailable Care Team Providers Care Mapping Specialist Name Role Phone Jaiden Atkinson MD AUTM [phone] Isreal Gage MD AUTM [phone] Stefan Benitez MD AUTM [phone] Javon Qureshi MD AUTM [phone] Florentino Ramirez MD AUTM [phone] Romulo Qureshi MD AUTM [phone] Rayo Freed MD AUTM [phone] Kaycee Ny MD AUTM [phone] Jaycee Garsia POUCH MAKING MACHINE OPERATOR-C AUTM [phone] Problems Active Problems Provider Date Paroxysmal supraventricular [...] Result H/L Range Note CBC without Differential 07/27/2020 Patient's Choic e [...] Description No Information Available Plan of Treatment Future Appointment(s):* 08/29/2020 2:00 pm - KETTY Liao at Main Office 12/23/2019 - Avel Pozo MD* R00.2 Palpitations [...]
--- OUTSIDE RECORDS SUMMARY | 2020-09-09 14:06 | CCD | Continuity of Care Document ---
Author Author Tomás MARIEE DPM Organization Unknown Address [address] [place] [address], [facility] [address] [place] [address] Phone [phone] Care Team Providers Care Silk Examiner Name Role Phone Jaiden Atkinson M.D.M [phone] Problems Active Problems Provider Date Onychomycosis Garret [...] Tablets Unknown Mirtazapine 15mg Tablets Unknown Procrit 52338Rbse/ML Solution Unknown Calcitriol 0.25mcg Capsules Unknown Potassium [...] Information Available Procedures Date Code Description Status 03/04/2020 07528 Debridement 6-10 Nails Electric Completed Medical Devices Description No Information Available Encounters Description No Information Available Assessments Date Code Description Provider 03/04/2020 B35.1 Tinea unguium Garret Mariee DPM 03/04/2020 L60.0 Ingrowing nail Garret Mariee DPM 03/04/2020 M79.676 Pain in unspecified toe(s) Frank Mariee DPM Plan of Treatment Future Appointment(s):* 09/02/2020 8:45 am - Garret Mariee DPM at [facility] Functional Status Description No Information Available Mental Status Description No Information Available Referrals Description No Information Available
--- OUTSIDE RECORDS SUMMARY | 2020-09-09 14:06 | CCD | Continuity of Care Document ---
Author Author Tomás KEITH MD Organization Unknown Address [address] [place] [address], [facility] [address] [place] [address] Phone [phone] Care Team Providers Care Machine Shop Inspector Name Role Phone Johanne Mead RPA AUTM [phone] Nikita Soto MD AUTM [phone] Kiera, Romulo AUTM [phone] Jaiden Atkinson MD AUTM [phone] Problems Active Problems Provider Date Non-toxic multinodular goiter Rachel Keith MD Onset: Social History Type Date Description Comments Sex Unknown Cigarette Use Former Cigarette Smoker 2 Packs Daily quit 20 years ago ETOH Use Rarely consumes alcohol Tobacco Use Start: Unknown End: Unknown Patient is a former smoker Smoking Status Reviewed: 10/03/18 Patient is a former smoker Allergies, Adverse Reactions, Alerts Description No Information Available Medications Active Medications SIG Qnty Indications Ordering Provide r Date Ventolin HFA 108(90Base) mcg/Act A erosol 2 puffs four times a day as needed Unknown Arnuity Ellipta 100mcg/Act Aerosol 1 inhalation once daily Unknown Lidocaine-Prilocaine 2.5-2.5% Crea m apply to dialysis fistula sitte three times a week 1 hour prior to dialysis Unknown Aspir-[address] 1 by mouth every day Unknown Glucosamine Chondroitin Complex/MSM Doub le Strength Tablets 1 PO qd Unknown Vitamin D3 5000Unit Capsules take one capsule by mouth every day with dinner Unknown Nephro-Monique 0.8mg Tablets 1 P O qd Unknown Omeprazole 20mg Capsules DR 1 by mouth every day Unknown Hydroxychloroquine Sulfate 200mg T ablets 1 PO bid Unknown Mirtazapine 30mg Tablets Dispers take one tablet by mouth at bedtime Unknown Warfarin Sodium 5mg Tablets as directed Unknown Calcium Acetate (Phos Binder) 667mg Tablets 2 tabs tid Unknown Immunizations Description No Information Available Vital Signs Date Vital Result Comment 09/17/2019 11:38am BP Systolic 134 mmHg BP Diastolic 70 mmHg Heart Rate 68 /min Height 67.5 inches 5'7.50" Weight 235.38 lb BMI (Body Mass Index) 36.3 kg/m2 O2 % BldC Oximetry 88 % 10/03/2018 2:51pm BP Systolic 126 mmHg BP Diastolic 64 mmHg Heart Rate 109 /min Height 67.5 inches 5'7.50" Weight 245.12 lb BMI (Body Mass Index) 37.8 kg/m2 O2 % BldC Oximetry 97 % Results Test Acquired Date Facility Test Result H/L Range Note Complete Blood Count 08/22/2020 [facility] [address] [place] [address] [phone])- - White Blood Count 7.4 10 Normal 4.0-10.0 Red Blood Count 5.28 10 Normal 4.30-6.10 Hemoglobin 11.3 g/dL Low 13.5-17.5 Hematocrit 37.4 % Low 42.0-52.0 Mean Corpuscular Volume 70.8 fl Low 80.0-96.0 Mean Corpuscular Hemoglobin 21.4 pg Low 27.0-33.0 Mean Corpuscular HGB Conc 30.2 g/dL Low 32.0-36.5 Red Cell Distribution Width 17.9 % High 11.5-14.5 Platelet Count, Automated 296 10 Normal 150-450 Nucleated Red Blood Cell % 0.3 % High 0-0 Laboratory test finding 08[facility] [address] [place] [address] [phone] - Erythrocyte Sedimentation Rate 21 mm/hr High 0-20 Comprehensive Metabolic Profil 08/22/2020 [facility] [address] [place] [address] [phone])- - Glucose, Fasting 108 mg/dL High 70-100 Blood Urea Nitrogen 38 mg/dL High 7-18 Creatinine For GFR 9.56 mg/dL Critical high 0.70-1.30 Glomerular Filtration Rate 5.9 Low >49 1 Sodium Level 137 mEq/L Normal 136-145 Potassium Serum 4.6 mEq/L Normal 3.5-5.1 Chloride Level 97 mEq/L Low 98-107 Carbon Dioxide Level 28 mEq/L Normal 21-32 Anion Gap 12 mEq/L Normal 8-16 Calcium Level 9.6 mg/dL Normal 8.8-10.2 Ast/Sgot 23 U/L Normal 7-37 Alt/SGPT 28 U/L Normal 12-78 Alkaline Phosphatase 119 U/L High 45-117 Bilirubin,Total 0.4 mg/dL Normal 0.2-1.0 Total Protein 6.9 GM/DL Normal 6.4-8.2 Albumin 3.8 GM/DL Normal 3.2-5.2 Albumin/Globulin Ratio 1.2 Normal 1 Units are mL/min/1.73 m2 Chronic Kidney Disease Staging per NKF: Stage I & II GFR >=60 Normal to Mildly Decreased Stage III GFR 30-59 Moderately Decreased Stage IV GFR 15-29 Severely Decreased Stage V GFR <15 Very Little GFR Left ESRD GFR <15 on CHAIRMAN Procedures Description No Information Available Medical Devices Description No Information Available Encounters Description No Information Available Assessments Description No Information Available Plan of Treatment 09/17/2019 - Rachel Keith MD* E04.2 Nontoxic multinodular goiter* Comments: * 2018: Due to the patient being on Coumadin with a history of clots and antiphospholipid syndrome after extended discussion we decided to defer biopsy since ultrasound appearance is not indicative of cancer. Repeat an office ultrasound is stable. No significant change in the nodule. Repeat ultrasound one year. Thyroid function tests are normal and were reviewed. * Follow up:* one year, U/S , LAB Functional Status Description No Information Available Mental Status Description No Information Available Referrals Description No Information Available
--- OUTSIDE RECORDS SUMMARY | 2020-09-09 14:07 | CCD ---
Author Author [facility] Organization [facility] Address Unknown Phone Unavailable Care Team Providers Care Die Sinker Name Role Phone ANTECOL, Julián LEBRON MD Unavailable Unavailable ANTECOLJulián MD Unavailable Unavailable ANTECOLJulián MD Unavailable Unavailable ANTECOLJulián MD Unavailable Unavailable ANTECOLJulián MD Unavailable Unavailable ANTECOLJulián MD Unavailable Unavailable ANTECOLJulián MD Unavailable Unavailable ANTECOLJulián MD Unavailable Unavailable ANTECOLJulián MD Unavailable Unavailable ANTECOLJulián MD Unavailable Unavailable ANTECOLJulián MD Unavailable Unavailable ANTECOLJulián MD Unavailable Unavailable ANTECOLJulián MD Unavailable Unavailable ANTECOLJulián MD Unavailable Unavailable ANTECOLJulián MD Unavailable Unavailable ANTECOLJulián MD Unavailable Unavailable ANTECOLJulián MD Unavailable Unavailable ANTECOLJulián MD Unavailable Unavailable ANTECOLJulián MD Unavailable Unavailable ANTECOLJulián MD Unavailable Unavailable ANTECOLJulián MD Unavailable Unavailable ANTECOLJulián MD Unavailable Unavailable ANTECOLJulián MD Unavailable Unavailable ANTECOLJulián MD Unavailable Unavailable ANTECOLJulián MD Unavailable Unavailable ANTECOLJulián MD Unavailable Unavailable ANTECOLJulián MD Unavailable Unavailable ANTECOLJulián MD Unavailable Unavailable ANTECOL, Julián LEBRON MD Unavailable Unavailable ANTECOL, Julián LEBRON MD Unavailable Unavailable ANTECOL, Julián LEBRON MD Unavailable Unavailable ANTECOL, Julián LEBRON MD Unavailable Unavailable ANTECOL, Julián LEBRON MD Unavailable Unavailable ANTECOL, Julián LEBRON MD Unavailable Unavailable ANTECOL, Julián LEBRON MD Unavailable Unavailable ANTECOL, Julián LEBRON MD Unavailable Unavailable ANTECOL, Julián LEBRON MD Unavailable Unavailable ANTECOL, Julián LEBRON MD Unavailable Unavailable ANTECOL, Julián LEBRON MD Unavailable Unavailable ANTECOL, Julián LEBRON MD Unavailable Unavailable ANTECOL, Julián LEBRON MD Unavailable Unavailable ANTECOL, Julián LEBRON MD Unavailable Unavailable ANTECOL, Julián LEBRON MD Unavailable Unavailable ANTECOL, Julián LEBRON MD Unavailable Unavailable ANTECOL, Julián LEBRON MD Unavailable Unavailable ANTECOL, Julián LEBRON MD Unavailable Unavailable ANTECOL, Julián LEBRON MD Unavailable Unavailable ANTECOL, Julián LEBRON MD Unavailable Unavailable ANTECOL, Julián LEBRON MD Unavailable Unavailable ANTECOL, Julián LEBRON MD Unavailable Unavailable ANTECOL, Julián LEBRON MD Unavailable Unavailable ANTECOL, Julián LEBRON MD Unavailable Unavailable ANTECOL, Julián LEBRON MD Unavailable Unavailable ANTECOL, Julián LEBRON MD Unavailable Unavailable ANTECOL, Julián LEBRON MD Unavailable Unavailable MAJAKBerta DPM Unavailable Unavailable MAJELICEO R PAMELA DPM Unavailable Unavailable MAJAK R PAMELA DPM Unavailable Unavailable MAJAK R PAMELA DPM Unavailable Unavailable MAJAK R PAMELA DPM Unavailable Unavailable MAJAK R PAMELA DPM Unavailable Unavailable MAJAK R PAMELA DPM Unavailable Unavailable MAJELICEO R PAMELA DPM Unavailable Unavailable MAJAK R PAMELA DPM Unavailable Unavailable MAJAK R PAMELA DPM Unavailable Unavailable JUN R PAMELA DPM Unavailable Unavailable MAJELICEO R PAMELA DPM Unavailable Unavailable MAJAK R PAMELA DPM Unavailable Unavailable MAJAK R PAMEAL DPM Unavailable Unavailable MAJAK R PAMELA DPM Unavailable Unavailable MAJAK R PAMELA DPM Unavailable Unavailable MAJAK R PAMELA DPM Unavailable Unavailable MAJAK R PAMELA DPM Unavailable Unavailable MAJAK R PAMELA DPM Unavailable Unavailable MAJAK R PAMELA DPM Unavailable Unavailable MAJAK R PAMELA DPM Unavailable Unavailable MAJAK R PAMELA DPM Unavailable Unavailable MAJAK R PAMELA DPM Unavailable Unavailable MAJELICEO R PAMELA DPM Unavailable Unavailable MAJAK R PAMELA DPM Unavailable Unavailable MAJELICEO R PAMELA DPM Unavailable Unavailable MAJAK R PAMELA DPM Unavailable Unavailable MAJELICEO R PAMELA DPM Unavailable Unavailable MAJBerta FENTONW DPM Unavailable Unavailable Berta BARAHONA DPM Unavailable Unavailable Trickey, J Johanne PA Unavailable Unavailable Trickey, J Johanne PA Unavailable Unavailable Trickey, J Johanne PA Unavailable Unavailable Trickey, J Johanne PA Unavailable Unavailable Trickey, J Johanne PA Unavailable Unavailable Trickey, J Johanne PA Unavailable Unavailable Trickey, J Johanne PA Unavailable Unavailable Trickey, J Johanne PA Unavailable Unavailable Trickey, J Johanne PA Unavailable Unavailable Trickey, J Johanne PA Unavailable Unavailable Trickey, J Johanne PA Unavailable Unavailable Trickey, J Johanne PA Unavailable Unavailable Trickey, J Johanne PA Unavailable Unavailable Trickey, J Johanne PA Unavailable Unavailable Trickey, J Johanne PA Unavailable Unavailable Trickey, J Johanne PA Unavailable Unavailable Trickey, J Johanne PA Unavailable Unavailable Trickey, J Johanne PA Unavailable Unavailable Trickey, J Johanne PA Unavailable Unavailable Trickey, J Johanne PA Unavailable Unavailable Trickey, J Johanne PA Unavailable Unavailable Trickey, J Johanne PA Unavailable Unavailable Trickey, J Johanne PA Unavailable Unavailable Trickey, J Johanne PA Unavailable Unavailable Trickey, J Johanne PA Unavailable Unavailable Trickey, J Johanne PA Unavailable Unavailable Trickey, J Johanne PA Unavailable Unavailable Trickey, J Johanne PA Unavailable Unavailable Trickey, J Johanne PA Unavailable Unavailable Trickey, J Johanne PA Unavailable Unavailable Trickey, J Johanne PA Unavailable Unavailable Trickey, J Johanne PA Unavailable Unavailable Trickey, J Johanne PA Unavailable Unavailable Trickey, J Johanne PA Unavailable Unavailable Trickey, J Johanne PA Unavailable Unavailable Trickey, J Johanne PA Unavailable Unavailable Trickey, J Johanne PA Unavailable Unavailable Trickey, J Johanne PA Unavailable Unavailable Trickey, J Johanne PA Unavailable Unavailable Trickey, J Johanne PA Unavailable Unavailable Trickey, J Johanne PA Unavailable Unavailable Trickey, J Johanne PA Unavailable Unavailable Trickey, J Johanne PA Unavailable Unavailable Trickey, J Johanne PA Unavailable Unavailable Trickey, J Johanne PA Unavailable Unavailable Trickey, J Johanne PA Unavailable Unavailable Trickey, J Johanne PA Unavailable Unavailable Trickey, J Johanne PA Unavailable Unavailable Trickey, J Johanne PA Unavailable Unavailable Trickey, J Johanne PA Unavailable Unavailable Trickey, J Johanne PA Unavailable Unavailable Trickey, J Johanne PA Unavailable Unavailable Keith ROBISON AWAIS Unavailable Unavailable Fish, [facility], PA-C Unavailable Unavailabl e Fish, [facility], PA-C Unavailable Unavailabl e Fish, [facility], PA-C Unavailable Unavailabl e Fish, [facility], PA-C Unavailable Unavailabl e Fish, [facility], PA-C Unavailable Unavailabl e Fish, [facility], PA-C Unavailable Unavailabl e Fish, [facility], PA-C Unavailable Unavailabl e Fish, [facility], PA-C Unavailable Unavailabl e Fish, [facility], PA-C Unavailable Unavailabl e Fish, [facility], PA-C Unavailable Unavailabl e Fish, [facility], PA-C Unavailable Unavailabl e Fish, [facility], PA-C Unavailable Unavailabl e Fish, [facility], PA-C Unavailable Unavailabl e Fish, [facility], PA-C Unavailable Unavailabl e Fish, [facility], PA-C Unavailable Unavailabl e Fish, [facility], PA-C Unavailable Unavailabl e Fish, [facility], PA-C Unavailable Unavailabl e Fish, [facility], PA-C Unavailable Unavailabl e Fish, [facility], PA-C Unavailable Unavailabl e Fish, [facility], PA-C Unavailable Unavailabl e Fish, [facility], PA-C Unavailable Unavailabl e Fish, [facility], PA-C Unavailable Unavailabl e Fish, [facility], PA-C Unavailable Unavailabl e Fish, [facility], PA-C Unavailable Unavailabl e Fish, [facility], PA-C Unavailable Unavailabl e Fish, [facility], PA-C Unavailable Unavailabl e Fish, [facility], PA-C Unavailable Unavailabl e Fish, [facility], PA-C Unavailable Unavailabl e Fish, [facility], PA-C Unavailable Unavailabl e Fish, [facility], PA-C Unavailable Unavailabl e Fish, [facility], PA-C Unavailable Unavailabl e Fish, [facility], PA-C Unavailable Unavailabl e Fish, Farhana Carney [facility], PA-C Unavailable Unavailabl e Fish, B Tomás RUIZ Unavailable Unavailable Fish, B Tomás RUIZ Unavailable Unavailable Fish, B Tomás RUIZ Unavailable Unavailable Fish, B Tomás RUIZ Unavailable Unavailable Fish, B Tomás RUIZ Unavailable Unavailable Fish, B Tomás RUIZ Unavailable Unavailable Fish, B Tomás RUIZ Unavailable Unavailable Fish, B Tomás RUIZ Unavailable Unavailable Fish, B Tomás RUIZ Unavailable Unavailable Fish, B Tomás RUIZ Unavailable Unavailable Fish, B Tomás RUIZ Unavailable Unavailable Fish, B Tomás RUIZ Unavailable Unavailable Fish, B Tomás RUIZ Unavailable Unavailable Fish, B Tomás RUIZ Unavailable Unavailable Fish, B Tomás RUIZ Unavailable Unavailable Fish, B Tomás RUIZ Unavailable Unavailable Fish, B Tomás RUIZ Unavailable Unavailable Fish, B Tomás RUIZ Unavailable Unavailable Fish, B Tomás RUIZ Unavailable Unavailable Fish, B Tomás RUIZ Unavailable Unavailable Fish, B Tomás RUIZ Unavailable Unavailable Fish, B Tomás RUIZ Unavailable Unavailable Fish, B Tomás RUIZ Unavailable Unavailable Fish, B Tomás RUIZ Unavailable Unavailable Fish, B Tomás RUIZ Unavailable Unavailable Fish, B Tomás RUIZ Unavailable Unavailable Fish, B Tomás RUIZ Unavailable Unavailable Fish, B Tomás RUIZ Unavailable Unavailable Fish, B Tomás RUIZ Unavailable Unavailable Fish, B Tomás RUIZ Unavailable Unavailable Fish, B Tomás RUIZ Unavailable Unavailable Fish, B Tomás RUIZ Unavailable Unavailable Fish, B Tomás RUIZ Unavailable Unavailable Fish, B Tomás RUIZ Unavailable Unavailable Fish, B Tomás RUIZ Unavailable Unavailable Fish, B Tomás RUIZ Unavailable Unavailable Fish, B Tomás RUIZ Unavailable Unavailable Fish, B Tomás RUIZ Unavailable Unavailable Fish, B Tomás RUIZ Unavailable Unavailable Fish, B Tomás RUIZ Unavailable Unavailable Fish, B Tomás RUIZ Unavailable Unavailable Fish, B Tomás RUIZ Unavailable Unavailable Fish, B Tomás RUIZ Unavailable Unavailable Fish, B Tomás RUIZ Unavailable Unavailable Fish, B Tomás RUIZ Unavailable Unavailable Fish, B Tomás RUIZ Unavailable Unavailable Fish, B Tomás RUIZ Unavailable Unavailable Fish, B Tomás RUIZ Unavailable Unavailable Fish, B Tomás RUIZ Unavailable Unavailable Fish, B Tomás RUIZ Unavailable Unavailable Fish, B Tomás RUIZ Unavailable Unavailable Fish, B Tomás RUIZ Unavailable Unavailable Fish, B Tomás RUIZ Unavailable Unavailable Everette Blount MD Unavailable Unavailable Everette Blount MD Unavailable Unavailable Everette Blount MD Unavailable Unavailable Everette Blount MD Unavailable Unavailable Everette Blount MD Unavailable Unavailable Everette Blount MD Unavailable Unavailable Everette Blount MD Unavailable Unavailable Everette Blount MD Unavailable Unavailable Everette Blount MD Unavailable Unavailable Everette Blount MD Unavailable Unavailable Everette Blount MD Unavailable Unavailable Everette Blount MD Unavailable Unavailable Everette Blount MD Unavailable Unavailable Everette Blount MD Unavailable Unavailable Everette Blount MD Unavailable Unavailable Everette Blount MD Unavailable Unavailable Everette Blount MD Unavailable Unavailable Everette Blount MD Unavailable Unavailable Everette Blount MD Unavailable Unavailable vEerette Blount MD Unavailable Unavailable Everette Blount MD Unavailable Unavailable Everette Blount MD Unavailable Unavailable Everette Blount MD Unavailable Unavailable Everette Blount MD Unavailable Unavailable Everette Blount MD Unavailable Unavailable Everette Blount MD Unavailable Unavailable Everette Blount MD Unavailable Unavailable Everette Blount MD Unavailable Unavailable GageArie MD Unavailable Unavailable Arie Gage MD Unavailable Unavailable Arie Gage MD Unavailable Unavailable Arie Gage MD Unavailable Unavailable Arie Gage MD Unavailable Unavailable Arie Gage MD Unavailable Unavailable Arie Gage MD Unavailable Unavailable Arie Gage MD Unavailable Unavailable Arie Gage MD Unavailable Unavailable Arie Gage MD Unavailable Unavailable Arie Gage MD Unavailable Unavailable Arie Gage MD Unavailable Unavailable Arie Gage MD Unavailable Unavailable Arie Gage MD Unavailable Unavailable Arie Gage MD Unavailable Unavailable Arie Gage MD Unavailable Unavailable Arie Gage MD Unavailable Unavailable Arie Gage MD Unavailable Unavailable Arie Gage MD Unavailable Unavailable Arie Gage MD Unavailable Unavailable Arie Gage MD Unavailable Unavailable Arie Gage MD Unavailable Unavailable Arie Gage MD Unavailable Unavailable Arie Gage MD Unavailable Unavailable Arie Gage MD Unavailable Unavailable Arie Gage MD Unavailable Unavailable Arie Gage MD Unavailable Unavailable Arie Gage MD Unavailable Unavailable Arie Gage MD Unavailable Unavailable Arie Gage MD Unavailable Unavailable Arie Gage MD Unavailable Unavailable Arie Gage MD Unavailable Unavailable Arie Gage MD Unavailable Unavailable Arie Gage MD Unavailable Unavailable Arie Gage MD Unavailable Unavailable Arie Gage MD Unavailable Unavailable Arie Gage MD Unavailable Unavailable Arie Gage MD Unavailable Unavailable Arie Gage MD Unavailable Unavailable Arie Gage MD Unavailable Unavailable Arie Gage MD Unavailable Unavailable Arie Gage MD Unavailable Unavailable Arie Gage MD Unavailable Unavailable Arie Gage MD Unavailable Unavailable Arie Gage MD Unavailable Unavailable Arie Gage MD Unavailable Unavailable GageArie MD Unavailable Unavailable Gage Arie Bach MD Unavailable Unavailable Gage, Arie Bach MD Unavailable Unavailable Gage, Arie Bach MD Unavailable Unavailable Gage, Arie Bach MD Unavailable Unavailable RHEA, ANDRAS Unavailable Unavailable AMERICO, L YEIMI PA Unavailable Unavailable AMERICO, L YEIMI PA Unavailable Unavailable AMERICO, L YEIMI PA Unavailable Unavailable AMERICO, L YEIMI PA Unavailable Unavailable AMERICO, L YEIMI PA Unavailable Unavailable AMERICO, L YEIMI PA Unavailable Unavailable AMERICO, L YEIMI PA Unavailable Unavailable AMERICO, L YEIMI PA Unavailable Unavailable AMERICO, L YEIMI PA Unavailable Unavailable AMERICO, L YEIMI PA Unavailable Unavailable Re-disclosure Warning The records that you are about to access may contain information from federally-assisted alcohol or drug abuse programs. If such information is present, then the following federally mandated warning applies: This information has been disclosed to you from records protected by federal confidentiality rules (42 CFR part 2). The federal rules prohibit you from making any further disclosure of this information unless further disclosure is expressly permitted by the written consent of the person to whom it pertains or as otherwise permitted by 42 CFR part 2. A general authorization for the release of medical or other information is NOT sufficient for this purpose. The Federal rules restrict any use of the information to criminally investigate or prosecute any alcohol or drug abuse patient.The records that you are about to access may contain highly sensitive health information, the redisclosure of which is protected by Article 27-F of the [facility] Public Health law. If you continue you may have access to information: Regarding HIV / AIDS; Provided by facilities licensed or operated by the [facility] Office of Mental Health; or Provided by the [facility] Office for People With Developmental Disabilities. If such information is present, then the following [facility] mandated warning applies: This information has been disclosed to you from confidential records which are protected by state law. State law prohibits you from making any further disclosure of this information without the specific written consent of the person to whom it pertains, or as otherwise permitted by law. Any unauthorized further disclosure in violation of state law may result in a fine or [place] [facility] sentence or both. A general authorization for the release of medical or other information is NOT sufficient authorization for further disc losure. Allergies and Adverse Reactions Type Description Substance Reaction Status Data Source(s ) Drug Class NO KNOWN ALLERGIES NO KNOWN ALLERGIES [facility] Drug allergy Drug allergy NKDA [facility] (No [facility]) Family History Family Member Name Family Member Gender Family Member Status Date o f Status Description Data Source(s) Unknown Unknown Problem [facility] ([facility]) Encounters Encounter Providers Location Date Indications Data Source(s ) Outpatient Attender: MADELAINE WILKERSON 09/01/2020 12:00:00 AM ES [facility] Outpatient Attender: YEIMI HDEZ Main Office 08/29/2020 0 1:00:00 PM EST [facility] ([facility]) Office Visit Attender: Johanne HDEZ Main office - [facility] 07/04/2020 12:45:00 PM EST [facility] ([facility]) Outpatient [facility] [place] [address] 06/10/2020 12:00:00 AM EDT eCW1 ([facility]) Outpatient Attender: Angelika DE LA CRUZ PA-C Physical Therapy 06/06/2020 08:30:00 AM EDT [facility] ([facility]) Outpatient Attender: MADELAINE WILKERSON [id number] 05/19/2020 12:00:00 AM EDT - 05/19/2020 04:22:36 PM EDT End stage renal disease [facility] End stage renal disease Office Visit Attender: Tomás Muller MD Physical Therapy 2019 10:45:00 AM EDT [facility] ([facility]) Outpatient Attender: Everette Camara/Mine/Rishi/aMni l 04/06/2020 09:00:00 AM EDT [facility] ([facility]) Outpatient Attender: Johanne HDEZ Main office - [facility] 04/01/2020 08:45:00 AM EDT [facility] ([facility]) Outpatient Attender: Everette Camara/Mine/Rishi/Zarid l 03/17/2020 09:15:00 AM EDT [facility] ([facility]) Outpatient Attender: VI IYER MD Main Office 12/23/2019 11:30:00 AM EDT [facility] ([facility]) Outpatient Attender: Isreal Camara/Mine/Rishi/Berta zee 12/15/2019 11:30:00 AM EDT [facility] ([facility]) Outpatient Attender: Johanne HDEZ Main office - [facility] 09/18/2019 07:45:00 AM EST [facility] ([facility]) Outpatient Attender: PAMELA BARAHONA [facility] Office 10/2019 08:00:00 AM EST [facility] ([facility] Outpatient Attender: AWAIS ROBISON 07/28/2019 12:00:00 AM [facility] Medications Medication Brand Name Start Date Product Form Dose Route Admi nistrative Instructions Pharmacy Instructions Status Indications Reaction Description Data Source(s) Omeprazole 40 MG Delayed Release Oral Capsule Omeprazole 08/28/2020 12:00:00 AM EST ORAL active [facility] ([facility]) Clonazepam 0.5 MG Oral Tablet Clonazepam 08/28/2020 12:00:00 AM EST ORAL active [facility] ([facility] Mupirocin 0.02 MG/MG Topical Ointment Mupirocin 08/08/2020 12:00:00 AM EST active [facility] chlorhexidine gluconate 40 MG/ML Medicated Liquid Soap [Hibi clens] Hibiclens 08/08/2020 12:00:00 AM EST active [facility] ([facility]) Hydroxychloroquine Sulfate 200 MG Oral T ablet Hydroxychloroquine Sulfate 200 MG Oral Tablet (PLAQUENIL) Hydroxychloroquine Sulfate 200 MG Oral T ablet (PLAQUENIL) 08/06/2019 12:00:00 AM EST 200 mg Oral active Take 1 tablet by mouth Two Times Daily [facility] Amitriptyline Hydrochloride 10 MG Oral Tablet Amitriptyline HCL 07/24/2019 12:00:00 AM EST ORAL completed [facility] ([facility]) Insurance Providers Payer name Policy type / Coverage type Policy ID Covered constitution party ID Covered constitution party's relationship to magallanes Policy Magallanes Plan Information AARP HEALTH CARE OPTIONS [id number] SP [id number] MEDICARE [id number] MEDICARE [id number] SP [id number] MEDICARE A [id number] Self [id number] AARP U [id number] Self [id number] OTHER B TRANSPLANT Self TRANSPLAN T BCBS [place] PPO [id number] SP [id number] HUMANA GOLD [id number] SP [id number] AARP O [id number] S [id number] MEDICARE C [id number] S [id number] Aarp Insurance Medigap Part B [id number] Self [id number] Medicare Medicare Primary [id number] Self [id number] [employer] Maintenance Organization (HMO) [id number] Self [id number] [employer] BCBS Medigap Part B [id number] Self [id number] Aar Medigap Part B [id number] Self [id number] Medicare [facility] Medicare Primary [id number] Self [id number] MVP Health Maintenance Organization (HMO) [id number] Self [id number] [employer] Health Maintenance Organization (HMO) [id number] Self [id number] [facility] Medigap Part B [id number] Self [id number] [employer] Health Maintenance Organization (HMO) [id number] Self [id number] [employer] BCBS Medigap Part B [id number] Self [id number] Aar Medigap Part B [id number] Self [id number] [place] Medicare Primary [id number] Self [id number] Aarp Medigap Part B [id number] Self [id number] Medicare Part B Medicare Primary [id number] Self [id number] Aarp Insurance Medigap Part B [id number] Self [id number] Medicare Medicare Primary [id number] Self [id number] BC/BS Of [place] Medigap Part B [id number] Self [id number] Simply Blue Ppo Medigap Part B [id number] Self [id number] MVP Cigna Ppo Medigap Part B [id number] Self [id number] Aarp Healthcare Options Medigap Part B [id number] Self [id number] Medicare (Part B) Medicare Primary [id number] Self [id number] [facility] Essential Plan Sta Medigap Part B [id number] Self [id number] MVP Commercial [id number] Self [id number] BC/BS Of [place] Medigap Part B [id number] Self [id number] Simply Blue Ppo Medigap Part B [id number] Self [id number] MVP Cigna Ppo Medigap Part B [id number] Self [id number] Aarp Healthcare Options Medigap Part B [id number] Self [id number] Medicare (Part B) Medicare Primary [id number] Self [id number] BCBS EMPIRE MENDEL DIV SP Aarp Healthcare Options Medigap Part B [id number] Self [id number] [place] [id number] Self [id number] Aarp Medigap Part B [id number] Self [id number] Medicare Part B Medicare Primary [id number] Self [id number] AARP HEALTH CARE OPTIONS [id number] SP [id number] MEDICARE [id number] SP [id number] [facility] [id number] S [id number] [facility] [id number] SP [id number] [employer]G. [id number] SP [id number] Aarp Insurance Medigap Part B [id number] Self [id number] Medicare Medicare Primary [id number] Self [id number] MEDICARE [id number] SP [id number] AARP HEALTH CARE OPTIONS [id number] SP [id number] [employer] Maintenance [employer] (HMO) [id number] Self [id number] [employer] BCBS Medigap Part B [id number] Self [id number] Aarp Medigap Part B [id number] Self [id number] [place] Medicare Primary [id number] Self [id number] [employer] [facility] CARE [id number] SP [id number] MEDICARE [id number] SP [id number] A BC/BS Of [place] Medimaize Part B [id number] Self [id number] Simply Blue Ppo Medigap Part B [id number] Self [id number] MVP Cigna Ppo Medigap Part B [id number] Self [id number] [facility] Options Medigap Part B [id number] Self [id number] Medicare (Part B) Medicare Primary [id number] Self [id number] BC/BS Of [place] Medigap Part B [id number] Self [id number] Simply Blue Ppo Medigap Part B [id number] Self [id number] MVP Cigna Ppo Medigap Part B [id number] Self [id number] [facility] Options Medigap Part B [id number] Self [id number] Medicare (Part B) Medicare Primary [id number] Self [id number] [facility] Options Medigap Part B [id number] Self [id number] [place] [id number] Self [id number] Aarp Insurance Medigap Part B [id number] Self [id number] Medicare Medicare Primary [id number] Self [id number] AARP HEALTH CARE OPTIONS [id number] SP [id number] AARP O [id number] S [id number] MEDICARE C [id number] S [id number] MEDICARE A [id number] Self [id number] A [facility] COMMUNITY PLAN [facility] [id number] SP [id number] [facility] Community Plan Commercial [id number] Self [id number] BCBS Of [place] Medigap Part B [id number] Self [id number] BCBS Ppo Commercial [id number] Self [id number] Aarp Commercial [id number] Self [id number] Medicare [facility] Medicare Primary [id number] Self [id number] MVP Health Maintenance Organization (HMO) [id number] Self [id number] MVP Health Maintenance Organization (HMO) [id number] Self [id number] BC/BS Of [place] Medigap Part B [id number] Self [id number] Simply Blue Ppo Medigap Part B [id number] Self [id number] MVP Cigna Ppo Medigap Part B [id number] Self [id number] [facility] Options Medigap Part B [id number] Self [id number] Medicare (Part B) Medicare Primary [id number] Self [id number] Medicare Medicare Primary [id number] Self [id number] MEDICARE A [id number] Self [id number] A [facility] CARE U [id number] Self [id number] BC/BS Of [place] Medigap Part B [id number] Self [id number] Simply Blue Ppo Medigap Part B [id number] Self [id number] MVP Cigna Ppo Medigap Part B [id number] Self [id number] [facility] Essential [place] Medicaid [id number] Self [id number] UNHC COMMUNITY PLAN MCDHMO [id number] SP [id number] United Healthcare Hmo Commercial [id number] Self [id number] [facility](MCAID) O [id number] S [id number] UNHC COMMUNITY PLAN MCDHMO [id number] SP [id number] [facility] Community Plan Commercial [id number] Self [id number] BCBS Of [place] Medigap Part B [id number] Self [id number] BCBS Ppo Commercial [id number] Self [id number] United Healthcare Hmo Commercial [id number] Self [id number] United Healthcare Hmo Commercial [id number] Self [id number] United Healthcare Hmo Commercial [id number] Self [id number] BC/BS Of [place] Medigap Part B [id number] Self [id number] Simply Blue Ppo Medigap Part B [id number] Self [id number] MVP Cigna Ppo Medigap Part B [id number] Self [id number] United [employer] Hmo Commercial Self [facility] Ess[place] Medicaid Self MVP Cigna Ppo Commercial Self BC/BS Of [place] Medigap Part B Self Simply Blue Ppo Medigap Part B Self MVP Commercial Self United Healthcare Bubba/MCR Health Maintenance Organization (HMO) Self SELF PAY UNAVAILABLE SP UNAVAILA BLE MVP H [id number] Self [id number] [facility] PHY [id number] SP [id number] MVP [id number] Felisa [id number] [facility] PHY [id number] SP [id number] EXCELLUS H [id number] Self [id number] BCBS [place] PPO 302/[phone] [id number] SP [id number] BCBS HMO [place] O [id number] S [id number] BCBS HMO [place] O [id number] S [id number] Problems, Conditions, and Diagnoses Code Display Name Description Problem Type Effective Dates Data Source(s) M19.049 [id number] Osteoarthritis of [place], unspecified laterality, unspecified osteoarthritis type Problem 06/10/2020 12:00:00 AM EDT [facility] ([facility]) M32.9 [id number] Systemic lupus erythematosus (SLE) in adin lt Problem 06/10/2020 12:00:00 AM EDT eCW1 ([facility]) D68.61 [id number] Antiphospholipid antibody syndrome Proble m 06/10/2020 12:00:00 AM EDT eC1 ([facility]) 88102373 Pain in limb Pain in limb Problem 03/13/2020 12:00:00 A M EDT [facility] ([facility] N18.6 End stage renal disease End stage renal disease Diagno sis 05/19/2020 02:00:27 PM EDT [facility] Surgeries/Procedures Procedure Description Date Indications Data Source(s) ECG ROUTINE ECG W/LEAST 12 LDS W/I&R 08/29/2020 12:00: 00 AM EST [facility] ([facility]) DEBRIDEMENT NAIL ANY METHOD 6/> 06/24/2020 12:00:00 AM EST [facility] ([facility] X-Ray Hip Unilateral With Pelvis 2-3 Views 06/06/2020 12:00:00 AM EDT [facility] ([facility] ) Control Nosebleed Anterior Simple 03/17/2020 12:00:00 AM EDT [facility] ([facility], ) DEBRIDEMENT NAIL ANY METHOD 6/> 03/04/2020 12:00:00 AM EDT [facility] ([facility] ECHO TTHRC R-T 2D W/WOM-MODE COMPL SPEC&COLR DOP 01/05 12:00:00 AM EDT [facility] ([facility]) ECG ROUTINE ECG W/LEAST 12 LDS W/I&R 12/23/2019 12:00: 00 AM EDT [facility] ([facility]) Spirometry 12/15/2019 12:00:00 AM EDT [facility] ([facility], ) Echography Soft Tissue Hand & Neck 09/17/2019 12:00:00 AM EST [facility] ([facility] ) ELECTROENCEPHALOGRAM W/REC AWAKE&ASLEEP 07/21/2019 12: 00:00 AM EST [facility] ([facility], ) ELECTROENCEPHALOGRAM W/REC AWAKE&ASLEEP 07/21/2019 12: 00:00 AM EST [facility] ([facility], ) Needle electromyography, each extremity, with related paraspinal areas, when performed, done with nerve conduction, amplitude and latency/velocity study; complete, five or more muscles studied, innervated by three or more nerves or four or more spinal levels (list separately in addition to the code for primary procedure). 07/13/2019 12:00:00 AM EST MEDEN T ([facility], ) Needle electromyography, each extremity, with related paraspinal areas, when performed, done with nerve conduction, amplitude and latency/velocity study; complete, five or more muscles studied, innervated by three or more nerves or four or more spinal levels (list separately in addition to the code for primary procedure). 07/13/2019 12:00:00 AM EST MEDEN T ([facility], ) 16244 Nerve conduction studies 13 or more studies NEW 201207/13/2019 12:00:00 AM EST [facility] ([facility], ) Results ID Date Data Source [id number] 08/31/2020 10:30:00 AM EST [facility] Name Value Range Interpretation Code Description Data Faiza rce(s) Supporting Document(s) SARS coronavirus 2 RNA Not Detected [facility] [place] This lab was ordered by [facility] and reported by [facility]. ID Date Data Source [id number] 08/22/2020 08:35:00 AM EST [facility] ([facility]) Name Value Range Interpretation Code Description Data Faiza rce(s) Supporting Document(s) Prothrombin Time 25.1 s 12.5-14.3 [facility] ([facility]) Inr 2.22 [facility] ([facility]) THERAPUTIC HUMAN INR VALUES INDICATIONS NORMAL RANGES PROPHYLAXIS/TREATMENT OF: VENOUS THROMBOSIS 2.0-3.0 PULMONARY EMBOLISM 2.0-3.0 PREVENTION OF SYSTEMIC EMBOLISM FROM: TISSUE HEART VALVES 2.0-3.0 ACUTE MYOCARDIAL INFARCTION 2.0-3.0 VALVULAR HEART DISEASE 2.0-3.0 ATRIAL FIBRILLATION 2.0-3.0 MECHANICAL VALVES(HIGH RISK) 2.5-3.5 RECURRENT MYOCARDIAL INFARCTION 2.5-3.5 ID Date Data Source [id number] 08/22/2020 08:35:00 AM EST [facility] ([facility]) Name Value Range Interpretation Code Description Data Faiza rce(s) Supporting Document(s) Glucose, Fasting 108 mg/dL 70-100 [facility] ([facility]) Blood Urea Nitrogen 38 mg/dL 7-18 [facility] ([facility]) Glomerular Filtration Rate 5.9 [facility] ([facility]) <content>Units are mL/min/1.73 m2</content>
<content></content>
<content>Chronic Kidney Disease Staging per NKF:</content>
<content></content>
<content>Stage I & II GFR >=60 Normal to Mildly Decreased</content>
<content>Stage III GFR 30- 59 Moderately Decreased</content>
<content>Stage IV GFR 15-29 Severely Decreased</content>
<content>Stage V GFR <15 Very Little GFR Left</content>
<content>ESRD GFR <15 on AGRICULTURAL EXTENSION OFFICER</content>
<content></content> Creatinine For GFR 9.56 mg/dL 0.70-1.30 Above upper panic limits [facility] ([facility]) Chloride Level 97 meq/L 98-107 [facility] Sodium Level 137 meq/L 136-145 [facility] Potassium Serum 4.6 meq/L 3.5-5.1 [facility] ([facility]) Carbon Dioxide Level 28 meq/L 21-32 [facility] ([facility]) Anion Gap 12 meq/L 8-16 [facility] Calcium Level 9.6 mg/dL 8.8-10.2 [facility]) Ast/Sgot 23 U/L 7-37 [facility] Alt/SGPT 28 U/L 12-78 [facility] Bilirubin,Total 0.4 mg/dL 0.2-1.0 [facility] ([facility]) Alkaline Phosphatase 119 U/L 45-117 [facility] ([facility]) Albumin/Globulin Ratio 1.2 [facility] ([facility]) Total Protein 6.9 GM/DL 6.4-8.2 [facility] ([facility]) Albumin 3.8 GM/DL 3.2-5.2 [facility] ([facility]) ID Date Data Source [id number] 08/22/2020 08:35:00 AM EST [facility] ([facility]) Name Value Range Interpretation Code Description Data Faiza rce(s) Supporting Document(s) Erythrocyte sedimentation rate by Westergren method 21 mm/hr 0-20 [facility] ([facility]) ID Date Data Source [id number] 08/22/2020 08:35:00 AM EST [facility] ([facility]) Name Value Range Interpretation Code Description Data Faiza rce(s) Supporting Document(s) Red Blood Count 5.28 10 4.30-6.10 [facility] ([facility]) Hemoglobin 11.3 g/dL 13.5-17.5 [facility] ([facility]) White Blood Count 7.4 10 4.0-10.0 [facility] ([facility]) Mean Corpuscular Hemoglobin 21.4 pg 27.0-33.0 [facility] ([facility]) Hematocrit 37.4 % 42.0-52.0 [facility] ([facility]) Mean Corpuscular Volume 70.8 fl 80.0-96.0 M EDENT ([facility]) Platelet Count, Automated 296 10 150-450 [facility] ([facility]) Red Cell Distribution Width 17.9 % 11.5-14.5 [facility] ([facility]) Mean Corpuscular HGB Conc 30.2 g/dL 32.0-36.5 [facility] ([facility]) Nucleated Red Blood Cell % 0.3 % 0-0 [facility] ([facility]) ID Date Data Source [id number] 08/18/2020 12:59:00 PM EST [facility] ([facility]) Name Value Range Interpretation Code Description Data Faiza rce(s) Supporting Document(s) Hemoglobin A1c/Hemoglobin.total in Blood 10.5 [facility] ([facility]) ID Date Data Source [id number] 08/18/2020 12:59:00 PM EST [facility] Name Value Range Interpretation Code Description Data Faiza rce(s) Supporting Document(s) Magnesium Level 2.1 [facility] ([facility]) ID Date Data Source [id number] 08/18/2020 12:59:00 PM EST [facility] ([facility]) Name Value Range Interpretation Code Description Data Faiza rce(s) Supporting Document(s) Cholesterol in LDL [Mass/volume] in Serum or Plasma by calculation 67 [facility] ([facility]) HDL 47 40-60 [facility] ([facility]) Cholesterol 144 0-199 [facility] ([facility]) Triglycerides 149 [facility] ([facility]) Chol/HDL Ratio 3.1 [facility] ([facility]) ID Date Data Source [id number] 08/18/2020 12:59:00 PM EST [facility] ([facility]) Name Value Range Interpretation Code Description Data Faiza rce(s) Supporting Document(s) Tibc % Saturation 45 [facility] ([facility]) Iron binding capacity [Mass/volume] in Serum or Plasma 261 [facility] ([facility]) Iron 117 45-160 [facility] ([facility]) ID Date Data Source [id number] 08/18/2020 12:59:00 PM EST [facility] Name Value Range Interpretation Code Description Data Faiza rce(s) Supporting Document(s) Chloride [Moles/volume] in Serum or Plasma 96 [facility] ([facility]) Sodium 137 [facility] ([facility]) Carbon dioxide, total [Moles/volume] in Serum or Plasma 21 [facility] ([facility]) Calcium [Mass/volume] in Serum or Plasma 9.3 [facility] ([facility]) Potassium [Moles/volume] in Serum or Plasma 4.7 [facility] ([facility]) Glucose Laboratory test result 70-100 [facility] ([facility]) Blood Urea Nitrogen 45 6-19 [facility] ([facility]) Creatinine 9.59 0.60-1.30 [facility] ([facility]) Glomerular filtration rate/1.73 sq M.pre dicted [Volume Rate/Area] in Serum or Plasma by Creatinine-based formula (MDRD) Laboratory test result [facility] ([facility]) ID Date Data Source [id number] 08/18/2020 12:59:00 PM EST [facility] Name Value Range Interpretation Code Description Data Faiza rce(s) Supporting Document(s) White Blood Count 7.05 4.70-10.80 [facility] ([facility]) Red Blood Count 5.41 4.70-6.10 [facility] ([facility]) Platelets Laboratory test result 130-400 ME DENT ([facility]) Hemoglobin 11.6 14.0-18.0 [facility] ([facility]) Hematocrit 39.0 42.0-52.0 [facility] ([facility]) ID Date Data Source [id number] 07/27/2020 02:23:00 PM EST [facility] Name Value Range Interpretation Code Description Data Faiza rce(s) Supporting Document(s) Iron 82 45-160 [facility] ([facility]) Iron binding capacity [Mass/volume] in Serum or Plasma 244 [facility] ([facility]) Tibc % Saturation 34 [facility] ([facility]) ID Date Data Source [id number] 07/27/2020 02:23:00 PM EST [facility] ([facility]) Name Value Range Interpretation Code Description Data Faiza rce(s) Supporting Document(s) Carbon dioxide, total [Moles/volume] in Serum or Plasma 21 [facility] ([facility]) Calcium [Mass/volume] in Serum or Plasma 9.6 [facility] ([facility]) Sodium 139 [facility] Potassium [Moles/volume] in Serum or Plasma 4.6 [facility] ([facility]) Chloride [Moles/volume] in Serum or Plasma 99 [facility] ([facility]) Glucose Laboratory test result 70-100 [facility] ([facility]) Blood Urea Nitrogen 43 6-19 [facility] ([facility]) Creatinine 10.94 0.60-1.30 [facility] ([facility]) Glomerular filtration rate/1.73 sq M.pre dicted [Volume Rate/Area] in Serum or Plasma by Creatinine-based formula (MDRD) Laboratory test result [facility] ([facility]) ID Date Data Source [id number] 07/27/2020 02:23:00 PM EST [facility] ([facility]) Name Value Range Interpretation Code Description Data Faiza rce(s) Supporting Document(s) White Blood Count 7.83 4.80-10.80 [facility] ([facility]) Platelets Laboratory test result 130-400 ME [facility] ([facility]) Red Blood Count 5.65 4.70-6.10 [facility] ([facility]) Hemoglobin 12.2 14.0-18.0 [facility] ([facility]) Hematocrit 37.9 42.0-52.0 [facility] ([facility]) ID Date Data Source IMMUNOGLOBULIN G 06/16/2020 12:49:12 PM EST eCW1 ([facility]) Name Value Range Interpretation Code Description Data Faiza rce(s) Supporting Document(s) 849 eCW1 ([facility]) ID Date Data Source CHELLY TITER & PATTERN 06/16/2020 12:49:12 PM EST eCW1 ([facility]) Name Value Range Interpretation Code Description Data Faiza rce(s) Supporting Document(s) Negative eCW1 ([facility]) ID Date Data Source ANTI-SJOGRENS A&B ANTIBODIES 06/16/2020 12:49:12 PM EST eCW1 ([facility]) Name Value Range Interpretation Code Description Data Faiza rce(s) Supporting Document(s) <0.2 eCW1 ([facility]) <0.2 eCW1 ([facility]) ID Date Data Source IMMUNOGLOBULIN M 06/16/2020 12:49:12 PM EST eCW1 ([facility]) Name Value Range Interpretation Code Description Data Faiza rce(s) Supporting Document(s) 60.8 eCW1 ([facility]) ID Date Data Source SERUM PROTEIN ELECTROPHORESIS (SPEP) 06/16/2020 12:49:12 PM EST eCW1 ([facility]) Name Value Range Interpretation Code Description Data Faiza rce(s) Supporting Document(s) 61.0 eCW1 ([facility]) 4.9 eCW1 ([facility]) 5.3 eCW1 ([facility]) 5.1 eCW1 ([facility]) 11.1 eCW1 ([facility]) 0.33 eCW1 ([facility]) 0.74 eCW1 ([facility]) 12.6 eCW1 ([facility]) 4.09 eCW1 ([facility]) 0.84 eCW1 ([facility]) 0.36 eCW1 ([facility]) 0.34 eCW1 ([facility]) 6.7 eCW1 ([facility]) SEE COMMENT eCW1 ([facility]) ID Date Data Source ANTI-HISTONE ANTIBODIES 06/16/2020 12:49:12 PM EST eCW1 ([facility]) Name Value Range Interpretation Code Description Data Afiza rce(s) Supporting Document(s) 0.3 eCW1 ([facility]) ID Date Data Source COMPLEMENT TOTAL (CH50) 06/16/2020 12:49:12 PM EST eCW1 ([facility]) Name Value Range Interpretation Code Description Data Faiza rce(s) Supporting Document(s) > 60 eCW1 ([facility]) ID Date Data Source ANTI DOUBLE STRAND DNA MANOJ 06/16/2020 12:49:12 PM EST eCW1 ( [facility]) Name Value Range Interpretation Code Description Data Faiza rce(s) Supporting Document(s) eCW1 ([facility]) ID Date Data Source IMMUNOGLOBULIN A 06/16/2020 12:49:12 PM EST eCW1 ([facility]) Name Value Range Interpretation Code Description Data Faiza rce(s) Supporting Document(s) 193.0 eCW1 ([facility]) ID Date Data Source COMPLEMENT C4 06/16/2020 12:49:12 PM EST eCW1 ([facility]) Name Value Range Interpretation Code Description Data Faiza rce(s) Supporting Document(s) 29 eCW1 ([facility]) ID Date Data Source COMPLEMENT C3 06/16/2020 12:49:12 PM EST eCW1 ([facility]) Name Value Range Interpretation Code Description Data Faiza rce(s) Supporting Document(s) 95 eCW1 ([facility]) ID Date Data Source C REACTIVE PROTEIN QUANTITATIV (At [facility]) 06/16/2020 05:07 :58 AM EST eCW1 ([facility]) Name Value Range Interpretation Code Description Data Faiza rce(s) Supporting Document(s) 1.29 eCW1 ([facility]) ID Date Data Source ERYTHROCYTE SEDIMENTATION RATE 06/14/2020 02:28:06 AM EST eC W1 ([facility]) Name Value Range Interpretation Code Description Data Faiza rce(s) Supporting Document(s) 9 eCW1 ([facility]) ID Date Data Source CBC with Differential 06/14/2020 02:28:06 AM EST eCW1 ([facility]) Name Value Range Interpretation Code Description Data Faiza rce(s) Supporting Document(s) 11.1 eCW1 ([facility]) 38.1 eCW1 ([facility]) 5.36 eCW1 ([facility]) 6.0 eCW1 ([facility]) 71.1 eCW1 ([facility]) 17.2 eCW1 ([facility]) 29.1 eCW1 ([facility]) 20.7 eCW1 ([facility]) 197 eCW1 ([facility]) 13.9 eCW1 ([facility]) 29.9 eCW1 ([facility]) 54.4 eCW1 ([facility]) 1.8 eCW1 ([facility]) 0.0 eCW1 ([facility]) 1.3 eCW1 ([facility]) 3.2 eCW1 ([facility]) 0.8 eCW1 ([facility]) 0.1 eCW1 ([facility]) 0.0 eCW1 ([facility]) ID Date Data Source [id number] 06/10/2020 09:32:00 AM EDT [facility] ([facility]) Name Value Range Interpretation Code Description Data Faiza rce(s) Supporting Document(s) Laboratory test finding (navigational concept) Laboratory test result [facility] ([facility]) ID Date Data Source [id number] 05/19/2020 05:27:56 PM EDT [facility] Name Value Range Interpretation Code Description Data Faiza rce(s) Supporting Document(s) Progress Note [facility] QBHTHd3zCzKKCzBr05/DYClvGTLbc5DpETidQQk6RLkcJCRhR3PaAIT9dO8mXYP4OXwVBnNsAiAtLDX5 lbm [file] ICAgICAgICAgICAgICAgICAgICAgICAgICAgICAgICAgICAgICAgICAgICAgICAgICAgICAgICAgICAg DQogICAgICAgICAgICAgICAgICAgICAgICAgICAgIC AgICAgICAgICAgICAgICAgICAgICAgICAgICAgICAgICAgICAgICAgICAgICAgICAgICAgICAgICAgIC AgICAgICAgICAgDQogICAgICAgICAgICAgICAgICAgICAgICAgICAgICAgICAgICAgICAgICAgICAgIC AgICAgICAgICAgICAgICAgICAgICAgICAgICAgICAg ICAgICAgICAgICAgICAgICAgICAgDQogICAgICAgICAgICAgICAgICAgICAgICAgICAgICAgICAgICAg ICAgICAgICAgICAgICAgICAgICAgICAgICAgICAgICAgICAgICAgICAgICAgICAgICAgICAgICAgICAg ICAgDQogICAgICAgICAgICAgICAgICAgICAgICAgIC AgICAgICAgICAgICAgICAgICAgICAgICAgICAgICAgICAgICAgICAgICAgICAgICAgICAgICAgICAgIC AgICAgICAgICAgICAgDQogICAgICAgICAgICAgICAgICAgICAgICAgICAgICAgICAgICAgICAgICAgIC AgICAgICAgICAgICAgICAgICAgICAgICAgICAgICAg ICAgICAgICAgICAgICAgICAgICAgICAgDQogICAgICAgICAgICAgICAgICAgICAgICAgICAgICAgICAg ICAgICAgICAgICAgICAgICAgICAgICAgICAgICAgICAgICAgICAgICAgICAgICAgICAgICAgICAgICAg ICAgICAgDQogICAgICAgICAgICAgICAgICAgICAgIC AgICAgICAgICAgICAgICAgICAgICAgICAgICAgICAgICAgICAgICAgICAgICAgICAgICAgICAgICAgIC AgICAgICAgICAgICAgICAgDQogICAgICAgICAgICAgICAgICAgICAgICAgICAgICAgICAgICAgICAgIC AgICAgICAgICAgICAgICAgICAgICAgICAgICAgICAg ICAgICAgICAgICAgICAgICAgICAgICAgICAgDQogICAgICAgICAgICAgICAgICAgICAgICAgICAgICAg ICAgICAgICAgICAgICAgICAgICAgICAgICAgICAgICAgICAgICAgICAgICAgICAgICAgICAgICAgICAg YHTcDQJcZLGeEVd8H7mmWZPmOQCqQC7aCRp3Qg6+DQ zZVtRwUUO6apGtvE5QDU1qo4SdFDxfPLDua1OgCMd1KS6IINYuCAprUP1LGQoiej0OHIMyQXEejFBVr6 jrQkIkGUK8EEAwKlpeAT3BWOWmF7kzivTrYLMlDMIBXF6JXqNhT4PglQ67NORFPn5+DQplbmRvYmoNCj EaPLBap4QrTHr1QQ3LZBUsEwdzv7CeXpWuOOKMHZcv EL6PDCN0KWZfDHLhMf8DEKKuP275zlIrMA6EGg6FFeStLA7xrk8FVlLkAILbAniLLmu0XQvaID5QmVVn BJxVdu7nenTmwfJUl6TtrgQpcWMRxtKyZBEtUDHucBpaZROaMQJvAEItGJ1gFBPhVYUmZzZiQXWOKW0P LCSvHCQzvMOsNXSjNZDWPH2IOBntHFR2XWYnejTjkY MlRGhwET2MZXToavNrYeExXPSHZBo+Nf1CMH3dx8RaDJmdDZVuZF4ngl2NKCoMYfGtE2Y0cUZtR0X5ZX oiAc4FBKAzLJTtItOpWLVJVAjeWN9RTS2vvxS5PL6FrTDrYZJvKSZqnJWhGDe3R14dfMVwUJttOT3OUM A+Barbie+Ze7JQYMeIJIhJAIiAuHcFGIAOrXlX8ImF4FO v0KeA6XoIZ79cRcquxJmIOurHQ0LRT5lPXZlWHQCVR6LjJPzjC0halKqPdZtGDMFNrQdZ37brEClARPm FNLcVAMqAp7TSTDwX7FdaoFqnAspssGfLWAtOCUAHN3DGYboldOlzFGfwQonYC63jZrnHJ0BTb9EUcIp AN6huy6YzCNyAz1CNPLwJF4WDHUgEBJjQYFhZFK2CC JnOmSpTMskHJVwSWVoBGZ3KOBnMWIpML8QGkJvKHVsAFubKJIeKRAyPLMtox1ELYFqVQYcFEW1GGAeNN OrEZMrDFlrPLUqMIJtGDO8BKZaKCCyPO0RHwGxRMGgRMS9MrRgIPCoFEOytp5QSGDiPNIdDeI1HCZsNF JhKWSdSJnkNSXmCZS5LMM0SLCaNBGlOB0BKiLqDLJd PVUvBhVtJPObSAXdre5XPBVtJFAxRNBdNJRcSRYlVKDvHKboSYHvTJP0NeliBQQkVUAwXI8HPxOjNMSz CMJ0DmLkNJBwJYKdwp8HNAApPLApFPg6WlNjQHWhJTByRAgwTOIjIBU0ZWW1INVlOSMnTS7BEsZdFSCr NYo3GzNpMUVqBAFyrk9LVQHhIUZlKuL1MeIkWMKaST UfQYhjIVOdAHE7DWbqQPIlIFVjJI5XKhGxDKWdAPjiYypsIMDjSRXbtd2XCSFjSOGoCAb7SuRxXYEcLJ WrOHtbBHNiZLX4SKTjJNXjFOGrKL5AHgTxXDByDPooEjRqODFnBXBwak5QFPVlAQHhIKs9EYHsJHXgCU DdXPxzRXFgFWSvVRt7TKLbMDEkNX0LJfCcOAAsBvHc GTwnGZWqRXSdau2QXUPqTJHtWGC3PJLqHAFeCWEnOHe3lgZgwNPxAAw1NO2TB0BhpmOcRcWTIm7Iu211 WBA0OYXxWu7JL5hsTu3sPFIxNEXFTu2IDZg7SfOuGXBpLXRnC4SkJMOvQoeeFQm5DWrtKwfzBvMgJJS+ WKj7PNQ6PvK8AILcBIR9TdYdDEYxODtxTUOzVJUhGL L4UG5gKJXCAh0+XBaauEVnnOtnZDEBHkJoBuK2FFezDTFYZy9Y ID Date Data Source [id number] 05/19/2020 05:27:51 PM EDT [facility] Name Value Range Interpretation Code Description Data Faiza rce(s) Supporting Document(s) Progress Note [facility] DPNQBn0wHvWGMuSr46/SQYpaMFHaw3CjOUbaGAt1AIbmIBJtS0EySNQ7eY4eOQJ8LJsPNdKmLjZpCGE1 lbm [file] AgICAgICAgICAgICAgICAgICAgICAgICAgICAgICAg ICAgICAgICAgICAgICAgICAgICAgICAgICAgICAgICAgICAgICAgICAgICAgICAgICAgICAgICAgICAg ICAgICAgDQogICAgICAgICAgICAgICAgICAgICAgICAgICAgICAgICAgICAgICAgICAgICAgICAgICAg ICAgICAgICAgICAgICAgICAgICAgICAgICAgICAgIC AgICAgICAgICAgICAgICAgDQogICAgICAgICAgICAgICAgICAgICAgICAgICAgICAgICAgICAgICAgIC AgICAgICAgICAgICAgICAgICAgICAgICAgICAgICAgICAgICAgICAgICAgICAgICAgICAgICAgICAgDQ ogICAgICAgICAgICAgICAgICAgICAgICAgICAgICAg ICAgICAgICAgICAgICAgICAgICAgICAgICAgICAgICAgICAgICAgICAgICAgICAgICAgICAgICAgICAg ICAgICAgICAgDQogICAgICAgICAgICAgICAgICAgICAgICAgICAgICAgICAgICAgICAgICAgICAgICAg ICAgICAgICAgICAgICAgICAgICAgICAgICAgICAgIC AgICAgICAgICAgICAgICAgICAgDQogICAgICAgICAgICAgICAgICAgICAgICAgICAgICAgICAgICAgIC AgICAgICAgICAgICAgICAgICAgICAgICAgICAgICAgICAgICAgICAgICAgICAgICAgICAgICAgICAgIC AgDQogICAgICAgICAgICAgICAgICAgICAgICAgICAg ICAgICAgICAgICAgICAgICAgICAgICAgICAgICAgICAgICAgICAgICAgICAgICAgICAgICAgICAgICAg ICAgICAgICAgICAgDQogICAgICAgICAgICAgICAgICAgICAgICAgICAgICAgICAgICAgICAgICAgICAg ICAgICAgICAgICAgICAgICAgICAgICAgICAgICAgIC AgICAgICAgICAgICAgICAgICAgICAgDQogICAgICAgICAgICAgICAgICAgICAgICAgICAgICAgICAgIC AgICAgICAgICAgICAgICAgICAgICAgICAgICAgICAgICAgICAgICAgICAgICAgICAgICAgICAgICAgIC AgICAgDQogICAgICAgICAgICAgICAgICAgICAgICAg ICAgICAgICAgICAgICAgICAgICAgICAgICAgICAgICAgICAgICAgICAgICAgICAgICAgICAgICAgICAg APElDAIfALJkHHCdBEElAZg5G4prHGQjAYNsQX2kQTd3Fk8+VMlTNxGcYDS3bmQwrC5GJW4fc6DnMCyk HFOfd4BsJUr2VL2UOXWfTEprAW7AEAfarb9TEZWpJL XuvCETe7xhYdViDPF5JUSyFcgjID8HPWRcT3vqxxTfJFKaNKGLTTgcJJKGOCbjDWPHZDZgMYUdTgVnZr HeDEVbQS4ZEKLyD935vuMtYX6PKk8PSuVhPE4qsz0VTgNdMMTfMbpKNnp3TIueWS7UsDVkjSOlPIUdGD FQBmKaV9ezn4JkYaOwPFSAVOyjEV3Wv5YywXUqOTf+ Tr0KXJ5nn5EcNXliWLCcLJ7jxr7CROjPXbDhB7UxfKxgAWOyt7rpKLTjLJ6saOVkHGW7HCmnbSs2gDVC HM7yPECKBJVheBOjEP28OgTdNiHiQJF0BURkGH9mQApgYY6KZEP2KHuqHSNlDPCgT1dWGhJdIFGzLGGg uZltYT4MEvLoB7VjelOfdJSoNPTkROKNPb6+DQplbm DaQieILyVzVLHhk4AxCYu9OK8BAICgKSdrZS1BDXJupU1nRXsdDL5NGaGoNLUrBLIBAfZdO37uzIElDL v7I0JlOsJjAZWnIwcmXQPlBTluGqJiXKGgEqUtGHuzYN9+ID4+DKucNE1EZHoibxOiFZIpXw4JMGDdTA IxGY8rREGiQNAsL1T4vSvmXIBJBaCdM1wfgthyTE2h FEGvV049sWkfbuOdBOLvFWFaOy5GOEGsMFF0GMWfdOTzKdqhEUKFTGtiDY6TeMLsPBE4mH3jCZfuZQXh OBGoH9gTMaMxuDadWC77bEwphrBscQLcHEe+Tf5CTL5fm5IxKQk4qpAiIYbgOCEzIDibTFPcNDOtOFZk HJU4SKN8DXOAPrUaGWFtXDPyBVnvLHAyYPAmtl0FVE HnKXReYAsjOSOdEELsEBHwXDynSYOxTKWfYWM4DOBjQJUcVS7SAeRsXCIcPURhCYxcIXHoOLRknk9XIV ImYYUkPYL5JgUgYRRgTLFvCPmgUYZdCEC3LfueTETzNMVkVZ4HWtHyGRGpGIU3BlLeQXNrHBNuym9MSI AwLVPfYoQ3EKFfWYRhQTYcSHeoFDQgGQJ9ZwZlFPMn GIGzJG1BFmJfTGOdHAp1RTGtNPDsCCCugh2MUPWaWIDqKmGfJHVjYHBqOVMiLJepQWMzOCNkVtM5WYPi GEObWE3TFfQnYPGaUXDvGgelUPKxEAQjqb6PGUTjCYYwHIIsGlXhEBRzPREjTLumROJgFLG6QmcjPNGa IJGjHB5ZHmAgOQUbSZU5HCGsRKBfVPZxya4YAFPxID BqWoE1MjKbVQWyJCWdCMwuMFDqCZB5TrGcQVGaTAXxMT9ZUsTkSIVnUVw3ZuNrBAAbJRUeaw8NYDMnAO AlFVZbMkGdJCQgITXuQIjhGPTvPWJ2SYStRNAkEGLqSJ9JNwCaMQHaEuc4DkhwPZCuAJHmpp4WOGZpFL ZrRIh8JkTuTJDvIALjOCklCIVhDBTbVaC8UGVgIDDf HJ6NWwQzAMYiEtHyKWGwCEFqPTWosg3SEPMgHOEySATgZkVbLYEnZLXuNJrgIOSzQTRjRZE0YGIeNKLh RS3QVlJySKXhYfF9QOZuVQFmIKCtlj5UWMKeBJUfLnKgAGDjCDViVMFdICezRGXoHSTvBYlmQLOrAJRl AZ0KIlJqAGYbIaJ7YWGdPDHxLGKqvo9QGJRxLZMpRp b0GTQjGGJnOFSwIAi0afYpdHJsLMn1IY3FZ9RogxKyOwRWUk5Gq505RXYjAPErBq1CH3loCp4tCSBtZF RVBi0HLCr1Kon3KOVmREInWWxuDqEjMmZzWQebNePrRsG5PWr6CVX+YQy1YDh6CbN4WIG5YMJqYSPrMp DrNTXdGHO1GmpuVNL6Hr4qFNOFEe5+CXusbSCwiTtqUQIMYcY4TKF0POvzGYYVJi1M ID Date Data Source [id number] 05/06/2020 12:00:00 AM EDT [facility] Tomás Muller MD Patient Name: TOMÁS AHMADI [id number] [facility] Date [facility] : [address] [place] [address] Date of Exam: 05/06/2020#: Fax: [phone] EXAM: ARTHROCENTESIS LTHIP-ASPIR / INJ STEROID/PAIN MEDSLEFT HIP INJECTION:The procedure was performed by KRISTA Perdomo under the generalsupervision of Dr. Morin.The benefits and risks including, but not limited to pain, infection,bleeding, and anaphylaxis were explained to the patient and informedconsent was obtained.The left femoral neck was localized using fluoroscopic guidance. The skinwas prepped and draped in a sterile fashion. 1% Lidocaine was used as alocal anesthetic. Using fluoroscopic guidance, a #22 gauge spinal needlewas inserted and advanced to the femoral neck. 0.5 cc of Omnipaque 300 wasinjected to verify placement. 6 cc of a solution containing 5 cc of 1%Lidocaine and 1 cc of Kenalog 40 mg was injected into the joint space. Theneedle was then removed.The patient tolerated the procedure well and there were no immediatecomplications.Fluoroscopy time was 4 seconds at 3 pulses/second. This is equal to 1second continuous fluoroscopy time which is a 75% reduction in radiation.ROCKY Kumar/Erin you for referring TOMÁS Stanford GALDINO to our office. Electronically Signed - NENA MORIN MD 05/09/20 8:56 Name Value Range Interpretation Code Description Data Faiza rce(s) Supporting Document(s) ID Date Data Source [id number] 05/06/2020 12:00:00 AM EDT [facility] Tomás Muller MD Patient Name: TOMÁS AHMADI [id number] [facility] Date of : 1955[place] [address] Date of Exam: 05/06/2020#: Fax: [phone] EXAM: ARTHROCENTESIS LTHIP-ASPIR / INJ STEROID/PAIN MEDSLEFT HIP INJECTION:The procedure was performed by KRISTA Perdomo under the generalsupervision of Dr. Morin.The benefits and risks including, but not limited to pain, infection,bleeding, and anaphylaxis were explained to the patient and informedconsent was obtained.The left femoral neck was localized using fluoroscopic guidance. The skinwas prepped and draped in a sterile fashion. 1% Lidocaine was used as alocal anesthetic. Using fluoroscopic guidance, a #22 gauge spinal needlewas inserted and advanced to the femoral neck. 0.5 cc of Omnipaque 300 wasinjected to verify placement. 6 cc of a solution containing 5 cc of 1%Lidocaine and 1 cc of Kenalog 40 mg was injected into the joint space. Theneedle was then removed.The patient tolerated the procedure well and there were no immediatecomplications.Fluoroscopy time was 4 seconds at 3 pulses/second. This is equal to 1second continuous fluoroscopy time which is a 75% reduction in radiation.ROCKY Kumar/Erin you for referring TOMÁS AHMADI to our office. Electronically Signed - NENA MORIN MD 05/09/20 8:56 Name Value Range Interpretation Code Description Data Faiza rce(s) Supporting Document(s) ID Date Data Source [id number] 03/07/2020 12:00:00 AM EDT [facility] Jaiden Atkinson MD Patient Name: TOMÁS [id number] [facility] Date of : 1955[place] [address] Date of Exam: 03/07/2020[place], [place] [address]CB#: Fax: [phone] EXAM: HIP LEFT UNILATERAL (COMPLETE) X-RAYCLINICAL INFORMATION: Pain.Two views of the left hip were performed. I see no evidence of acutefracture or dislocation. There is severe arthritic changes of the hip jointwith severe joint space narrowing in a bone on bone appearance. There ismoderate subchondral sclerosis and cystic change on both sides of thejoint. There is mild acetabular and femoral head spurring.IMPRESSION:Severe arthritic changes left hip joint.ROCKY Kumar/Teresa you for referring TOMÁS AHMADI to our office. Electronically Signed - NENA MORIN MD 03/07/20 17:09 Name Value Range Interpretation Code Description Data Faiza rce(s) Supporting Document(s) ID Date Data Source [id number] 12/15/2019 11:17:00 AM EDT [facility] ([facility], ) Name Value Range Interpretation Code Description Data Faiza rce(s) Supporting Document(s) FVC-Pred 4.40 L [facility] ([facility]) PDFReport Laboratory test result [facility] ([facility]) FVC-LLN 3.50 L [facility] ([facility]) FVC-Pre 3.16 L [facility] ([facility]) FVC-%Pred-Pre 71 L [facility] ([facility]) Fev1-Pred 3.27 L [facility] ([facility]) Fev1-%Pred-Pre 79 L [facility] ([facility]) Fev1-Pre 2.60 L [facility] ([facility]) Fev1-LLN 2.51 L [facility] ([facility]) Fev6-Pre 3.16 L [facility] ([facility]) Fev6-Pred 4.17 L [facility] ([facility]) Bqa2tbf-Gcsw 74 % [facility] ([facility]) Fev6-LLN 3.29 L [facility] ([facility]) Fev6-%Pred-Pre 75 L [facility] ([facility]) Mos4gyh-Ufdf 95 % [facility] ([facility]) Ggr9scc-Btg 82 % [facility] ([facility]) Jvn3lqy-%Pred-Pre 110 % [facility] ([facility]) Kdv7lge-IYZ 65 % [facility] ([facility]) Jju0zut-%Pred-Pre 105 % [facility] ([facility]) Fsi3ehw-Lym 100 % [facility] ([facility]) FEFMax-Pre 9.38 L/E/sec [facility] ([facility]) FEFMax-Pred 8.51 L/E/sec [facility] ([facility]) FEFMax-LLN 6.25 L/E/sec [facility] ([facility]) FEFMax-%Pred-Pre 110 L/E/sec [facility] ([facility]) Rsk5996-Qyq 2.85 L/E/sec [facility] ([facility]) Mqb2014-Pufz 2.58 L/E/sec [facility] ([facility]) Jaz3024-OQP 1.03 L/E/sec [facility] ([facility]) Vmx6891-%Pred-Pre 110 L/E/sec [facility] ([facility]) ExpTime-Pre 5.35 sec [facility] ([facility]) Kdm0wqe2-Kuu 82 % [facility] ([facility]) Qth3nzg2-Znrk 78 % [facility] ([facility]) Jml9vep7-HRB 69 % [facility] ([facility]) Zun1uff9-%Pred-Pre 105 % [facility] ([facility]) ID Date Data Source [id number] 11/24/2019 08:15:00 AM EDT [facility]) Name Value Range Interpretation Code Description Data Faiza rce(s) Supporting Document(s) Magnesium Level 2.2 [facility] ([facility]) Ferritin [Mass/volume] in Serum or Plasma 1193 [facility] ([facility]) ID Date Data Source [id number] 11/24/2019 08:15:00 AM EDT [facility] ([facility]) Name Value Range Interpretation Code Description Data Faiza rce(s) Supporting Document(s) Iron 83 [facility] ([facility]) Tibc % Saturation 39 [facility] ([facility]) Iron binding capacity [Mass/volume] in Serum or Plasma 214 [facility] ([facility]) ID Date Data Source [id number] 11/24/2019 08:15:00 AM EDT [facility] ([facility]) Name Value Range Interpretation Code Description Data Faiza rce(s) Supporting Document(s) Creatinine 11.26 [facility] ([facility]) Blood Urea Nitrogen 41 [facility] ([facility]) Glucose Laboratory test result [facility] ([facility]) Glomerular filtration rate/1.73 sq M.pre dicted [Volume Rate/Area] in Serum or Plasma by Creatinine-based formula (MDRD) Laboratory test result [facility] ([facility]) Sodium 139 [facility] ([facility]) Potassium 5.1 [facility] ([facility]) Carbon Dioxide 26 [facility] ([facility]) Phosphorus 4.7 [facility] ([facility]) Calcium 9.7 [facility] ([facility]) Chloride 97 [facility] ([facility]) Albumin 3.8 [facility] ([facility]) ID Date Data Source [id number] 11/24/2019 08:15:00 AM EDT [facility] ([facility]) Name Value Range Interpretation Code Description Data Faiza rce(s) Supporting Document(s) White Blood Count 7.85 [facility] ([facility]) Red Blood Count 4.78 [facility] ([facility]) Platelets Laboratory test result [facility] ([facility]) Hemoglobin 10.6 [facility] ([facility]) Hematocrit 34.8 [facility] ([facility]) Procedure Social History Code Duration Value Status Description Data Source(s ) Smoking 08/29/2020 12:00:00 AM EST Patient is a former smoker completed Patient is a former smoker [facility] ([facility]) Smoking 06/21/2020 12:00:00 AM EST Patient is a former smoker completed Patient is a former smoker [facility] ([facility], ) Smoking 06/13/2020 12:00:00 AM EST Former Smoker completed Former Smoker eCW1 ([facility]) Smoking 04/25/2020 12:00:00 AM EDT Patient is a former smoker completed Patient is a former smoker [facility] ([facility]) Vital Signs ID Date Data Source UNK Name Value Range Interpretation Code Description Data Source(s) Body mass index (BMI) [Ratio] 35.0 kg/m2 35.0 k g/m2 [facility] ([facility]) Body weight 225.00 [lb_av] 225.00 [lb_av] [facility] T ([facility]) Body height 67.25 [in_i] 67.25 [in_i] [facility] ([facility]) 5'7.25" Body temperature 96.9 [degF] 96.9 [degF] [facility] ([facility]) Heart rate 86 /min 86 /min [facility] ([facility]) Diastolic blood pressure 72 mm[Hg] 72 mm[Hg] [facility] ([facility]) Systolic blood pressure 90 mm[Hg] 90 mm[Hg] M EDENT ([facility]) Diastolic blood pressure--sitting 76 mm[Hg] 76 mm[Hg] [facility] ([facility]) large cuff, Ra Systolic blood pressure--sitting 118 mm[Hg] 118 mm[Hg] [facility] ([facility]) large cuff, Ra Heart rate 89 /min 89 /min [facility] ([facility]) Body mass index (BMI) [Ratio] 34.7 kg/m2 34.7 k g/m2 [facility] ([facility]) Body height 68 [in_i] 68 [in_i] [facility] ([facility]) 5'8" Body weight 228.00 [lb_av] 228.00 [lb_av] [facility] T ([facility]) Body weight 228.00 [lb_av] 228.00 [lb_av] [facility] T ([facility], ) Body height 69 [in_i] 69 [in_i] [facility] ([facility]) 5'9" Oxygen saturation in Arterial blood by Pulse oximetry 99 % 99 % [facility] ([facility]) Room Air Heart rate 90 /min 90 /min [facility] ([facility]) Diastolic blood pressure 70 mm[Hg] 70 mm[Hg] [facility] ([facility]) Systolic blood pressure 110 mm[Hg] 110 mm[Hg] M EDENT ([facility]) Body weight 103.421 kg 103.421 kg [facility] ([facility]) [place] body weight 160 [lb_av] 160 [lb_av] [facility] T ([facility]) Body mass index (BMI) [Ratio] 33.7 kg/m2 33.7 k g/m2 [facility] ([facility]) Diastolic blood pressure 76 mm[Hg] 76 mm[Hg] eCW1 ([facility]) Systolic blood pressure 118 mm[Hg] 118 mm[Hg] e CW1 ([facility]) Body temperature 97.1 [degF] 97.1 [degF] W1 ( [facility]) Heart rate 108 /min 108 /min [facility] ([facility]) Body mass index (BMI) [Ratio] 36.18 kg/m2 36.18 kg/m2 [facility] ([facility]) Body height 67 [in_i] 67 [in_i] eCW1 ([facility]) Body weight 104.8 kg 104.8 kg W1 ([facility]) Body weight 231.0 [lb_av] 231.0 [lb_av] W1 ([facility]) Body temperature 97.1 [degF] 97.1 [degF] [facility] Body mass index (BMI) [Ratio] 37.0 kg/m2 37.0 k g/m2 [facility] Body weight 233.00 [lb_av] 233.00 [lb_av] [facility] T ([facility]) Body height 66.5 [in_i] 66.5 [in_i] [facility] ([facility] ) 5'6.50" Body temperature 97.0 [degF] 97.0 [degF] [facility] ([facility] ) Body weight 107.957 kg 107.957 kg [facility] ([facility]) [place] body weight 160 [lb_av] 160 [lb_av] MED[facility] T ([facility]) Body mass index (BMI) [Ratio] 35.1 kg/m2 35.1 k g/m2 [facility] ([facility]) Body weight 238.00 [lb_av] 238.00 [lb_av] [facility] T ([facility]) Body height 69 [in_i] 69 [in_i] [facility] ([facility]) 5'9" Respiratory rate 16 /min 16 /min [facility] ( [facility]) Heart rate 76 /min 76 /min [facility] Diastolic blood pressure 70 mm[Hg] 70 mm[Hg] [facility] ([facility]) Systolic blood pressure 118 mm[Hg] 118 mm[Hg] M EDENT ([facility]) Diastolic blood pressure--sitting 32 mm[Hg] 32 mm[Hg] [facility] ([facility]) [employer] large adult cuff, Ra Systolic blood pressure--sitting 73 mm[Hg] 73 mm[Hg] [facility] ([facility]) [employer] large adult cuff, Ra Heart rate 106 /min 106 /min [facility] ([facility]) Body mass index (BMI) [Ratio] 36.0 kg/m2 36.0 k g/m2 [facility] ([facility]) Body height 68 [in_i] 68 [in_i] [facility] ([facility]) 5'8" Body weight 237.00 [lb_av] 237.00 [lb_av] [facility] T ([facility]) Body weight 107.957 kg 107.957 kg [facility] ([facility]) [place] body weight 160 [lb_av] 160 [lb_av] MED[facility] T ([facility]) Body mass index (BMI) [Ratio] 35.1 kg/m2 35.1 k g/m2 [facility] ([facility], ) Body weight 238.00 [lb_av] 238.00 [lb_av] [facility] T ([facility]) Body height 69 [in_i] 69 [in_i] [facility] ([facility]) 5'9" Body temperature 97.2 [degF] 97.2 [degF] [facility] ([facility]) Oxygen saturation in Arterial blood by Pulse oximetry 98 % 98 % [facility] ([facility]) Heart rate 104 /min 104 /min [facility] ([facility]) Diastolic blood pressure 88 mm[Hg] 88 mm[Hg] [facility] ([facility]) Systolic blood pressure 122 mm[Hg] 122 mm[Hg] [facility] ([facility]) Respiratory rate 16 /min 16 /min [facility] Heart rate 64 /min 64 /min [facility] ([facility]) Diastolic blood pressure 60 mm[Hg] 60 mm[Hg] [facility] ([facility]) Systolic blood pressure 110 mm[Hg] 110 mm[Hg] [facility] ([facility]) Oxygen saturation in Arterial blood by Pulse oximetry 88 % 88 % [facility] Body mass index (BMI) [Ratio] 36.3 kg/m2 36.3 k g/m2 [facility] ([facility]) Body weight 235.38 [lb_av] 235.38 [lb_av] MED[facility] T ([facility]) Body height 67.5 [in_i] 67.5 [in_i] [facility] ([facility]) 5'7.50" Heart rate 68 /min 68 /min [facility] Diastolic blood pressure 70 mm[Hg] 70 mm[Hg] [facility] ([facility]) Systolic blood pressure 134 mm[Hg] 134 mm[Hg] [facility] Patient Treatment Plan of Care Planned Activity Planned Date Details Description Data Source (s) Hydroxychloroquine Sulfate 200 MG Oral Tablet 08/06/2019 12:00:00 A [facility]
--- OUTSIDE RECORDS SUMMARY | 2020-09-09 14:07 | CCD ---
Author Author [facility] Organization [facility] Address Unknown Phone Unavailable Care Team Providers Care Patient Centered Care Specialist Name Role Phone Charo Rodrigues Unavailable PROBLEMS Type Condition ICD9-CM Code [id number] Code Onset Dates Condition S tatus SNOMED Code Notes Problem Antiphospholipid antibody syndrome D68.61 Activ e 85169827 Problem Systemic lupus erythematosus (SLE) in adult M32.9 Active 22744945 Problem Kidney stone N20.0 Active 79488917 Problem Osteoarthritis of hand, unsp ecified laterality, unspecified osteoarthritis type M19.049 Active [id number] ALLERGIES No Known Allergies ENCOUNTERS from 1955 to 2020-06-19 Encounter Location Date Provider Diagnosis [facility] Rheumatology [address] [place] [address] May, Charo Rodrigues Systemic lupus erythematosus (SLE) in ad ult M32.9 ; Antiphospholipid antibody syndrome D68.61 ; Osteoarthritis of hand, unspecified laterality, unspecified osteoarthritis type M19.049 ; Disorder of bone M89.9 and High risk medication use Z79.899 IMMUNIZATIONS No Information SOCIAL HISTORY Tobacco Use: Social History Observation Description Date Details (start date - stop date) Former Smoker Sex Assigned At : Social History Observation Description Sex Assigned At Unknown Zoroastrian: Question Answer Notes Zoroastrian 99 Other No restorationist beliefs that would impact health care. Sexual Hx: Question Answer Notes Had sex in the last 12 months (vaginal, oral, or anal)? No Have you ever had an STD? No Alcohol Screening: Question Answer Notes Did you have a drink containing alcohol in the past year? No Points 0 Interpretation Negative Tobacco Use: Question Answer Notes Are you a: former smoker Quit 1998 REASON FOR REFERRAL No Information VITAL SIGNS Weight 231.0 lbs May, Weight-kg 104.8 kg May, Height 67 in May, BMI 36.18 kg/m2 May, Heart Rate 108 /min May, Temperature 97.1 degrees Fahrenheit May, Oximetry 90 May, Blood pressure systolic 118 mm Hg May, Blood pressure diastolic 76 mm Hg May, MEDICATIONS Medication SIG (Take, Route, Frequency, Duration) Start Date En d Date Status Hydroxychloroquine 200 mg 1 orally twice daily Active MiraLax 17 GM/SCOOP as directed Orally Ac tive Ventolin HFA 108 (90 Base) MCG/ACT 1 puff as needed Inhalation ever y 4 hrs Active Arnuity Ellipta 100 MCG/ACT 1 puff Inhalation Once a day Active Adilia-Monique - 1 tablet Orally Once a day A ctive Calcium Acetate 667 MG 2 tablets with meals Orally Three times a day for 30 day(s) Active Omeprazole 40 MG 1 capsule 30 minutes before morning meal Orally Once a day for 30 day(s) Active Kionex 15 GM/60ML 60 ml Orally Once a day Active Vitamin D3 5000 UNIT/ML as directed Orally Active Aspirin 81 MG 1 tablet Orally Once a day for 30 day(s) Active PROCEDURES No Information RESULTS REASON FOR VISIT Patient is present today for a new patient appointment, c/o left hip pain MEDICAL (GENERAL) HISTORY Type Description Date Medical History Atrial Fibrillation Medical History Hemodialysis Medical History GERD Medical History Lupus Nephritis Medical History Hypertension Medical History Asthma Medical History Osteoarthritis Medical History Sleep Apnea Medical History Chronic Kidney disease (CKD), stage lll (moderate) Medical History Respiratory disease Medical History Cerebrovascular Disease Medical History Anti-Phospholipid Antibody Syndrome Medical History Aortic Stenosis, mild Medical History Aortic valve disorder Medical History Diabetes Mellitus type 2 in Obese Medical History Ectopic Atrial Tachycardia Medical History Fibrillary Glomerulonephritis Medical History First degree AV block Medical History Gout Medical History Diastolic Heart failure Medical History Hiatal Hernia Medical History Nephrotic range proteinuria Medical History RBBB with left anterior tascicular block Medical History SLE (Systemic Lupus Erythematosus) Medical History Thalassemia minor Medical History Hip Replacement Surgical History Ankle Fracture Surgery 40-50Years ago Surgical History Heart Surgery X2 Surgical History A-V Fistula Surgical History Pilonidal Cyst/ Sinus Excision Surgical History Appendectomy Surgical History Cardiac Electrophysiology Mapping and Ab lation Surgical History Renal Biopsy Hospitalization History Kidney Biopsy X 1 Hospitalization History Surgical Related Hospitalization History Broken nose/Rt. knee, blood transfus ions 2019 Goals Section No Information Health Concerns No Information MEDICAL EQUIPMENT No Information MENTAL STATUS No Information FUNCTIONAL STATUS No Information ASSESSMENTS Encounter Date Diagnosis Notes May, High risk medication use (ICD-10 - Z79.8 99) May, Disorder of bone (ICD-10 - M89.9) May, Systemic lupus erythematosus (SLE) in ad ult (ICD-10 - M32.9) May, Osteoarthritis of hand, unsp ecified laterality, unspecified osteoarthritis type (ICD-10 - M19.049) May, Antiphospholipid antibody syndrome (ICD- 10 - D68.61) PLAN OF TREATMENT Treatment Notes Assessment Notes Clinical Notes Systemic lupus erythematosus (SLE) in adult The clinical presentation is consistent with a history of systemic lupus erythematosus w/ lupus nephritis in low disease activity. Will perform further investigation and obtain an Anti- nuclear Antibody, CBC w/ diff, ESR, CRP, complement levels (C3, C4, CH50), anti- stuart, anti-dsDNA, SSA (anti-Ro), SSB (anti-La), ribonucleoprotein (INSIDE SALES TRAINER), anti- histone, serum protein electrophoresis, IgA, IgM, and IgM. Continue Plaquenil 200 mg twice daily. Will obtain the Plaquenil Eye Screening Examination, prior to prescribing the Plaquenil therapy (200 mg twice daily). Antiphospholipid antibody syndrome Histo ry of Anti-phospholipid Syndrome (history of positive for anticardiolipin IgG (13) and IgG (23) 2015 with repeat anti-cardiolipin IgG of 19.5 (normal) in January 2017). Currently, he is on warfarin for chronic atrial fibrillation. No change in therapy, at this time. Osteoarthritis of hand, unspecified laterality, unspec ified osteoarthritis type Clinical presentation consistent with bi lateral osteoarthritis of the hands. Counseling provided on the disease course and symptomatology of the hand osteoarthritis. Information on hand exercises provided to the patient for further education. Recommended the performance of the hand exercises for 10 minutes daily. If conservative methods fail, then will consider sending to occupational therapy to evaluate the ability to perform activities of daily living (ADLs), instruction in joint protection techniques, to provide assistive devices to help perform ADLs, and to instruct in use of thermal modalities. He was agreeable and expressed understanding of the plan. All questions and concerns were addressed. Disorder of bone Given the systemic l upus erythematosus and history of fractures, will monitor the DXA scan to evaluate the bone density. High risk medication use Plaquenil: This medication is an immunosuppressant and considered a high risk medication, as there is increased potential for adverse reaction and significant toxicity. Treatment Notes Test Name Order Date INSIDE SALES TRAINER Antibody (Non-Orderable) 2020-06-19 Smiths Antibody (NOT ORDERABLE) 2020-06-19 DEXA 2020-06-19 Next Appt Details 3 Months Reason:Systemic Lupus Erythemat osus Provider Name:Charo Rodrigues, 2020-09-09 10:00:00 AM, [address] [place] [address], [id number], Follow Up:3 MonthsSystemic Lupus Erythematosus Insurance Providers Payer Name Payer Address Payer Phone Insured Name Patient Relati onship to Insured Coverage Start Date Coverage End Date OLIVIA DAUGHERTY [address] [address] [facility] [id number] MARIA M BELL
--- OUTSIDE RECORDS SUMMARY | 2020-09-09 14:07 | CCD | Continuity of Care Document ---
Author Author Tomás KEITH PA-C Organization Unknown Address [address] [place] [id number] Phone [phone] Care Team Providers Care Stretcher Leveler Operator Helper Name Role Phone Jaiden Atkinson MD [facility] [phone] Problems Description No Information Available Social History [...] Test Result H/L Range Note Order 06/10/2020 [facility] nter Surgery <pending> Procedures Date Code Description Status 06/06/2020 30106 X-Ray Hip Unilateral With Pelvis 2-3 Views Completed Medical Devices Description No Information Available Encounters Type Date Location Provider Dx Diagnosis Office Visit 06/06/2020 8:30a Mcgeheejoann Keith PA-C M16.12 Unilateral primary osteoarthritis, left hip Office Visit 04/25/2020 10:45a Mcgeheejoann Keith MD M16.12 Unilateral primary osteoarthritis, left [...] SURGERY NO AUTH REQUIRED FOR LEFT TOTAL HIP(32355) TO SURGERY NT Created [facility], [address] [place] [address] [phone]
--- OUTSIDE RECORDS SUMMARY | 2020-09-09 14:07 | CCD | Continuity of Care Document ---
Author Author Tomás GAGE MD Organization Unknown Address [address] [place] [address] Phone [phone] Care Team Providers Care Stereo Plotter Operator Name Role Phone Jaiden Atkinson M.D. [facility] [phone] Paramjit Fairchild MD [facility] [phone] [facility] Unavailable Problems Active Problems Provider Date Disorder of lung Isreal Gage MD Onset: 04/14/2014 Body mass index 40+ - severely obese Isreal Gage MD Ons et: 02/26/2012 Morbid obesity Isreal Gage MD Onset: 02/26/2012 Obstructive sleep apnea syndrome Isreal Gage MD Onset: 02/06/2011 Allergic asthma without status asthmaticus Isreal Gage MD Onset: 02/06/2011 Bleeding from nose Zack Daigle MD Onset: 01/12/2019 Deviated nasal septum Zack Daigle MD Onset: 01/12/2019 Social History Type Date Description Comments Sex Unknown Smokeless Tobacco Never Used Smokeless Tobacco ETOH Use Denies alcohol use Recreational Drug Use Denies Drug Use Tobacco Use Start: Unknown End: Unknown Patient is a former smoker quit 20 years ago Smoking Status Reviewed: 06/21/20 Patient is a former smoker qu it 20 years ago Allergies, Adverse Reactions, Alerts Description No Known Drug Allergies Medications Active Medications SIG Qnty Indications Ordering Provide r Date CPAP +14 Maroscar Gage MD 05/23 Arnuity Ellipta 100mcg/Act Aerosol inhale one puff every day. rinse mouth well after use 90units J45.40 Isreal Gage MD 11/16/2016 Glucosamine Chondroitin 1500 Complex Max imum Strength 1500Com Capsules 2 by mouth every day Unknown Hydroxychloroquine Sulfate 200mg T ablets 2 by mouth every day Unknown Omeprazole 20mg Capsules DR 1 by mouth every day 30caps Unknown Jantoven 5mg Tablets 1 by mouth every day---Dr. Atkinson Unknown Mirtazapine 30mg Tablets 1 by mouth every night Unknown Ventolin HFA 108(90Base) mcg/Act A erosol 2 puffs four times a day as needed 8gm Isreal Gage MD Calcium Acetate 668(169Ca) mg Tabl ets 2 by mouth with meals Unknown Vitamin D3 Maximum Strength 5000Unit Capsules 1 by mouth every day Unknown 000 Miralax 3350NF Powder 1 capfu ll Unknown Lido BDK 2.5-2.5% Kit Before Dialysis Unknown Sodium Polystyrene Sulfonate 15GM/60ML Suspension Incase of missed Dialysis Unknown Dialyvite 800 0.8mg Tablets 1 by mouth every day Unknown Bupropion HCL 100mg Tablets take one tab by mouth twice daily Unknown Aspirin [address] one tab by mouth once a day Unknown Immunizations CPT Code Status Date Vaccine Lot # 22675 Given 07/11/2016 Influenza Virus Split 3 Yrs And Above For Intramuscular Use 62335 Given 06/27/2011 Influenza Virus Split 3 Yrs And Above For Intramuscular Use 14049 Given Unknown Pneumococcal PPSV23 Q2036 Refused 08/28/2012 Influenza Vaccine 3 Years Of Age Or Older (Flulaval) Vital Signs Date Vital Result Comment 06/21/2020 11:16am BP Systolic 110 mmHg BP Diastolic 70 mmHg Heart Rate 90 /min O2 % BldC Oximetry 99 % Room Air Height 69 inches 5'9" Weight 228.00 lb BMI (Body Mass Index) 33.7 kg/m2 [place] Body Weight 160 lb Weight 103.421 kg 04/06/2020 9:01am Height 69 inches 5'9" Weight 238.00 lb BMI (Body Mass Index) 35.1 kg/m2 [place] Body Weight 160 lb Weight 107.957 kg Results Description No Information Available Procedures Date Code Description Status 03/17/2020 73998 Control Nosebleed Anterior Simpl e Completed Medical Devices Description No Information Available Encounters Type Date Location Provider Dx Diagnosis Office Visit 04/06/2020 9:00a [facility] Everette Blount MD R04.0 Epistaxis H90.3 Sensorineural hearing loss, bilateral Office Visit 03/17/2020 9:15a [facility]GI [facility] Everette Blount MD R04.0 Epistaxis Assessments Date Code Description Provider 06/21/2020 G47.33 Obstructive sleep apnea (adult) (pediatric) Isreal Gage MD 06/21/2020 J45.40 Moderate persistent asthma, unco mplicated Isreal Gage MD 06/21/2020 J98.4 Other disorders of lung Isreal Gage MD 04/06/2020 R04.0 Epistaxis Everette Blount MD 04/06/2020 H90.3 Sensorineural hearing loss, bila teral Everette Blount MD 03/17/2020 R04.0 Epistaxis Everette Blount MD Plan of Treatment Future Appointment(s):* 01/03/2021 11:30 am - Isreal Gage MD at [facility] Pulmonary/Thoracic 06/21/2020 - Isreal Gage MD* G47.33 Obstructive sleep apnea (adult) (pediatric) * J45.40 Moderate persistent asthma, uncomplicated * J98.4 Other disorders of lung * * Follow up:* 6 months with fvl Functional Status Description No Information Available Mental Status Description No Information Available Referrals Description No Information Available
[2020-09-09] MEDS: REMEDY PHYTOPLEX Z-GUARD PASTE 113GM TUBE (FROM STOREROOM PRODUCT) TOP SCH ×2 (15:37→20:57)
--- NOTE | 2020-09-09 16:33 | HPEPDOC ---
Restaurant Manager Note DATE OF ADMISSION: 09-09-20 DATE OF SERVICE: 09-09-20 TIME OF ADMISSION: Please refer to physician's admission order. SOURCE OF ADMISSION INFORMATION: [facility] record and patient CHIEF COMPLAINT: left hip THR HISTORY OF PRESENT ILLNESS: 4M pmh ESRD on HD, lupus with nephritis, asthma, AFib, HTN, Antiphospholipid syndrome on coumadin, NEERAJ on CPAP, gout, anemia of chronic disease, TIAs, DM2 with progressive left hip pain diagnosed with advanced hip OA and underwent left hip arthroplasty on 09-05-20. He had post-op drops in blood pressure requiring pressors, pain, and difficulty ambulating. He was placed on a heparin bridge while his INR was subtherapeutic, evaluated by therapy where he was found to have impairments in mobility and ADLs and deemed medically appropriate for discharge to ARU on 09-09-20. REVIEW OF SYSTEMS: The following is a completed review of systems and has been reviewed. Review of systems otherwise unremarkable. PAIN: Patient self reports left hip pain EYES: No recent vision changes EARS, NOSE, & THROAT: No throat pain, or dysphagia, or rhinorrhea CARDIOVASCULAR: Denies chest pain or palpitations PULMONARY: Denies shortness of breath, +chronic dyspnea on exertion GASTROINTESTINAL: Denies constipation/diarrhea GENITOURINARY: +anuric MUSCULOSKELETAL: left hip replacement NEUROLOGICAL:denies paresthesias HEMATOLOGICAL: +anemia SKIN: left hip incision PSYCHIATRIC: Unremarkable All other review of systems found to be negative. PAST MEDICAL HISTORY: as per HPI PAST SURGICAL HISTORY: left ankle, pilonidal cyst removal, av node ablation ALLERGIES: Please see below. MEDICATIONS: Please see below. SOCIAL HISTORY: former smoker, no etoh/illicit drugs DIET: low sodium PHYSICAL EXAMINATION: VITAL SIGNS: Please see below. GENERAL: Pleasant and cooperative. No acute distress. HEENT: PERRL. Extraocular movements intact. Clear conjunctiva CARDIOVASCULAR: Irregular rate and rhythm. No murmurs, rubs, or gallops LUNGS: Clear to auscultation bilaterally. No wheezes. No rhonchi ABDOMEN: Soft, nontender, nondistended. Positive bowel sounds. Normal active bowel sounds NEUROLOGICAL: Alert and oriented times three. Cranial nerves II through XII grossly intact. Sensation grossly intact EXTREMITIES: 5\5 strength bilateral upper extremities. 5\5 strength right lower extremity. 5/5 left ankle DF/EHL/PF (limited exam due to surgery) SKIN: sacrum without pressure ulcers LABORATORY DATA: Please see below. IMAGING:Imaging documentation personally reviewed by record FUNCTIONAL STATUS: Premorbid: Modified Independent with all activities of daily life as well as mobility with a cane On Admission: contact guard to min-assist for functional transfers, ambulation, dressing, toileting GOALS: Mod-I with RW or quad cane/hemiwalker for ambulation household distance, functional transfers, bed mobility, dressing, toileting ASSESSMENT:64-year-old M with past medical history of ESRD on HD who presents status post left hip arthroplasty PLAN: 1. Rehab- PT/OT advance mobility and ADLs, maintain hip precautions, strengthen/stretch/maintain ROM all 4 limbs 2. Cardiac- Afib with PM and antiphosphilipid syndrome c/u warfarin goal INR 2- 3, also on ASA -recent low BPs, holding BP meds, medicine consulted to assist in overall management 3. Resp- hx of asthma and NEERAJ, c/u breathing treatments, CPAP at night 4. Renal- ESRD on HD 5. Ortho- s/p left hip replacement, maintain precautions 6. GI ppx- protonix 7. DVT ppx- on warfarin 8. Pain- tylenol and oxycodone 9. Psych- anxiety- c/u klonipin 10. Rheum- hx of lupus c/u plaquenil 11. Dispo- TBD POST ADMISSION PHYSICIAN EVALUATION: Medical and functional status: Description of medical status, medical assessment: As above. Rehabilitation diagnosis and current and prior cold morbid medical conditions as above. Risk of complications and plans to mitigate them as above. Description of functional status current status is as above. Prior status as above. Status compared to preadmission: There are no clinically significant differences between the patient's current status and the information described on the preadmission screening document. Treatment plan anticipated: Treatment plan is as described above. Required disciplines including physical therapy, occupational therapy, others as noted above Intensity of services: 3 hours a day, 6 days a week. Special considerations: There are no specific special or safety considerations that would likely preclude immediate implementation of an intensive rehabilitation program or subsequently influence the plan of care. ATTESTATION: Considering all the information above, it is my best judgment that this patient requires intensive rehabilitation therapy as described above and an inpatient hospital environment due to the complexity of nursing, medical, and rehabilitation needs required by the patient. Furthermore, this patient can reasonably be expected to participate in an benefit from an inpatient rehabilitation stay with an interdisciplinary team approach to the delivery of rehabilitation care under the direction and supervision of rehabilitation physician. PROGNOSIS: Excellent ESTIMATED LENGTH OF STAY:10-14 days. PROJECTED DISCHARGE DESTINATION: Home with family support and any durable medical equipment required to increase functional safety and mobility. TIME SPENT COUNSELING AND COORDINATING INITIAL CARE: Greater than 70 minutes. Vital Signs Vital Sign - Last 24 Hours 09/09/20 13:10 Temp 97.6 Pulse 80 Resp 16 B/P (MAP) 139/76 (97) Pulse Ox 100 O2 Delivery Room Air Home Medications Scheduled Aspirin (Aspirin EC) 81 Mg Tablet.dr, 81 MG PO DAILY, (Reported) Calcium Acetate (Calcium Acetate) 667 Mg Capsule, 667 MG PO WM Cholecalciferol (Vitd3)/Vit K2 (D3 + K2 Dots 1,000 Units Tab) 1 Each Tab.rapdis, 1 TAB PO DAILY, (Reported) Clonazepam (Clonazepam) 0.5 Mg Tab.rapdis, 0.5 MG PO BID, (Reported) Fluticasone Furoate (Arnuity Ellipta) 100 Mcg/Act Inh, 100 MCG IN QAM, (Reported) Fluticasone Furoate (Arnuity Ellipta) 100 Mcg Blst.w.dev, 1 PUFF PO DAILY, (Reported) Folic Acid/Vit B Complex and C (Adilia-Monique Tablet) 1 Tab Tab, 1 TAB PO DAILY, (Reported) Gluc Caceres/Chondro Caceres A/Vit C/Mn (Glucosamine-Chondroitin Cap) 1 Cap Cap, 1 CAP PO BID, (Reported) Hydroxychloroquine Sulfate (Hydroxychloroquine Sulfate) 200 Mg Tab, 200 MG PO BID, (Reported) Omeprazole (Omeprazole) 20 Mg Capsule.dr, 40 MG PO DAILY, (Reported) Polyethylene Glycol 3350 (Polyethylene Glycol 3350) 510 Gm Powder, 17 GRAM PO QHS, (Reported) Warfarin Sodium (Warfarin Sodium) 5 Mg Tablet, 5 MG PO DAILY, (Reported) Scheduled PRN Albuterol Sulfate (Ventolin Hfa) 108 Mcg/Act Aer, 108 MCG IN Q4-6HP PRN for WHEEZING, (Reported) Oxycodone HCl/Acetaminophen (Percocet 5-325 mg Tablet) 1 Each Tablet, 1-2 TAB PO Q4H PRN for PAIN Allergies Coded Allergies: No Known Allergies (Verified , 08/29/20) A-FIB/CHADSVASC A-FIB History Current/History of A-Fib/PAF?: Yes Current PO Anticoag Therapy: Yes ARLEY DONOHUE MD Sep 09, 2020 16:33
[2020-09-09] MEDS ORDERED: WARFARIN SOD 5MG TAB PO ONE (17:00)
[2020-09-09] MEDS: CALCIUM ACETATE 667MG GELCAP PO SCH (17:24)
[2020-09-09] MEDS: ACETAMINOPHEN 500 MG TAB PO SCH ×2 (17:25→20:56)
[2020-09-09 20:00] VITALS: BP 107/58
[2020-09-09] MEDS: DOCUSATE SODIUM 100MG CAPSULE PO SCH (20:54)
[2020-09-09] MEDS: HYDROXYCHLOROQUINE 200 MG TAB PO SCH (20:54)
[2020-09-09] MEDS: SENNA 8.6 MG TAB (SENOKOT) PO SCH (20:54)
[2020-09-09] MEDS: clonazePAM 0.5 MG TAB PO SCH (20:54)
[2020-09-09] MEDS: oxyCODONE 5MG TAB PO PRN (20:55)
[2020-09-09] MEDS: FLUTICASONE HFA 110 MCG 12 GM INHALER (FLOVENT) INH SCH (21:39)
[2020-09-10 05:27] VITALS: BP 132/68
[2020-09-10] MEDS ORDERED: SODIUM CHLORIDE 0.9% 1000ML IV PRN (07:45)
[2020-09-10] MEDS ORDERED: LIDOCAINE 1% SDV 5ML VIAL SC PRN (07:45)
[2020-09-10 08:11] LABS: BASO # 0.1 10^3/uL (0.0-0.2); BASO % 0.9 % (0.0-1.0); HEMATOCRIT 30.7 % (42.0-52.0); HEMOGLOBIN 9.3 g/dl (13.5-17.5); LYMPH # 1.5 10^3/uL (1.5-5.0); LYMPH % 19.9 % (24.0-44.0); MEAN CORPUSCULAR HEMOGLOBIN 21.1 pg (27.0-33.0); MEAN CORPUSCULAR HGB CONC 30.3 g/dl (32.0-36.5); MEAN CORPUSCULAR VOLUME 69.6 fl (80.0-96.0); MONO # 1.2 10^3/uL (0.0-0.8); NEUTROPHILS # 4.7 10^3/uL (1.5-8.5); NEUTROPHILS % 61.6 % (36.0-66.0); PLATELET COUNT, AUTOMATED 252 10^3/uL (150-450); RED BLOOD COUNT 4.41 10^6/uL (4.30-6.10); WHITE BLOOD COUNT 7.6 10^3/uL (4.0-10.0)
[2020-09-10] MEDS: IPRATROPIUM 0.5MG/ALBUTEROL 2.5MG INH SOL UD 3ML (DUONEB) NEB SCH ×3 (08:26→20:00)
[2020-09-10] MEDS: FLUTICASONE HFA 110 MCG 12 GM INHALER (FLOVENT) INH SCH ×2 (08:27→20:00)
[2020-09-10] MEDS: HYDROXYCHLOROQUINE 200 MG TAB PO SCH ×2 (08:29→20:37)
[2020-09-10] MEDS: PANTOPRAZOLE 40MG TAB (PROTONIX) PO SCH (08:29)
[2020-09-10] MEDS: ASPIRIN 81 MG ENTERIC TAB PO SCH (08:29)
[2020-09-10] MEDS: ACETAMINOPHEN 500 MG TAB PO SCH ×3 (08:29→20:38)
[2020-09-10] MEDS: VITAMIN D 1,000 INTERNATIONAL UNITS TABLET PO SCH (08:29)
[2020-09-10] MEDS: NEPHRO-VIT TAB (NEPHROCAPS) PO SCH (08:29)
[2020-09-10] MEDS: CALCIUM ACETATE 667MG GELCAP PO SCH ×3 (08:29→17:41)
[2020-09-10] MEDS: clonazePAM 0.5 MG TAB PO SCH ×2 (08:29→20:37)
[2020-09-10 08:30] LABS: INR 2.3; PROTHROMBIN TIME 25.8 SECONDS (12.5-14.3)
[2020-09-10] MEDS: REMEDY PHYTOPLEX Z-GUARD PASTE 113GM TUBE (FROM STOREROOM PRODUCT) TOP SCH ×3 (08:30→20:39)
[2020-09-10] MEDS: DOCUSATE SODIUM 100MG CAPSULE PO SCH ×2 (08:30→20:38)
[2020-09-10 08:40] LABS: ALBUMIN 2.8 GM/DL (3.2-5.2); BILIRUBIN,TOTAL 0.5 MG/DL (0.2-1.0); CALCIUM LEVEL 9.1 MG/DL (8.8-10.2); CREATININE FOR GFR 8.96 MG/DL (0.70-1.30); GLOMERULAR FILTRATION RATE 6.3 (>49); POTASSIUM SERUM 3.7 MEQ/L (3.5-5.1); TOTAL PROTEIN 6.3 GM/DL (6.4-8.2)
--- NOTE | 2020-09-10 09:12 | HPEPDOC ---
[facility] Medical History & Physical Date of Admission Sep 09, 2020 Date of Service: Sep 10, 2020 Attending Physician: Samantha Chin MD History and Physical HPI: Patient is a 64 y/o M with PMH of ESRD on HD, asthma, lupus with lupus nephritis, antiphospholipid syndrome on AC with warfarn, NEERAJ who was admitted on 09/05/20 by orthopedic surgery for elective total left hip arthroplasty today. He underwent an uncomplicated surgery and hospital stay, only needing heparin gtt for bridging while INR subtherapeutic on warfarin. PT suggested continued rehab in ARU and he was discharged from inpatient status/ admitted to ARU on 09/09/20 for continued care. Patient was seen today on ARU unit, he has no acute complaints. Pain appears to be well controlled. INR is therapeutic at 2.3 on Coumadin. PT/OT to continue today. Goal is home when medically improved. At time of exam, patient denies chest pain, shortness of breath, n/v/d, fevers, chills, abdominal pain. ROS: Neg except mentioned above PAST MEDICAL HISTORY: 1. Supraventricular tachycardia status post radio frequently ablation. 2. End-stage renal disease for which he is on maintenance dialysis. 3. Asthma, followed by [facility]. 4. Renovascular hypertension, for which he is no longer on an antihypertensive. 5. Lupus with lupus nephritis. 6. Antiphospholipid syndrome, for which he is on anticoagulant therapy, warfarin. 7. Obstructive sleep apnea (NEERAJ), on continuous positive airway pressure (CPAP). 8. Gout. 9. Type 2 diabetes. 10. Mild aortic stenosis. 11. History of transient ischemic attacks (TIAs). 12. Anemia from chronic renal disease. SURGICAL HISTORY: 1. Appendectomy. 2. Dialysis fistula. 3. Pilonidal cyst incision. 4. Left ankle surgery. 5. AV essie ablation. 6. Colonoscopy 2018. FAMILY HISTORY: Noncontributory SOCIAL HISTORY: Nonsmoker, quit 1999. No significant alcohol use. CURRENT MEDICATIONS: Please see below ALLERGIES: Please see below PHYSICAL EXAMINATION: VITAL SIGNS: Please see below HEENT: Unremarkable. LUNGS: CTAB, no W/R/R HEART: Regular rhythm. 1/6 systolic ejection murmur. No R/G ABDOMEN: Soft, nontender. No masses. BS + in 4 quad EXT: Left hip incisions appear clean, nonsuppurative, no erythema, pain on palpation ROM not tested . No peripheral edema. NEURO: No focal deficits, sensory and motor intact in all ext. CN 2-12 intact LABORATORY: Please see below ASSESSMENT: 64 y/o M with PMH above POD 3 for total left hip arthroplasty admitted to ARU for continued rehabilitation. PLAN: Left hip arthritis POD 3 total left hip arthroplasty -Pain control, AC as above -PT/OT continued in ARU -Ortho to follow up Antiphospholipid antibody syndrome -INR therapeutic today at 2.3, no s/s of bleeding since surgery. High risk for clot formation -Would suggest resuming home warfarin dosing today and watching INR regularly -Goal INR 2-3 End-stage renal disease on maintenance dialysis. -HD as scheduled -Nephrology following Type 2 diabetes -Not on insulin coverage, also was not on the floor due to normal BS -Monitor closely SLE -C/w Plaquenil 200 mg twice a day. History of depression/anxiety -C/w clonazepam 0.5 mg twice a day History of paroxysmal supraventricular tachycardia (PSVT) -Status post ablation times two, 2010 and 2012 -NSR Gastroesophageal reflux disease (GERD) -PPI DVT px -coumadin DISPOSITION: Thank you kindly for this consult. Will continue to follow the patient regularly while here. Vital Signs Vital Signs Date Time Temp Pulse Resp B/P (MAP) Pulse Ox O2 Delivery O2 Flow Rate FiO2 09/10/20 05:27 96.8 76 17 132/68 (89) 99 Room Air Laboratory Data Labs 24H Laboratory Tests 2 09/10/20 07:55: Immature Granulocyte % (Auto) 1.6, Neutrophils (%) (Auto) 61.6, Lymphocytes (%) (Auto) 19.9L, Monocytes (%) (Auto) 16.0H, Eosinophils (%) (Auto) 0.0, Basophils (%) (Auto) 0.9, Neutrophils # (Auto) 4.7, Lymphocytes # (Auto) 1.5, Monocytes # (Auto) 1.2H, Eosinophils # (Auto) 0.0, Basophils # (Auto) 0.1, Nucleated Red Blood Cells % (auto) 0.3H, Prothrombin Time 25.8H, Prothromb Time International Ratio 2.30, Anion Gap 15, Glomerular Filtration Rate 6.3L, Calcium Level 9.1, Total Bilirubin 0.5, Aspartate Amino Transf (AST/SGOT) 29, Alanine Aminotransferase (ALT/SGPT) 7L, Alkaline Phosphatase 184H, Total Protein 6.3L, Albumin 2.8L, Albumin/Globulin Ratio 0.8 CBC/BMP Laboratory Tests 09/10/20 07:55 Home Medications Scheduled Aspirin (Aspirin EC) 81 Mg Tablet.dr, 81 MG PO DAILY Calcium Acetate (Calcium Acetate) 667 Mg Capsule, 667 MG PO WM Cholecalciferol (Vitd3)/Vit K2 (D3 + K2 Dots 1,000 Units Tab) 1 Each Tab.rapdis, 1 TAB PO DAILY Clonazepam (Clonazepam) 0.5 Mg Tab.rapdis, 0.5 MG PO BID Fluticasone Furoate (Arnuity Ellipta) 100 Mcg/Act Inh, 100 MCG IN QAM Fluticasone Furoate (Arnuity Ellipta) 100 Mcg Blst.w.dev, 1 PUFF PO DAILY Folic Acid/Vit B Complex and C (Adilia-Monique Tablet) 1 Tab Tab, 1 TAB PO DAILY Gluc Caceres/Chondro Caceres A/Vit C/Mn (Glucosamine-Chondroitin Cap) 1 Cap Cap, 1 CAP PO BID Hydroxychloroquine Sulfate (Hydroxychloroquine Sulfate) 200 Mg Tab, 200 MG PO BID Omeprazole (Omeprazole) 20 Mg Capsule.dr, 40 MG PO DAILY Polyethylene Glycol 3350 (Polyethylene Glycol 3350) 510 Gm Powder, 17 GRAM PO QHS Warfarin Sodium (Warfarin Sodium) 5 Mg Tablet, 5 MG PO DAILY Scheduled PRN Albuterol Sulfate (Ventolin Hfa) 108 Mcg/Act Aer, 108 MCG IN Q4-6HP PRN for WHEEZING Oxycodone HCl/Acetaminophen (Percocet 5-325 mg Tablet) 1 Each Tablet, 1-2 TAB PO Q4H PRN for PAIN Allergies Coded Allergies: No Known Allergies (Verified , 08/29/20) A-FIB/CHADSVASC A-FIB History Current/History of A-Fib/PAF?: No Current PO Anticoag Therapy: Yes Age/Risk Factor Scoring CHADSVASC: CHADSVASC Response (Comments) Value Age Risk Factor Age 65-74 years old 1 Gender Risk Factor Male 0 Hx of CHF No 0 Hx of HTN Yes 1 Hx of Stroke/TIA/or VTE No 0 Hx of Diabetes Yes 1 Hx of Vascular Disease No 0 Total 3 Treatment Treatment ordered: Warfarin Samantha Chin MD Sep 10, 2020 09:12
[2020-09-10] MEDS: oxyCODONE 5MG TAB PO PRN ×2 (10:51→20:39)
[2020-09-10] MEDS: IRON SUCROSE 100MG 5ML VIAL (J1756 PER 1MG) IV SCH (13:11)
[2020-09-10 17:31] VITALS: BP 105/81
[2020-09-10] MEDS: WARFARIN SOD 5MG TAB PO SCH (17:42)
[2020-09-10 20:00] VITALS: BP 108/58
[2020-09-10] MEDS: SENNA 8.6 MG TAB (SENOKOT) PO SCH (20:38)
--- NOTE | 2020-09-10 23:03 | IPN ---
NEPHROLOGY PROGRESS NOTE DATE: 09/10/2020 SUBJECTIVE: The patient was seen and examined at the bedside today morning. He is afebrile and hemodynamically stable. Today is his regular day of dialysis. He has been restarted on Coumadin. He reports he is getting physical therapy now, and he is able to walk with the help of a walker now. OBJECTIVE: VITAL SIGNS: Temperature is 98.3 degrees Fahrenheit, blood pressure 105/81, pulse is 81, respiratory rate of 16, saturating 99% on room air. INTAKE AND OUTPUT: Urine output is not recorded. Weight in the bed scale was 107.4 kg yesterday. PHYSICAL EXAMINATION: GENERAL APPEARANCE: The patient is awake, alert, oriented x3, laying in bed in no apparent distress. HEAD AND NECK: Extraocular muscles intact. Pupils are equally round and reactive to light. Mucous membranes are moist. Neck is supple. There is no jugular venous distention. CARDIOVASCULAR: S1, S2, regular rate. EXTREMITIES: No edema of the bilateral lower extremities. RESPIRATORY: Chest is clear to auscultation bilaterally. Bilaterally currently no rales or rhonchi. ABDOMEN: Soft, obese, positive bowel sounds, nontender, no organomegaly. MUSCULOSKELETAL: He has a dressing on the left hip as he recently had a left replacement. ART LIBRARIAN: No focal deficits. Power is 5/5 in bilateral upper extremities. LAB REVIEW: CBC showed a white blood cell count of 7.6, hemoglobin 9.3, platelets are 252. BMP showed sodium of 132, potassium 3.7, chloride 94, bicarbonate 23, BUN 35, creatinine is 8.9, albumin is 2.8. CURRENT INPATIENT MEDICATIONS: The patient's medications were all reviewed by myself. He has been started on Coumadin 5 mg p.o. daily. I have started him on Venofer with dialysis along with Aranesp with dialysis. ASSESSMENT AND PLAN: 1. End-stage renal disease today is the patient's regular day of dialysis. He will be dialyzed in the afternoon. Ultrafiltration goal will be around 1.5 liters as tolerated by his blood pressure. 2. Anemia and end-stage renal disease he has been started on Aranesp and Venofer. Hemoglobin level should improve. He has recently had left hip surgery. 3. Chronic kidney disease, mineral bone disease - continue current dose of PhosLo with meals. 4. Hypercoagulability/antiphospholipid synd - continue current dose of Coumadin 5 mg p.o. daily. 5. Status post left hip arthroplasty the patient is getting physical therapy. He reports that he is able to walk with the help of a walker now with the PT staff. LINDSAY
[2020-09-11 05:33] VITALS: BP 108/58
[2020-09-11] MEDS: FLUTICASONE HFA 110 MCG 12 GM INHALER (FLOVENT) INH SCH ×2 (07:14→20:16)
[2020-09-11] MEDS: IPRATROPIUM 0.5MG/ALBUTEROL 2.5MG INH SOL UD 3ML (DUONEB) NEB SCH ×3 (07:14→20:16)
[2020-09-11 08:17] LABS: INR 2.76; PROTHROMBIN TIME 29.8 SECONDS (12.5-14.3)
[2020-09-11] MEDS: DOCUSATE SODIUM 100MG CAPSULE PO SCH ×2 (08:28→20:38)
[2020-09-11] MEDS: HYDROXYCHLOROQUINE 200 MG TAB PO SCH ×2 (08:29→20:38)
[2020-09-11] MEDS: ACETAMINOPHEN 500 MG TAB PO SCH ×3 (08:29→20:39)
[2020-09-11] MEDS: CALCIUM ACETATE 667MG GELCAP PO SCH ×3 (08:29→17:08)
[2020-09-11] MEDS: VITAMIN D 1,000 INTERNATIONAL UNITS TABLET PO SCH (08:29)
[2020-09-11] MEDS: ASPIRIN 81 MG ENTERIC TAB PO SCH (08:29)
[2020-09-11] MEDS: clonazePAM 0.5 MG TAB PO SCH ×2 (08:29→20:38)
[2020-09-11] MEDS: PANTOPRAZOLE 40MG TAB (PROTONIX) PO SCH (08:29)
[2020-09-11] MEDS: REMEDY PHYTOPLEX Z-GUARD PASTE 113GM TUBE (FROM STOREROOM PRODUCT) TOP SCH ×3 (08:30→20:39)
[2020-09-11] MEDS: NEPHRO-VIT TAB (NEPHROCAPS) PO SCH (08:30)
[2020-09-11 14:00] VITALS: BP 130/67
[2020-09-11] MEDS: WARFARIN SOD 5MG TAB PO SCH (17:08)
[2020-09-11 20:00] VITALS: BP 142/65
[2020-09-11] MEDS: SENNA 8.6 MG TAB (SENOKOT) PO SCH (20:38)
[2020-09-12 06:01] VITALS: BP 124/64
[2020-09-12 07:32] LABS: INR 2.83; PROTHROMBIN TIME 30.4 SECONDS (12.5-14.3)
[2020-09-12] MEDS: IPRATROPIUM 0.5MG/ALBUTEROL 2.5MG INH SOL UD 3ML (DUONEB) NEB SCH ×3 (07:48→19:29)
[2020-09-12] MEDS: FLUTICASONE HFA 110 MCG 12 GM INHALER (FLOVENT) INH SCH ×2 (07:48→19:29)
[2020-09-12] MEDS: ASPIRIN 81 MG ENTERIC TAB PO SCH (07:58)
[2020-09-12] MEDS: NEPHRO-VIT TAB (NEPHROCAPS) PO SCH (07:58)
[2020-09-12] MEDS: PANTOPRAZOLE 40MG TAB (PROTONIX) PO SCH (07:58)
[2020-09-12] MEDS: clonazePAM 0.5 MG TAB PO SCH ×2 (07:59→21:47)
[2020-09-12] MEDS: ACETAMINOPHEN 500 MG TAB PO SCH ×3 (07:59→21:47)
[2020-09-12] MEDS: HYDROXYCHLOROQUINE 200 MG TAB PO SCH ×2 (07:59→21:47)
[2020-09-12] MEDS: VITAMIN D 1,000 INTERNATIONAL UNITS TABLET PO SCH (07:59)
[2020-09-12] MEDS: CALCIUM ACETATE 667MG GELCAP PO SCH ×3 (08:00→18:21)
[2020-09-12] MEDS: DOCUSATE SODIUM 100MG CAPSULE PO SCH ×3 (08:01→21:46)
[2020-09-12] MEDS: REMEDY PHYTOPLEX Z-GUARD PASTE 113GM TUBE (FROM STOREROOM PRODUCT) TOP SCH ×3 (08:07→21:47)
[2020-09-12] MEDS: oxyCODONE 5MG TAB PO PRN (11:15)
--- NOTE | 2020-09-12 11:34 | IPNPDOC ---
PM&R Progress Note DATE OF SERVICE: Sep 12, 2020 Checker Cashier Progress Note Subjective: Patient reporting he feels bloated and has not had a bowel movement in a week, but states this is somewhat normal for him. REVIEW OF SYSTEMS: The following is a completed review of systems and has been reviewed. Review of systems otherwise unremarkable. PAIN: Patient self reports left hip pain EYES: No recent vision changes EARS, NOSE, & THROAT: No throat pain, or dysphagia, or rhinorrhea CARDIOVASCULAR: Denies chest pain or palpitations PULMONARY: Denies shortness of breath, +chronic dyspnea on exertion GASTROINTESTINAL: + constipation GENITOURINARY: +anuric MUSCULOSKELETAL: left hip replacement NEUROLOGICAL:denies paresthesias HEMATOLOGICAL: +anemia SKIN: left hip incision PSYCHIATRIC: Unremarkable All other review of systems found to be negative. PHYSICAL EXAMINATION: VITAL SIGNS: Please see below. GENERAL: Pleasant and cooperative. No acute distress. HEENT: PERRL. Extraocular movements intact. Clear conjunctiva CARDIOVASCULAR: Irregular rate and rhythm. No murmurs, rubs, or gallops LUNGS: Clear to auscultation bilaterally. No wheezes. No rhonchi ABDOMEN: Soft, nontender, nondistended. Positive bowel sounds. Normal active bowel sounds NEUROLOGICAL: Alert and oriented times three. Cranial nerves II through XII grossly intact. Sensation grossly intact EXTREMITIES: 5\5 strength bilateral upper extremities. 5\5 strength right lower extremity. 5/5 left ankle DF/EHL/PF (limited exam due to surgery) SKIN: sacrum without pressure ulcers ASSESSMENT:64-year-old M with past medical history of ESRD on HD who presents status post left hip arthroplasty PLAN: 1. Rehab- PT/OT advance mobility and ADLs, maintain hip precautions, strengthen/stretch/maintain ROM all 4 limbs 2. Cardiac- Afib with PM and antiphosphilipid syndrome c/u warfarin goal INR 2- 3, also on ASA -recent low BPs, holding BP meds, medicine consulted to assist in overall management 3. Resp- hx of asthma and NEERAJ, c/u breathing treatments, CPAP at night 4. Renal- ESRD on HD 5. Ortho- s/p left hip replacement, maintain precautions 6. GI ppx- protonix -will add simethicone for gas, and increase bowel meds for constipation 7. DVT ppx- on warfarin 8. Pain- tylenol and oxycodone 9. Psych- anxiety- c/u klonipin 10. Rheum- hx of lupus c/u plaquenil 11. Dispo- TBD Allergies Coded Allergies: No Known Allergies (Verified , 08/29/20) Vital Signs Vital Signs Date Time Temp Pulse Resp B/P (MAP) Pulse Ox O2 Delivery O2 Flow Rate FiO2 09/12/20 11:15 18 Room Air 09/12/20 06:01 97.7 79 124/64 (84) 95 Laboratory Data Labs 24H Laboratory Tests 2 09/11/20 19:22: Bedside Glucose (Misc Panel) 94 09/12/20 06:33: Prothrombin Time 30.4H, Prothromb Time International Ratio 2.83 Current Medications Current Medications Current Medications Medications (Trade) Dose Ordered Sig/Fletcher Route PRN Reason Start Time Stop Time Status Last Admin Dose Admin Acetaminophen (Tylenol Tab) 1,000 mg TID PO 09/09/20 16:00 09/12/20 07:59 Albuterol/ Ipratropium (Duoneb (Ipr 0.5mg/Alb 2.5mg)) 3 ml RTID NEB 09/09/20 14:00 09/12/20 07:48 Aspirin (Ecotrin) 81 mg DAILY PO 09/10/20 09:00 09/12/20 07:58 Bisacodyl (Dulcolax Suppository) 10 mg DAILYPRN PRN [place] CONSTIPATION 09/09/20 12:30 Bisacodyl (Dulcolax Tab) 5 mg DAILY PO 09/12/20 11:30 Calcium Acetate (Phoslo) 667 mg WM PO 09/09/20 18:00 09/12/20 08:00 Clonazepam (KlonoPIN) 0.5 mg BID PO 09/09/20 21:00 09/12/20 07:59 Darbepoetin Wu (Aranesp (Dialysis Use)) 200 mcg HD IV 09/10/20 07:45 Docusate Sodium (Colace) 100 mg BID PO 09/09/20 21:00 09/12/20 11:22 DC 09/12/20 08:01 Docusate Sodium (Colace) 100 mg TID PO 09/12/20 16:00 Fluticasone Propionate (Flovent Hfa 110 Mcg) 2 puff RBID INH 09/09/20 20:00 09/12/20 07:48 Heparin Sodium (Heparin) Please refer to ... ASDIRECTED XX 09/10/20 07:45 09/11/20 07:44 DC Hydroxychloroquine Sulfate (Plaquenil) 200 mg BID PO 09/09/20 21:00 09/12/20 07:59 Iron (Venofer) 100 mg HD IV 09/10/20 07:45 09/10/20 13:11 Lidocaine HCl (Lidocaine 1% Sdv) 0.5 ml ASDIRECTED PRN SC SEE LABEL COMMENTS 09/10/20 07:45 09/11/20 07:44 DC Ondansetron HCl (Zofran) 4 mg Q6HP PRN PO NAUSEA 09/09/20 12:30 Oxycodone HCl (Roxicodone, Oxyir) 5 mg Q4HP PRN PO PAIN 09/09/20 12:30 09/12/20 11:15 Pantoprazole Sodium (Protonix) 40 mg DAILY PO 09/10/20 09:00 09/12/20 07:58 Senna (Senokot) 1 tab QHS PO 09/09/20 21:00 09/11/20 20:38 Simethicone (Mylicon) 80 mg TID PO 09/12/20 12:00 Sodium Chloride (Nacl 0.9%) 200 ml ASDIRECTED PRN IV SEE LABEL COMMENTS 09/10/20 07:45 09/11/20 07:44 DC Vitamin B Complex/ Vit C/Folic Acid (Nephro-Monique Rx) 1 tab DAILY PO 09/10/20 09:00 09/12/20 07:58 Vitamin D (Vitamin D) 1,000 units DAILY PO 09/10/20 09:00 09/12/20 07:59 Warfarin Sodium (Coumadin) 5 mg DAILY@17 PO 09/10/20 17:00 09/11/20 17:08 ARLEY DONOHUE MD Sep 12, 2020 11:34
[2020-09-12] MEDS: BISACODYL 5 MG TAB PO SCH (12:28)
[2020-09-12] MEDS: SIMETHICONE 80MG CHEW TAB PO SCH ×3 (12:33→21:46)
[2020-09-12] MEDS: WARFARIN SOD 5MG TAB PO SCH (16:17)
[2020-09-12 20:00] VITALS: BP 111/66
[2020-09-12] MEDS: SENNA 8.6 MG TAB (SENOKOT) PO SCH (21:47)
[2020-09-13] MEDS: BISACODYL 10 MG SUPP PR PRN ×2 (05:45→17:52)
[2020-09-13 06:00] VITALS: BP 111/58
[2020-09-13 07:17] LABS: BASO # 0.1 10^3/uL (0.0-0.2); BASO % 0.7 % (0.0-1.0); HEMATOCRIT 28.9 % (42.0-52.0); HEMOGLOBIN 8.9 g/dl (13.5-17.5); LYMPH # 1.1 10^3/uL (1.5-5.0); LYMPH % 12.3 % (24.0-44.0); MEAN CORPUSCULAR HEMOGLOBIN 21.2 pg (27.0-33.0); MEAN CORPUSCULAR HGB CONC 30.8 g/dl (32.0-36.5); MONO # 1.1 10^3/uL (0.0-0.8); MONO % 12.9 % (0.0-5.0); NEUTROPHILS # 6.1 10^3/uL (1.5-8.5); NEUTROPHILS % 71.9 % (36.0-66.0); PLATELET COUNT, AUTOMATED 312 10^3/uL (150-450); RED BLOOD COUNT 4.19 10^6/uL (4.30-6.10); WHITE BLOOD COUNT 8.5 10^3/uL (4.0-10.0)
[2020-09-13 07:26] LABS: INR 3.5; PROTHROMBIN TIME 35.9 SECONDS (12.5-14.3)
[2020-09-13] MEDS ORDERED: LIDOCAINE 1% SDV 5ML VIAL SC PRN (07:30)
[2020-09-13] MEDS ORDERED: SODIUM CHLORIDE 0.9% 1000ML IV PRN (07:30)
[2020-09-13] MEDS: FLUTICASONE HFA 110 MCG 12 GM INHALER (FLOVENT) INH SCH ×2 (07:43→19:58)
[2020-09-13] MEDS: IPRATROPIUM 0.5MG/ALBUTEROL 2.5MG INH SOL UD 3ML (DUONEB) NEB SCH ×3 (07:43→19:58)
[2020-09-13] MEDS: CALCIUM ACETATE 667MG GELCAP PO SCH ×4 (08:01→18:00)
[2020-09-13] MEDS: ASPIRIN 81 MG ENTERIC TAB PO SCH (08:01)
[2020-09-13] MEDS: PANTOPRAZOLE 40MG TAB (PROTONIX) PO SCH (08:01)
[2020-09-13] MEDS: VITAMIN D 1,000 INTERNATIONAL UNITS TABLET PO SCH (08:01)
[2020-09-13] MEDS: BISACODYL 5 MG TAB PO SCH (08:01)
[2020-09-13] MEDS: DOCUSATE SODIUM 100MG CAPSULE PO SCH ×3 (08:01→21:54)
[2020-09-13] MEDS: SIMETHICONE 80MG CHEW TAB PO SCH ×3 (08:02→21:55)
[2020-09-13] MEDS: clonazePAM 0.5 MG TAB PO SCH ×2 (08:02→21:55)
[2020-09-13] MEDS: HYDROXYCHLOROQUINE 200 MG TAB PO SCH ×2 (08:02→21:54)
[2020-09-13] MEDS: ACETAMINOPHEN 500 MG TAB PO SCH ×3 (08:02→21:54)
[2020-09-13] MEDS: NEPHRO-VIT TAB (NEPHROCAPS) PO SCH (08:02)
[2020-09-13] MEDS: REMEDY PHYTOPLEX Z-GUARD PASTE 113GM TUBE (FROM STOREROOM PRODUCT) TOP SCH ×3 (08:05→21:58)
[2020-09-13 08:14] LABS: ALBUMIN 2.7 GM/DL (3.2-5.2); CALCIUM LEVEL 9.2 MG/DL (8.8-10.2); CREATININE FOR GFR 10.3 MG/DL (0.70-1.30); GLOMERULAR FILTRATION RATE 5.4 (>49); PHOSPHORUS LEVEL 5.6 MG/DL (2.5-4.9); POTASSIUM SERUM 4.6 MEQ/L (3.5-5.1)
--- NOTE | 2020-09-13 10:49 | IPNPDOC ---
PM&R Progress Note DATE OF SERVICE: Sep 13, 2020 Residential Team Leader Progress Note Subjective: Patient reporting he had a bowel movement and feels less bloated today. REVIEW OF SYSTEMS: The following is a completed review of systems and has been reviewed. Review of systems otherwise unremarkable. PAIN: Patient self reports left hip pain EYES: No recent vision changes EARS, NOSE, & THROAT: No throat pain, or dysphagia, or rhinorrhea CARDIOVASCULAR: Denies chest pain or palpitations PULMONARY: Denies shortness of breath, +chronic dyspnea on exertion GASTROINTESTINAL: + constipation GENITOURINARY: +anuric MUSCULOSKELETAL: left hip replacement NEUROLOGICAL:denies paresthesias HEMATOLOGICAL: +anemia SKIN: left hip incision PSYCHIATRIC: Unremarkable All other review of systems found to be negative. PHYSICAL EXAMINATION: VITAL SIGNS: Please see below. GENERAL: Pleasant and cooperative. No acute distress. HEENT: PERRL. Extraocular movements intact. Clear conjunctiva CARDIOVASCULAR: Irregular rate and rhythm. No murmurs, rubs, or gallops LUNGS: Clear to auscultation bilaterally. No wheezes. No rhonchi ABDOMEN: Soft, nontender, nondistended. Positive bowel sounds. Normal active bowel sounds NEUROLOGICAL: Alert and oriented times three. Cranial nerves II through XII grossly intact. Sensation grossly intact EXTREMITIES: 5\5 strength bilateral upper extremities. 5\5 strength right lower extremity. 5/5 left ankle DF/EHL/PF (limited exam due to surgery) SKIN: sacrum without pressure ulcers ASSESSMENT:64-year-old M with past medical history of ESRD on HD who presents status post left hip arthroplasty PLAN: 1. Rehab- PT/OT advance mobility and ADLs, maintain hip precautions, strengthen/stretch/maintain ROM all 4 limbs 2. Cardiac- Afib with PM and antiphospholipid syndrome c/u warfarin goal INR 2- 3, also on ASA -recent low BPs, holding BP meds, medicine consulted to assist in overall management 3. Resp- hx of asthma and NEERAJ, c/u breathing treatments, CPAP at night 4. Renal- ESRD on HD 5. Ortho- s/p left hip replacement, maintain precautions 6. GI ppx- protonix -c/u simethicone for gas, and increase bowel meds for constipation 7. DVT ppx- on warfarin 8. Pain- tylenol and oxycodone 9. Psych- anxiety- c/u klonipin 10. Rheum- hx of lupus c/u plaquenil 11. Dispo- TBD Allergies Coded Allergies: No Known Allergies (Verified , 08/29/20) Vital Signs Vital Signs Date Time Temp Pulse Resp B/P (MAP) Pulse Ox O2 Delivery O2 Flow Rate FiO2 09/13/20 06:00 97.6 71 20 111/58 (75) 100 Room Air Laboratory Data CBC/BMP Laboratory Tests 09/13/20 07:02 Labs 24H Laboratory Tests 2 09/13/20 07:02: Immature Granulocyte % (Auto) 2.2, Neutrophils (%) (Auto) 71.9H, Lymphocytes (%) (Auto) 12.3L, Monocytes (%) (Auto) 12.9H, Eosinophils (%) (Auto) 0.0, Basophils (%) (Auto) 0.7, Neutrophils # (Auto) 6.1, Lymphocytes # (Auto) 1.1L, Monocytes # (Auto) 1.1H, Eosinophils # (Auto) 0.0, Basophils # (Auto) 0.1, Nucleated Red Blood Cells % (auto) 0.0, Prothrombin Time 35.9H, Prothromb Time International Ratio 3.50, Anion Gap 11, Glomerular Filtration Rate 5.4L, Calcium Level 9.2, Phosphorus Level 5.6H, Albumin 2.7L Current Medications Current Medications Current Medications Medications (Trade) Dose Ordered Sig/Fletcher Route PRN Reason Start Time Stop Time Status Last Admin Dose Admin Acetaminophen (Tylenol Tab) 1,000 mg TID PO 09/09/20 16:00 09/13/20 08:02 Albuterol/ Ipratropium (Duoneb (Ipr 0.5mg/Alb 2.5mg)) 3 ml RTID NEB 09/09/20 14:00 09/12/20 14:25 Aspirin (Ecotrin) 81 mg DAILY PO 09/10/20 09:00 09/13/20 08:01 Bisacodyl (Dulcolax Suppository) 10 mg DAILYPRN PRN [place] CONSTIPATION 09/09/20 12:30 09/13/20 05:45 Bisacodyl (Dulcolax Tab) 5 mg DAILY PO 09/12/20 11:30 09/13/20 08:01 Calcium Acetate (Phoslo) 667 mg WM PO 09/09/20 18:00 09/13/20 08:01 Clonazepam (KlonoPIN) 0.5 mg BID PO 09/09/20 21:00 09/13/20 08:02 Darbepoetin Wu (Aranesp (Dialysis Use)) 200 mcg HD IV 09/10/20 07:45 Docusate Sodium (Colace) 100 mg BID PO 09/09/20 21:00 09/12/20 11:22 DC 09/12/20 08:01 Docusate Sodium (Colace) 100 mg TID PO 09/12/20 16:00 09/13/20 08:01 Fluticasone Propionate (Flovent Hfa 110 Mcg) 2 puff RBID INH 09/09/20 20:00 09/13/20 07:43 Heparin Sodium (Heparin) Please refer to ... ASDIRECTED XX 09/10/20 07:45 09/11/20 07:44 DC Heparin Sodium (Heparin) Please refer to ... ASDIRECTED XX 09/13/20 07:30 09/14/20 07:29 Heparin Sodium (Heparin) dose as per volume indica... ASDIRECTED PRN IV SEE LABEL COMMENTS 09/13/20 07:30 09/14/20 07:29 Hydroxychloroquine Sulfate (Plaquenil) 200 mg BID PO 09/09/20 21:00 09/13/20 08:02 Iron (Venofer) 100 mg HD IV 09/10/20 07:45 09/10/20 13:11 Lidocaine HCl (Lidocaine 1% Sdv) 0.5 ml ASDIRECTED PRN SC SEE LABEL COMMENTS 09/10/20 07:45 09/11/20 07:44 DC Lidocaine HCl (Lidocaine 1% Sdv) 0.5 ml ASDIRECTED PRN SC SEE LABEL COMMENTS 09/13/20 07:30 09/14/20 07:29 Ondansetron HCl (Zofran) 4 mg Q6HP PRN PO NAUSEA 09/09/20 12:30 Oxycodone HCl (Roxicodone, Oxyir) 5 mg Q4HP PRN PO PAIN 09/09/20 12:30 09/12/20 11:15 Pantoprazole Sodium (Protonix) 40 mg DAILY PO 09/10/20 09:00 09/13/20 08:01 Senna (Senokot) 1 tab QHS PO 09/09/20 21:00 09/12/20 21:47 Simethicone (Mylicon) 80 mg TID PO 09/12/20 12:00 09/13/20 08:02 Sodium Chloride (Nacl 0.9%) 200 ml ASDIRECTED PRN IV SEE LABEL COMMENTS 09/10/20 07:45 09/11/20 07:44 DC Sodium Chloride (Nacl 0.9%) 200 ml ASDIRECTED PRN IV SEE LABEL COMMENTS 09/13/20 07:30 09/14/20 07:29 Vitamin B Complex/ Vit C/Folic Acid (Nephro-Monique Rx) 1 tab DAILY PO 09/10/20 09:00 09/13/20 08:02 Vitamin D (Vitamin D) 1,000 units DAILY PO 09/10/20 09:00 09/13/20 08:01 Warfarin Sodium (Coumadin) 3 mg DAILY@17 PO 09/13/20 17:00 Warfarin Sodium (Coumadin) 5 mg DAILY@17 PO 09/10/20 17:00 09/13/20 09:37 DC 09/12/20 16:17 ARLEY DONOHUE MD Sep 13, 2020 10:49
[2020-09-13] MEDS: oxyCODONE 5MG TAB PO PRN (11:57)
[2020-09-13] MEDS: IRON SUCROSE 100MG 5ML VIAL (J1756 PER 1MG) IV SCH (12:17)
[2020-09-13] MEDS: DARBEPOETIN 200MCG/0.4ML *DIALYSIS* SYRINGE (J0882 PER 1MCG) IV SCH (13:22)
[2020-09-13 17:00] VITALS: BP 109/59
[2020-09-13] MEDS ORDERED: WARFARIN SOD 5MG TAB PO SCH (17:00)
[2020-09-13] MEDS ORDERED: WARFARIN SOD 3MG TAB PO SCH ×2 (17:00→18:04)
[2020-09-13] MEDS ORDERED: FLEET ENEMA PR PRN (19:15)
[2020-09-13] MEDS: SENNA 8.6 MG TAB (SENOKOT) PO SCH (21:54)
[2020-09-13 22:00] VITALS: BP 117/56
--- NOTE | 2020-09-13 22:40 | IPN ---
NEPHROLOGY PROGRESS NOTE DATE: 09/13/2020 SUBJECTIVE: The patient was seen and examined at the bedside today morning in the Rehab Unit. He reports that he has been walking with the help of a quad walker. He still reports a mild amount of pain in the left sided hip surgery site. Otherwise he denies any active complaints. OBJECTIVE: VITAL SIGNS: Temperature is 97.6 degrees Fahrenheit, blood pressure 109/59, pulse is 84, respiratory rate of 18, saturating 98% on room air. INTAKE AND OUTPUT: There is no urine output recorded. Weight in the bed scale is not available. PHYSICAL EXAMINATION: GENERAL APPEARANCE: The patient is awake, alert, oriented x3, laying in bed in no apparent distress. HEAD AND NECK: Extraocular muscles intact. Pupils are equally round and reactive to light. Mucous membranes are moist. Neck is supple. There is no jugular venous distention. CARDIOVASCULAR: S1, S2, regular rate. EXTREMITIES: No edema of the bilateral lower extremities. RESPIRATORY: Chest is clear to auscultation bilaterally. Bilaterally currently no rales or rhonchi. ABDOMEN: Soft, obese, positive bowel sounds, nontender. MUSCULOSKELETAL: He has christie in the left hip surgical site. Otherwise no clubbing, no cyanosis. STRAP FOLDING MACHINE OPERATOR: No focal deficits. Power is 5/5 in all extremities. LAB REVIEW: CBC showed a white blood cell count of 8.5, hemoglobin 8.9, platelet count 312. BMP showed sodium 133, potassium 4.6, chloride 94, bicarbonate 28, BUN 41, creatinine is 10.3. CURRENT INPATIENT MEDICATIONS: The patient's medications were all reviewed by myself. There is no significant change in the medications today as compared with yesterday. ASSESSMENT AND PLAN: 1. End-stage renal disease - The patient will be dialyzed today in the afternoon according to his regular schedule. Ultrafiltration goal will be around 1.5 liters as tolerated by his blood pressure. 2. Anemia and end-stage renal disease - hemoglobin is still slightly suboptimal. Continue Venofer and Aranesp with dialysis. 3. Chronic renal disease, mineral bone disease - continue current dose of Renvela with meals. 4. Hypercoagulability - continue current dose of Coumadin. He has a history of antiphospholipid syndrome. INR is therapeutic. 5. Status post left hip replacement - The patient is getting physical therapy in the rehab at this time. [facility]
[2020-09-14 06:11] VITALS: BP 120/62
[2020-09-14 07:23] LABS: BASO # 0.1 10^3/uL (0.0-0.2); BASO % 0.8 % (0.0-1.0); HEMATOCRIT 27.7 % (42.0-52.0); HEMOGLOBIN 8.5 g/dl (13.5-17.5); LYMPH # 1.1 10^3/uL (1.5-5.0); MEAN CORPUSCULAR HEMOGLOBIN 21.3 pg (27.0-33.0); MEAN CORPUSCULAR HGB CONC 30.7 g/dl (32.0-36.5); MEAN CORPUSCULAR VOLUME 69.3 fl (80.0-96.0); MONO # 1.2 10^3/uL (0.0-0.8); MONO % 13.9 % (0.0-5.0); NEUTROPHILS # 5.8 10^3/uL (1.5-8.5); NEUTROPHILS % 69.4 % (36.0-66.0); PLATELET COUNT, AUTOMATED 310 10^3/uL (150-450); WHITE BLOOD COUNT 8.4 10^3/uL (4.0-10.0)
[2020-09-14 07:32] LABS: INR 3.19; PROTHROMBIN TIME 33.4 SECONDS (12.5-14.3)
[2020-09-14 07:55] LABS: CALCIUM LEVEL 8.6 MG/DL (8.8-10.2); CREATININE FOR GFR 6.05 MG/DL (0.70-1.30)
[2020-09-14] MEDS: IPRATROPIUM 0.5MG/ALBUTEROL 2.5MG INH SOL UD 3ML (DUONEB) NEB SCH ×3 (08:00→20:00)
[2020-09-14] MEDS: NEPHRO-VIT TAB (NEPHROCAPS) PO SCH (09:59)
[2020-09-14] MEDS: SIMETHICONE 80MG CHEW TAB PO SCH ×3 (09:59→21:17)
[2020-09-14] MEDS: VITAMIN D 1,000 INTERNATIONAL UNITS TABLET PO SCH (10:00)
[2020-09-14] MEDS: DOCUSATE SODIUM 100MG CAPSULE PO SCH ×3 (10:00→21:17)
[2020-09-14] MEDS: ACETAMINOPHEN 500 MG TAB PO SCH ×3 (10:00→21:18)
[2020-09-14] MEDS: PANTOPRAZOLE 40MG TAB (PROTONIX) PO SCH (10:00)
[2020-09-14] MEDS: BISACODYL 5 MG TAB PO SCH (10:00)
[2020-09-14] MEDS: HYDROXYCHLOROQUINE 200 MG TAB PO SCH ×2 (10:00→21:17)
[2020-09-14] MEDS: REMEDY PHYTOPLEX Z-GUARD PASTE 113GM TUBE (FROM STOREROOM PRODUCT) TOP SCH ×3 (10:01→21:19)
[2020-09-14] MEDS: clonazePAM 0.5 MG TAB PO SCH ×2 (10:01→21:17)
[2020-09-14] MEDS: ASPIRIN 81 MG ENTERIC TAB PO SCH (10:01)
[2020-09-14] MEDS: CALCIUM ACETATE 667MG GELCAP PO SCH ×3 (10:01→17:24)
[2020-09-14 14:00] VITALS: BP 134/62
[2020-09-14] MEDS: FLUTICASONE HFA 110 MCG 12 GM INHALER (FLOVENT) INH SCH ×2 (14:32→20:00)
--- NOTE | 2020-09-14 15:22 | IPNPDOC ---
PM&R Progress Note DATE OF SERVICE: Sep 14, 2020 House Manager Progress Note Subjective: Patient reporting he has chronic neck pain and would like to try a muscle rub. He had a bowel movement last night and this morning and feels relieved. REVIEW OF SYSTEMS: The following is a completed review of systems and has been reviewed. Review of systems otherwise unremarkable. PAIN: Patient self reports left hip pain EYES: No recent vision changes EARS, NOSE, & THROAT: No throat pain, or dysphagia, or rhinorrhea CARDIOVASCULAR: Denies chest pain or palpitations PULMONARY: Denies shortness of breath, +chronic dyspnea on exertion GASTROINTESTINAL: + constipation GENITOURINARY: +anuric MUSCULOSKELETAL: left hip replacement NEUROLOGICAL:denies paresthesias HEMATOLOGICAL: +anemia SKIN: left hip incision PSYCHIATRIC: Unremarkable All other review of systems found to be negative. PHYSICAL EXAMINATION: VITAL SIGNS: Please see below. GENERAL: Pleasant and cooperative. No acute distress. HEENT: PERRL. Extraocular movements intact. Clear conjunctiva CARDIOVASCULAR: Irregular rate and rhythm. No murmurs, rubs, or gallops LUNGS: Clear to auscultation bilaterally. No wheezes. No rhonchi ABDOMEN: Soft, nontender, nondistended. Positive bowel sounds. Normal active bowel sounds NEUROLOGICAL: Alert and oriented times three. Cranial nerves II through XII grossly intact. Sensation grossly intact EXTREMITIES: 5\5 strength bilateral upper extremities. 5\5 strength right lower extremity. 5/5 left ankle DF/EHL/PF (limited exam due to surgery) SKIN: sacrum without pressure ulcers ASSESSMENT:64-year-old M with past medical history of ESRD on HD who presents status post left hip arthroplasty PLAN: 1. Rehab- PT/OT advance mobility and ADLs, maintain hip precautions, strengthen/stretch/maintain ROM all 4 limbs 2. Cardiac- Afib with PM and antiphospholipid syndrome c/u warfarin goal INR 2- 3, also on ASA -recent low BPs, holding BP meds, medicine consulted to assist in overall management 3. Resp- hx of asthma and NEERAJ, c/u breathing treatments, CPAP at night 4. Renal- ESRD on HD 5. Ortho- s/p left hip replacement, maintain precautions 6. GI ppx- protonix -c/u simethicone for gas, and increase bowel meds for constipation, s/p fleet enema 2-2-21 7. DVT ppx- on warfarin 8. Pain- tylenol and oxycodone 9. Psych- anxiety- c/u klonipin 10. Rheum- hx of lupus c/u plaquenil 11. Dispo- 09-19-20 to home, progressing towards goals Allergies Coded Allergies: No Known Allergies (Verified , 08/29/20) Vital Signs Vital Signs Date Time Temp Pulse Resp B/P (MAP) Pulse Ox O2 Delivery O2 Flow Rate FiO2 09/14/20 14:00 98.6 91 18 134/62 (86) 94 Room Air Laboratory Data CBC/BMP Laboratory Tests 09/14/20 06:49 Labs 24H Laboratory Tests 2 09/14/20 06:49: Immature Granulocyte % (Auto) 2.9, Neutrophils (%) (Auto) 69.4H, Lymphocytes (%) (Auto) 13.0L, Monocytes (%) (Auto) 13.9H, Eosinophils (%) (Auto) 0.0, Basophils (%) (Auto) 0.8, Neutrophils # (Auto) 5.8, Lymphocytes # (Auto) 1.1L, Monocytes # (Auto) 1.2H, Eosinophils # (Auto) 0.0, Basophils # (Auto) 0.1, Nucleated Red Blood Cells % (auto) 0.0, Prothrombin Time 33.4H, Prothromb Time International Ratio 3.19, Anion Gap 8, Glomerular Filtration Rate 10.0L, Calcium Level 8.6L Current Medications Current Medications Current Medications Medications (Trade) Dose Ordered Sig/Flecther Route PRN Reason Start Time Stop Time Status Last Admin Dose Admin Acetaminophen (Tylenol Tab) 1,000 mg TID PO 09/09/20 16:00 09/14/20 10:00 Albuterol/ Ipratropium (Duoneb (Ipr 0.5mg/Alb 2.5mg)) 3 ml RTID NEB 09/09/20 14:00 09/14/20 14:32 Aspirin (Ecotrin) 81 mg DAILY PO 09/10/20 09:00 09/14/20 10:01 Bisacodyl (Dulcolax Suppository) 10 mg DAILYPRN PRN [place] CONSTIPATION 09/09/20 12:30 09/13/20 17:52 Bisacodyl (Dulcolax Tab) 5 mg DAILY PO 09/12/20 11:30 09/14/20 10:00 Calcium Acetate (Phoslo) 667 mg WM PO 09/09/20 18:00 09/14/20 12:43 Clonazepam (KlonoPIN) 0.5 mg BID PO 09/09/20 21:00 09/14/20 10:01 Darbepoetin Wu (Aranesp (Dialysis Use)) 200 mcg HD IV 09/10/20 07:45 09/13/20 13:22 Docusate Sodium (Colace) 100 mg BID PO 09/09/20 21:00 09/12/20 11:22 DC 09/12/20 08:01 Docusate Sodium (Colace) 100 mg TID PO 09/12/20 16:00 09/14/20 10:00 Fluticasone Propionate (Flovent Hfa 110 Mcg) 2 puff RBID INH 09/09/20 20:00 09/14/20 14:32 Heparin Sodium (Heparin) Please refer to ... ASDIRECTED XX 09/10/20 07:45 09/11/20 07:44 DC Heparin Sodium (Heparin) Please refer to ... ASDIRECTED XX 09/13/20 07:30 09/14/20 07:29 DC Heparin Sodium (Heparin) dose as per volume indica... ASDIRECTED PRN IV SEE LABEL COMMENTS 09/13/20 07:30 09/14/20 07:29 DC Hydroxychloroquine Sulfate (Plaquenil) 200 mg BID PO 09/09/20 21:00 09/14/20 10:00 Iron (Venofer) 100 mg HD IV 09/10/20 07:45 09/13/20 12:17 Lidocaine HCl (Lidocaine 1% Sdv) 0.5 ml ASDIRECTED PRN SC SEE LABEL COMMENTS 09/10/20 07:45 09/11/20 07:44 DC Lidocaine HCl (Lidocaine 1% Sdv) 0.5 ml ASDIRECTED PRN SC SEE LABEL COMMENTS 09/13/20 07:30 09/14/20 07:29 DC Menthol/Methyl Salicylate (Bengay Cream) posterior neck TID TOP 09/14/20 13:00 Ondansetron HCl (Zofran) 4 mg Q6HP PRN PO NAUSEA 09/09/20 12:30 Oxycodone HCl (Roxicodone, Oxyir) 5 mg Q4HP PRN PO PAIN 09/09/20 12:30 09/13/20 11:57 Pantoprazole Sodium (Protonix) 40 mg DAILY PO 09/10/20 09:00 09/14/20 10:00 Senna (Senokot) 1 tab QHS PO 09/09/20 21:00 09/13/20 21:54 Simethicone (Mylicon) 80 mg TID PO 09/12/20 12:00 09/14/20 09:59 Sodium Biphosphate/ Sodium Phosphate (Fleet Enema) 1 ea DAILYPRN PRN [place] CONSTIPATION 09/13/20 19:15 09/13/20 21:55 Sodium Chloride (Nacl 0.9%) 200 ml ASDIRECTED PRN IV SEE LABEL COMMENTS 09/10/20 07:45 09/11/20 07:44 DC Sodium Chloride (Nacl 0.9%) 200 ml ASDIRECTED PRN IV SEE LABEL COMMENTS 09/13/20 07:30 09/14/20 07:29 DC Vitamin B Complex/ Vit C/Folic Acid (Nephro-Monique Rx) 1 tab DAILY PO 09/10/20 09:00 09/14/20 09:59 Vitamin D (Vitamin D) 1,000 units DAILY PO 09/10/20 09:00 09/14/20 10:00 Warfarin Sodium (Coumadin) 3 mg DAILY@17 PO 09/13/20 17:00 09/13/20 18:04 DC Warfarin Sodium (Coumadin) 3 mg DAILY@17 PO 09/13/20 17:00 09/14/20 09:10 DC 09/13/20 18:15 Warfarin Sodium (Coumadin) 3 mg DAILY@17 PO 09/13/20 18:04 09/13/20 18:05 DC Warfarin Sodium (Coumadin) 4 mg DAILY@17 PO 09/14/20 17:00 Warfarin Sodium (Coumadin) 5 mg DAILY@17 PO 09/10/20 17:00 09/13/20 09:37 DC 09/12/20 16:17 ARLEY DONOHUE MD Sep 14, 2020 15:22
[2020-09-14] MEDS ORDERED: WARFARIN SOD 3MG TAB PO SCH (17:00)
[2020-09-14] MEDS: ANALGESIC BALM CRM 120 GM TOP SCH ×2 (17:27→21:18)
[2020-09-14 20:00] VITALS: BP 108/62
[2020-09-14] MEDS: SENNA 8.6 MG TAB (SENOKOT) PO SCH (21:17)
[2020-09-15 05:14] VITALS: BP 116/58
[2020-09-15 06:59] LABS: INR 3.66; PROTHROMBIN TIME 37.2 SECONDS (12.5-14.3)
[2020-09-15] MEDS ORDERED: LIDOCAINE 1% SDV 5ML VIAL SC PRN (07:00)
[2020-09-15] MEDS ORDERED: SODIUM CHLORIDE 0.9% 1000ML IV PRN (07:00)
[2020-09-15] MEDS: FLUTICASONE HFA 110 MCG 12 GM INHALER (FLOVENT) INH SCH ×2 (08:00→20:02)
[2020-09-15] MEDS: ASPIRIN 81 MG ENTERIC TAB PO SCH (08:06)
[2020-09-15] MEDS: VITAMIN D 1,000 INTERNATIONAL UNITS TABLET PO SCH (08:06)
[2020-09-15] MEDS: PANTOPRAZOLE 40MG TAB (PROTONIX) PO SCH (08:06)
[2020-09-15] MEDS: SIMETHICONE 80MG CHEW TAB PO SCH ×3 (08:06→21:18)
[2020-09-15] MEDS: HYDROXYCHLOROQUINE 200 MG TAB PO SCH ×2 (08:06→21:18)
[2020-09-15] MEDS: clonazePAM 0.5 MG TAB PO SCH ×2 (08:06→21:17)
[2020-09-15] MEDS: CALCIUM ACETATE 667MG GELCAP PO SCH ×3 (08:06→17:18)
[2020-09-15] MEDS: NEPHRO-VIT TAB (NEPHROCAPS) PO SCH (08:06)
[2020-09-15] MEDS: ACETAMINOPHEN 500 MG TAB PO SCH ×3 (08:07→21:19)
[2020-09-15] MEDS: DOCUSATE SODIUM 100MG CAPSULE PO SCH ×3 (08:07→21:17)
[2020-09-15] MEDS: BISACODYL 5 MG TAB PO SCH (08:08)
[2020-09-15] MEDS: ANALGESIC BALM CRM 120 GM TOP SCH ×3 (08:09→21:19)
[2020-09-15] MEDS: REMEDY PHYTOPLEX Z-GUARD PASTE 113GM TUBE (FROM STOREROOM PRODUCT) TOP SCH ×3 (08:09→21:19)
--- NOTE | 2020-09-15 09:30 | IPNPDOC ---
PM&R Progress Note DATE OF SERVICE: Sep 15, 2020 Commander Internal Affairs Progress Note Subjective: Patient reporting he still feels like he is constipated, however reports he often goes only once a week at home, denies any vomiting or nausea. REVIEW OF SYSTEMS: The following is a completed review of systems and has been reviewed. Review of systems otherwise unremarkable. PAIN: Patient self reports left hip pain EYES: No recent vision changes EARS, NOSE, & THROAT: No throat pain, or dysphagia, or rhinorrhea CARDIOVASCULAR: Denies chest pain or palpitations PULMONARY: Denies shortness of breath, +chronic dyspnea on exertion GASTROINTESTINAL: + constipation (improving) GENITOURINARY: +anuric MUSCULOSKELETAL: left hip replacement NEUROLOGICAL:denies paresthesias HEMATOLOGICAL: +anemia SKIN: left hip incision PSYCHIATRIC: Unremarkable All other review of systems found to be negative. PHYSICAL EXAMINATION: VITAL SIGNS: Please see below. GENERAL: Pleasant and cooperative. No acute distress. HEENT: PERRL. Extraocular movements intact. Clear conjunctiva CARDIOVASCULAR: Irregular rate and rhythm. No murmurs, rubs, or gallops LUNGS: Clear to auscultation bilaterally. No wheezes. No rhonchi ABDOMEN: Soft, nontender, nondistended. Positive bowel sounds. Normal active bowel sounds NEUROLOGICAL: Alert and oriented times three. Cranial nerves II through XII grossly intact. Sensation grossly intact EXTREMITIES: 5\5 strength bilateral upper extremities. 5\5 strength right lower extremity. 5/5 left ankle DF/EHL/PF (limited exam due to surgery) SKIN: sacrum without pressure ulcers ASSESSMENT:64-year-old M with past medical history of ESRD on HD who presents status post left hip arthroplasty PLAN: 1. Rehab- PT/OT advance mobility and ADLs, maintain hip precautions, strengthen/stretch/maintain ROM all 4 limbs 2. Cardiac- Afib with PM and antiphospholipid syndrome c/u warfarin goal INR 2- 3, also on ASA -recent low BPs, holding BP meds, medicine consulted to assist in overall manage ment 3. Resp- hx of asthma and NEERAJ, c/u breathing treatments, CPAP at night 4. Renal- ESRD on HD 5. Ortho- s/p left hip replacement, maintain precautions 6. GI ppx- protonix -c/u simethicone for gas, and increase bowel meds for constipation, s/p fleet enema 2--21 7. DVT ppx- on warfarin 8. Pain- tylenol and oxycodone 9. Psych- anxiety- c/u klonipin 10. Rheum- hx of lupus c/u plaquenil 11. Dispo- 09-19-20 to home, progressing towards goals Allergies Coded Allergies: No Known Allergies (Verified , 08/29/20) Vital Signs Vital Signs Date Time Temp Pulse Resp B/P (MAP) Pulse Ox O2 Delivery O2 Flow Rate FiO2 09/15/20 05:14 96.3 73 18 116/58 (77) 97 Room Air Laboratory Data Labs 24H Laboratory Tests 2 09/15/20 06:27: Prothrombin Time 37.2H, Prothromb Time International Ratio 3.66 Current Medications Current Medications Current Medications Medications (Trade) Dose Ordered Sig/Lfetcher Route PRN Reason Start Time Stop Time Status Last Admin Dose Admin Acetaminophen (Tylenol Tab) 1,000 mg TID PO 09/09/20 16:00 09/15/20 08:07 Albuterol/ Ipratropium (Duoneb (Ipr 0.5mg/Alb 2.5mg)) 3 ml RTID NEB 09/09/20 14:00 09/14/20 20:00 Aspirin (Ecotrin) 81 mg DAILY PO 09/10/20 09:00 09/15/20 08:06 Bisacodyl (Dulcolax Suppository) 10 mg DAILYPRN PRN [place] CONSTIPATION 09/09/20 12:30 09/13/20 17:52 Bisacodyl (Dulcolax Tab) 5 mg DAILY PO 09/12/20 11:30 09/15/20 08:08 Calcium Acetate (Phoslo) 667 mg WM PO 09/09/20 18:00 09/15/20 08:06 Clonazepam (KlonoPIN) 0.5 mg BID PO 09/09/20 21:00 09/15/20 08:06 Darbepoetin Wu (Aranesp (Dialysis Use)) 200 mcg HD IV 09/10/20 07:45 09/13/20 13:22 Docusate Sodium (Colace) 100 mg BID PO 09/09/20 21:00 09/12/20 11:22 DC 09/12/20 08:01 Docusate Sodium (Colace) 100 mg TID PO 09/12/20 16:00 09/15/20 08:07 Fluticasone Propionate (Flovent Hfa 110 Mcg) 2 puff RBID INH 09/09/20 20:00 09/14/20 20:00 Heparin Sodium (Heparin) Please refer to ... ASDIRECTED XX 09/10/20 07:45 09/11/20 07:44 DC Heparin Sodium (Heparin) Please refer to ... ASDIRECTED XX 09/13/20 07:30 09/14/20 07:29 DC Heparin Sodium (Heparin) Please refer to ... ASDIRECTED XX 09/15/20 07:00 09/16/20 06:59 Heparin Sodium (Heparin) dose as per volume indica... ASDIRECTED PRN IV SEE LABEL COMMENTS 09/13/20 07:30 09/14/20 07:29 DC Heparin Sodium (Heparin) dose as per volume indica... ASDIRECTED PRN IV SEE LABEL COMMENTS 09/15/20 07:00 09/15/20 16:59 Hydroxychloroquine Sulfate (Plaquenil) 200 mg BID PO 09/09/20 21:00 09/15/20 08:06 Iron (Venofer) 100 mg HD IV 09/10/20 07:45 09/13/20 12:17 Lidocaine HCl (Lidocaine 1% Sdv) 0.5 ml ASDIRECTED PRN SC SEE LABEL COMMENTS 09/10/20 07:45 09/11/20 07:44 DC Lidocaine HCl (Lidocaine 1% Sdv) 0.5 ml ASDIRECTED PRN SC SEE LABEL COMMENTS 09/13/20 07:30 09/14/20 07:29 DC Lidocaine HCl (Lidocaine 1% Sdv) 0.5 ml ASDIRECTED PRN SC SEE LABEL COMMENTS 09/15/20 07:00 09/15/20 16:59 Menthol/Methyl Salicylate (Bengay Cream) posterior neck TID TOP 09/14/20 13:00 09/15/20 08:09 Ondansetron HCl (Zofran) 4 mg Q6HP PRN PO NAUSEA 09/09/20 12:30 Oxycodone HCl (Roxicodone, Oxyir) 5 mg Q4HP PRN PO PAIN 09/09/20 12:30 09/13/20 11:57 Pantoprazole Sodium (Protonix) 40 mg DAILY PO 09/10/20 09:00 09/15/20 08:06 Senna (Senokot) 1 tab QHS PO 09/09/20 21:00 09/14/20 21:17 Simethicone (Mylicon) 80 mg TID PO 09/12/20 12:00 09/15/20 08:06 Sodium Biphosphate/ Sodium Phosphate (Fleet Enema) 1 ea DAILYPRN PRN [place] CONSTIPATION 09/13/20 19:15 09/13/20 21:55 Sodium Chloride (Nacl 0.9%) 200 ml ASDIRECTED PRN IV SEE LABEL COMMENTS 09/10/20 07:45 09/11/20 07:44 DC Sodium Chloride (Nacl 0.9%) 200 ml ASDIRECTED PRN IV SEE LABEL COMMENTS 09/13/20 07:30 09/14/20 07:29 DC Sodium Chloride (Nacl 0.9%) 200 ml ASDIRECTED PRN IV SEE LABEL COMMENTS 09/15/20 07:00 09/16/20 06:59 Vitamin B Complex/ Vit C/Folic Acid (Nephro-Monique Rx) 1 tab DAILY PO 09/10/20 09:00 09/15/20 08:06 Vitamin D (Vitamin D) 1,000 units DAILY PO 09/10/20 09:00 09/15/20 08:06 Warfarin Sodium (Coumadin) 3 mg DAILY@17 PO 09/13/20 17:00 09/13/20 18:04 DC Warfarin Sodium (Coumadin) 3 mg DAILY@17 PO 09/13/20 17:00 09/14/20 09:10 DC 09/13/20 18:15 Warfarin Sodium (Coumadin) 3 mg DAILY@17 PO 09/13/20 18:04 09/13/20 18:05 DC Warfarin Sodium (Coumadin) 4 mg DAILY@17 PO 09/14/20 17:00 09/14/20 17:26 Warfarin Sodium (Coumadin) 5 mg DAILY@17 PO 09/10/20 17:00 09/13/20 09:37 DC 09/12/20 16:17 ARLEY DONOHUE MD Sep 15, 2020 09:30
[2020-09-15] MEDS: IPRATROPIUM 0.5MG/ALBUTEROL 2.5MG INH SOL UD 3ML (DUONEB) NEB SCH ×3 (10:44→20:02)
[2020-09-15] MEDS: IRON SUCROSE 100MG 5ML VIAL (J1756 PER 1MG) IV SCH (13:36)
[2020-09-15 14:00] VITALS: BP 87/60
[2020-09-15] MEDS: WARFARIN SOD 3MG TAB PO SCH (17:18)
[2020-09-15 20:00] VITALS: BP 102/56
--- NOTE | 2020-09-15 21:08 | IPN ---
NEPHROLOGY PROGRESS NOTE DATE: 09/15/2020 SUBJECTIVE: Patient was seen and examined today morning in the rehabilitation unit. He was getting his physical therapy when I saw him today. This is patient's regular day of dialysis. He reports that his strength is slowly improving and he reports mild edema in the left lower extremity. OBJECTIVE: VITAL SIGNS: Temperature 96.3 degrees Fahrenheit, blood pressure 116/58, pulse 73, respiratory rate 18, saturating 97% on room air. INTAKE AND OUTPUT: Urine output is not recorded. Weight in the bed scale is not available. PHYSICAL EXAMINATION: GENERAL: Patient is awake, alert, oriented times three, no apparent distress. HEAD AND NECK EXAM: Extraocular muscles intact. Pupils equally round and reactive to light. Mucous membranes are moist. Neck is supple. There is no jugular venous distention (JVD). CARDIOVASCULAR: S1, S2. Regular rate. 2+ edema of the left lower extremity, trace edema of the right lower extremity. RESPIRATORY: Chest is clear to auscultation bilaterally. Bilateral equal air entry. No rales or rhonchi. ABDOMEN: Soft. Positive bowel sounds. Nontender. No organomegaly. MUSCULOSKELETAL: Left lower extremity edema and christie in the left hip from recent hip. CENTRAL NERVOUS SYSTEM (ADVERTISING MATERIAL DISTRIBUTOR): No focal deficits. Power is 5/5 in all extremities. LABORATORY REVIEW: CBC is from yesterday. BMP is from yesterday as well and potassium was 4. CURRENT INPATIENT MEDICATIONS: Patient's medications were all reviewed by myself and there is no significant change in the medications today as compared with yesterday. ASSESSMENT AND PLAN: 1. End-stage renal disease. Patient will be dialyzed today and ultrafiltration goal will be around 2 kg as tolerated by his blood pressure. 2. Anemia in end-stage renal disease. Continue current dose of Aranesp and Venofer. 3. Lower extremity edema. Patient will get fluid removed with dialysis that will help improve edema. 4. Hypercoagulability and antiphospholipid syndrome. Continue current dose of Coumadin. It has been changed by the medical team.
[2020-09-15] MEDS: SENNA 8.6 MG TAB (SENOKOT) PO SCH (21:23)
[2020-09-16 05:10] VITALS: BP 117/62
[2020-09-16 06:52] LABS: BASO # 0.1 10^3/uL (0.0-0.2); BASO % 0.8 % (0.0-1.0); HEMATOCRIT 27.4 % (42.0-52.0); HEMOGLOBIN 8.3 g/dl (13.5-17.5); LYMPH # 1.2 10^3/uL (1.5-5.0); LYMPH % 13.8 % (24.0-44.0); MEAN CORPUSCULAR HGB CONC 30.3 g/dl (32.0-36.5); MEAN CORPUSCULAR VOLUME 69.4 fl (80.0-96.0); MONO # 1.1 10^3/uL (0.0-0.8); MONO % 12.6 % (0.0-5.0); NEUTROPHILS # 6.1 10^3/uL (1.5-8.5); NEUTROPHILS % 69.8 % (36.0-66.0); PLATELET COUNT, AUTOMATED 344 10^3/uL (150-450); RED BLOOD COUNT 3.95 10^6/uL (4.30-6.10)
[2020-09-16 06:53] LABS: WHITE BLOOD COUNT 8.7 10^3/uL (4.0-10.0)
[2020-09-16 07:07] LABS: INR 3.18; PROTHROMBIN TIME 33.3 SECONDS (12.5-14.3)
[2020-09-16 07:09] LABS: CALCIUM LEVEL 8.7 MG/DL (8.8-10.2); CREATININE FOR GFR 5.13 MG/DL (0.70-1.30); GLOMERULAR FILTRATION RATE 12.1 (>49); POTASSIUM SERUM 3.9 MEQ/L (3.5-5.1)
[2020-09-16] MEDS: FLUTICASONE HFA 110 MCG 12 GM INHALER (FLOVENT) INH SCH ×2 (07:30→20:17)
[2020-09-16] MEDS: IPRATROPIUM 0.5MG/ALBUTEROL 2.5MG INH SOL UD 3ML (DUONEB) NEB SCH ×3 (07:31→20:16)
[2020-09-16] MEDS: CALCIUM ACETATE 667MG GELCAP PO SCH ×3 (08:00→17:25)
[2020-09-16] MEDS: DOCUSATE SODIUM 100MG CAPSULE PO SCH ×3 (10:15→20:11)
[2020-09-16] MEDS: PANTOPRAZOLE 40MG TAB (PROTONIX) PO SCH (10:15)
[2020-09-16] MEDS: MIRALAX *UNIT DOSE* 17GM PACKET PO SCH (10:15)
[2020-09-16] MEDS: NEPHRO-VIT TAB (NEPHROCAPS) PO SCH (10:15)
[2020-09-16] MEDS: ASPIRIN 81 MG ENTERIC TAB PO SCH (10:15)
[2020-09-16] MEDS: SIMETHICONE 80MG CHEW TAB PO SCH ×3 (10:15→20:10)
[2020-09-16] MEDS: VITAMIN D 1,000 INTERNATIONAL UNITS TABLET PO SCH (10:15)
[2020-09-16] MEDS: HYDROXYCHLOROQUINE 200 MG TAB PO SCH ×2 (10:16→20:11)
[2020-09-16] MEDS: clonazePAM 0.5 MG TAB PO SCH ×2 (10:16→20:11)
[2020-09-16] MEDS: BISACODYL 5 MG TAB PO SCH (10:16)
[2020-09-16] MEDS: ACETAMINOPHEN 500 MG TAB PO SCH ×3 (10:17→20:11)
[2020-09-16] MEDS: REMEDY PHYTOPLEX Z-GUARD PASTE 113GM TUBE (FROM STOREROOM PRODUCT) TOP SCH ×3 (10:18→20:12)
[2020-09-16] MEDS: ANALGESIC BALM CRM 120 GM TOP SCH ×3 (10:18→22:00)
[2020-09-16 14:00] VITALS: BP 133/61
[2020-09-16] MEDS: WARFARIN SOD 3MG TAB PO SCH (16:26)
[2020-09-16] MEDS: SENNA 8.6 MG TAB (SENOKOT) PO SCH (20:11)
[2020-09-16 20:20] VITALS: BP_SYST 125; BP_SYST 132; BP_DIAS 65; BP_DIAS 77
[2020-09-16] MEDS ORDERED: MAGNESIUM CITRATE 300 ML BTL PO ONE (20:45)
[2020-09-17 05:59] VITALS: BP 134/78
[2020-09-17] MEDS ORDERED: LIDOCAINE 1% SDV 5ML VIAL SC PRN (07:00)
[2020-09-17] MEDS: IPRATROPIUM 0.5MG/ALBUTEROL 2.5MG INH SOL UD 3ML (DUONEB) NEB SCH ×3 (07:26→19:35)
[2020-09-17] MEDS: FLUTICASONE HFA 110 MCG 12 GM INHALER (FLOVENT) INH SCH ×2 (07:27→19:35)
[2020-09-17] MEDS: CALCIUM ACETATE 667MG GELCAP PO SCH ×2 (08:00→08:49)
[2020-09-17 08:40] LABS: INR 3.82; PROTHROMBIN TIME 38.5 SECONDS (12.5-14.3)
[2020-09-17] MEDS: DOCUSATE SODIUM 100MG CAPSULE PO SCH ×2 (08:49→16:00)
[2020-09-17] MEDS: ASPIRIN 81 MG ENTERIC TAB PO SCH (08:49)
[2020-09-17] MEDS: MIRALAX *UNIT DOSE* 17GM PACKET PO SCH (08:50)
[2020-09-17] MEDS: SIMETHICONE 80MG CHEW TAB PO SCH ×2 (08:50→16:00)
[2020-09-17] MEDS: ACETAMINOPHEN 500 MG TAB PO SCH ×3 (08:50→20:59)
[2020-09-17] MEDS: HYDROXYCHLOROQUINE 200 MG TAB PO SCH ×2 (08:50→20:59)
[2020-09-17] MEDS: BISACODYL 5 MG TAB PO SCH (08:50)
[2020-09-17] MEDS: PANTOPRAZOLE 40MG TAB (PROTONIX) PO SCH (08:50)
[2020-09-17] MEDS: VITAMIN D 1,000 INTERNATIONAL UNITS TABLET PO SCH (08:51)
[2020-09-17] MEDS: NEPHRO-VIT TAB (NEPHROCAPS) PO SCH (08:51)
[2020-09-17] MEDS: clonazePAM 0.5 MG TAB PO SCH ×2 (08:51→20:57)
[2020-09-17] MEDS: ANALGESIC BALM CRM 120 GM TOP SCH ×3 (08:52→21:00)
[2020-09-17] MEDS: REMEDY PHYTOPLEX Z-GUARD PASTE 113GM TUBE (FROM STOREROOM PRODUCT) TOP SCH ×3 (08:53→21:00)
[2020-09-17] MEDS ORDERED: FLEET OIL RETENTION ENEMA PR ONE (10:30)
[2020-09-17] MEDS: BISACODYL 10 MG SUPP PR PRN (11:49)
[2020-09-17 14:00] VITALS: BP 176/89
[2020-09-17] MEDS: IRON SUCROSE 100MG 5ML VIAL (J1756 PER 1MG) IV SCH (15:28)
--- NOTE | 2020-09-17 17:26 | IPNPDOC ---
Subjective Date Seen The patient was seen on 09/17/20. Subjective Chief Complaint/HPI Pt has not had a bowel movement today. He has been given Colace, Senna, Miralax, without any results. Pt states that it feels like there is a hard golf ball that he cannot push out no matter how hard he bears down. Pt and nursing staff deny any other overnight events. He is due for hemodialysis today. General: Denies: ROS Unobtainable, Chills, Night Sweats, Fatigue, Malaise, Normal Appetite, Other Symptoms Constitutional: Denies: Chills, Fever, Malaise, Night Sweats, Weakness, Fatigue, Weight Loss, Lethargy, Other Gastrointestinal: Reports: Constipation Objective Physical Examination General Exam: Positive: Alert, Cooperative, No Acute Distress Chest Exam: Positive: Clear to auscultation, Normal air movement Heart Exam: Positive: Rate Normal, Regular Rhythm, Normal S1, Normal S2 Extremity Exam: Positive: Edema (2+ pitting edema LLE, trace edema RLE) Assessment /Plan Assessment # End-stage renal disease: Patient will be dialyzed today and ultrafiltration goal will be around 2 kg as tolerated by his blood pressure. #Constipation: Pt did not have a bowel movement since 09/15/20 even though Colace, Senna, and Miralax have been administered. Mineral oil enema was delivered with no result. Manual disimpaction was also done, however this did not help. KUB x- ray has been ordered. # Anemia in end-stage renal disease: Continue current dose of Aranesp and Venofer with HD. # Lower extremity edema: Patient will get fluid removed with dialysis that will help improve edema. # Hypercoagulability and antiphospholipid syndrome: Current dose of Coumadin has been changed by the medical team. Continue Heparin during HD. Plan/VTE VTE Prophylaxis Ordered?: Yes (heparin with HD) GME ATTESTATION My faculty preceptor for this patient encounter was physically present during the encounter and was fully available. All aspects of the patient interview, examination, medical decision making process, and medical care plan development were reviewed and approved by the faculty preceptor. The faculty preceptor is aware and concurs with the plan as stated in the body of this note and will attest to such by his/her cosignature. VS, I&O, 24H, Fishbone Vital Signs/I&O Vital Signs Date Time Temp Pulse Resp B/P (MAP) Pulse Ox O2 Delivery O2 Flow Rate FiO2 09/17/20 14:00 Room Air I&O- Last 24 Hours up to 6 AM 09/17/20 06:00 Intake Total 940 ml Balance 940 ml Laboratory Data 24H LABS Laboratory Tests 2 09/17/20 07:41: Prothrombin Time 38.5H, Prothromb Time International Ratio 3.82 Attending Note Attending Note ESRD on HD Anemia in CKD Lt hip arthroplasty Ileus LE Edema antiphospholipid syndrome. HD today with UF goal 2Kg. X ray KUB with ileus. Laxatives stopped. Bowel rest for now. cont Coumadin. Tobias Soto DO Sep 17, 2020 17:26 SHANNON SOTO MD Sep 22, 2020 09:08
[2020-09-17 18:10] VITALS: BP 120/61
--- NOTE | 2020-09-17 19:30 | REP ---
INDICATION: Lack of Bowel Movement. COMPARISON: None. TECHNIQUE: Three AP views of abdomen and pelvis. FINDINGS: There is mild air and fecal material scattered throughout the colon. Multiple small bowel loops are filled with air and very mildly distended diffusely. I suspect this represents a generalized ileus. There is a total left hip prosthesis with skin christie laterally. There are moderate degenerative changes of the spine. There are multiple phleboliths in the pelvis. IMPRESSION: Very mild diffuse distention of small bowel loops with air I suspect represents a mild generalized ileus. <Electronically signed by Yon Morin > 09/17/20 1726
[2020-09-17 20:00] VITALS: BP 119/64
--- NOTE | 2020-09-18 03:51 | IPNPDOC ---
Date Seen The patient was seen on 09/18/20. Progress Note SUBJECTIVE: Patient was evaluated per request of Nephrology due to KUB demonstrating ileus. Patient has reportedly had decreased bowel movements. He has been placed on a bowel regiment without success. KUB was ordered in during the day which demonstrated a diffuse ileus. Imaging and report was reviewed. Patient was evaluated at bedside. Patient denied any abdominal pain or discomfort. He denies any nausea or vomiting. He states that he is able to eat and drink. He states that he is passing gas OBJECTIVE PHYSICAL EXAMINATION: VITAL SIGNS: Please see below. GENERAL: Awake, alert, and oriented. Appears in no acute distress. Appears comfortable CARDIOVASCULAR: Normal S1, S2. Regular rate and rhythm. No clicks, rubs, or murmurs RESPIRATORY: Clear bilaterally ABDOMINAL: Soft, nondistended. Bowel sounds are present. Nontender. No rebound tenderness or guarding. EXTREMITIES: 2+ pitting edema bilaterally LABORATORY DATA, IMAGING STUDIES, MICROBIOLOGY: Please see below. PROBLEMS: 1. Ileus -Patient has an ileus. KUB image and report has been reviewed. This was discussed with the patient at bedside. Main concern is whether patient needs to be transferred to floor for gastric decompression and IV fluids. On evaluation the patient is rather comfortable. Denies nausea or vomiting and states he is tolerating a diet. Per nursing report during the day the patient is not very active. Have instructed the patient to get out of bed and walk around as activity may help improve his ileus. Patient was agreeable to this DISPOSITION: At this time no clinical indication for transfer to medical floor. If patients status changes will reevaluate and treat as clinically indicated VS, I&O, 24H, [facility] Vital Signs/I&O Vital Signs Date Time Temp Pulse Resp B/P (MAP) Pulse Ox O2 Delivery O2 Flow Rate FiO2 09/17/20 20:00 98.8 88 18 119/64 (82) 91 Room Air I&O- Last 24 Hours up to 6 AM 09/18/20 06:00 Intake Total 480 ml Output Total 2500 ml Balance -2020 ml Laboratory Data 24H LABS Laboratory Tests 2 09/17/20 07:41: Prothrombin Time 38.5H, Prothromb Time International Ratio 3.82 BRUCE FELTON DO Sep 18, 2020 03:50
[2020-09-18 05:56] VITALS: BP 158/76
[2020-09-18 07:21] LABS: INR 3.32; PROTHROMBIN TIME 34.5 SECONDS (12.5-14.3)
[2020-09-18] MEDS: IPRATROPIUM 0.5MG/ALBUTEROL 2.5MG INH SOL UD 3ML (DUONEB) NEB SCH ×3 (08:24→18:08)
[2020-09-18] MEDS: FLUTICASONE HFA 110 MCG 12 GM INHALER (FLOVENT) INH SCH ×2 (08:25→18:07)
[2020-09-18] MEDS: NEPHRO-VIT TAB (NEPHROCAPS) PO SCH (08:39)
[2020-09-18] MEDS: ASPIRIN 81 MG ENTERIC TAB PO SCH (08:40)
[2020-09-18] MEDS: HYDROXYCHLOROQUINE 200 MG TAB PO SCH ×2 (08:40→21:51)
[2020-09-18] MEDS: PANTOPRAZOLE 40MG TAB (PROTONIX) PO SCH (08:40)
[2020-09-18] MEDS: clonazePAM 0.5 MG TAB PO SCH ×2 (08:40→21:51)
[2020-09-18] MEDS: VITAMIN D 1,000 INTERNATIONAL UNITS TABLET PO SCH (08:41)
[2020-09-18] MEDS: ACETAMINOPHEN 500 MG TAB PO SCH ×3 (08:41→21:00)
[2020-09-18] MEDS: REMEDY PHYTOPLEX Z-GUARD PASTE 113GM TUBE (FROM STOREROOM PRODUCT) TOP SCH ×3 (08:43→21:53)
[2020-09-18] MEDS: ANALGESIC BALM CRM 120 GM TOP SCH ×3 (08:43→21:00)
--- NOTE | 2020-09-18 09:12 | IPNPDOC ---
Text Note Date of Service The patient was seen on 09/18/20. NOTE Subjective: Patient seen and examined at bedside. He states he had a very small bowel movement this morning. He denies abdominal pain refers to abdominal pressure. No other medical complaints this morning. Objective: General: NAD, sitting comfortably in chair on arrival HEENT: NC/AT, EOMI Lungs: CTA B/L Heart: +S1S2, RRR Abd: sfot, NT, obese, hyperactive BS Ext: trace edema A/P: #constipation/ileus - continue with bowel regimen - encourage ambulation as tolerated - discussed with surgery - no further interventions at this time - recommended bowel regimen - if worsens, surgery will consult # ESRD/H - follow as per nephrology # AOCD - continue current dose of Aranesp and Venofer with HD. # Lower extremity edema: Patient will get fluid removed with dialysis that will help improve edema. #antiphospholipid syndrome - INR supratherapeutic - holding warfarin - continue to monitor INR - Heparin during HD. VS,Fishbone, I+O VS, Fishbone, I+O Vital Signs Date Time Temp Pulse Resp B/P (MAP) Pulse Ox O2 Delivery O2 Flow Rate FiO2 09/18/20 05:56 99.2 85 18 158/76 (103) 99 Room Air I&O- Last 24 Hours up to 6 AM 09/18/20 06:00 Intake Total 480 ml Output Total 2500 ml Balance -2020 ml FRED TIERNEY MD Sep 18, 2020 09:12
[2020-09-18] MEDS ORDERED: SENOKOT S TAB PO PRN (09:15)
[2020-09-18 09:33] LABS: HEMOGLOBIN 8.6 g/dl (13.5-17.5); MEAN CORPUSCULAR HEMOGLOBIN 20.9 pg (27.0-33.0); MEAN CORPUSCULAR HGB CONC 29.7 g/dl (32.0-36.5); MEAN CORPUSCULAR VOLUME 70.6 fl (80.0-96.0); PLATELET COUNT, AUTOMATED 395 10^3/uL (150-450); RED BLOOD COUNT 4.11 10^6/uL (4.30-6.10); WHITE BLOOD COUNT 11.7 10^3/uL (4.0-10.0)
[2020-09-18] MEDS ORDERED: ASPI81TA33 PO (09:48)
[2020-09-18] MEDS ORDERED: OMEP1CAP73 PO (09:48)
[2020-09-18] MEDS ORDERED: HYDR200T3 PO (09:48)
[2020-09-18] MEDS ORDERED: WARF4TAB52 PO (09:48)
[2020-09-18] MEDS: BISACODYL 5 MG TAB PO SCH (12:13)
[2020-09-18 14:00] VITALS: BP 116/63
[2020-09-18] MEDS: DOCUSATE SODIUM 100MG CAPSULE PO SCH ×2 (16:27→21:51)
[2020-09-18 21:00] VITALS: BP 110/58
[2020-09-18] MEDS ORDERED: SENNA 8.6 MG TAB (SENOKOT) PO SCH (21:00)
--- NOTE | 2020-09-18 23:38 | IPN ---
NEPHROLOGY PROGRESS NOTE DATE: 09/18/2020 SUBJECTIVE: The patient was seen and examined at the bedside today morning. He is afebrile, hemodynamically stable. The last 24 hour events are noted. He was dialyzed yesterday. He tolerated the hemodialysis procedure well. After dialysis he got the x-ray of the abdomen done which showed an ileus. All the laxatives and stool softeners were stopped. The patient was seen by the Medical Service as well. He reports that his abdominal distention is slightly better today as compared with yesterday and he has had two soft bowel movements since overnight. OBJECTIVE: VITAL SIGNS: Temperature is 97.5 degrees Fahrenheit, blood pressure 116/63, pulse is 100, respiratory rate of 18, saturating 96% on room air. INTAKE AND OUTPUT: Urine output is not recorded. Ultrafiltration with hemodialysis was 2.5 liters. He has had two bowel movements so far since overnight and he had two bowel movements yesterday as well. Weight in the bed scale is 101 kg. PHYSICAL EXAMINATION: GENERAL APPEARANCE: The patient is awake, alert, oriented x3, laying in bed. HEAD AND NECK: Extraocular muscles intact. Pupils are equally round and reactive to light. Mucous membranes are moist. Neck is supple. There is no jugular venous distention. CARDIOVASCULAR: S1, S2, regular rate. EXTREMITIES: No edema of the bilateral lower extremities. RESPIRATORY: Chest is clear to auscultation bilaterally. Bilaterally currently no rales or rhonchi. ABDOMEN: Soft, distended, mild decreased bowel sounds. Otherwise no tenderness. MUSCULOSKELETAL: Left sided surgical scar was noted. 2+ edema of the left lower extremity. No edema of the right lower extremity. PHILOSOPHY AND RELIGION INSTRUCTOR: No focal deficits. Power is 5/5 in all extremities. LAB REVIEW: CBC showed a white blood cell count of 11.7, hemoglobin 8.6, platelet count 395. BMP is from 2 days ago. CURRENT INPATIENT MEDICATIONS: The patient's medications were all reviewed by myself. No significant change in the medications today as compared with yesterday. ASSESSMENT AND PLAN: 1. End-stage renal disease The patient was dialyzed yesterday. Next hemodialysis will be on Saturday. 2. Ileus pattern - The patient's laxatives and stool softeners were held yesterday. He reports that he is slowly have two loose bowel movements. He is going to be seen by Surgical Service as well. 3. Anemia and end-stage renal disease - Hemoglobin level is suboptimal. He got Aranesp 200 mcg at dialysis. He is also getting Venofer. If hemoglobin stays low then he would be given one unit of PRBC transfusion. 4. Hypercoagulability and antiphospholipid syndrome he continues to be on Coumadin. 5. Disposition - The patient is not stable to be discharged at this time because of ongoing ileus and recent surgery.
[2020-09-19 06:00] VITALS: BP 118/61
[2020-09-19 07:58] LABS: BASO # 0.1 10^3/uL (0.0-0.2); HEMATOCRIT 28.1 % (42.0-52.0); HEMOGLOBIN 8.4 g/dl (13.5-17.5); LYMPH # 1.6 10^3/uL (1.5-5.0); LYMPH % 16.3 % (24.0-44.0); MEAN CORPUSCULAR HEMOGLOBIN 21.1 pg (27.0-33.0); MEAN CORPUSCULAR HGB CONC 29.9 g/dl (32.0-36.5); MEAN CORPUSCULAR VOLUME 70.4 fl (80.0-96.0); MONO # 1.1 10^3/uL (0.0-0.8); MONO % 10.9 % (0.0-5.0); NEUTROPHILS # 6.6 10^3/uL (1.5-8.5); NEUTROPHILS % 68.2 % (36.0-66.0); PLATELET COUNT, AUTOMATED 389 10^3/uL (150-450); RED BLOOD COUNT 3.99 10^6/uL (4.30-6.10)
[2020-09-19 08:07] LABS: WHITE BLOOD COUNT 9.6 10^3/uL (4.0-10.0)
[2020-09-19 08:10] LABS: INR 2.53; PROTHROMBIN TIME 27.8 SECONDS (12.5-14.3)
[2020-09-19] MEDS: IPRATROPIUM 0.5MG/ALBUTEROL 2.5MG INH SOL UD 3ML (DUONEB) NEB SCH ×3 (08:11→19:41)
[2020-09-19] MEDS: FLUTICASONE HFA 110 MCG 12 GM INHALER (FLOVENT) INH SCH ×2 (08:11→19:41)
[2020-09-19] MEDS: VITAMIN D 1,000 INTERNATIONAL UNITS TABLET PO SCH (08:35)
[2020-09-19] MEDS: NEPHRO-VIT TAB (NEPHROCAPS) PO SCH (08:35)
[2020-09-19] MEDS: BISACODYL 5 MG TAB PO SCH (08:35)
[2020-09-19] MEDS: PANTOPRAZOLE 40MG TAB (PROTONIX) PO SCH (08:35)
[2020-09-19] MEDS: DOCUSATE SODIUM 100MG CAPSULE PO SCH (08:35)
[2020-09-19] MEDS: ASPIRIN 81 MG ENTERIC TAB PO SCH (08:35)
[2020-09-19] MEDS: HYDROXYCHLOROQUINE 200 MG TAB PO SCH ×2 (08:35→21:10)
[2020-09-19] MEDS: clonazePAM 0.5 MG TAB PO SCH ×2 (08:36→21:10)
[2020-09-19] MEDS: ACETAMINOPHEN 500 MG TAB PO SCH ×3 (08:36→21:10)
[2020-09-19] MEDS: REMEDY PHYTOPLEX Z-GUARD PASTE 113GM TUBE (FROM STOREROOM PRODUCT) TOP SCH ×3 (08:37→21:11)
[2020-09-19] MEDS: ANALGESIC BALM CRM 120 GM TOP SCH ×3 (08:45→21:11)
--- NOTE | 2020-09-19 13:08 | CR ---
CONSULTATION DATE OF CONSULT: 09/19/20 REASON FOR CONSULT: Lower abdominal pain. HISTORY OF PRESENT ILLNESS: The patient is a 64-year-old male with a history of lupus and obstructive sleep apnea who was admitted on 09/05/20 by orthopedic surgery for an elective left hip. Post-operatively he was admitted to the rehab unit where he has been ever since. Throughout his stay he has had issues with lower abdominal pain as well as some slight abdominal distention. They obtained an x-ray yesterday showing diffuse slightly dilated loops of small bowel with concern for ileus versus obstruction therefore I was asked to evaluate. When I was examining him he denied any problems. His pain was improved after having a bowel movement. His pains were all very mild and very low down in the pelvis. No severe pains, no nausea or vomiting. He is still passing gas and passing flatus without any complications. No fevers or chills. No problems with any recent colitis of any kind and no signs of any recent infection. PAST MEDICAL HISTORY: 1. Tachycardia. 2. End-stage renal disease on maintenance dialysis. 3. Asthma. 4. Renovascular hypertension. 5. Lupus with lupus nephritis. 6. Anti-Phospholipid syndrome. 7. Obstructive sleep apnea. 8. Gout. 9. Diabetes. 10. Mild aortic stenosis. 11. History of TIAs. 12. Anemia of chronic renal disease. PAST SURGICAL HISTORY: 1. Appendectomy. 2. Dialysis fistula. 3. Pilonidal cyst. 4. Left ankle surgery. 5. AV node ablation. ALLERGIES: None. MEDICATIONS: Please see Med Rec. FAMILY HISTORY: Noncontributory. REVIEW OF SYSTEMS: Pertinent positives and negatives as stated in the HPI. PHYSICAL EXAMINATION: General: Patient is A&O times 3, in no acute distress. Vitals: Temp 97.5, pulse 100, respirations 18, blood pressure 116/63, pulse ox 96% on room air. HEENT: Pupils equal, round and reactive to light and accommodation. Heart: S1 and S2 regular rate and rhythm. Lungs: Clear to auscultation bilaterally. Abdomen: Soft, mild tenderness in the suprapubic area only, no guarding, rebound or rigidity. No ventral hernias. Extremities: No clubbing, cyanosis or edema. LABORATORY DATA: White count 11.7, hemoglobin 8.6, platelets 395. IMAGING: Abdominal x-ray from 09/17 showed mildly diffuse distention of small bowel loops with air suspect representing a mild generalized ileus. ASSESSMENT AND PLAN: Patient is a 64-year-old male with a history of constipation and poor diet who is currently in rehab status post elective hip surgery still having some mild lower pelvic pain. X-ray yesterday did show some mildly diffuse dilated loops of small bowel. At this time there is no explanation for this. There does not appear to be any electrolyte abnormalities or any signs of infection anywhere that could be resulting in an ileus. He is also not on any narcotics. He is on multiple bowel medications all at the same time and his diet has been poor. Recommendation at this time is I advised him to increase his fiber intake and drink lots of water. Once he gets his bowels moving more regularly I think he will feel better. I also adjusted his bowel regimen around a little bit. He was taking Colace and senna separately I canceled both of those and started him on senokot S which has a combination of both of those together. He can take that along with the Dulcolax tablets that he is already on. If he goes more than a few days and feels that he needs to have a bowel movement he can always add a dose of MiraLax into this as well; however, I am fairly confident that once he starts improving his fiber in his diet I think he will start to find his bowel regimen becomes more regular. No surgical indication for anything at this time. He can follow up with GI as an outpatient to have this worked up further if needed and there is no reason for him to have to remain for inpatient care for this.
[2020-09-19 14:00] VITALS: BP 115/58
[2020-09-19] MEDS ORDERED: WARFARIN SOD 2MG TAB PO SCH (17:00)
[2020-09-19 20:00] VITALS: BP 102/56
[2020-09-19] MEDS: PREPARATION H SUPP (HEMORRHOID) PR SCH (21:10)
[2020-09-19] MEDS: SENOKOT S TAB PO SCH (21:10)
[2020-09-20 05:14] VITALS: BP 114/60
[2020-09-20 07:08] LABS: INR 2.15; PROTHROMBIN TIME 24.5 SECONDS (12.5-14.3)
[2020-09-20 07:41] LABS: CALCIUM LEVEL 9.3 MG/DL (8.8-10.2); CREATININE FOR GFR 9.4 MG/DL (0.70-1.30); POTASSIUM SERUM 3.7 MEQ/L (3.5-5.1)
[2020-09-20 07:49] VITALS: BP 114/60
[2020-09-20] MEDS ORDERED: WARF4TAB51 PO (08:53)
[2020-09-20] MEDS: PREPARATION H SUPP (HEMORRHOID) PR SCH (09:00)
[2020-09-20] MEDS: ANALGESIC BALM CRM 120 GM TOP SCH (09:00)
[2020-09-20] MEDS: REMEDY PHYTOPLEX Z-GUARD PASTE 113GM TUBE (FROM STOREROOM PRODUCT) TOP SCH (09:00)
--- NOTE | 2020-09-20 09:03 | IPNPDOC ---
PM&R Progress Note DATE OF SERVICE: Sep 19, 2020 [employer] Progress Note Subjective: Patient reporting he feels like stool is stuck in his rectum and that it hurts to push because he has hemorrhoids. REVIEW OF SYSTEMS: The following is a completed review of systems and has been reviewed. Review of systems otherwise unremarkable. PAIN: Patient self reports left hip pain EYES: No recent vision changes EARS, NOSE, & THROAT: No throat pain, or dysphagia, or rhinorrhea CARDIOVASCULAR: Denies chest pain or palpitations PULMONARY: Denies shortness of breath, +chronic dyspnea on exertion GASTROINTESTINAL: + constipation (improving) GENITOURINARY: +anuric MUSCULOSKELETAL: left hip replacement NEUROLOGICAL:denies paresthesias HEMATOLOGICAL: +anemia SKIN: left hip incision PSYCHIATRIC: Unremarkable All other review of systems found to be negative. PHYSICAL EXAMINATION: VITAL SIGNS: Please see below. GENERAL: Pleasant and cooperative. No acute distress. HEENT: PERRL. Extraocular movements intact. Clear conjunctiva CARDIOVASCULAR: Irregular rate and rhythm. No murmurs, rubs, or gallops LUNGS: Clear to auscultation bilaterally. No wheezes. No rhonchi ABDOMEN: Soft, nontender, nondistended. Positive bowel sounds. Normal active brenda wel sounds NEUROLOGICAL: Alert and oriented times three. Cranial nerves II through XII grossly intact. Sensation grossly intact EXTREMITIES: 5\5 strength bilateral upper extremities. 5\5 strength right lower extremity. 5/5 left ankle DF/EHL/PF (limited exam due to surgery) SKIN: sacrum without pressure ulcers ASSESSMENT:64-year-old M with past medical history of ESRD on HD who presents status post left hip arthroplasty PLAN: 1. Rehab- PT/OT advance mobility and ADLs, maintain hip precautions, strengthen/stretch/maintain ROM all 4 limbs, c/u room privileges 2. Cardiac- Afib with PM and antiphospholipid syndrome c/u warfarin goal INR 2- 3, also on ASA -recent low BPs, holding BP meds, medicine consulted to assist in overall management 3. Resp- hx of asthma and ENERAJ, c/u breathing treatments, CPAP at night 4. Renal- ESRD on HD 5. Ortho- s/p left hip replacement, maintain precautions 6. GI ppx- protonix -patient evaluated by surgery for constipation and ileus seen on recent CT abdomen, patient reporting small BMs and flatus, c/u increased fiber in diet and bowl meds, ok for d/c home tomorrow, surgery recs aprpeciated -patient ecnouraged to use tucks for his hemorrhoids, preparation H suppository ordered as well 7. DVT ppx- on warfarin 8. Pain- tylenol and oxycodone 9. Psych- anxiety- c/u klonipin 10. Rheum- hx of lupus c/u plaquenil 11. Dispo- 09-20-20 to home, progressing towards goals Allergies Coded Allergies: No Known Allergies (Verified , 08/29/20) Vital Signs Vital Signs Date Time Temp Pulse Resp B/P (MAP) Pulse Ox O2 Delivery O2 Flow Rate FiO2 09/20/20 07:49 96.4 75 18 114/60 96 Room Air Laboratory Data CBC/BMP Laboratory Tests 09/20/20 06:36 Labs 24H Laboratory Tests 2 09/20/20 06:36: Prothrombin Time 24.5H, Prothromb Time International Ratio 2.15, Anion Gap 11, Glomerular Filtration Rate 6.0L, Calcium Level 9.3 Current Medications Current Medications Current Medications Medications (Trade) Dose Ordered Sig/Fletcher Route PRN Reason Start Time Stop Time Status Last Admin Dose Admin Acetaminophen (Tylenol Tab) 1,000 mg TID PO 09/09/20 16:00 09/19/20 21:10 Albuterol/ Ipratropium (Duoneb (Ipr 0.5mg/Alb 2.5mg)) 3 ml RTID NEB 09/09/20 14:00 09/19/20 19:41 Aspirin (Ecotrin) 81 mg DAILY PO 09/10/20 09:00 09/19/20 08:35 Bisacodyl (Dulcolax Suppository) 10 mg DAILYPRN PRN NE CONSTIPATION 09/09/20 12:30 09/17/20 19:50 DC 09/17/20 11:49 Bisacodyl (Dulcolax Tab) 5 mg DAILY PO 09/12/20 11:30 09/17/20 19:50 DC 09/17/20 08:50 Bisacodyl (Dulcolax Tab) 5 mg DAILY PO 09/18/20 09:00 09/19/20 08:35 Calcium Acetate (Phoslo) 667 mg WM PO 09/09/20 18:00 09/17/20 12:13 DC 09/16/20 12:53 Clonazepam (KlonoPIN) 0.5 mg BID PO 09/09/20 21:00 09/19/20 21:10 Darbepoetin Wu (Aranesp (Dialysis Use)) 200 mcg HD IV 09/10/20 07:45 09/13/20 13:22 Docusate Sodium (Colace) 100 mg BID PO 09/09/20 21:00 09/12/20 11:22 DC 09/12/20 08:01 Docusate Sodium (Colace) 100 mg TID PO 09/12/20 16:00 09/17/20 19:50 DC 09/17/20 08:49 Docusate Sodium (Colace) 100 mg TID PO 09/18/20 16:00 09/19/20 11:37 DC 09/19/20 08:35 Fluticasone Propionate (Flovent Hfa 110 Mcg) 2 puff RBID INH 09/09/20 20:00 09/19/20 19:41 Heparin Sodium (Heparin) Please refer to ... ASDIRECTED XX 09/10/20 07:45 09/11/20 07:44 DC Heparin Sodium (Heparin) Please refer to ... ASDIRECTED XX 09/13/20 07:30 09/14/20 07:29 DC Heparin Sodium (Heparin) Please refer to ... ASDIRECTED XX 09/15/20 07:00 09/16/20 06:59 DC Heparin Sodium (Heparin) Please refer to ... ASDIRECTED XX 09/17/20 07:00 09/18/20 06:59 DC Heparin Sodium (Heparin) dose as per volume indica... ASDIRECTED PRN IV SEE LABEL COMMENTS 09/13/20 07:30 09/14/20 07:29 DC Heparin Sodium (Heparin) dose as per volume indica... ASDIRECTED PRN IV SEE LABEL COMMENTS 09/15/20 07:00 09/15/20 16:59 DC Hydroxychloroquine Sulfate (Plaquenil) 200 mg BID PO 09/09/20 21:00 09/19/20 21:10 Iron (Venofer) 100 mg HD IV 09/10/20 07:45 09/17/20 15:28 Lidocaine HCl (Lidocaine 1% Sdv) 0.5 ml ASDIRECTED PRN SC SEE LABEL COMMENTS 09/10/20 07:45 09/11/20 07:44 DC Lidocaine HCl (Lidocaine 1% Sdv) 0.5 ml ASDIRECTED PRN SC SEE LABEL COMMENTS 09/13/20 07:30 09/14/20 07:29 DC Lidocaine HCl (Lidocaine 1% Sdv) 0.5 ml ASDIRECTED PRN SC SEE LABEL COMMENTS 09/15/20 07:00 09/15/20 16:59 DC Lidocaine HCl (Lidocaine 1% Sdv) 0.5 ml ASDIRECTED PRN SC SEE LABEL COMMENTS 09/17/20 07:00 09/17/20 09:29 DC Menthol/Methyl Salicylate (Bengay Cream) posterior neck TID TOP 09/14/20 13:00 09/19/20 21:11 Ondansetron HCl (Zofran) 4 mg Q6HP PRN PO NAUSEA 09/09/20 12:30 Oxycodone HCl (Roxicodone, Oxyir) 5 mg Q4HP PRN PO PAIN 09/09/20 12:30 09/17/20 19:50 DC 09/13/20 11:57 Pantoprazole Sodium (Protonix) 40 mg DAILY PO 09/10/20 09:00 09/19/20 08:35 Phenylephrine HCl (Preparation H Supp) 1 sup BID NE 09/19/20 21:00 09/19/20 21:10 Polyethylene Glycol (Miralax) 1 pkt DAILY PO 09/16/20 09:00 09/17/20 19:50 DC 09/17/20 08:50 Senna (Senokot) 1 tab QHS PO 09/09/20 21:00 09/15/20 20:48 DC 09/14/20 21:17 Senna (Senokot) 1 tab QHS PO 09/18/20 21:00 09/19/20 11:37 DC 09/18/20 21:51 Senna (Senokot) 2 tab QHS PO 09/15/20 21:00 09/17/20 19:50 DC 09/16/20 20:11 Senna/Docusate Sodium (Senokot S) 1 tab BIDP PRN PO CONSTIPATION 09/18/20 09:15 09/18/20 11:20 DC Senna/Docusate Sodium (Senokot S) 2 tab BID PO 09/19/20 21:00 09/19/20 21:10 Simethicone (Mylicon) 80 mg TID PO 09/12/20 12:00 09/17/20 19:50 DC 09/17/20 08:50 Sodium Biphosphate/ Sodium Phosphate (Fleet Enema) 1 ea DAILYPRN PRN NE CONSTIPATION 09/13/20 19:15 09/13/20 21:55 Sodium Chloride (Nacl 0.9%) 200 ml ASDIRECTED PRN IV SEE LABEL COMMENTS 09/10/20 07:45 09/11/20 07:44 DC Sodium Chloride (Nacl 0.9%) 200 ml ASDIRECTED PRN IV SEE LABEL COMMENTS 09/13/20 07:30 09/14/20 07:29 DC Sodium Chloride (Nacl 0.9%) 200 ml ASDIRECTED PRN IV SEE LABEL COMMENTS 09/15/20 07:00 09/16/20 06:59 DC Vitamin B Complex/ Vit C/Folic Acid (Nephro-Monique Rx) 1 tab DAILY PO 09/10/20 09:00 09/19/20 08:35 Vitamin D (Vitamin D) 1,000 units DAILY PO 09/10/20 09:00 09/19/20 08:35 Warfarin Sodium (Coumadin) 2 mg DAILY@17 PO 09/19/20 17:00 09/19/20 16:05 Warfarin Sodium (Coumadin) 3 mg DAILY@17 PO 09/13/20 17:00 09/13/20 18:04 DC Warfarin Sodium (Coumadin) 3 mg DAILY@17 PO 09/13/20 17:00 09/14/20 09:10 DC 09/13/20 18:15 Warfarin Sodium (Coumadin) 3 mg DAILY@17 PO 09/13/20 18:04 09/13/20 18:05 DC Warfarin Sodium (Coumadin) 3 mg DAILY@17 PO 09/15/20 17:00 09/19/20 15:21 DC 09/16/20 16:26 Warfarin Sodium (Coumadin) 4 mg DAILY@17 PO 09/14/20 17:00 09/15/20 09:30 DC 09/14/20 17:26 Warfarin Sodium (Coumadin) 5 mg DAILY@17 PO 09/10/20 17:00 09/13/20 09:37 DC 09/12/20 16:17 ARLEY DONOHUE MD Sep 20, 2020 09:03
[2020-09-20] MEDS: DARBEPOETIN 200MCG/0.4ML *DIALYSIS* SYRINGE (J0882 PER 1MCG) IV SCH (09:17)
--- NOTE | 2020-09-20 09:22 | PMRDS ---
NAME: [facility] WT ID#: [id number] : [id number] JOB: [id number] ERIC: 09/09/2020 ACCT: [id number] DOCTOR: ARLEY DONOHUE MD PMR DISCHARGE SUMMARY DATE OF ADMISSION: 09/09/2020 DATE OF DISCHARGE: 09/20/2020 CHIEF COMPLAINT/DISCHARGE DIAGNOSIS: Left hip total hip replacement. 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 He had postop drops in blood pressures requiring pressors, pain and difficulty ambulating. He was placed on a Heparin bridge as his INR was subtherapeutic, evaluated by therapy where he was found to have impairments in mobility and ADLs and deemed medically appropriate for discharge to ARU on 09/09/2020. PAST MEDICAL HISTORY: As per HPI. HOSPITAL COURSE: The patient was admitted and enrolled in a comprehensive PT/OT program. He received 24 hour nursing supervision and weekly team meetings were held to discuss his progress. Patient's blood pressure medications continued to be held in the setting of recent low blood pressures. He received IV Venofer and Aranesp for his anemia of chronic disease. Patient complained of chronic constipation with gas which was partially relieved with Simethicone and gradual increase in his constipation medications. The patient was seen by Surgery for his constipation who recommended bowel regimen and to continue as an outpatient. He made steady and positive gains in therapy and was deemed medically and functionally stable to return home. DISCHARGE MEDICATIONS: As per instructions. FUNCTIONAL HISTORY: On discharge, the patient was modified independent for all ADLs and ambulation. Thank you for this referral.
[2020-09-20] MEDS ORDERED: LIDOCAINE 1% SDV 5ML VIAL SC PRN (09:45)
[2020-09-20] MEDS ORDERED: SODIUM CHLORIDE 0.9% 1000ML IV PRN (09:45)
[2020-09-20] MEDS: IRON SUCROSE 100MG 5ML VIAL (J1756 PER 1MG) IV SCH (10:48)
[2020-09-20] MEDS: PANTOPRAZOLE 40MG TAB (PROTONIX) PO SCH (13:58)
[2020-09-20] MEDS: BISACODYL 5 MG TAB PO SCH (13:58)
[2020-09-20] MEDS: ASPIRIN 81 MG ENTERIC TAB PO SCH (13:58)
[2020-09-20] MEDS: SENOKOT S TAB PO SCH (13:58)
[2020-09-20] MEDS: NEPHRO-VIT TAB (NEPHROCAPS) PO SCH (13:59)
[2020-09-20] MEDS: clonazePAM 0.5 MG TAB PO SCH (13:59)
[2020-09-20] MEDS: VITAMIN D 1,000 INTERNATIONAL UNITS TABLET PO SCH (13:59)
[2020-09-20] MEDS: ACETAMINOPHEN 500 MG TAB PO SCH (13:59)
[2020-09-20 14:00] VITALS: BP 107/64
[2020-09-20] MEDS: HYDROXYCHLOROQUINE 200 MG TAB PO SCH (14:05)
--- NOTE | 2020-09-21 09:26 | IPN ---
PROGRESS NOTE DATE: 09/20/2020 SUBJECTIVE: Patient seen and examined this morning in the hemodialysis unit receiving his treatment. He has been struggling with constipation and hemorrhoids, but reports he had a bowel movement this morning and is passing gas. He has discharge pending later after dialysis. OBJECTIVE: VITAL SIGNS: Temperature 96.9, pulse 79, respiratory rate 18, blood pressure 107/64, saturating 98% on room air. INTAKE AND OUTPUT: Intake yesterday 880. Dialysis today removed 2 liters. Weight in the bed scale today is not recorded. GENERAL: Patient is seen receiving his treatment, awake, alert, oriented and in no distress. HEENT: Extraocular muscles are intact. Ear, nose and throat are unremarkable. HEART: Sounds are irregularly irregular. There is no leg edema. CHEST: Clear to auscultation bilaterally. No crackle, rale or rhonchus. ABDOMEN: Soft, obese and mildly distended. There are bowel sounds audible. EXTREMITIES: Moves all four extremities on command. There is no leg swelling. His fistula is presently in use in the left upper extremity. NEUROLOGIC: Oriented x3, interactive at baseline mentation. SKIN: Normal temperature and turgor. LABORATORY DATA: White count 9.6, hemoglobin 8.4. Sodium 132, potassium 3.7. Calcium 9.3. INPATIENT MEDICATIONS: Reviewed by myself. Coumadin was adjusted by the primary team. He was given Preparation-H suppository and Senokot two tabs p.o. twice daily. The remainder of his medications are unchanged from prior. PROBLEMS: 1. End-stage renal disease on hemodialysis on a Saturday, , Saturday schedule: Patient is dialyzed today with 2.5 liters of fluid removed. His electrolytes and volume status are acceptable. His fistula is in good use. Continue current dialysis prescription. Next treatment will be as an outpatient. 2. Hypercoagulability and antiphospholipid syndrome: Patient is anticoagulated with Coumadin and his INR is therapeutic and it will be followed through the dialysis unit. 3. Anemia of end-stage renal disease and also related to the perioperative state: Hemoglobin is suboptimal but stable. He continues on Aranesp and Venofer with dialysis. Patient is acceptable for discharge from nephrology point of view.
== END 2020-09-20 16:05 | disposition home or self-care (01) | DRG 559 ==
LOC: M PM&R 09-09 13:05
PROVIDERS: ADMIT Physical Medicine & Rehabilitation; ATTEND Physical Medicine & Rehabilitation
PROC: 5A1D70Z Performance of Urinary Filtration, Intermittent, Less than 6 Hours Per Day (ICD-10-PCS; principal; 2020-09-10)
DX: Z47.1 Aftercare following joint replacement surgery (principal); N18.6 End stage renal disease; I12.0 Hypertensive chronic kidney disease with stage 5 chronic kidney disease or end stage renal disease; D68.61 Antiphospholipid syndrome; K56.7 Ileus, unspecified; Z96.642 Presence of left artificial hip joint; Z74.09 Other reduced mobility; Z74.1 Need for assistance with personal care; M32.14 Glomerular disease in systemic lupus erythematosus; J45.909 Unspecified asthma, uncomplicated; I48.91 Unspecified atrial fibrillation; G47.33 Obstructive sleep apnea (adult) (pediatric); M10.9 Gout, unspecified; K21.9 Gastro-esophageal reflux disease without esophagitis; D63.1 Anemia in chronic kidney disease; F41.9 Anxiety disorder, unspecified; E11.42 Type 2 diabetes mellitus with diabetic polyneuropathy; K59.09 Other constipation; R06.09 Other forms of dyspnea; Z87.891 Personal history of nicotine dependence; Z99.2 Dependence on renal dialysis; Z79.82 Long term (current) use of aspirin; Z79.01 Long term (current) use of anticoagulants; Z79.899 Other long term (current) drug therapy; Z86.73 Personal history of transient ischemic attack (TIA), and cerebral infarction without residual deficits

== ENCOUNTER → 2020-12-30 | Outpatient (REF) | payer MEDICARE ==
[~2020-12-30] MED LIST changes: +BUPR150T12 PO; -BUPR150T4 PO; -DOXY100C37 PO; +DOXY1CAP62 PO; -PEGPOW PO; +POLY510P14 PO; +WARF4TAB51 PO; +WARF4TAB52 PO
== END ==
LOC: M SFHCRHEU 11:58
PROVIDERS: ATTEND Internal Medicine
DX: M32.9 Systemic lupus erythematosus, unspecified (principal); Z79.899 Other long term (current) drug therapy
CPT/HCPCS: 82306; G0463; G0480

== ENCOUNTER → 2021-09-01 | Outpatient (CLI) | payer MEDICARE ==
[~2021-09-01] MED LIST changes: +DOXY-443 PO; -DOXY1CAP62 PO; +OMEP-173 PO; -OMEP-218 PO
[2021-09-01 11:42] LABS: CALCIUM LEVEL 9.1 MG/DL (8.8-10.2); CREATININE FOR GFR 7.51 MG/DL (0.70-1.30); GLOMERULAR FILTRATION RATE 7.7 (>49); MAGNESIUM LEVEL 2.2 MG/DL (1.8-2.4); POTASSIUM SERUM 3.7 MEQ/L (3.5-5.1)
== END ==
LOC: M WUC 08:46
PROVIDERS: ATTEND Physician Assistant
DX: R94.31 Abnormal electrocardiogram [ECG] [EKG] (principal)

== ENCOUNTER → 2021-09-08 | Outpatient (CLI) | payer MEDICARE | LOC: M WUC 08:45 | PROVIDERS: ATTEND Physician Assistant | DX: R06.02 Shortness of breath (principal) ==

== ENCOUNTER → 2022-01-10 | Outpatient (CLI) | payer MEDICARE ==
[2022-01-10 12:42] LABS: BASO # 0.1 10^3/uL (0.0-0.2); BASO % 1.5 % (0.0-1.0); HEMATOCRIT 34.9 % (42.0-52.0); HEMOGLOBIN 10.2 g/dl (13.5-17.5); LYMPH % 34.4 % (24.0-44.0); MEAN CORPUSCULAR HEMOGLOBIN 21.1 pg (27.0-33.0); MEAN CORPUSCULAR HGB CONC 29.2 g/dl (32.0-36.5); MEAN CORPUSCULAR VOLUME 72.1 fl (80.0-96.0); MONO # 0.8 10^3/uL (0.0-0.8); MONO % 14.1 % (2.0-8.0); NEUTROPHILS # 2.9 10^3/uL (1.5-8.5); NEUTROPHILS % 49.3 % (36.0-66.0); PLATELET COUNT, AUTOMATED 238 10^3/uL (150-450); RED BLOOD COUNT 4.84 10^6/uL (4.30-6.10); WHITE BLOOD COUNT 5.8 10^3/uL (4.0-10.0)
[2022-01-10 13:04] LABS: C REACTIVE PROTEIN QUANTITATIV 0.66 MG/DL (0.00-0.30)
[2022-01-10 13:25] LABS: ERYTHROCYTE SEDIMENTATION RATE 26 mm/hr (0-20)
== END ==
LOC: M WUC 10:05
PROVIDERS: ATTEND Internal Medicine
DX: M32.9 Systemic lupus erythematosus, unspecified (principal)

== ENCOUNTER 2022-05-18 17:33 | Emergency (ER) | payer MEDICARE ==
[~2022-05-18] VITALS: Ht 170.2 cm; Wt 109.1 kg
[2022-05-18] MEDS ORDERED: ARIP1TAB6 (17:46)
[2022-05-18] MEDS ORDERED: BUSP15TA47 (17:46)
[2022-05-18] MEDS ORDERED: MIDO10TA (17:46)
[2022-05-18 18:57] LABS: BASO % 0.9 % (0.0-1.0); HEMATOCRIT 40.4 % (42.0-52.0); HEMOGLOBIN 12.2 g/dl (13.5-17.5); LYMPH % 20.1 % (24.0-44.0); MEAN CORPUSCULAR HEMOGLOBIN 21.4 pg (27.0-33.0); MEAN CORPUSCULAR HGB CONC 30.2 g/dl (32.0-36.5); MEAN CORPUSCULAR VOLUME 70.8 fl (80.0-96.0); MONO % 13.2 % (2.0-8.0); PLATELET COUNT, AUTOMATED 250 10^3/uL (150-450); RED BLOOD COUNT 5.71 10^6/uL (4.30-6.10); WHITE BLOOD COUNT 10.6 10^3/uL (4.0-10.0)
[2022-05-18 18:58] LABS: BASO # 0.1 10^3/uL (0.0-0.2); LYMPH # 2.1 10^3/uL (1.5-5.0); MONO # 1.4 10^3/uL (0.0-0.8); NEUTROPHILS # 6.9 10^3/uL (1.5-8.5)
[2022-05-18 19:34] LABS: INR 2.48; PROTHROMBIN TIME 27.2 SECONDS (12.7-14.5)
[2022-05-18 19:35] LABS: PARTIAL THROMBOPLASTIN TIME 67.9 SECONDS (25.9-37.0)
[2022-05-18] MEDS ORDERED: SILVER NITRATE APPLICATOR (1 = QTY 10) TOP ONE (20:25)
[2022-05-18] MEDS ORDERED: MIDODRINE 5 MG TAB PO STA (20:43)
[2022-05-18] MEDS ORDERED: IPRATROPIUM 0.5MG/ALBUTEROL 2.5MG INH SOL UD 3ML (DUONEB) NEB ONE (22:35)
[2022-05-18 23:56] LABS: CK-MB VALUE MASS 1.4 NG/ML (<3.6); MB/CK RELATIVE INDEX 0.95 (< OR =4)
[2022-05-18 23:57] LABS: ALBUMIN 3.4 GM/DL (3.2-5.2); BILIRUBIN,DIRECT 0.1 MG/DL (0.0-0.2); BILIRUBIN,TOTAL 0.5 MG/DL (0.2-1.0); CALCIUM LEVEL 9.3 MG/DL (8.8-10.2); CREATININE FOR GFR 9.99 MG/DL (0.70-1.30); GLOMERULAR FILTRATION RATE 5.6 (>49); POTASSIUM SERUM 4.2 MEQ/L (3.5-5.1); TOTAL PROTEIN 6.8 GM/DL (6.4-8.2)
[2022-05-19 00:45] VITALS: BP 101/63
[2022-05-19 01:24] LABS: CK-MB VALUE MASS 1.2 NG/ML (<3.6); MB/CK RELATIVE INDEX 0.94 (< OR =4)
== END 2022-05-19 02:11 | disposition home or self-care (01) ==
LOC: M ED 17:33
DX: R04.0 Epistaxis (principal); I95.9 Hypotension, unspecified; I70.0 Atherosclerosis of aorta; M25.78 Osteophyte, vertebrae; M19.011 Primary osteoarthritis, right shoulder; I44.4 Left anterior fascicular block; I45.10 Unspecified right bundle-branch block; I48.91 Unspecified atrial fibrillation; N18.6 End stage renal disease; Z99.2 Dependence on renal dialysis; Z86.73 Personal history of transient ischemic attack (TIA), and cerebral infarction without residual deficits; J45.909 Unspecified asthma, uncomplicated; J44.9 Chronic obstructive pulmonary disease, unspecified; I10 Essential (primary) hypertension; Z79.899 Other long term (current) drug therapy

== ENCOUNTER 2022-06-06 09:14 | Emergency (ER) | payer MEDICARE ==
[~2022-06-06] VITALS: Ht 170.2 cm; Wt 107.5 kg
[~2022-06-06 09:14] MED LIST changes: +ARIP1TAB6; +BUSP15TA47; +MIDO10TA
[2022-06-06 11:31] LABS: BASO # 0.1 10^3/uL (0.0-0.2); HEMATOCRIT 37.3 % (42.0-52.0); HEMOGLOBIN 11.3 g/dl (13.5-17.5); LYMPH # 1.2 10^3/uL (1.5-5.0); LYMPH % 16.6 % (24.0-44.0); MEAN CORPUSCULAR HEMOGLOBIN 21.2 pg (27.0-33.0); MEAN CORPUSCULAR HGB CONC 30.3 g/dl (32.0-36.5); MONO # 0.9 10^3/uL (0.0-0.8); MONO % 12.6 % (2.0-8.0); NEUTROPHILS # 4.8 10^3/uL (1.5-8.5); NEUTROPHILS % 69.2 % (36.0-66.0); PLATELET COUNT, AUTOMATED 233 10^3/uL (150-450); RED BLOOD COUNT 5.33 10^6/uL (4.30-6.10); WHITE BLOOD COUNT 6.9 10^3/uL (4.0-10.0)
[2022-06-06 12:00] LABS: INR 2.19; PROTHROMBIN TIME 24.7 SECONDS (12.5-14.5)
[2022-06-06 12:01] LABS: PARTIAL THROMBOPLASTIN TIME 60.6 SECONDS (24.8-34.2)
[2022-06-06 12:07] VITALS: BP 122/64
== END 2022-06-06 12:22 | disposition home or self-care (01) ==
LOC: M ED 09:14
DX: R04.0 Epistaxis (principal); I48.91 Unspecified atrial fibrillation; I12.0 Hypertensive chronic kidney disease with stage 5 chronic kidney disease or end stage renal disease; Z99.2 Dependence on renal dialysis; E78.5 Hyperlipidemia, unspecified; Z86.73 Personal history of transient ischemic attack (TIA), and cerebral infarction without residual deficits; Z79.51 Long term (current) use of inhaled steroids; Z79.01 Long term (current) use of anticoagulants; Z79.82 Long term (current) use of aspirin; Z79.899 Other long term (current) drug therapy

== ENCOUNTER → 2022-07-20 | Outpatient (CLI) | payer MEDICARE | LOC: M WUC 09:31 | PROVIDERS: ATTEND Internal Medicine | DX: M32.9 Systemic lupus erythematosus, unspecified (principal) ==

== ENCOUNTER → 2022-08-22 | Outpatient (CLI) | payer MEDICARE ==
[~2022-08-22] MED LIST changes: -MIDO10TA; +MIDO10TA PO; +MIRA3350 PO; +PROC20004 SC; +VITA500054 PO
== END ==
LOC: M LABSMTC 09:31
PROVIDERS: ATTEND Anesthesiology
DX: Z01.818 Encounter for other preprocedural examination (principal); Z11.52 Encounter for screening for COVID-19

== ENCOUNTER 2022-08-27 09:54 | Day surgery (SDC) | payer MEDICARE ==
[~2022-08-27] VITALS: Ht 170.2 cm; Wt 103.8 kg
[~2022-08-27 09:54] MED LIST changes: +BSS IRRIG/VANCO(10MG)/TOBRA(5MG)/EPINEPH(1:1000-0.5CC)500ML BAG-ORONLY IR ONE; +CEFUROXIME 1MG/0.1ML INTRACAMERAL INJ As Ordered ONE; +CYCLOPENTOLATE 1% OPHTH SOLN 2ML BTL OS SCH; +LIDOCAINE 1% SDV 5ML VIAL As Ordered ONE; +LIDOCAINE 3.5 % 1ML OPHTH TOPICAL GEL OU ONE; +MIDAZOLAM INJ 2MG/2ML VIAL As Ordered ONE; +OFLOXACIN 0.3 % (OCUFLOX) OPTH SOL 5ML OS ONE; +PHENYLEPHRINE 10% OPHTH SOL 5ML OS PRN; +PHENYLEPHRINE 2.5% OPHTH SOL 2ML OS SCH; +TROPICAMIDE 1% OPHTH SOLN 15ML OS SCH; +fentaNYL 100 MCG/2 ML INJECTION As Ordered ONE
[2022-08-27 11:32] VITALS: BP 123/57
== END 2022-08-27 12:00 | disposition home or self-care (01) ==
LOC: M SDC 09:54
PROVIDERS: ATTEND Ophthalmology
DX: H25.12 Age-related nuclear cataract, left eye (principal); I48.91 Unspecified atrial fibrillation; I10 Essential (primary) hypertension; Z86.73 Personal history of transient ischemic attack (TIA), and cerebral infarction without residual deficits; I34.0 Nonrheumatic mitral (valve) insufficiency; D64.9 Anemia, unspecified; M32.9 Systemic lupus erythematosus, unspecified; G47.30 Sleep apnea, unspecified; Z79.899 Other long term (current) drug therapy; Z79.01 Long term (current) use of anticoagulants
CPT/HCPCS: 36415; 66984; 84132; V2632

== ENCOUNTER → 2022-09-05 | Outpatient (CLI) | payer MEDICARE ==
[~2022-09-05] MED LIST changes: -BSS IRRIG/VANCO(10MG)/TOBRA(5MG)/EPINEPH(1:1000-0.5CC)500ML BAG-ORONLY IR ONE; -CEFUROXIME 1MG/0.1ML INTRACAMERAL INJ As Ordered ONE; -CYCLOPENTOLATE 1% OPHTH SOLN 2ML BTL OS SCH; -LIDOCAINE 1% SDV 5ML VIAL As Ordered ONE; -LIDOCAINE 3.5 % 1ML OPHTH TOPICAL GEL OU ONE; -MIDAZOLAM INJ 2MG/2ML VIAL As Ordered ONE; -OFLOXACIN 0.3 % (OCUFLOX) OPTH SOL 5ML OS ONE; -PHENYLEPHRINE 10% OPHTH SOL 5ML OS PRN; -PHENYLEPHRINE 2.5% OPHTH SOL 2ML OS SCH; -TROPICAMIDE 1% OPHTH SOLN 15ML OS SCH; -fentaNYL 100 MCG/2 ML INJECTION As Ordered ONE
== END ==
LOC: M LABSMTC 10:18
PROVIDERS: ATTEND Anesthesiology
DX: Z01.818 Encounter for other preprocedural examination (principal); Z11.52 Encounter for screening for COVID-19

== ENCOUNTER → 2022-09-19 | Outpatient (CLI) | payer MEDICARE | LOC: M LABSMTC 09:29 | PROVIDERS: ATTEND Anesthesiology | DX: Z01.812 Encounter for preprocedural laboratory examination (principal); Z20.822 Contact with and (suspected) exposure to COVID-19 ==

== ENCOUNTER 2022-09-24 11:42 | Day surgery (SDC) | payer MEDICARE ==
[~2022-09-24] VITALS: Ht 170.2 cm; Wt 102.2 kg
[~2022-09-24 11:42] MED LIST changes: +BSS IRRIG/VANCO(10MG)/TOBRA(5MG)/EPINEPH(1:1000-0.5CC)500ML BAG-ORONLY IR ONE; +CEFUROXIME 1MG/0.1ML INTRACAMERAL INJ As Ordered ONE; +CYCLOPENTOLATE 1% OPHTH SOLN 2ML BTL OD SCH; +LIDOCAINE 1% SDV 5ML VIAL As Ordered ONE; +LIDOCAINE 3.5 % 1ML OPHTH TOPICAL GEL OU ONE; +OFLOXACIN 0.3 % (OCUFLOX) OPTH SOL 5ML OD ONE; +PHENYLEPHRINE 10% OPHTH SOL 5ML OD PRN; +PHENYLEPHRINE 2.5% OPHTH SOL 2ML OD SCH; +TROPICAMIDE 1% OPHTH SOLN 15ML OD SCH
[2022-09-24] MEDS ORDERED: MIDAZOLAM INJ 2MG/2ML VIAL As Ordered ONE (13:15)
[2022-09-24] MEDS ORDERED: fentaNYL 100 MCG/2 ML INJECTION As Ordered ONE (13:15)
[2022-09-24 14:00] VITALS: BP 114/57
== END 2022-09-24 14:51 | disposition home or self-care (01) ==
LOC: M SDC 11:42
PROVIDERS: ATTEND Ophthalmology
DX: H25.11 Age-related nuclear cataract, right eye (principal); I48.91 Unspecified atrial fibrillation; I12.0 Hypertensive chronic kidney disease with stage 5 chronic kidney disease or end stage renal disease; K21.9 Gastro-esophageal reflux disease without esophagitis; M19.90 Unspecified osteoarthritis, unspecified site; M32.9 Systemic lupus erythematosus, unspecified; G62.9 Polyneuropathy, unspecified; Z86.73 Personal history of transient ischemic attack (TIA), and cerebral infarction without residual deficits; J45.909 Unspecified asthma, uncomplicated; F41.9 Anxiety disorder, unspecified; F32.A Depression, unspecified; N17.9 Acute kidney failure, unspecified; Z99.2 Dependence on renal dialysis; Z79.899 Other long term (current) drug therapy; Z79.01 Long term (current) use of anticoagulants; Z79.82 Long term (current) use of aspirin
CPT/HCPCS: 36415; 66984; 84132; J0697; J2250; J3010; V2632

== ENCOUNTER → 2023-11-04 | Outpatient (CLI) | payer MEDICARE ==
[~2023-11-04] MED LIST changes: -BSS IRRIG/VANCO(10MG)/TOBRA(5MG)/EPINEPH(1:1000-0.5CC)500ML BAG-ORONLY IR ONE; -CEFUROXIME 1MG/0.1ML INTRACAMERAL INJ As Ordered ONE; -CYCLOPENTOLATE 1% OPHTH SOLN 2ML BTL OD SCH; -HYDR200T3 PO; +HYDR200T46 PO; -LIDOCAINE 1% SDV 5ML VIAL As Ordered ONE; -LIDOCAINE 3.5 % 1ML OPHTH TOPICAL GEL OU ONE; -MIRT-62 PO; +MIRT-88 PO; -OFLOXACIN 0.3 % (OCUFLOX) OPTH SOL 5ML OD ONE; -PHENYLEPHRINE 10% OPHTH SOL 5ML OD PRN; -PHENYLEPHRINE 2.5% OPHTH SOL 2ML OD SCH; -TROPICAMIDE 1% OPHTH SOLN 15ML OD SCH
[2023-11-04 18:54] LABS: C REACTIVE PROTEIN QUANTITATIV 1.9 MG/DL (<1.0)
[2023-11-04 18:55] LABS: ALBUMIN 3.4 G/DL (3.2-5.2); BILIRUBIN,DIRECT 0.2 MG/DL (<0.4); BILIRUBIN,TOTAL 0.3 MG/DL (0.3-1.2); COMPLEMENT C3 99.2 MG/DL (90.0-170.0); COMPLEMENT C4 25.4 MG/DL (12-36); TOTAL PROTEIN 6.4 G/DL (5.7-8.2)
[2023-11-04 18:57] LABS: TOTAL 25(OH) VITAMIN D 25.6 NG/ML (20.0-100.0)
[2023-11-04 18:59] LABS: BASO # 0.1 10^3/uL (0.0-0.2); BASO % 1.4 % (0.0-1.0); HEMOGLOBIN 10.8 g/dl (13.5-17.5); LYMPH # 1.4 10^3/uL (1.5-5.0); LYMPH % 19.6 % (24.0-44.0); MEAN CORPUSCULAR HEMOGLOBIN 21.6 pg (27.0-33.0); MEAN CORPUSCULAR VOLUME 71.9 fl (80.0-96.0); MONO # 0.8 10^3/uL (0.0-0.8); MONO % 10.6 % (2.0-8.0); NEUTROPHILS # 4.9 10^3/uL (1.5-8.5); NEUTROPHILS % 67.3 % (36.0-66.0); PLATELET COUNT, AUTOMATED 209 10^3/uL (150-450); RED BLOOD COUNT 5.01 10^6/uL (4.30-6.10); WHITE BLOOD COUNT 7.3 10^3/uL (4.0-10.0)
[2023-11-04 19:25] LABS: ERYTHROCYTE SEDIMENTATION RATE 39 mm/hr (0-20)
[2023-11-07 23:07] LABS: ANTI DS-DNA AB Negative (Negative); COMPLEMENT TOTAL (CH50) > 60 U/mL (>41)
== END ==
LOC: M WUC 11:02
PROVIDERS: ATTEND Internal Medicine
DX: M32.9 Systemic lupus erythematosus, unspecified (principal); Z79.899 Other long term (current) drug therapy

== ENCOUNTER → 2024-04-27 | Outpatient (REF) | payer MEDICARE ==
[~2024-04-27] MED LIST changes: +DOXY-323 PO; -DOXY-443 PO; -MIRT-60 PO; +MIRT-89 PO
== END ==
LOC: M SFHCRHEU 12:02
PROVIDERS: ATTEND Internal Medicine
DX: E55.9 Vitamin D deficiency, unspecified (principal)

== ENCOUNTER → 2024-05-04 | Outpatient (CLI) | payer MEDICARE | LOC: M WUC 11:33 | PROVIDERS: ATTEND Internal Medicine | DX: E55.9 Vitamin D deficiency, unspecified (principal) ==

== ENCOUNTER 2024-05-09 10:22 | Emergency (ER) | payer MEDICARE ==
[~2024-05-09] VITALS: Ht 170.2 cm; Wt 99.3 kg
[2024-05-09 10:58] LABS: BASO # 0.1 10^3/uL (0.0-0.2); BASO % 0.8 % (0.0-1.0); HEMATOCRIT 31.3 % (42.0-52.0); HEMOGLOBIN 9.6 g/dl (13.5-17.5); LYMPH # 0.6 10^3/uL (1.5-5.0); LYMPH % 8.3 % (24.0-44.0); MEAN CORPUSCULAR HEMOGLOBIN 20.9 pg (27.0-33.0); MEAN CORPUSCULAR HGB CONC 30.7 g/dl (32.0-36.5); MONO # 0.6 10^3/uL (0.0-0.8); MONO % 7.2 % (2.0-8.0); NEUTROPHILS # 6.4 10^3/uL (1.5-8.5); NEUTROPHILS % 83.2 % (36.0-66.0); PLATELET COUNT, AUTOMATED 193 10^3/uL (150-450); WHITE BLOOD COUNT 7.7 10^3/uL (4.0-10.0)
[2024-05-09 11:08] LABS: INR 1.99; PARTIAL THROMBOPLASTIN TIME 53.8 SECONDS (24.8-34.2); PROTHROMBIN TIME 21.9 SECONDS (12.5-14.5)
[2024-05-09] MEDS ORDERED: PROTHROMBIN COMPLEX CONCEN IV ONE (11:10)
[2024-05-09] MEDS ORDERED: PROTHROMBIN COMPLEX CONCENTRAT IV ONE (11:10)
[2024-05-09] MEDS ORDERED: [UNRECOGNIZED DRUG - OTHER] IV ONE (11:10)
[2024-05-09] MEDS ORDERED: ONDANSETRON 4MG 2ML VIAL IV ONE (11:10)
[2024-05-09] MEDS: ONDANSETRON 4MG 2ML VIAL IV ONE (11:12)
[2024-05-09] MEDS: PHYTONADIONE INJection 10 MG in NS 50 ML IV ONE (11:28)
[2024-05-09 11:29] LABS: CK-MB VALUE MASS 3.3 NG/ML (<3.6)
[2024-05-09 11:31] LABS: MB/CK RELATIVE INDEX 2.14 (< OR =4)
[2024-05-09 11:41] LABS: ALBUMIN 2.8 G/DL (3.2-5.2); BILIRUBIN,DIRECT 0.3 MG/DL (<0.4); BILIRUBIN,TOTAL 0.5 MG/DL (0.3-1.2); CALCIUM LEVEL 8.4 MG/DL (8.3-10.6); CREATININE FOR GFR 12.48 MG/DL (0.70-1.30); GLOMERULAR FILTRATION RATE 4.3 (>42); TOTAL PROTEIN 5.9 G/DL (5.7-8.2)
[2024-05-09] MEDS: [UNRECOGNIZED DRUG - OTHER] IV ONE (12:07)
[2024-05-09] MEDS: PROTHROMBIN COMPLEX CONCEN IV ONE (12:07)
[2024-05-09] MEDS: PROTHROMBIN COMPLEX CONCENTRAT IV ONE (12:07)
[2024-05-09 12:36] VITALS: BP 174/79; TEMP 96.4; O2SAT 99
== END 2024-05-09 12:40 | disposition short-term general hospital (02) ==
LOC: M ED 10:22 → EDBD 10:22 → M ED 12:40
DX: I60.9 Nontraumatic subarachnoid hemorrhage, unspecified (principal); I45.2 Bifascicular block; I48.91 Unspecified atrial fibrillation; I50.30 Unspecified diastolic (congestive) heart failure; I11.0 Hypertensive heart disease with heart failure; Z87.891 Personal history of nicotine dependence; Z79.51 Long term (current) use of inhaled steroids; Z79.1 Long term (current) use of non-steroidal anti-inflammatories (NSAID); Z79.899 Other long term (current) drug therapy
CPT/HCPCS: 70450; 71045; 72125; 80048; 80076; 82550; 82553; 84484; 85025; 85610; 85730; 86850; 86900; 86901; 93005; 96365; 96366; 96374; 99291; J2405; J3430; J7168